=== PATIENT | female | born 1985 | race Caucasian/White ===

== ENCOUNTER 2016-06-07 06:56 | Emergency (ER) | payer OTHER ==
[~2016-06-07] VITALS: Ht 157.5 cm; Wt 88.1 kg
[~2016-06-07 06:56] MED LIST: KLN5 PO; LRS10 PO; NRN600 PO; OMEP40CA PO; PROM25TA9 PO; ZPAK
[2016-06-07 06:58] VITALS: TEMP 36.9; Ht 157.5 cm; Wt 88.1 kg
--- NOTE | 2016-06-07 07:33 | EMERGENCY ROOM VISIT NOTE ---
History First contact with patient: 07:06 Chief Complaint: VOMITING Stated Complaint: VOMITING Nursing Triage Summary: Flu like symptoms that started yesterday. Tired, vomiting, headache, abd cramps. 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 vomiting). No relief with peptobismol. No nausea preceding the vomiting. Didn't eat anything to avoid vomiting. Vomit x 13, large volume, clear, no blood Headache - sharp pain in temples, has photosensitivity. No aura, no rhinorrhea/ watery eyes. Has some nasal congestion Myalgia - all over Had some fevers and chills, temp unmeasured Urinary symptoms - none Diarrhea or constipation - none Has multiple sick contacts at work with similar symptoms Last menses started 12.18, no current vaginal bleeding, lots of thin white vaginal discharge - not burning or pruritic. No history of STDs. No recent change in sexual partners History of kidney stones, previous cholecystectomy and back surgery Review of Systems See HPI for pertinent positives and negatives. A total of ten systems were reviewed and were otherwise negative. Past Medical/Surgical History Medical Problems: (1) Anxiety (2) Bronchitis (3) DDD (degenerative disc disease) (4) Depression (5) Fibromyalgia (6) Gall bladder disease (7) Gestational diabetes (8) H/o C2 vertebral fracture (9) History of - miscarriage (10) Kidney stone (11) Migraine (12) PNA (pneumonia) (13) Polycystic ovaries (14) Post-operative infection (15) Seroma (16) Spinal headache (17) Vaginal delivery Surgical Problems: (1) H/O colonoscopy (2) H/O neck surgery (3) S/P cholecystectomy (4) S/p lumbar decompression/fusion (5) S/P tonsillectomy Family History Diabetes mellitus GRANDMOTHER FH: cancer MOTHER (lung, uterus) AUNT (stomach CA) FH: gallbladder disease FH: heart disease GRANDMOTHER FH: lung disease Hypertension GRANDFATHER GRANDMOTHER Kidney disease Kidney stones Seizures Stroke Thyroid disorder MOTHER Social History Smoking Status: Current Every Day Smoker Alcohol Use: none Drug Use: none Marital Status: in relationship Housing Status: lives with significant other Occupation Status: employed Current/Historical Medications Scheduled Clonazepam (Clonazepam), 0.5 MG PO BID Gabapentin (Gabapentin), 600 MG PO BID Gabapentin (Gabapentin), 800 MG PO DAILY Lubiprostone (Amitiza), 24 MCG PO BID Methylphenidate HCl (Methylphenidate HCl), 30 MG PO BID Omeprazole (Prilosec), 40 MG PO QAM Topiramate (Topamax), 200 MG PO BID Venlafaxine Hcl (Effexor Extended Rel), 150 MG PO QAM Scheduled PRN Acetaminophen (Acetaminophen), 1,000 MG PO Q6H PRN for Pain Caufnbdemt-Vbckucc-Cdumqiym W/ (Butalbital/Aspirn/Caffein), 1 CAP PO UD PRN for Headache Ibuprofen (Advil), 200-600 MG PO Q4H PRN for Pain Promethazine Hcl (Phenergan), 25 MG PO Q6H PRN for Nausea Sumatriptan Succinate (Imitrex), 100 MG PO UD PRN for Migraine Allergies Coded Allergies: Amoxicillin (Verified Allergy, Severe, HIVES AND SOB, 06/07/16) BEE STING (Verified Allergy, Severe, SWELLING, 06/07/16) Adhesives (Verified Allergy, Mild, contact dermatitis, 06/07/16) Propranolol (Verified Allergy, Mild, MOUTH SORE, RASH, 06/07/16) Morphine (Verified Adverse Reaction, Intermediate, pt reports moderate to severe stomach discomfort, 06/07/16) pt states she requires a "GI cocktail" to alleviate the stomach discomfort that occurs after receiving Morphine or dilaudid Physical Exam Vital Signs Date Time Temp Pulse Resp B/P Pulse Ox O2 Delivery O2 Flow Rate FiO2 06/07/16 10:03 74 18 114/68 99 06/07/16 09:00 90 16 124/78 98 Room Air 06/07/16 06:58 36.9 98 17 128/81 99 Room Air Physical Exam GENERAL: alert, well appearing, well nourished, sitting in bed, no acute distress, non-toxic HEAD: Normocephalic, atraumatic. No sinus tenderness. EYES: PERRL, EOMI, normal conjunctiva OROPHARYNX: no exudate, no erythema, lips, buccal mucosa, and tongue normal and mucous membranes are dry NECK: supple, no nuchal rigidity, no adenopathy, non-tender LUNGS: Clear to auscultation. Normal chest wall mechanics, good air entry. No crepitations, crackles, or wheezes HEART: no murmurs, S1 normal and S2 normal CHEST: No reproducible tenderness. ABDOMEN: abdomen soft, non-distended, normo-active bowel sounds, no masses, no rebound or guarding. Tender at epigastric and RLQ on palpation BACK: Back is symmetrical on inspection, no deformities, longstanding midline tenderness, CVA tenderness at right flank SKIN: Warm, pink, dry. No erythema, rashes, or bruising. EXTREMITIES: Grossly normal. No pitting edema. Calves non tender. NEURO: Alert, Ox3. No focal deficits. Normal sensorium, cranial nerves II-XII grossly intact, normal speech. PSYCH: Mood and affect appropriate. Medical Decision & Procedures Laboratory Results 06/07/16 07:15 Red Blood Count 4.90, Mean Corpuscular Volume 88.2, Mean Corpuscular Hemoglobin 31.0, Mean Corpuscular Hemoglobin Concent 35.2, Mean Platelet Volume 11.7, Neutrophils (%) (Auto) 69.0, Lymphocytes (%) (Auto) 22.2, Monocytes (%) (Auto) 5.8, Eosinophils (%) (Auto) 2.6, Basophils (%) (Auto) 0.2, Neutrophils # (Auto) 3.69, Lymphocytes # (Auto) 1.19, Monocytes # (Auto) 0.31, Eosinophils # (Auto) 0.14, Basophils # (Auto) 0.01 06/07/16 07:15 Test 06/07/16 07:15 White Blood Count 5.35 K/uL (4.8-10.8) Red Blood Count 4.90 M/uL (4.2-5.4) Hemoglobin 15.2 g/dL (12.0-16.0) Hematocrit 43.2 % (37-47) Mean Corpuscular Volume 88.2 fL (80-100) Mean Corpuscular Hemoglobin 31.0 pg (25-34) Mean Corpuscular Hemoglobin Concent 35.2 g/dl (32-36) Platelet Count 148 K/uL (130-400) Mean Platelet Volume 11.7 fL (7.4-10.4) Neutrophils (%) (Auto) 69.0 % Lymphocytes (%) (Auto) 22.2 % Monocytes (%) (Auto) 5.8 % Eosinophils (%) (Auto) 2.6 % Basophils (%) (Auto) 0.2 % Neutrophils # (Auto) 3.69 K/uL (1.4-6.5) Lymphocytes # (Auto) 1.19 K/uL (1.2-3.4) Monocytes # (Auto) 0.31 K/uL (0.11-0.59) Eosinophils # (Auto) 0.14 K/uL (0-0.5) Basophils # (Auto) 0.01 K/uL (0-0.2) RDW Standard Deviation 39.2 fL (36.4-46.3) RDW Coefficient of Variation 12.3 % (11.5-14.5) Immature Granulocyte % (Auto) 0.2 % Immature Granulocyte # (Auto) 0.01 K/uL (0.00-0.02) Urine Color DK YELLOW Urine Appearance TURBID (CLEAR) Urine pH 5.0 (4.5-7.5) Urine Specific [place] 1.038 (1.000-1.030) Urine Protein NEG (NEG) Urine Glucose (UA) NEG (NEG) Urine Ketones NEG (NEG) Urine Occult Blood 1+ (NEG) Urine Nitrite NEG (NEG) Urine Bilirubin NEG (NEG) Urine Urobilinogen NEG (NEG) Urine Leukocyte Esterase NEG (NEG) Urine WBC (Auto) /hpf (0-5) Urine RBC (Auto) /hpf (0-4) Urine Hyaline Casts (Auto) /lpf (0-5) Urine Epithelial Cells (Auto) /lpf (0-5) Urine Bacteria (Auto) (NEG) Urine RBC 0-4 /hpf (0-4) Urine WBC 1-5 /hpf (0-5) Urine Epithelial Cells >30 /lpf (0-5) Urine Amorphous Sediment PRESENT (NONE PRSENT) Urine Bacteria 1+ (NEG) Urine Pathogenic Casts /lpf (0) Urine Test NEG (NEG) Anion Gap 6.0 mmol/L (3-11) Est Creatinine Clear Calc Drug Dose 100.7 ml/min Estimated GFR () 107.3 Estimated GFR (Non- 92.6 BUN/Creatinine Ratio 19.2 (10-20) Calcium Level 8.6 mg/dl (8.5-10.1) Total Bilirubin 0.8 mg/dl (0.2-1) Direct Bilirubin 0.2 mg/dl (0-0.2) Aspartate Amino Transf (AST/SGOT) 10 U/L (15-37) Alanine Aminotransferase (ALT/SGPT) 24 U/L (12-78) Alkaline Phosphatase 62 U/L (45-117) Total Protein 7.9 gm/dl (6.4-8.2) Albumin 4.1 gm/dl (3.4-5.0) Lipase 143 U/L (73-393) Medications Administered Medications (Trade) Dose Ordered Sig/Saundra Route Start Time Stop Time Status Last Admin Dose Admin Ketorolac Tromethamine 30 mg 30 mg NOW STAT IV 06/07/16 07:35 06/07/16 07:41 DC 06/07/16 07:53 30 MG Sodium Chloride 1,000 ml @ 500 mls/hr Q2H IV 06/07/16 07:45 07/07/16 07:44 06/07/16 07:52 500 MLS/HR Promethazine HCl/ Sodium Chloride (Phenergan Inj/ Nss 50ml) 51 ml @ 204 mls/hr NOW STAT IV 06/07/16 07:58 06/07/16 08:28 DC 06/07/16 07:58 204 MLS/HR Medical Decision 30 year old female presents to ED with multiple episodes vomiting associated with abdominal pain Etiologies such as gastroenteritis, food borne illness, infections, obstruction , pancreatitis, appendicitis, diverticulitis, inflammatory bowel disease, GI bleed, biliary pathology, toxicologic as well as others were entertained. Patient was given 25 mg IV of phenergen and 30mg IV of Toradol for symptom relief. Additionally, 1L of IV normal saline was given to improve hydration status. Lab work was performed. CBC, BMP, LFT, and lipase were all within normal limits. Upon returning to room to update patient while awaiting urine results, saw patient was sleeping comfortably. Updated her guest visitor in the interim. Urine screen was negative for , and besides some hematuria, urinalysis showed contamination without evidence of urinary infection. Likely acute gastroenteritis. As such, patient advised for conservative management with Tylenol or Motrin for pain relief and increased oral intake to improve hydration status Patient discharged home well Impression Primary Impression: Gastroenteritis Additional Impression: Vomiting Departure Information Dispostion Home / Self-Care Condition GOOD Referrals Kieran Hemphill M.D. (PCP) Patient Instructions A Signature Page, My [facility] Work Instructions Return To Work: 2 days Lifting Limitations: none
[2016-06-07] MEDS ORDERED: PROMETHAZINE HCL INJ 25 MG/ML 1 ML VIAL IM STA (07:35)
[2016-06-07] MEDS ORDERED: KETOROLAC TROMETHAMINE 30 MG/ML VIAL IV STA (07:35)
[2016-06-07] MEDS: SODIUM CHLORIDE 0.9% 1000ML 1,000 ML IV SCH ×2 (07:52→09:45)
[2016-06-07 07:53] LABS: BASO % 0.2 %; BASO ABS # 0.01 K/uL (0-0.2); COMPLETE YES; EOS % 2.6 %; HEMATOCRIT 43.2 % (37-47); IG% 0.2 %; LYMPH % 22.2 %; LYMPH ABS # 1.19 K/uL (1.2-3.4); MEAN CELL VOLUME 88.2 fL (80-100); MEAN CORPUSCULAR HGB CONC 35.2 g/dl (32-36); MEAN PLATELET VOLUME 11.7 fL (7.4-10.4); MONO % 5.8 %; PLATELET COUNT 148 K/uL (130-400); WHITE BLOOD COUNT 5.35 K/uL (4.8-10.8)
[2016-06-07] MEDS ORDERED: PROMETHAZINE HCL INJ 25 MG in SODIUM CHLORIDE 0.9% 50ML 50 ML IV STA (07:58)
[2016-06-07 08:01] LABS: BUN/CREATININE RATIO 19.2 (10-20); CALCIUM 8.6 mg/dl (8.5-10.1); CREATININE 0.85 mg/dl (0.60-1.20); POTASSIUM 3.7 mmol/L (3.5-5.1)
[2016-06-07 08:53] LABS: MANUAL MICROSCOPIC REQUIRED? YES; REVIEW REQ? NO; URINE APPEARANCE TURBID (CLEAR); URINE BILIRUBIN NEG (NEG); URINE COLOR DK YELLOW; URINE NITRITE NEG (NEG); URINE SPECIFIC GRAVITY 1.038 (1.000-1.030); UROBILINOGEN NEG (NEG)
[2016-06-07 09:03] LABS: URINE AMORPHOUS SEDIMENT PRESENT (NONE PRSENT); URINE BACTERIA 1+ (NEG)
[2016-06-07 09:04] LABS: URINE RBC 0-4 /hpf (0-4)
--- NOTE | 2016-06-07 09:18 | EMERGENCY ROOM VISIT NOTE ---
History Report prepared by Vaughn: Siomara Hook Under the Supervision of: Dr. Carlos Alberto Hay D.O. First contact with patient: 07:06 Chief Complaint: VOMITING Stated Complaint: VOMITING Nursing Triage Summary: Flu like symptoms that started yesterday. Tired, vomiting, headache, abd cramps. History of Present Illness The patient is a 30 year old female who presents to the Emergency Room with complaints of persistent vomiting that started two days ago. She has experienced 13 episodes of vomiting. The patient is also experiencing a headache , fever, chills, and myalgias, but denies hematemesis, diarrhea, and urinary symptoms. Additionally, she is experiencing abdominal pain in her epigastric region and right lower quadrant. She describes the pain as cramping. The patient states that she is not currently menstruating but she is experiencing a white vaginal discharge. She denies any vaginal bleeding along with any chance of STDs. She denies any recent changes in partners. The patient states that the white vaginal discharge is normal whenever she is sick or has kidney stones. She states that she has some right flank pain but she has back issues that she needs to get surgery for. Source of History: patient Onset: two days ago Quality: other (vomiting) Timing: other (persistent) Associated Symptoms: + abdominal pain (epigastric, RLQ, described as cramping), + chills, + fevers, + headache, No diarrhea, No urinary symptoms Note: myalgias, no hematemesis Review of Systems See HPI for pertinent positives & negatives. A total of 10 systems reviewed and were otherwise negative. Past Medical & Surgical Medical Problems: (1) Anxiety (2) Bronchitis (3) DDD (degenerative disc disease) (4) Depression (5) Fibromyalgia (6) Gall bladder disease (7) Gestational diabetes (8) H/o C2 vertebral fracture (9) History of - miscarriage (10) Kidney stone (11) Migraine (12) PNA (pneumonia) (13) Polycystic ovaries (14) Post-operative infection (15) Seroma (16) Spinal headache (17) Vaginal delivery Surgical Problems: (1) H/O colonoscopy (2) H/O neck surgery (3) S/P cholecystectomy (4) S/p lumbar decompression/fusion (5) S/P tonsillectomy Family History Diabetes mellitus GRANDMOTHER FH: cancer MOTHER (lung, uterus) AUNT (stomach CA) FH: gallbladder disease FH: heart disease GRANDMOTHER FH: lung disease Hypertension GRANDFATHER GRANDMOTHER Kidney disease Kidney stones Seizures Stroke Thyroid disorder MOTHER Social History Smoking Status: Current Every Day Smoker Alcohol Use: none Drug Use: none Marital Status: in relationship Housing Status: lives with significant other Occupation Status: employed Current/Historical Medications Scheduled Clonazepam (Clonazepam), 0.5 MG PO BID Gabapentin (Gabapentin), 600 MG PO BID Gabapentin (Gabapentin), 800 MG PO DAILY Lubiprostone (Amitiza), 24 MCG PO BID Methylphenidate HCl (Methylphenidate HCl), 30 MG PO BID Omeprazole (Prilosec), 40 MG PO QAM Topiramate (Topamax), 200 MG PO BID Venlafaxine Hcl (Effexor Extended Rel), 150 MG PO QAM Scheduled PRN Acetaminophen (Acetaminophen), 1,000 MG PO Q6H PRN for Pain Ygyrwvhhlh-Gcaocyn-Ekinqxqm W/ (Butalbital/Aspirn/Caffein), 1 CAP PO UD PRN for Headache Ibuprofen (Advil), 200-600 MG PO Q4H PRN for Pain Promethazine Hcl (Phenergan), 25 MG PO Q6H PRN for Nausea Sumatriptan Succinate (Imitrex), 100 MG PO UD PRN for Migraine Allergies Coded Allergies: Amoxicillin (Verified Allergy, Severe, HIVES AND SOB, 06/07/16) BEE STING (Verified Allergy, Severe, SWELLING, 06/07/16) Adhesives (Verified Allergy, Mild, contact dermatitis, 06/07/16) Propranolol (Verified Allergy, Mild, MOUTH SORE, RASH, 06/07/16) Morphine (Verified Adverse Reaction, Intermediate, pt reports moderate to severe stomach discomfort, 06/07/16) pt states she requires a "GI cocktail" to alleviate the stomach discomfort that occurs after receiving Morphine or dilaudid Physical Exam Vital Signs Date Time Temp Pulse Resp B/P Pulse Ox O2 Delivery O2 Flow Rate FiO2 06/07/16 10:03 74 18 114/68 99 06/07/16 09:00 90 16 124/78 98 Room Air 06/07/16 06:58 36.9 98 17 128/81 99 Room Air Physical Exam CONSTITUTIONAL/VITAL SIGNS: Reviewed / noted above. GENERAL: Non-toxic 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 INTEGUMENTARY: Warm, dry, and [place]. HEAD: Normocephalic. EYES: without scleral icterus or trauma. ENT/OROPHARYNX: clear and moist. LYMPHADENOPATHY/NECK: Is supple without lymphadenopathy or meningismus. RESPIRATORY: Lungs clear and equal. CARDIOVASCULAR: Regular rate and rhythm. GI/ABDOMEN: Soft and mild diffuse tenderness. No organomegaly or pulsatile mass. No rebound or guarding. Normal bowel sounds. EXTREMITIES: Warm and well perfused. BACK: No CVA tenderness. NEUROLOGICAL: Intact without focal deficits. PSYCHIATRIC: normal affect. MUSCULOSKELETAL: Normally developed with good muscle tone. Medical Decision & Procedures Laboratory Results 06/07/16 07:15 Red Blood Count 4.90, Mean Corpuscular Volume 88.2, Mean Corpuscular Hemoglobin 31.0, Mean Corpuscular Hemoglobin Concent 35.2, Mean Platelet Volume 11.7, Neutrophils (%) (Auto) 69.0, Lymphocytes (%) (Auto) 22.2, Monocytes (%) (Auto) 5.8, Eosinophils (%) (Auto) 2.6, Basophils (%) (Auto) 0.2, Neutrophils # (Auto) 3.69, Lymphocytes # (Auto) 1.19, Monocytes # (Auto) 0.31, Eosinophils # (Auto) 0.14, Basophils # (Auto) 0.01 06/07/16 07:15 Test 06/07/16 07:15 White Blood Count 5.35 K/uL (4.8-10.8) Red Blood Count 4.90 M/uL (4.2-5.4) Hemoglobin 15.2 g/dL (12.0-16.0) Hematocrit 43.2 % (37-47) Mean Corpuscular Volume 88.2 fL (80-100) Mean Corpuscular Hemoglobin 31.0 pg (25-34) Mean Corpuscular Hemoglobin Concent 35.2 g/dl (32-36) Platelet Count 148 K/uL (130-400) Mean Platelet Volume 11.7 fL (7.4-10.4) Neutrophils (%) (Auto) 69.0 % Lymphocytes (%) (Auto) 22.2 % Monocytes (%) (Auto) 5.8 % Eosinophils (%) (Auto) 2.6 % Basophils (%) (Auto) 0.2 % Neutrophils # (Auto) 3.69 K/uL (1.4-6.5) Lymphocytes # (Auto) 1.19 K/uL (1.2-3.4) Monocytes # (Auto) 0.31 K/uL (0.11-0.59) Eosinophils # (Auto) 0.14 K/uL (0-0.5) Basophils # (Auto) 0.01 K/uL (0-0.2) RDW Standard Deviation 39.2 fL (36.4-46.3) RDW Coefficient of Variation 12.3 % (11.5-14.5) Immature Granulocyte % (Auto) 0.2 % Immature Granulocyte # (Auto) 0.01 K/uL (0.00-0.02) Urine Color DK YELLOW Urine Appearance TURBID (CLEAR) Urine pH 5.0 (4.5-7.5) Urine Specific [place] 1.038 (1.000-1.030) Urine Protein NEG (NEG) Urine Glucose (UA) NEG (NEG) Urine Ketones NEG (NEG) Urine Occult Blood 1+ (NEG) Urine Nitrite NEG (NEG) Urine Bilirubin NEG (NEG) Urine Urobilinogen NEG (NEG) Urine Leukocyte Esterase NEG (NEG) Urine WBC (Auto) /hpf (0-5) Urine RBC (Auto) /hpf (0-4) Urine Hyaline Casts (Auto) /lpf (0-5) Urine Epithelial Cells (Auto) /lpf (0-5) Urine Bacteria (Auto) (NEG) Urine RBC 0-4 /hpf (0-4) Urine WBC 1-5 /hpf (0-5) Urine Epithelial Cells >30 /lpf (0-5) Urine Amorphous Sediment PRESENT (NONE PRSENT) Urine Bacteria 1+ (NEG) Urine Pathogenic Casts /lpf (0) Urine Test NEG (NEG) Anion Gap 6.0 mmol/L (3-11) Est Creatinine Clear Calc Drug Dose 100.7 ml/min Estimated GFR () 107.3 Estimated GFR (Non- 92.6 BUN/Creatinine Ratio 19.2 (10-20) Calcium Level 8.6 mg/dl (8.5-10.1) Total Bilirubin 0.8 mg/dl (0.2-1) Direct Bilirubin 0.2 mg/dl (0-0.2) Aspartate Amino Transf (AST/SGOT) 10 U/L (15-37) Alanine Aminotransferase (ALT/SGPT) 24 U/L (12-78) Alkaline Phosphatase 62 U/L (45-117) Total Protein 7.9 gm/dl (6.4-8.2) Albumin 4.1 gm/dl (3.4-5.0) Lipase 143 U/L (73-393) Laboratory results as stated above per my review. Medications Administered Medications (Trade) Dose Ordered Sig/Saundra Route Start Time Stop Time Status Last Admin Dose Admin Ketorolac Tromethamine 30 mg 30 mg NOW STAT IV 06/07/16 07:35 06/07/16 07:41 DC 06/07/16 07:53 30 MG Sodium Chloride 1,000 ml @ 500 mls/hr Q2H IV 06/07/16 07:45 06/07/16 10:57 DC 06/07/16 09:45 500 MLS/HR Promethazine HCl/ Sodium Chloride (Phenergan Inj/ Nss 50ml) 51 ml @ 204 mls/hr NOW STAT IV 06/07/16 07:58 06/07/16 08:28 DC 06/07/16 07:58 204 MLS/HR ED Course 0715: The medical science liaison evaluated the patient at this time. We discussed her findings and potential treatment plans. 0735: Ordered Toradol 30 mg IV, Phenergan 25 mg IM 0745: Ordered Sodium Chloride 1000 ml @ 500 mls/hr IV 0758: Ordered Promethazine HCl 25 mg/Sodium Chloride 51 ml @ 204 mls/hr IV 0915: Previous medical records were reviewed. The patient was evaluated in room B2. A complete history and physical examination was performed. 0922: On reevaluation, the patient is doing well. I discussed the results and findings with the patient. She verbalized agreement of the treatment plan. She was discharged home. Medical Decision Differential includes gastroenteritis, food borne illness, infections, appendicitis, diverticulitis, inflammatory bowel disease, obstruction, GI bleed , biliary pathology. This is a 30-year-old female who presents to the ED with a chief complaint of nausea, vomiting and abdominal pain for the past couple of days. She also complains of myalgias as well as subjective fevers and chills and crampy abdominal pain. She states that she has vomited about 13 times. The patient on exam has mild tenderness diffusely in the abdomen. Her exam is otherwise unremarkable. Her vital signs are stable. She is afebrile. CBC is normal. Complete metabolic panel is normal. Lipase was negative. Urine did not show obvious infection. It was contaminated. She is not . The patient was treated as above with IV Toradol as well as IV nausea medication and fluids. She was felt stable for discharge. She was seen in conjunction with the resident. Impression Primary Impression: Vomiting Additional Impression: Abdominal cramps Scribe Attestation The scribe's documentation has been prepared under my direction and personally reviewed by me in its entirety. I confirm that the note above accurately reflects all work, treatment, procedures, and medical decision making performed by me. Departure Information Dispostion Home / Self-Care Referrals Kieran Hemphill M.D. (PCP) Forms HOME CARE DOCUMENTATION FORM, IMPORTANT VISIT INFORMATION Patient Instructions A Signature Page, My [facility]
[2016-06-07 10:03] VITALS: BP 114/68; PULSE 74; O2SAT 99
[2016-10-25] MEDS ORDERED: LINA1CAP PO (09:48)
[2016-10-25] MEDS ORDERED: EPP3/2 IM ×2 (09:48→22:05)
[2016-10-25] MEDS ORDERED: CYCL10TA6 PO (09:48)
[2016-10-25] MEDS ORDERED: TRMCR130WC TOP (09:48)
[2016-10-25] MEDS ORDERED: CETI10TA84 PO (09:48)
[2016-10-25] MEDS ORDERED: LACT10SO17 PO (09:48)
[2016-10-25] MEDS ORDERED: ONDA8TAB6 PO (09:48)
[2016-10-25] MEDS ORDERED: DIPH1TAB PO (09:48)
[2016-10-25] MEDS ORDERED: TRAM-10 PO (10:41)
[2016-10-25] MEDS ORDERED: VENL150C56 PO (14:06)
[2016-10-25] MEDS ORDERED: RTL20 PO (14:06)
[2016-10-25] MEDS ORDERED: ZNTT/150 PO (15:50)
[2016-10-25] MEDS ORDERED: PROM25TA9 PO (16:34)
[2016-10-25] MEDS ORDERED: CLON1TAB3 PO (16:34)
[2016-10-25] MEDS ORDERED: OMEP20CA9 PO (16:34)
== END 2016-06-07 10:15 | disposition home or self-care (01) ==
LOC: C.EDB 06:57
DX: R11.10 Vomiting, unspecified (principal); R10.9 Unspecified abdominal pain; F41.9 Anxiety disorder, unspecified; F32.9 Major depressive disorder, single episode, unspecified; Z87.442 Personal history of urinary calculi; Z87.01 Personal history of pneumonia (recurrent); Z90.49 Acquired absence of other specified parts of digestive tract; Z90.89 Acquired absence of other organs; Z98.890 Other specified postprocedural states; F17.200 Nicotine dependence, unspecified, uncomplicated; Z83.3 Family history of diabetes mellitus; Z80.1 Family history of malignant neoplasm of trachea, bronchus and lung; Z80.0 Family history of malignant neoplasm of digestive organs; Z82.49 Family history of ischemic heart disease and other diseases of the circulatory system; Z83.6 Family history of other diseases of the respiratory system; Z84.1 Family history of disorders of kidney and ureter; Z82.0 Family history of epilepsy and other diseases of the nervous system; Z82.3 Family history of stroke; Z88.1 Allergy status to other antibiotic agents; Z88.5 Allergy status to narcotic agent

== ENCOUNTER 2016-06-22 14:09 | Emergency (ER) | payer OTHER ==
[~2016-06-22] VITALS: Ht 157.5 cm; Wt 87.5 kg
[~2016-06-22 14:09] MED LIST changes: -LRS10 PO; -ZPAK
[2016-06-22 14:23] VITALS: TEMP 36.8; Ht 157.5 cm; Wt 87.5 kg
--- NOTE | 2016-06-22 15:18 | EMERGENCY ROOM VISIT NOTE ---
History First contact with patient: 15:12 Chief Complaint: OVERDOSE (ACCIDENTAL) Stated Complaint: OVERDOSE ACCIDENTAL Nursing Triage Summary: Pt states, "I had to switch shifts and had to open up at 0400 and I accidently took two doses of my Gabapentin 1600mg, Topmax 400mg, Neurotin 300mg, Ritalin 40mg. I took them an hour apart. My veins feel like they are on fire. My ears are ringing. I feel dizzy and lightheaded. My legs are really wobbly. I took the medicine at 2am and 4am." History of Present Illness The patient is a 30 year old female who presents to the Emergency Room via private vehicle with complaints of "overdose, accidental". The patient states that she works at [employer] and worked an overnight shift and when she came home she took 800 mg of gabapentin, 200 mg of Topamax, 150 mg of Effexor and 20 mg of Reglan. She then fell asleep and woke up for the next shift thinking that it was the next day and accidentally took her medication again. She is taking a total of 600 mg of gabapentin, 4 mg of Topamax, 300 mg of Effexor and 40 mg of Ritalin. She is here complaining of worsening symptoms. She states that she initially took the medication dose at 2 AM today and 4 AM. 45 minutes after this she began with stomach cramping, a pressure in her chest and blurred vision/spots within her vision. 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 She also feels lightheaded/"woozy and has associated nausea but no vomiting. Regarding the chest pain she feels like her something sitting on her chest and there is associated difficulty swallowing and talking. At home she tried lying down. The symptoms would subside however they did not therefore she called her primary care doctor who asked her to come in to be seen by the emergency department. She denies any history of seizures, bleeding disorders or clotting disorders. Review of Systems A complete 10-point Review of Systems was discussed with the patient, with pertinent positives and negatives listed in the History of Present Illness. All remaining Review of Systems questions can be considered negative unless otherwise specified. Past Medical/Surgical History Medical Problems: (1) Anxiety (2) Bronchitis (3) DDD (degenerative disc disease) (4) Depression (5) Fibromyalgia (6) Gall bladder disease (7) Gestational diabetes (8) H/o C2 vertebral fracture (9) History of - miscarriage (10) Kidney stone (11) Migraine (12) PNA (pneumonia) (13) Polycystic ovaries (14) Post-operative infection (15) Seroma (16) Spinal headache (17) Vaginal delivery Surgical Problems: (1) H/O colonoscopy (2) H/O neck surgery (3) S/P cholecystectomy (4) S/p lumbar decompression/fusion (5) S/P tonsillectomy Family History Diabetes mellitus GRANDMOTHER FH: cancer MOTHER (lung, uterus) AUNT (stomach CA) FH: gallbladder disease FH: heart disease GRANDMOTHER FH: lung disease Hypertension GRANDFATHER GRANDMOTHER Kidney disease Kidney stones Seizures Stroke Thyroid disorder MOTHER Social History Smoking Status: Current Every Day Smoker Alcohol Use: none Drug Use: none Marital Status: in relationship Housing Status: lives with significant other Occupation Status: employed Current/Historical Medications Scheduled Gabapentin (Gabapentin), 800 MG PO TID Lubiprostone (Amitiza), 24 MCG PO BID Methylphenidate HCl (Methylphenidate HCl), 20 MG PO BID Omeprazole (Prilosec), 20 MG PO DAILY Topiramate (Topamax), 200 MG PO BID Venlafaxine Hcl (Effexor Extended Rel), 150 MG PO QAM Scheduled PRN Acetaminophen (Acetaminophen), 1,000 MG PO Q6H PRN for Pain Psldtibsmf-Owpyaav-Pqotfmko W/ (Butalbital/Aspirn/Caffein), 1 CAP PO Q4H PRN for Headache Clonazepam (Klonopin), 0.5 MG PO BID PRN for Anxiety Ibuprofen (Advil), 200-600 MG PO Q4H PRN for Pain Promethazine Hcl (Phenergan), 25 MG PO Q6H PRN for Nausea Sumatriptan Succinate (Imitrex), 100 MG PO UD PRN for Migraine Allergies Coded Allergies: Amoxicillin (Verified Allergy, Severe, HIVES AND SOB, 06/07/16) BEE STING (Verified Allergy, Severe, SWELLING, 06/07/16) Adhesives (Verified Allergy, Mild, contact dermatitis, 06/07/16) Propranolol (Verified Allergy, Mild, MOUTH SORE, RASH, 06/07/16) Hydromorphone (Verified Allergy, Unknown, Abdominal Pain, 06/22/16) Morphine (Verified Adverse Reaction, Intermediate, pt reports moderate to severe stomach discomfort, 06/07/16) pt states she requires a "GI cocktail" to alleviate the stomach discomfort that occurs after receiving Morphine or dilaudid Physical Exam Vital Signs Date Time Temp Pulse Resp B/P Pulse Ox O2 Delivery O2 Flow Rate FiO2 06/22/16 20:39 78 20 104/63 98 06/22/16 20:09 67 06/22/16 19:15 70 18 101/66 99 Room Air 06/22/16 18:38 77 16 123/65 98 Room Air 06/22/16 16:15 74 16 123/77 96 Room Air 06/22/16 15:37 76 06/22/16 14:23 36.8 94 16 138/87 94 Room Air Physical Exam VITAL SIGNS - Vital signs and nursing notes were reviewed. Patient is afebrile , with a blood pressure 138/87, she is not tachycardic and is saturating well on room air 94%. GENERAL -30-year-old female appearing her stated age who is in no acute distress. Communicates well with provider and answers questions appropriately. SKIN - Without rashes. There are no abrasions or lacerations noted. HEAD - NC/AT. No evidence of trauma. EYES - PERRL with EOMI bilaterally. Patient does have horizontal nystagmus slightly with bilateral dilated pupils are reactive. Sclera anicteric. Palpebral conjunctiva pink and moist with no injection noted. EARS - No deformities of external structures noted on gross examination bilaterally. NOSE - Midline and without cyanosis. No epistaxis or purulent drainage noted. MOUTH/OROPHARYNX - Without perioral cyanosis. Buccal mucosa pink and moist and without leukoplakia. Tongue midline with equal elevation of palate bilaterally. No tonsillar hypertrophy, erythema, or exudates noted. Fair dentition noted. NECK - Neck with FROM. LUNGS - Chest wall symmetric without accessory muscle use, intercostals retractions, or central cyanosis. Normal vesicular breath sounds CTA B/L. No wheezes, rales, or rhonchi appreciated. CARDIAC - RRR with S1/S2. No murmur, rubs, or gallops appreciated. ABDOMEN - Abdominal contour without pulsations or visible masses. BS normoactive all four quadrants. No palpable masses, hepatosplenomegaly, or ascites noted. Minimal tenderness in right upper quadrant. EXTREMITIES - No clubbing or peripheral cyanosis. No pretibial edema present. + 5/5 strength noted in UE/LE bilaterally. NEUROLOGIC - Cranial nerves II through XII grossly intact. Sensory intact to light touch throughout. Slightly diminished sensation to light touch throughout the extremities intermittently. Patient does have supposedly chronic nerve damage. PSYCH - A&Ox3 and cooperates fully with examiner. There is slurred speech noted. Pt is very pleasant and interacts well with examiner. Medical Decision & Procedures ER Provider Diagnostic Interpretation: SINGLE VIEW CHEST CLINICAL HISTORY: Chest pressure. FINDINGS: An AP, portable, upright chest radiograph is compared to study dated 08/20/2015. The cardiomediastinal silhouette is unremarkable. The lungs and pleural spaces are clear. No pneumothorax is seen. The bony thorax is grossly intact. Cholecystectomy clips are identified in the right upper quadrant. IMPRESSION: No active disease in the chest. Electronically signed by: Moi George M.D. 06/22/2016 4:10 PM Dictated Date/Time: 06/22/2016 4:[address] CT DOSE: 679.75 mGycm HISTORY: Accidental overdose, neurologic symptoms TECHNIQUE: Multiaxial CT images of the head were performed without the use of intravenous contrast. Automated exposure control was utilized for this study. Comparison: Head CT 06/19/2015. Findings: The paranasal sinuses and mastoid air cells are clear. The calvarium and skull base are intact. The ventricles and sulci are within normal limits. There is no mass, hematoma, midline shift, or acute infarct. Stable screw through the odontoid. Impression: No acute intracranial abnormality. Electronically signed by: Phillip Padilla M.D. 06/22/2016 6:47 PM Dictated Date/Time: 06/22/2016 6:45 PM Laboratory Results 06/22/16 16:10 Red Blood Count 4.80, Mean Corpuscular Volume 87.3, Mean Corpuscular Hemoglobin 30.8, Mean Corpuscular Hemoglobin Concent 35.3, Mean Platelet Volume 10.8, Neutrophils (%) (Auto) 60.8, Lymphocytes (%) (Auto) 29.3, Monocytes (%) (Auto) 6.9, Eosinophils (%) (Auto) 2.4, Basophils (%) (Auto) 0.4, Neutrophils # (Auto) 3.37, Lymphocytes # (Auto) 1.62, Monocytes # (Auto) 0.38, Eosinophils # (Auto) 0.13, Basophils # (Auto) 0.02 06/22/16 16:10 Test 06/22/16 16:10 06/22/16 17:10 White Blood Count 5.53 K/uL (4.8-10.8) Red Blood Count 4.80 M/uL (4.2-5.4) Hemoglobin 14.8 g/dL (12.0-16.0) Hematocrit 41.9 % (37-47) Mean Corpuscular Volume 87.3 fL (80-100) Mean Corpuscular Hemoglobin 30.8 pg (25-34) Mean Corpuscular Hemoglobin Concent 35.3 g/dl (32-36) Platelet Count 188 K/uL (130-400) Mean Platelet Volume 10.8 fL (7.4-10.4) Neutrophils (%) (Auto) 60.8 % Lymphocytes (%) (Auto) 29.3 % Monocytes (%) (Auto) 6.9 % Eosinophils (%) (Auto) 2.4 % Basophils (%) (Auto) 0.4 % Neutrophils # (Auto) 3.37 K/uL (1.4-6.5) Lymphocytes # (Auto) 1.62 K/uL (1.2-3.4) Monocytes # (Auto) 0.38 K/uL (0.11-0.59) Eosinophils # (Auto) 0.13 K/uL (0-0.5) Basophils # (Auto) 0.02 K/uL (0-0.2) RDW Standard Deviation 39.4 fL (36.4-46.3) RDW Coefficient of Variation 12.2 % (11.5-14.5) Immature Granulocyte % (Auto) 0.2 % Immature Granulocyte # (Auto) 0.01 K/uL (0.00-0.02) Anion Gap 10.0 mmol/L (3-11) Est Creatinine Clear Calc Drug Dose 96.9 ml/min Estimated GFR () 102.9 Estimated GFR (Non- 88.8 BUN/Creatinine Ratio 13.1 (10-20) Calcium Level 9.1 mg/dl (8.5-10.1) Total Bilirubin 0.6 mg/dl (0.2-1) Aspartate Amino Transf (AST/SGOT) 79 U/L (15-37) Alanine Aminotransferase (ALT/SGPT) 94 U/L (12-78) Alkaline Phosphatase 76 U/L (45-117) Troponin I < 0.015 ng/ml (0-0.045) Total Protein 7.7 gm/dl (6.4-8.2) Albumin 4.0 gm/dl (3.4-5.0) Globulin 3.7 gm/dl (2.5-4.0) Albumin/Globulin Ratio 1.1 (0.9-2) Urine Color YELLOW Urine Appearance CLOUDY (CLEAR) Urine pH >= 9.0 (4.5-7.5) Urine Specific [place] 1.015 (1.000-1.030) Urine Protein NEG (NEG) Urine Glucose (UA) NEG (NEG) Urine Ketones NEG (NEG) Urine Occult Blood NEG (NEG) Urine Nitrite NEG (NEG) Urine Bilirubin NEG (NEG) Urine Urobilinogen NEG (NEG) Urine Leukocyte Esterase NEG (NEG) Urine WBC (Auto) 0 /hpf (0-5) Urine RBC (Auto) 0-4 /hpf (0-4) Urine Hyaline Casts (Auto) 1-5 /lpf (0-5) Urine Epithelial Cells (Auto) >30 /lpf (0-5) Urine Bacteria (Auto) NEG (NEG) Urine Test NEG (NEG) Urine Opiates Screen NEG (NEG) Urine Methadone, Qualitative NEG (NEG) Urine Barbiturates POS (NEG) Urine Phencyclidine (PCP) Level NEG (NEG) Ur Amphetamine/Methamphetamine NEG (NEG) MDMA (Ecstasy) Screen NEG (NEG) Urine Benzodiazepines Screen NEG (NEG) Urine Cocaine Metabolite NEG (NEG) Urine Marijuana (THC) NEG (NEG) Medications Administered Medications (Trade) Dose Ordered Sig/Saundra Route Start Time Stop Time Status Last Admin Dose Admin Sodium Chloride (Nss 500ml) 500 ml @ 500 mls/hr Q1H STAT IV 06/22/16 15:37 06/22/16 16:36 DC 06/22/16 15:37 500 MLS/HR Medical Decision Patient was seen and evaluated as above. After obtaining a thorough history and physical examination immediate consultation was obtained through the [facility] at 3:50 PM. They did not feel that the medication was a toxic amount but did recommend that we monitor the QTC secondary to the Effexor. They believe her symptoms are likely secondary to a combination of all these medications but because of the persistence and length of time since she ingested these with prolonged symptoms it was recommended a further workup be pursued as it may be something else. A stat EKG was obtained and revealed sinus rhythm rate of 65 bpm with a second-degree AV block Mobitz type I with T-wave inversion in the anterior leads. This was compared to EKG of 08/20/2015. I then elected to repeat an EKG roughly 3-1/2 hours after the patient's stay which revealed sinus rhythm without the second-degree AV block. The QTC on both EKGs were within normal limits. Patient was hydrated with 500 mL's of normal saline and the above workup was obtained. CBC reveals no leukocytosis or anemia. CMP reveals no slight abnormality or evidence of kidney failure. AST and ALTs were both elevated but were not nearly as elevated as they have been in the past. These were discussed with the patient. Urine reveals a high pH with epithelial cells otherwise negative. Urine is negative. Toxicology reveals positive for barbiturates of which she is prescribed. Otherwise negative. Patient was monitored for a long period of time and was reassessed multiple times. She did not appear to have any decline or incline in her condition throughout her stay through multiple reassessments. At one point a male woodworking shop laborer did accompany her and then shortly after she was reassessed and noted that she wanted to go home. She stated that she was fine and her symptoms were gone and she wanted to go home. She wanted her IV out. I asked her if I could've a more personal doctor and she agreed. I then spoke with Elena from mental health who came to evaluate the patient as I was concerned that although I believe this was an accidental overdose that these quick change of symptoms warrants this. This did not reveal any concern beyond what was already present. The patient stated a 7:15 that she would like to go home. I stated that this was okay however it was recommended that she actually stay in the hospital for continued observation and further evaluation and management. She stated that she was expecting abdominal pain that nobody can tell her what is going on and has had CT scans of the abdomen with contrast, colonoscopies as well as vaginal ultrasounds without answers. I explained her that I can certainly will release today but are not able to guarantee that we find the exact cause is this is chronic in nature. She does follow with a GI specialist. She asked that if I was going to admit her she at least lost about smoke a cigarette first. I explained her that this would not be appropriate. She then stated that she would like to go home at 8:31 PM. She was educated upon worrisome symptoms which to return, had questions answered prior to discharge and I then prepared her for discharge she was discharged. I do that this time that she is able to follow-up in the outpatient setting however she did make the ultimate decision to go home. In evaluation treatment this patient the following differential diagnoses were entertained: Accidental overdose, intentional overdose, suicidal ideations, homicidal ideations, among others. I was unable to appreciate any suicidal ideation to today's events. Impression Primary Impression: Accidental overdose Departure Information Dispostion Home / Self-Care Condition GOOD Referrals No Doctor, Assigned (PCP) Patient Instructions [facility] Additional Instructions You were seen in the emergency department for an accidental overdose of your medications. You liver function enzymes were elevated please have these repeated with her family doctor. Please have an EKG repeated with her family doctor. Please follow-up with your family doctor and GI specialist following today's visit as soon as possible by calling them tomorrow morning. Please return to the emergency department with any new/concerning symptoms.
[2016-06-22] MEDS ORDERED: SODIUM CHLORIDE 0.9% 500ML 500 ML IV STA (15:37)
--- NOTE | 2016-06-22 16:12 | DIAGNOSTIC IMAGING REPORT ---
SINGLE VIEW CHEST CLINICAL HISTORY: Chest pressure. FINDINGS: An AP, portable, upright chest radiograph is compared to study dated 08/20/2015. The cardiomediastinal silhouette is unremarkable. The lungs and pleural spaces are clear. No pneumothorax is seen. The bony thorax is grossly intact. Cholecystectomy clips are identified in the right upper quadrant. IMPRESSION: No active disease in the chest. Electronically signed by: Moi George M.D. 06/22/2016 4:10 PM Dictated Date/Time: 06/22/2016 4:09 PM
[2016-06-22 16:24] LABS: BASO % 0.4 %; BASO ABS # 0.02 K/uL (0-0.2); COMPLETE YES; EOS % 2.4 %; HEMATOCRIT 41.9 % (37-47); IG% 0.2 %; LYMPH % 29.3 %; LYMPH ABS # 1.62 K/uL (1.2-3.4); MEAN CELL VOLUME 87.3 fL (80-100); MEAN CORPUSCULAR HEMOGLOBIN 30.8 pg (25-34); MEAN CORPUSCULAR HGB CONC 35.3 g/dl (32-36); MEAN PLATELET VOLUME 10.8 fL (7.4-10.4); MONO % 6.9 %; NEUT % 60.8 %; PLATELET COUNT 188 K/uL (130-400); WHITE BLOOD COUNT 5.53 K/uL (4.8-10.8)
[2016-06-22 16:53] LABS: ALT/SGPT 94 U/L (12-78); BLOOD UREA NITROGEN 12 mg/dl (7-18); BUN/CREATININE RATIO 13.1 (10-20); CALCIUM 9.1 mg/dl (8.5-10.1); CARBON DIOXIDE 25 mmol/L (21-32); CHLORIDE 105 mmol/L (98-107); CREATININE 0.88 mg/dl (0.60-1.20); GLUCOSE 81 mg/dl (70-99); POTASSIUM 3.8 mmol/L (3.5-5.1); SODIUM 140 mmol/L (136-145)
[2016-06-22 16:57] LABS: ALB/GLOB RATIO 1.1 (0.9-2); ALKALINE PHOSPHATASE 76 U/L (45-117); AST/SGOT 79 U/L (15-37)
[2016-06-22 17:23] LABS: URINE APPEARANCE CLOUDY (CLEAR); URINE BILIRUBIN NEG (NEG); URINE COLOR YELLOW; URINE EPITHELIAL CELL AUTO >30 /lpf (0-5); URINE NITRITE NEG (NEG); URINE PH >= 9.0 (4.5-7.5); URINE SPECIFIC GRAVITY 1.015 (1.000-1.030); UROBILINOGEN NEG (NEG); ZZUR CULT IF INDIC CLEAN CATCH NO
[2016-06-22 17:42] LABS: MANUAL MICROSCOPIC REQUIRED? NO; REVIEW REQ? NO
--- NOTE | 2016-06-22 18:49 | DIAGNOSTIC IMAGING REPORT ---
HEAD CT NONCONTRAST CT DOSE: 679.75 mGycm HISTORY: Accidental overdose, neurologic symptoms TECHNIQUE: Multiaxial CT images of the head were performed without the use of intravenous contrast. Automated exposure control was utilized for this study. Comparison: Head CT 06/19/2015. Findings: The paranasal sinuses and mastoid air cells are clear. The calvarium and skull base are intact. The ventricles and sulci are within normal limits. There is no mass, hematoma, midline shift, or acute infarct. Stable screw through the odontoid. Impression: No acute intracranial abnormality. Electronically signed by: Phillip Padilla M.D. 06/22/2016 6:47 PM Dictated Date/Time: 06/22/2016 6:45 PM
[2016-06-22 19:41] LABS: BENZODIAZEPINE, URINE NEG (NEG); COCAINE,URINE NEG (NEG); PHENCYCLIDINE, URINE NEG (NEG)
[2016-06-22 20:39] VITALS: BP 104/63; PULSE 78; O2SAT 98
[2016-10-25] MEDS ORDERED: DIPH1TAB PO (09:48)
[2016-10-25] MEDS ORDERED: LACT10SO17 PO (09:48)
[2016-10-25] MEDS ORDERED: CETI10TA84 PO (09:48)
[2016-10-25] MEDS ORDERED: TRMCR130WC TOP (09:48)
[2016-10-25] MEDS ORDERED: ONDA8TAB6 PO (09:48)
[2016-10-25] MEDS ORDERED: EPP3/2 IM ×2 (09:48→22:05)
[2016-10-25] MEDS ORDERED: CYCL10TA6 PO (09:48)
[2016-10-25] MEDS ORDERED: LINA1CAP PO (09:48)
[2016-10-25] MEDS ORDERED: TRAM-10 PO (10:41)
[2016-10-25] MEDS ORDERED: RTL20 PO (14:06)
[2016-10-25] MEDS ORDERED: VENL150C56 PO (14:06)
[2016-10-25] MEDS ORDERED: ZNTT/150 PO (15:50)
[2016-10-25] MEDS ORDERED: CLON1TAB3 PO (16:34)
[2016-10-25] MEDS ORDERED: OMEP20CA9 PO (16:34)
[2016-10-25] MEDS ORDERED: PROM25TA9 PO (16:34)
== END 2016-06-22 20:39 | disposition home or self-care (01) ==
LOC: C.EDB 14:11 → C.EDC 20:39
DX: T43.8X1A Poisoning by other psychotropic drugs, accidental (unintentional), initial encounter (principal); T42.71XA Poisoning by unspecified antiepileptic and sedative-hypnotic drugs, accidental (unintentional), initial encounter; T43.211A Poisoning by selective serotonin and norepinephrine reuptake inhibitors, accidental (unintentional), initial encounter; T43.631A Poisoning by methylphenidate, accidental (unintentional), initial encounter; M79.7 Fibromyalgia; F32.9 Major depressive disorder, single episode, unspecified; F17.210 Nicotine dependence, cigarettes, uncomplicated; Z79.899 Other long term (current) drug therapy; Z80.1 Family history of malignant neoplasm of trachea, bronchus and lung; Z80.49 Family history of malignant neoplasm of other genital organs; Z80.0 Family history of malignant neoplasm of digestive organs; Z83.3 Family history of diabetes mellitus; Z83.79 Family history of other diseases of the digestive system; Z82.49 Family history of ischemic heart disease and other diseases of the circulatory system; Z83.6 Family history of other diseases of the respiratory system; Z84.1 Family history of disorders of kidney and ureter; Z82.0 Family history of epilepsy and other diseases of the nervous system; Z82.3 Family history of stroke; Z83.49 Family history of other endocrine, nutritional and metabolic diseases

== ENCOUNTER 2016-08-25 11:44 | Emergency (ER) | payer OTHER ==
[~2016-08-25] VITALS: Ht 157.5 cm; Wt 88.0 kg
[2016-08-25 11:49] VITALS: Ht 157.5 cm; Wt 88.0 kg
[2016-08-25 12:53] LABS: URINE APPEARANCE CLOUDY (CLEAR); URINE BILIRUBIN NEG (NEG); URINE COLOR YELLOW; URINE EPITHELIAL CELL AUTO >30 /lpf (0-5); URINE NITRITE NEG (NEG); URINE SPECIFIC GRAVITY 1.029 (1.000-1.030); UROBILINOGEN NEG (NEG); ZZUR CULT IF INDIC CLEAN CATCH YES
[2016-08-25] MEDS ORDERED: METR-163 PO (12:56)
[2016-08-25] MEDS ORDERED: DOXY100C PO (12:56)
--- NOTE | 2016-08-25 12:57 | EMERGENCY ROOM VISIT NOTE ---
History First contact with patient: 12:04 Chief Complaint: PELVIC PAIN Stated Complaint: STOMACH AND SIDE PAIN History of Present Illness The patient is a 31 year old female who presents to the Emergency Room with complaints of pelvic pain. The patient reports that she had her menstrual period approximately 2-3 weeks ago. She reports that when afterward, she noticed a foul odor from her vagina. She initially thought that she may have a yeast infection. She states that over the past week, she has developed pain in her lower abdomen and vagina. She has had a whitish vaginal discharge. She states that she does have some pain with urination but denies any difficulty urinating. The patient reports that she had her significant other look at her vagina and that he pulled out a piece of a tampon. She is unsure how long the tampon was in place, but believes it was a few weeks. The patient denies any fevers/chills, vomiting, or chance of . She is sexually active with her significant other. Review of Systems A complete 10-point Review of Systems was discussed with the patient, with pertinent positives and negatives listed in the History of Present Illness. All remaining Review of Systems questions can be considered negative unless otherwise specified. Past Medical/Surgical History Medical Problems: (1) Anxiety (2) Bronchitis (3) DDD (degenerative disc disease) (4) Depression (5) Fibromyalgia (6) Gall bladder disease (7) Gestational diabetes (8) H/o C2 vertebral fracture (9) History of - miscarriage (10) Kidney stone (11) Migraine (12) PNA (pneumonia) (13) Polycystic ovaries (14) Post-operative infection (15) Seroma (16) Spinal headache (17) Vaginal delivery Surgical Problems: (1) H/O colonoscopy (2) H/O neck surgery (3) S/P cholecystectomy (4) S/p lumbar decompression/fusion (5) S/P tonsillectomy Family History Diabetes mellitus GRANDMOTHER FH: cancer MOTHER (lung, uterus) AUNT (stomach CA) FH: gallbladder disease FH: heart disease GRANDMOTHER FH: lung disease Hypertension GRANDFATHER GRANDMOTHER Kidney disease Kidney stones Seizures Stroke Thyroid disorder MOTHER Social History Smoking Status: Current Every Day Smoker Alcohol Use: none Drug Use: none Marital Status: in relationship Housing Status: lives with significant other Occupation Status: employed Current/Historical Medications Scheduled Doxycycline Hyclate (Vibramycin), 100 MG PO BID Gabapentin (Gabapentin), 800 MG PO TID Lubiprostone (Amitiza), 24 MCG PO BID Methylphenidate HCl (Methylphenidate HCl), 20 MG PO BID Metronidazole (Flagyl), 500 MG PO BID Omeprazole (Prilosec), 20 MG PO DAILY Topiramate (Topamax), 200 MG PO BID Venlafaxine Hcl (Effexor Extended Rel), 150 MG PO QAM Scheduled PRN Acetaminophen (Acetaminophen), 1,000 MG PO Q6H PRN for Pain Yazikvuzwy-Ntkrinl-Qvklwbgh W/ (Butalbital/Aspirn/Caffein), 1 CAP PO Q4H PRN for Headache Clonazepam (Klonopin), 0.5 MG PO BID PRN for Anxiety Ibuprofen (Advil), 200-600 MG PO Q4H PRN for Pain Promethazine Hcl (Phenergan), 25 MG PO Q6H PRN for Nausea Sumatriptan Succinate (Imitrex), 100 MG PO UD PRN for Migraine Allergies Coded Allergies: Amoxicillin (Verified Allergy, Severe, HIVES AND SOB, 08/25/16) BEE STING (Verified Allergy, Severe, SWELLING, 08/25/16) Adhesives (Verified Allergy, Mild, contact dermatitis, 08/25/16) Propranolol (Verified Allergy, Mild, MOUTH SORE, RASH, 08/25/16) Hydromorphone (Verified Allergy, Unknown, Abdominal Pain, 08/25/16) Morphine (Verified Adverse Reaction, Intermediate, pt reports moderate to severe stomach discomfort, 08/25/16) pt states she requires a "GI cocktail" to alleviate the stomach discomfort that occurs after receiving Morphine or dilaudid Physical Exam Vital Signs Date Time Temp Pulse Resp B/P Pulse Ox O2 Delivery O2 Flow Rate FiO2 08/25/16 11:49 36.7 97 16 140/92 100 Room Air Physical Exam VITALS: Vitals are noted on the nurse's note and reviewed by myself. Vital signs stable. GENERAL: This is a 31-year-old female, in no acute distress, nondiaphoretic, well-developed well-nourished. HEART: Regular rate and rhythm without murmurs gallops or rubs. LUNGS: Clear to auscultation bilaterally without wheezes, rales or rhonchi. ABDOMEN: Positive bowel sounds x 4. Soft, mild tenderness over the suprapubic region. No guarding or rebound tenderness. PELVIC: Moderate amount of whitish green discharge within the vaginal vault. No evidence of cervicitis. No cervical motion tenderness. NEURO: Patient was alert and oriented to person place and time. Medical Decision & Procedures Laboratory Results Test 08/25/16 12:30 Urine Color YELLOW Urine Appearance CLOUDY (CLEAR) Urine pH 8.0 (4.5-7.5) Urine Specific [place] 1.029 (1.000-1.030) Urine Protein NEG (NEG) Urine Glucose (UA) NEG (NEG) Urine Ketones NEG (NEG) Urine Occult Blood NEG (NEG) Urine Nitrite NEG (NEG) Urine Bilirubin NEG (NEG) Urine Urobilinogen NEG (NEG) Urine Leukocyte Esterase TRACE (NEG) Urine Test NEG (NEG) Date/Time Source Procedure Growth Status 08/25/16 12:40 Vaginal Swab Trichomonas Preparation - Final Complete Medical Decision Differential diagnosis includes vaginal candidiasis, gonorrhea, chlamydia, bacterial vaginosis, urinary tract infection, Trichomonas, among others. The patient was evaluated as above. Urinalysis was obtained and was not suggestive of infection. Urine was negative. A pelvic exam was performed and no foreign objects were seen in the vagina. The patient does have a moderate amount of discharge and given her pain I do feel it is reasonable to treat her for early pelvic inflammatory disease pending the results of her pelvic cultures. She was not given Rocephin, as she reports an allergy to amoxicillin and a possible allergy to cephalosporins. She was instructed to follow-up with her established [facility] provider within 48 hours for further evaluation and return here sooner for any worsening symptoms. She was given prescriptions for doxycycline and Flagyl. She verbalized understanding of my assessment and treatment plan and was discharged home in good condition. Impression Primary Impression: Vaginal discharge Departure Information Dispostion Home / Self-Care Condition GOOD Prescriptions Metronidazole (Flagyl) 500 Mg Tab 500 MG PO BID for 14 Days, #28 TAB Prov: Shruthi Howe PA-C 08/25/16 Doxycycline Hyclate (VIBRAMYCIN) 100 Mg Cap 100 MG PO BID for 14 Days, #28 CAP Prov: Shruthi Howe PA-C 08/25/16 Referrals Kieran Hemphill M.D. (PCP) Patient Instructions My [facility] Additional Instructions You were prescribed doxycycline to be taken twice daily as prescribed. This is an antibiotic. All antibiotics have the potential to cause diarrhea. Stop this medication and contact a medical provider if you were to develop any significant adverse side effects including: wheezing, shortness of breath, passing out, vomiting, or a diffuse rash. Always take antibiotics as directed and COMPLETE the ENTIRE course regardless of the improvement of your symptoms. You were prescribed metronidazole to be taken as prescribed. This is an antibiotic. All antibiotics have the potential to cause diarrhea. Stop this medication and contact a medical provider if you were to develop any significant adverse side effects including: wheezing, shortness of breath, passing out, vomiting, or a diffuse rash. Always take antibiotics as directed and COMPLETE the ENTIRE course regardless of the improvement of your symptoms. Do not drink any alcohol while taking this medication. You should follow-up with her [facility] within 48 hours. Return to the emergency department with worsening pain, fevers, vomiting or any other new/concerning symptoms.
[2016-08-25 13:01] LABS: MANUAL MICROSCOPIC REQUIRED? NO; REVIEW REQ? YES
[2016-08-25 13:30] VITALS: BP 140/92; PULSE 97; TEMP 36.7; O2SAT 100
[2016-08-26] MEDS ORDERED: IBUP-1050 PO (16:50)
[2016-08-26] MEDS ORDERED: AMT24 PO (22:55)
[2016-08-26] MEDS ORDERED: IMT100 PO (22:55)
[2016-08-26] MEDS ORDERED: METH20TA66 PO (22:55)
[2016-08-26] MEDS ORDERED: EFFSR150 PO (22:55)
[2016-08-27 16:31] LABS: CHLAMYDIA TRACH RNA*** NOT DETECTED (NOT DETECTED); GC (NEIS GONORRHOEAE)RNA** NOT DETECTED (NOT DETECTED)
--- NOTE | 2016-08-28 11:09 | Pharmacy Progress Note ---
ED Pharmacist Culture FollowUp Date of Service: Aug 28, 2016. Patient's genital gram stain and culture results from 08/25/16 were forwarded to me for review. She was seen on 08/25/16, for pelvic pain, foul vaginal odor, c/o whitish discharge and dysuria. Provider's PE revealed mild suprapubic tenderness, whitish-green discharge in vaginal vault, no cervicitis or motion tenderness. Patient was ultimately dx with early PID and discharged with Rx's for Flagyl 500mg BID x 14 days + Doxycycline 100mg BID x 14 days. No Rocephin was given as patient reports a severe allergy to Amoxicillin (SOB/hives) and pt was to f/ u with OBGYN. Of note, no c. trichomatis, no n. gonorrhea and no trichomonas were detected on tests that were ordered. No clue cells noted on gram stain. Cx is growing gardnerella vaginalis (many) and rare Grp B strep. Both organisms could be colonizers and not pathogenic. However if patient has BV, she was prescribed Flagyl and this should be adequate coverage for this condition. She has a prior h/o Grp B Strep colonization per OBGYN records. No action required at this time.
[2016-10-25] MEDS ORDERED: CETI10TA84 PO (09:48)
[2016-10-25] MEDS ORDERED: EPP3/2 IM ×2 (09:48→22:05)
[2016-10-25] MEDS ORDERED: ONDA8TAB6 PO (09:48)
[2016-10-25] MEDS ORDERED: LINA1CAP PO (09:48)
[2016-10-25] MEDS ORDERED: TRMCR130WC TOP (09:48)
[2016-10-25] MEDS ORDERED: LACT10SO17 PO (09:48)
[2016-10-25] MEDS ORDERED: DIPH1TAB PO (09:48)
[2016-10-25] MEDS ORDERED: CYCL10TA6 PO (09:48)
[2016-10-25] MEDS ORDERED: TRAM-10 PO (10:41)
[2016-10-25] MEDS ORDERED: VENL150C56 PO (14:06)
[2016-10-25] MEDS ORDERED: RTL20 PO (14:06)
[2016-10-25] MEDS ORDERED: ZNTT/150 PO (15:50)
[2016-10-25] MEDS ORDERED: PROM25TA9 PO (16:34)
[2016-10-25] MEDS ORDERED: CLON1TAB3 PO (16:34)
[2016-10-25] MEDS ORDERED: OMEP20CA9 PO (16:34)
== END 2016-08-25 13:44 | disposition home or self-care (01) ==
LOC: C.EDB 11:45 → C.EDC 13:44
DX: N89.8 Other specified noninflammatory disorders of vagina (principal); E28.2 Polycystic ovarian syndrome; Z86.32 Personal history of gestational diabetes; Z87.59 Personal history of other complications of pregnancy, childbirth and the puerperium; Z87.442 Personal history of urinary calculi; Z87.01 Personal history of pneumonia (recurrent); Z98.890 Other specified postprocedural states; Z90.49 Acquired absence of other specified parts of digestive tract; Z98.1 Arthrodesis status; Z90.89 Acquired absence of other organs; Z80.1 Family history of malignant neoplasm of trachea, bronchus and lung; Z80.49 Family history of malignant neoplasm of other genital organs; Z80.0 Family history of malignant neoplasm of digestive organs; Z83.3 Family history of diabetes mellitus; Z82.49 Family history of ischemic heart disease and other diseases of the circulatory system; Z84.1 Family history of disorders of kidney and ureter; Z82.3 Family history of stroke; Z82.0 Family history of epilepsy and other diseases of the nervous system; F17.200 Nicotine dependence, unspecified, uncomplicated

== ENCOUNTER 2016-08-26 14:11 | Emergency (ER) | payer OTHER ==
[~2016-08-26] VITALS: Ht 157.5 cm; Wt 88.6 kg
[~2016-08-26 14:11] MED LIST changes: +DOXY100C PO; -KLN5 PO; +METR-163 PO; -NRN600 PO; -OMEP40CA PO; -PROM25TA9 PO
[2016-08-26 14:16] VITALS: BP 116/77; PULSE 86; TEMP 36.9; O2SAT 96; Ht 157.5 cm; Wt 88.6 kg
--- NOTE | 2016-08-26 15:40 | EMERGENCY ROOM VISIT NOTE ---
History Report prepared by Vaughn: Wolf Raymundo Under the Supervision of: Dr. Yobani Russo M.D. First contact with patient: 15:23 Chief Complaint: ABDOMINAL PAIN Stated Complaint: STOMACH PAIN, TROUBLE BREATHING Nursing Triage Summary: Pt states she was seen here yesterday. "Morphine gave her hives" "My stomach hurts really bad, my skin is on fire and I feel like I can't breath " Pt denies rash. Took Benadryl yesterday 1130 in late noon. Pt states yesterday a tampon broke off inside of her. History of Present Illness The patient is a 31 year old female who presents to the Emergency Room with complaints of worsening abdominal pain for the past couple of weeks. She currently rates her discomfort as a 9/10 in severity. The patient states that she had a piece of a tampon stuck in her vagina for the past three weeks, and she has been having abdominal pain and vaginal pain. The patient was on antibiotics, and she thought that she was having a yeast infection until yesterday when she found the piece and came into the ED. She states that she was given antibiotics including Flagyl. She states that since yesterday her abdominal pain is much worse, and her skin feels itchy and like it is on fire. The patient states that she has been having vaginal discharge and chills. She states that she has taken ibuprofen and tramadol, and they have not helped the pain very much. Source of History: patient Onset: a couple weeks ago Position: abdomen Symptom Intensity: 9/10 Timing: constant, worsening Associated Symptoms: + chills Note: Associated symptoms: Itchiness, skin feels like on fire, vaginal discharge Review of Systems All systems have been listed, reviewed, and are negative other than those previously mentioned. Please see Additional Medical History Sheet. Past Medical & Surgical Medical Problems: (1) Anxiety (2) Bronchitis (3) DDD (degenerative disc disease) (4) Depression (5) Fibromyalgia (6) Gall bladder disease (7) Gestational diabetes (8) H/o C2 vertebral fracture (9) History of - miscarriage (10) Kidney stone (11) Migraine (12) PNA (pneumonia) (13) Polycystic ovaries (14) Post-operative infection (15) Seroma (16) Spinal headache (17) Vaginal delivery Surgical Problems: (1) H/O colonoscopy (2) H/O neck surgery (3) S/P cholecystectomy (4) S/p lumbar decompression/fusion (5) S/P tonsillectomy Family History Diabetes mellitus GRANDMOTHER FH: cancer MOTHER (lung, uterus) AUNT (stomach CA) FH: gallbladder disease FH: heart disease GRANDMOTHER FH: lung disease Hypertension GRANDFATHER GRANDMOTHER Kidney disease Kidney stones Seizures Stroke Thyroid disorder MOTHER Social History Smoking Status: Current Every Day Smoker Alcohol Use: none Drug Use: none Marital Status: in relationship Housing Status: lives with significant other Occupation Status: employed Current/Historical Medications Scheduled Doxycycline Hyclate (Vibramycin), 100 MG PO BID Gabapentin (Gabapentin), 800 MG PO TID Lubiprostone (Amitiza), 24 MCG PO BID Methylphenidate HCl (Methylphenidate HCl), 20 MG PO BID Metronidazole (Flagyl), 500 MG PO BID Omeprazole (Prilosec), 20 MG PO DAILY Topiramate (Topamax), 200 MG PO BID Venlafaxine Hcl (Effexor Extended Rel), 150 MG PO QAM Scheduled PRN Acetaminophen (Acetaminophen), 1,000 MG PO Q6H PRN for Pain Bcleshhoab-Lfxzgjc-Jgwkweyr W/ (Butalbital/Aspirn/Caffein), 1 CAP PO Q4H PRN for Headache Clonazepam (Klonopin), 0.5 MG PO BID PRN for Anxiety Ibuprofen (Advil), 200-600 MG PO Q4H PRN for Pain Promethazine Hcl (Phenergan), 25 MG PO Q6H PRN for Nausea Sumatriptan Succinate (Imitrex), 100 MG PO UD PRN for Migraine Allergies Coded Allergies: Amoxicillin (Verified Allergy, Severe, HIVES AND SOB, 08/25/16) BEE STING (Verified Allergy, Severe, SWELLING, 08/25/16) Adhesives (Verified Allergy, Mild, contact dermatitis, 08/25/16) Propranolol (Verified Allergy, Mild, MOUTH SORE, RASH, 08/25/16) Hydromorphone (Verified Allergy, Unknown, Abdominal Pain, 08/25/16) Morphine (Verified Adverse Reaction, Intermediate, pt reports moderate to severe stomach discomfort, 08/25/16) pt states she requires a "GI cocktail" to alleviate the stomach discomfort that occurs after receiving Morphine or dilaudid Physical Exam Vital Signs Date Time Temp Pulse Resp B/P Pulse Ox O2 Delivery O2 Flow Rate FiO2 08/26/16 14:16 36.9 86 18 116/77 96 Room Air Physical Exam GENERAL: Patient is in mild distress. Patient awake, alert, oriented x 3. Patient follows commands. Patient does not appear toxic. Patient is adequately hydrated and well-nourished. SKIN: No erythema, pallor, cyanosis or rash HEENT: Normal head, pupils equal, reactive to light and accommodation. Ears normal. LUNGS: Clear to auscultation. No wheezes, no rales, no rhonchi. HEART: No murmurs. No gallops. No rubs ABDOMEN: Vague mid-epigastric tenderness. No masses, no rebound, no hepatomegaly or splenomegaly. EXTREMITIES: No signs of trauma or infection. No pedal or pretibial edema. No calf or thigh tenderness. NEUROLOGIC: Cranial nerves II-XII within normal limits. No gross motor sensory function deficits. Medical Decision & Procedures ED Course 1523: Past medical records reviewed. The patient was evaluated in room C9. A complete history and physical examination was performed. 1555: Upon reevaluation, the patient appeared to have improvement of her symptoms. I discussed today's findings with her. She verbalized agreement of the treatment plan. She was discharged home. Medical Decision Nurses notes reviewed. Medical history sheet reviewed. Differential diagnosis includes but is not limited to: sexually transmitted diseases including trichomonas, gonorrhea, syphilis, foreign body in vagina, bacterial vaginosis. The patient is complaining primarily of a reaction to her medications. The patient is having no difficulty breathing. She has no wheezes. She has no signs of anaphylaxis or even a rash. She is currently taking doxycycline and Flagyl. Most likely the Flagyl is causing her skin burning and abdominal distress. The patient had a full exam yesterday. I do not believe she needs another vaginal exam today. Patient will continue to take doxycycline but stop the Flagyl. Cultures are still pending. Impression Primary Impression: Medication reaction Scribe Attestation The scribe's documentation has been prepared under my direction and personally reviewed by me in its entirety. I confirm that the note above accurately reflects all work, treatment, procedures, and medical decision making performed by me. Departure Information Dispostion Home / Self-Care Referrals Kieran Hemphill M.D. (PCP) Forms Call Back Authorization, HOME CARE DOCUMENTATION FORM, IMPORTANT VISIT INFORMATION Patient Instructions My [facility] Additional Instructions Stop taking Flagyl/metronidazole. Continue taking doxycycline. Follow-up with your family physician.
[2016-08-26] MEDS ORDERED: IBUP-1050 PO (16:50)
[2016-08-26] MEDS ORDERED: AMT24 PO (22:55)
[2016-08-26] MEDS ORDERED: METH20TA66 PO (22:55)
[2016-08-26] MEDS ORDERED: EFFSR150 PO (22:55)
[2016-08-26] MEDS ORDERED: IMT100 PO (22:55)
[2016-10-25] MEDS ORDERED: EPP3/2 IM ×2 (09:48→22:05)
[2016-10-25] MEDS ORDERED: LINA1CAP PO (09:48)
[2016-10-25] MEDS ORDERED: CETI10TA84 PO (09:48)
[2016-10-25] MEDS ORDERED: ONDA8TAB6 PO (09:48)
[2016-10-25] MEDS ORDERED: TRMCR130WC TOP (09:48)
[2016-10-25] MEDS ORDERED: LACT10SO17 PO (09:48)
[2016-10-25] MEDS ORDERED: CYCL10TA6 PO (09:48)
[2016-10-25] MEDS ORDERED: DIPH1TAB PO (09:48)
[2016-10-25] MEDS ORDERED: TRAM-10 PO (10:41)
[2016-10-25] MEDS ORDERED: RTL20 PO (14:06)
[2016-10-25] MEDS ORDERED: VENL150C56 PO (14:06)
[2016-10-25] MEDS ORDERED: ZNTT/150 PO (15:50)
[2016-10-25] MEDS ORDERED: OMEP20CA9 PO (16:34)
[2016-10-25] MEDS ORDERED: CLON1TAB3 PO (16:34)
[2016-10-25] MEDS ORDERED: PROM25TA9 PO (16:34)
== END 2016-08-26 15:59 | disposition home or self-care (01) ==
LOC: C.EDB 14:13 → C.EDC 15:59
DX: R20.8 Other disturbances of skin sensation (principal); R10.9 Unspecified abdominal pain; T37.3X5A Adverse effect of other antiprotozoal drugs, initial encounter; E28.2 Polycystic ovarian syndrome; F41.9 Anxiety disorder, unspecified; F32.9 Major depressive disorder, single episode, unspecified; F17.200 Nicotine dependence, unspecified, uncomplicated; Z87.01 Personal history of pneumonia (recurrent); Z86.32 Personal history of gestational diabetes; Z87.59 Personal history of other complications of pregnancy, childbirth and the puerperium; Z83.3 Family history of diabetes mellitus; Z80.0 Family history of malignant neoplasm of digestive organs; Z80.1 Family history of malignant neoplasm of trachea, bronchus and lung; Z80.49 Family history of malignant neoplasm of other genital organs; Z82.49 Family history of ischemic heart disease and other diseases of the circulatory system; Z84.1 Family history of disorders of kidney and ureter; Z82.3 Family history of stroke; Z82.0 Family history of epilepsy and other diseases of the nervous system; Z79.899 Other long term (current) drug therapy

== ENCOUNTER 2016-09-22 09:36 | Emergency (ER) | payer OTHER ==
[~2016-09-22] VITALS: Ht 157.5 cm; Wt 88.3 kg
[~2016-09-22 09:36] MED LIST changes: +AMT24 PO; -DOXY100C PO; +EFFSR150 PO; +IBUP-1050 PO; +IMT100 PO; +METH20TA66 PO; -METR-163 PO
[2016-09-22 09:47] VITALS: Ht 157.5 cm; Wt 88.3 kg
[2016-09-22] MEDS ORDERED: FAMOTIDINE 20MG/102 ML D5W IV STA (10:04)
[2016-09-22] MEDS ORDERED: SODIUM CHLORIDE 0.9% 1000ML 1,000 ML IV ONE (10:04)
[2016-09-22] MEDS ORDERED: DiphenhydrAMINE HCL 50 MG/ML VIAL IV STA (10:04)
[2016-09-22] MEDS ORDERED: SODIUM CHLORIDE 0.9% 1000ML 1,000 ML IV STA (10:04)
[2016-09-22] MEDS ORDERED: METHYLPREDNISOLONE 125 MG VIAL IV STA (10:04)
--- NOTE | 2016-09-22 10:08 | EMERGENCY ROOM VISIT NOTE ---
History Report prepared by Matthieuibe: Eloisa Uriarte Under the Supervision of: Dr. Zeus Zhao M.D. First contact with patient: 09:55 Chief Complaint: RESPIRATORY PROBLEMS Stated Complaint: BREATHING DIFFICULTY, ITCHY SKIN, DIFF. W/VISION Nursing Triage Summary: Pt presents with c/o difficulty breathing and seeing, itchy skin to neck and legs. 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 Pt states she feels like there is something stuck in throat/chest. Nausea. Lightheaded. Pt states did not eat anything different. Pt states she was in bed when sx started. History of Present Illness The patient is a 31 year old female who presents to the Emergency Room with complaints of a possible allergic reaction that began about 30 minutes ago. 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 She also feels a burning sensation on her skin. She feels as if she cannot swallow. She did take a Benadryl, but developed sharp central chest pain, as if something was stuck. She has not had any relief from the Benadryl. She has had allergic reactions in the past from medications, but denies taking any new medications recently. She does report using a small amount of a new lotion recently. Denies fever or other complaints. She denies chance of . Source of History: patient Onset: this morning about 30 minutes ago Position: other (global) Quality: other (allergic reaction) Associated Symptoms: + SOB, + chest pain, No fevers Note: Other symptoms: itching/burning skin Review of Systems See HPI for pertinent positives & negatives. A total of 10 systems reviewed and were otherwise negative. Past Medical & Surgical Medical Problems: (1) Anxiety (2) Bronchitis (3) DDD (degenerative disc disease) (4) Depression (5) Fibromyalgia (6) Gall bladder disease (7) Gestational diabetes (8) H/o C2 vertebral fracture (9) History of - miscarriage (10) Kidney stone (11) Migraine (12) PNA (pneumonia) (13) Polycystic ovaries (14) Post-operative infection (15) Seroma (16) Spinal headache (17) Vaginal delivery Surgical Problems: (1) H/O colonoscopy (2) H/O neck surgery (3) S/P cholecystectomy (4) S/p lumbar decompression/fusion (5) S/P tonsillectomy Old medical records were reviewed. Nurse's notes were reviewed and I agree with. Family History Diabetes mellitus GRANDMOTHER FH: cancer MOTHER (lung, uterus) AUNT (stomach CA) FH: gallbladder disease FH: heart disease GRANDMOTHER FH: lung disease Hypertension GRANDFATHER GRANDMOTHER Kidney disease Kidney stones Seizures Stroke Thyroid disorder MOTHER Social History Smoking Status: Current Every Day Smoker Alcohol Use: none Drug Use: none Marital Status: in relationship Housing Status: lives with significant other Occupation Status: employed Current/Historical Medications Scheduled Gabapentin (Gabapentin), 800 MG PO TID Lubiprostone (Amitiza), 24 MCG PO BID Methylphenidate HCl (Methylphenidate HCl), 20 MG PO BID Omeprazole (Prilosec), 20 MG PO DAILY Prednisone (Prednisone), 50 MG PO DAILY Topiramate (Topamax), 200 MG PO BID Venlafaxine Hcl (Effexor Extended Rel), 150 MG PO QAM Scheduled PRN Acetaminophen (Acetaminophen), 1,000 MG PO Q6H PRN for Pain Wkfbrqghro-Myuoosv-Snkfrsuh W/ (Butalbital/Aspirn/Caffein), 1 CAP PO Q4H PRN for Headache Clonazepam (Klonopin), 0.5 MG PO BID PRN for Anxiety Ibuprofen (Advil), 200-600 MG PO Q4H PRN for Pain Promethazine Hcl (Phenergan), 25 MG PO Q6H PRN for Nausea Sumatriptan Succinate (Imitrex), 100 MG PO UD PRN for Migraine Tramadol (Ultram), 50 MG PO Q4H PRN for Pain Allergies Coded Allergies: Amoxicillin (Verified Allergy, Severe, HIVES AND SOB, 09/22/16) BEE STING (Verified Allergy, Severe, SWELLING, 09/22/16) Adhesives (Verified Allergy, Mild, contact dermatitis, 09/22/16) Propranolol (Verified Allergy, Mild, MOUTH SORE, RASH, 09/22/16) Hydromorphone (Verified Allergy, Unknown, Abdominal Pain, 09/22/16) Morphine (Verified Adverse Reaction, Intermediate, pt reports moderate to severe stomach discomfort, 09/22/16) pt states she requires a "GI cocktail" to alleviate the stomach discomfort that occurs after receiving Morphine or dilaudid Physical Exam Vital Signs Date Time Temp Pulse Resp B/P Pulse Ox O2 Delivery O2 Flow Rate FiO2 09/22/16 12:17 75 16 107/52 99 09/22/16 10:44 71 16 107/52 100 Room Air 09/22/16 09:47 81 18 72/51 97 Room Air 93/48 Physical Exam General: Uncomfortable appearing young female, speaking full sentences, she is itching, no difficulty speaking or swallowing. HEENT: Normal cephalic atraumatic. Pupils are equal round and reactive to light. Extraocular movements are intact. Oropharynx is pink with moist mucous membranes. No swelling of the mouth lips or tongue. Neck: Supple with a midline trachea. No meningeal signs or stiffness, no JVD or bruits. No Stridor. Chest: Clear to auscultation bilaterally. No wheezes or rhonchi. No increased work of breathing. Heart: regular rate and rhythm. Abdomen: Soft nontender, nondistended without rebound guarding or rigidity. Extremities: No cyanosis clubbing or edema. No calf tenderness or assymetry Spine/Back. Non tender to palpation. No CVA tenderness Skin: Good turgor without she does seem to have a diffuse redness on her body and does have some hives on her extremities.. Neurologic exam: Cranial nerves two through 12 are intact. Motor and sensation are intact and symmetrical throughout. Medical Decision & Procedures Laboratory Results Test 09/22/16 10:27 Human Chorionic Gonadotropin, Qual NEG (NEG) Laboratory studies as stated above per my review. Medications Administered Medications (Trade) Dose Ordered Sig/Saundra Route Start Time Stop Time Status Last Admin Dose Admin Sodium Chloride 1,000 ml @ 999 mls/hr Q1H1M STAT IV 09/22/16 10:04 09/22/16 11:04 DC 09/22/16 10:36 999 MLS/HR Sodium Chloride (Nss 1000ml) 1,000 ml @ 150 mls/hr Q6H40M ONCE IV 09/22/16 10:04 09/22/16 12:52 DC 09/22/16 11:01 150 MLS/HR Diphenhydramine HCl (Benadryl Inj) 25 mg NOW STAT IV 09/22/16 10:04 09/22/16 10:06 DC 09/22/16 10:35 25 MG Methylprednisolone Sodium Succinate (Solu-Medrol IV) 125 mg NOW STAT IV 09/22/16 10:04 09/22/16 10:06 DC 09/22/16 10:35 125 MG Famotidine (Pepcid 20mg/100 ml) 20 mg ONE STAT IV 09/22/16 10:04 09/22/16 10:06 DC 09/22/16 10:35 20 MG ECG Indication: SOB/dyspnea Rate (beats per minute): 69 Rhythm: normal sinus Findings: nonspecific-ST abn, PVC (occasional), prolonged QT (mild) Comparison ECG Date: 06/22/16 Change: T wave inversions anteriorly have resolved ED Course 1000: Past medical records reviewed. The patient was evaluated in room B4, and a complete history and physical examination were performed. 1004: Ordered Famotidine 20 mg IV, Solu-Medrol 125 mg IV, Benadryl Inj 25 mg IV , NSS 1000 ml @ 150 mls/hr IV, NSS 1000 ml @ 999 mls/hr IV. 1042: I reassessed the patient. She was resting comfortably and about to receive her medications. I checked the medications with the nurse. 1125: I reassessed the patient. She is doing better. Her skin redness has resolved. 1215: Upon reevaluation, the patient is feeling better. I discussed the results and treatment plan with the patient. She verbalized agreement of the treatment plan. The patient was discharged home. Medical Decision Differentials include allergic reaction, anaphylaxis, anxiety, infection, electrolyte or metabolic abnormality. This patient comes in as described above. She is complaining of feeling itching. On exam, her skin does look red and she may have some hives on her extremity. She has no evidence to suggest any airway compromise or anaphylaxis. She is speaking on the telephone without any difficulty she has no stridor. She is not drooling. She has no new medications. She used a new soap at home and thinks it could have been what caused this. There are no other new allergens identified easily. IV access was established. She was given Benadryl 25 mgs IV, Solu-Medrol 125 mg IV, Pepcid 20 mg IV. She is not driving. With these measures, she felt significantly better. Her skin was no longer pink. She had no hives. She had no airway compromise or any GI symptoms. She was observed for several hours in the ER and will remained stable. She is going to look around her house and try to identify any definite allergens. And avoid the new soap. She can use Benadryl 25-50 mg every 8 hours if needed. She was warned that this could make her drowsy and do not take before drinking, driving, working. She can continue to use steroids was given a prescription for prednisone 50 mg times a day for 3 more days. She is encouraged to return if: Worsening of symptoms, shortness of breath, any new problems or concerns. She was happy with the plan and was discharged home. She should follow-up with her doctor this week for recheck. Impression Primary Impression: Allergic reaction Scribe Attestation The scribe's documentation has been prepared under my direction and personally reviewed by me in its entirety. I confirm that the note above accurately reflects all work, treatment, procedures, and medical decision making performed by me. Departure Information Dispostion Home / Self-Care Prescriptions Prednisone (Prednisone) 50 Mg Tab 50 MG PO DAILY, #3 TAB Prov: Zeus Zhao M.D. 09/22/16 Referrals Kieran Hemphill M.D. (PCP) Patient Instructions My [facility] Additional Instructions Rest. Drink plenty of fluids. Use prednisone 50 mg a day for the next 3 dayssteroid For itchiness or rash, May also use Benadryl (diphenhydramine) 25-50 mg every 8 hours as needed Benadryl may make you drowsy and do not take before drinking, driving, working Return if: Worsening of symptoms, shortness of breath, fever or chills, any new problems or concerns Look around your house and try to determine if there are any new potential allergens such as new soaps or shampoos foods medicines etc. Follow-up with your doctor within next 1-2 days for recheck.
[2016-09-22 11:07] LABS: PREG INTERNAL NEGATIVE QC NEG CLEAR BACKGROUND; PREG INTERNAL POSITIVE QC POS CONTROL LINE
[2016-09-22] MEDS ORDERED: PRED50TA PO (12:05)
[2016-09-22 12:17] VITALS: BP 107/52; PULSE 75; O2SAT 99
[2016-10-25] MEDS ORDERED: LINA1CAP PO (09:48)
[2016-10-25] MEDS ORDERED: TRMCR130WC TOP (09:48)
[2016-10-25] MEDS ORDERED: EPP3/2 IM ×2 (09:48→22:05)
[2016-10-25] MEDS ORDERED: CYCL10TA6 PO (09:48)
[2016-10-25] MEDS ORDERED: LACT10SO17 PO (09:48)
[2016-10-25] MEDS ORDERED: ONDA8TAB6 PO (09:48)
[2016-10-25] MEDS ORDERED: CETI10TA84 PO (09:48)
[2016-10-25] MEDS ORDERED: DIPH1TAB87 PO (09:48)
[2016-10-25] MEDS ORDERED: TRAM-10 PO (10:41)
[2016-10-25] MEDS ORDERED: RTL20 PO (14:06)
[2016-10-25] MEDS ORDERED: VENL150C56 PO (14:06)
[2016-10-25] MEDS ORDERED: ZNTT/150 PO (15:50)
[2016-10-25] MEDS ORDERED: OMEP20CA9 PO (16:34)
[2016-10-25] MEDS ORDERED: PROM25TA9 PO (16:34)
[2016-10-25] MEDS ORDERED: CLON1TAB3 PO (16:34)
== END 2016-09-22 12:15 | disposition home or self-care (01) ==
LOC: C.EDB 09:38
DX: T78.40XA Allergy, unspecified, initial encounter (principal); X58.XXXA Exposure to other specified factors, initial encounter; F41.9 Anxiety disorder, unspecified; F32.9 Major depressive disorder, single episode, unspecified; M79.7 Fibromyalgia; E28.2 Polycystic ovarian syndrome; F17.200 Nicotine dependence, unspecified, uncomplicated; Z83.3 Family history of diabetes mellitus; Z80.0 Family history of malignant neoplasm of digestive organs; Z80.1 Family history of malignant neoplasm of trachea, bronchus and lung; Z80.49 Family history of malignant neoplasm of other genital organs; Z82.49 Family history of ischemic heart disease and other diseases of the circulatory system; Z84.1 Family history of disorders of kidney and ureter; Z82.0 Family history of epilepsy and other diseases of the nervous system; Z82.3 Family history of stroke

== ENCOUNTER 2016-09-29 22:08 | Inpatient (IN) | payer OTHER ==
[~2016-09-29] VITALS: Ht 157.5 cm; Wt 90.6 kg
[~2016-09-29 22:08] MED LIST changes: +PRED50TA PO
[2016-09-29] MEDS ORDERED: SODIUM CHLORIDE 0.9% 1000ML 1,000 ML IV STA (22:23)
[2016-09-29] MEDS ORDERED: ASPIRIN 324 MG CHEW ONE (22:26)
--- NOTE | 2016-09-29 22:26 | EMERGENCY ROOM VISIT NOTE ---
History Report prepared by Vaughn: Wesley Jerome Under the Supervision of: Dr. Kwadwo Bryant D.O. First contact with patient: 22:13 Chief Complaint: SYNCOPE Stated Complaint: SYNCOPE History of Present Illness The patient is a 31 year old female who presents to the Emergency Room with complaints of syncope that occurred earlier this evening. She believes to be having an allergic reaction to the two Tramadol pills she took earlier. More recently, the patient was in the ER waiting room when she began to experience chest pain and she collapsed. She then became unresponsive and was brought into the trauma room. She came back into consciousness and began to experience shortness of breath and chest pain once again. She states that she was falling earlier as well. Via the patient's boyfriend, she was at his place this evening when she had an episode of syncope in his driveway. The patient's boyfriend was at [facility], when he rushed home to bring her to the ER. He states that he does not have any alcohol or drugs at his house. Source of History: patient Onset: this evening Position: other (global) Symptom Intensity: moderate Quality: other (syncope) Timing: intermittent Associated Symptoms: + SOB, + chest pain Review of Systems See HPI for pertinent positives and negatives. A total of ten systems were reviewed and were otherwise negative. Past Medical & Surgical Medical Problems: (1) Anxiety (2) Bronchitis (3) DDD (degenerative disc disease) (4) Depression (5) Fibromyalgia (6) Gall bladder disease (7) Gestational diabetes (8) H/o C2 vertebral fracture (9) History of - miscarriage (10) Kidney stone (11) Migraine (12) PNA (pneumonia) (13) Polycystic ovaries (14) Post-operative infection (15) Seroma (16) Spinal headache (17) Vaginal delivery Surgical Problems: (1) H/O colonoscopy (2) H/O neck surgery (3) S/P cholecystectomy (4) S/p lumbar decompression/fusion (5) S/P tonsillectomy Family History Diabetes mellitus GRANDMOTHER FH: cancer MOTHER (lung, uterus) AUNT (stomach CA) FH: gallbladder disease FH: heart disease GRANDMOTHER FH: lung disease Hypertension GRANDFATHER GRANDMOTHER Kidney disease Kidney stones Seizures Stroke Thyroid disorder MOTHER Social History Smoking Status: Current Every Day Smoker Alcohol Use: none Drug Use: none Marital Status: in relationship Housing Status: lives with significant other Occupation Status: employed Current/Historical Medications Scheduled Gabapentin (Gabapentin), 800 MG PO TID Lubiprostone (Amitiza), 24 MCG PO BID Methylphenidate HCl (Methylphenidate HCl), 20 MG PO BID Omeprazole (Prilosec), 20 MG PO DAILY Prednisone (Prednisone), 50 MG PO DAILY Topiramate (Topamax), 200 MG PO BID Venlafaxine Hcl (Effexor Extended Rel), 150 MG PO QAM Scheduled PRN Acetaminophen (Acetaminophen), 1,000 MG PO Q6H PRN for Pain Vaqeqtcdup-Xgchsvg-Bicsjewl W/ (Butalbital/Aspirn/Caffein), 1 CAP PO Q4H PRN for Headache Clonazepam (Klonopin), 0.5 MG PO BID PRN for Anxiety Ibuprofen (Advil), 200-600 MG PO Q4H PRN for Pain Promethazine Hcl (Phenergan), 25 MG PO Q6H PRN for Nausea Sumatriptan Succinate (Imitrex), 100 MG PO UD PRN for Migraine Tramadol (Ultram), 50 MG PO Q4H PRN for Pain Allergies Coded Allergies: Amoxicillin (Verified Allergy, Severe, HIVES AND SOB, 09/29/16) BEE STING (Verified Allergy, Severe, SWELLING, 09/29/16) Adhesives (Verified Allergy, Mild, contact dermatitis, 09/29/16) Propranolol (Verified Allergy, Mild, MOUTH SORE, RASH, 09/29/16) Morphine (Verified Adverse Reaction, Intermediate, pt reports moderate to severe stomach discomfort, 09/29/16) pt states she requires a "GI cocktail" to alleviate the stomach discomfort that occurs after receiving Morphine or dilaudid Physical Exam Vital Signs Date Time Temp Pulse Resp B/P Pulse Ox O2 Delivery O2 Flow Rate FiO2 09/30/16 01:00 118/65 09/30/16 00:48 78 100 09/30/16 00:45 116/75 09/30/16 00:33 68 100 09/30/16 00:31 95/60 09/30/16 00:18 74 100 09/30/16 00:10 105/69 09/30/16 00:06 79 09/30/16 00:03 75 100 09/30/16 00:00 93/68 09/29/16 23:50 109/53 09/29/16 23:48 80 100 09/29/16 23:43 77 100 Nasal Cannula 4.0 09/29/16 23:40 95/58 09/29/16 23:39 94/54 09/29/16 23:13 93 94 09/29/16 23:10 116/61 09/29/16 23:08 93 95 09/29/16 23:05 116/73 09/29/16 23:03 88 95 09/29/16 23:00 124/73 09/29/16 22:58 92 90 09/29/16 22:53 91 99 09/29/16 22:51 123/73 09/29/16 22:48 93 100 09/29/16 22:46 123/67 09/29/16 22:43 94 83/41 98 09/29/16 22:42 /64 09/29/16 22:38 99 95 09/29/16 22:34 59/38 09/29/16 22:33 100 89 09/29/16 22:32 93 Non-Rebreather 15.0 09/29/16 22:32 /60 09/29/16 22:30 47/34 09/29/16 22:29 93 Non-Rebreather 15.0 09/29/16 22:28 112 94 09/29/16 22:27 93 Non-Rebreather 15.0 09/29/16 22:23 116 91 09/29/16 22:21 36.1 126 12 106/59 82 Room Air 09/29/16 22:19 108 09/29/16 22:18 103 09/29/16 22:16 115 09/29/16 22:16 112 09/29/16 22:14 106/34 Physical Exam GENERAL: Awake, 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 HENT: Normocephalic, atraumatic. Oropharynx unremarkable. EYES: Normal conjunctiva. Sclera non-icteric. NECK: Supple. No nuchal rigidity. FROM. No JVD. RESPIRATORY: Diminished bilaterally. CARDIAC: Tachycardic rate, normal rhythm. Extremities warm and well perfused. Pulses equal. ABDOMEN: Soft, non-distended. No tenderness to palpation. No rebound or guarding. No masses. RECTAL: Deferred. MUSCULOSKELETAL: Chest examination reveals no tenderness. The back is symmetrical on inspection without obvious abnormality. There is no CVA tenderness to palpation. No joint edema. LOWER EXTREMITIES: Calves are equal size bilaterally and non-tender. No edema. No discoloration. NEURO: Normal sensorium. No sensory or motor deficits noted. SKIN: Ashen and cyanotic. PSYCH: Agitated. Medical Decision & Procedures ER Provider Diagnostic Interpretation: X-ray: Per my interpretation, radiologist review. CHEST ONE VIEW PORTABLE CLINICAL HISTORY: Heart alert. COMPARISON STUDY: Chest radiograph June 22, 2016. FINDINGS: Lung volumes are normal. There is no pneumothorax or pleural effusion. Cardiac size is normal. Mediastinal contours are normal. There is no evidence of pulmonary edema. IMPRESSION: No acute cardiopulmonary findings. Electronically signed by: Edmar Landa M.D. 09/29/2016 10:40 PM Dictated Date/Time: 09/29/2016 10:38 PM CTA CHEST: No evidence of pulmonary embolism. Evaluation slightly limited by motion artifact. 5 mm nodule lying minor fissure, stable from prior CT from 03/03/14. CT ABDOMEN & PELVIS: Appendix is normal. Post cholecystectomy. No free air or free fluid. No evidence of bowel obstruction. Crml-ba-tnsustrb stool in rectum and transverse colon. Prominent hypodensity centrally within the uterus measuring 3.9 x 3.4 cm. Consider correlation with pelvic ultrasound, not necessarily emergent depending on patients symptoms. Solid organs otherwise unremarkable. Fusion of L5-S1. Radiology: Ye Rivera MD Laboratory Results 09/29/16 22:20 Red Blood Count 5.19, Mean Corpuscular Volume 89.6, Mean Corpuscular Hemoglobin 31.4, Mean Corpuscular Hemoglobin Concent 35.1, Mean Platelet Volume 11.3 09/29/16 22:20 Test 09/29/16 22:20 09/29/16 22:24 09/29/16 22:26 09/30/16 00:45 White Blood Count 10.39 K/uL (4.8-10.8) Red Blood Count 5.19 M/uL (4.2-5.4) Hemoglobin 16.3 g/dL (12.0-16.0) Hematocrit 46.5 % (37-47) Mean Corpuscular Volume 89.6 fL (80-100) Mean Corpuscular Hemoglobin 31.4 pg (25-34) Mean Corpuscular Hemoglobin Concent 35.1 g/dl (32-36) Platelet Count 262 K/uL (130-400) Mean Platelet Volume 11.3 fL (7.4-10.4) RDW Standard Deviation 40.9 fL (36.4-46.3) RDW Coefficient of Variation 12.6 % (11.5-14.5) Neutrophils % (Manual) 21.1 % Lymphocytes % (Manual) 44.6 % Monocytes % (Manual) 7.9 % Basophils % (Manual) 0.9 % Myelocytes % 0.9 % Neutrophils # (Manual) 2.19 K/uL (1.4-6.5) Total Absolute Neutrophils 2.19 K/uL (1.4-6.5) Lymphocytes # (Manual) 4.63 K/uL (1.2-3.4) Total Absolute Lymphocytes 7.19 K/uL (1.2-3.4) Monocytes # (Manual) 0.82 K/uL (0.11-0.59) Basophils # (Manual) 0.09 K/uL (0-0.2) Myelocytes # 0.09 K/uL (0-0) Percent Large Granular Lymphocytes 24.6 % Absolute Large Granular Lymphocytes 2.56 K/uL Red Blood Cell Morphology Unremarkable Prothrombin Time 10.7 SECONDS (9.0-12.0) Prothromb Time International Ratio 1.0 (0.9-1.1) Activated Partial Thromboplast Time 23.1 SECONDS (21.0-31.0) Partial Thromboplastin Ratio 0.9 D-Dimer 510 ug/L FEU (0-500) Est Creatinine Clear Calc Drug Dose 77.6 ml/min Estimated GFR () 78.0 Estimated GFR (Non- 67.3 BUN/Creatinine Ratio 17.5 (10-20) Calcium Level 9.1 mg/dl (8.5-10.1) Magnesium Level 2.3 mg/dl (1.8-2.4) Total Bilirubin 0.5 mg/dl (0.2-1) Direct Bilirubin 0.1 mg/dl (0-0.2) Aspartate Amino Transf (AST/SGOT) 10 U/L (15-37) Alanine Aminotransferase (ALT/SGPT) 21 U/L (12-78) Alkaline Phosphatase 55 U/L (45-117) Total Creatine Kinase 46 U/L (26-192) Creatine Kinase MB < 0.5 ng/ml (0.5-3.6) Creatine Kinase MB Ratio (0-3.0) Total Protein 7.2 gm/dl (6.4-8.2) Albumin 3.8 gm/dl (3.4-5.0) Lipase 215 U/L (73-393) Urine Color YELLOW Urine Appearance CLEAR (CLEAR) Urine pH 5.0 (4.5-7.5) Urine Specific [place] 1.030 (1.000-1.030) Urine Protein NEG (NEG) Urine Glucose (UA) NEG (NEG) Urine Ketones NEG (NEG) Urine Occult Blood 1+ (NEG) Urine Nitrite NEG (NEG) Urine Bilirubin NEG (NEG) Urine Urobilinogen NEG (NEG) Urine Leukocyte Esterase NEG (NEG) Urine WBC (Auto) 1-5 /hpf (0-5) Urine RBC (Auto) 0-4 /hpf (0-4) Urine Hyaline Casts (Auto) 0 /lpf (0-5) Urine Epithelial Cells (Auto) >30 /lpf (0-5) Urine Bacteria (Auto) 1+ (NEG) Urine Pathogenic Casts /lpf (0) Bedside Hemoglobin 16.3 g/dl (12.0-16.0) Bedside Hematocrit 48 % (37-47) Bedside Sodium 142 mEq/L (135-144) Bedside Potassium 3.1 mEq/L (3.3-5.0) Bedside Chloride 103 mEq/L (101-112) Bedside Total CO2 19 mEq/l (24-31) Anion Gap 23.0 mmol/L (16-25) Bedside Blood Urea Nitrogen 20 mg/dl (7-18) Bedside Creatinine 0.9 mg/dl (0.6-1.3) Bedside Glucose (other) 134 mg/dl (70-99) Bedside Ionized Calcium (Luda) 1.20 mmol/l (1.12-1.32) Bedside Troponin I 0.000 ng/ml (0-0.045) Laboratory results reviewed by me Medications Administered Medications (Trade) Dose Ordered Sig/Saundra Route Start Time Stop Time Status Last Admin Dose Admin Aspirin 324 mg 324 mg STK-MED ONCE .ROUTE 09/29/16 22:26 09/29/16 22:27 DC 09/29/16 22:26 324 MG Sodium Chloride (Nss 1000ml) 1,000 ml @ 999 mls/hr Q1H1M STAT IV 09/29/16 22:23 09/29/16 23:23 DC 09/29/16 22:31 999 MLS/HR Ondansetron HCl (Zofran Inj) 4 mg STK-MED ONCE .ROUTE 09/29/16 23:13 09/29/16 23:14 DC 09/29/16 23:13 4 MG Ondansetron HCl (Zofran Inj) 4 mg Q6H PRN IV 09/30/16 00:30 10/30/16 00:29 09/30/16 01:07 4 MG Hydromorphone HCl (Dilaudid Inj) 0.5 mg Q6H PRN IV 09/30/16 00:45 10/14/16 00:44 09/30/16 01:08 0.5 MG ECG Indication: chest pain Rate (beats per minute): 120 Rhythm: sinus tachycardia Findings: ST elevation (precordial leads), other (No reciprocal changes, normal axis, normal intervals) ED Course 2213: The patient was evaluated in room A1. A complete history and physical exam was performed. 2223: Ordered Sodium Chloride 1000 ml @ 999 mls/hr IV 2226: Ordered Aspirin 324 mg .ROUTE. I called Cardiology at this time to evaluate the patient. 2230: The electrical test technician, Dr. Mar, is now at bedside. 2302: He states that her second ECG is now normal. They do not need to catheterize her at this time. She should be further evaluated by a medical physician. 2335: I spoke with Dr. Chang of the [facility] ICU at this time. He does not think that the patient should go into the ICU. She will be evaluated by medicine. 2356: Upon reexamination, the patient was resting. I discussed the test results and treatment plan with her. [facility]. Medical Decision Differential diagnoses include but are not limited to; acute LA, cardiac dysrhythmia, acute pulmonary embolism, acute drug overdose, and acute acidosis. Patient had a cardiac alert, was seen by Dr. Mar in the emergency department from cardiology. Patient was hypoxic and had ischemic changes in the precordium. Patient's first troponin was 0. Patient was evaluated at bedside by Dr. Mar as well as at bedside ultrasound and echocardiogram. Dr. Mar states will not take the patient to [facility] at this time. He will follow. Case is also discussed with the [facility] hospitalist. And with the critical care physician as well 2329. Patient will also receive CAT scans to rule out pulmonary embolism as a cause of her syncopal episode Consults Time Called: 2225 Consulting Physician: Dr. Mar - Cardiology Returned Call: [phone] He will evaluate the patient. Please see ED Course for his evaluation. Additional Consults: Time Called: 2324 Consulted Physician[place]. [place] [facility] [place] Call: [phone] Additional Comments: I spoke with him about the patient. See ED Course for more information. Time Called: 2331 Consulted Physician: Dr. Mariscal - [facility] Returned Call: [phone] Additional Comments: He will be evaluating the patient for further management. Impression Primary Impression: Syncope Additional Impressions: Hypokalemia Ventricular tachycardia (paroxysmal) Critical Care Critical care time is 35 minutes I have personally spent greater than 35 minutes of critical care time in the direct management of this patient. This includes bedside care, interpretation of diagnostic studies, and testing, discussion with consultants, patient, and family members, and other required patient management activities. This 35 minutes is in excess of all separately billable procedures. Scribe Attestation The scribe's documentation has been prepared under my direction and personally reviewed by me in its entirety. I confirm that the note above accurately reflects all work, treatment, procedures, and medical decision making performed by me. Departure Information Dispostion Being Evaluated By Hospitalist Kieran De La Garza M.D. (PCP) Patient Instructions My [facility] Problem Qualifiers Primary Impression: Syncope Syncope type: unspecified Qualified Codes: R55 - Syncope and collapse
[2016-09-29] MEDS ORDERED: ONDANSETRON INJ 2 MG/ML 2 ML VIAL ONE ×2 (22:36→23:13)
[2016-09-29] MEDS ORDERED: MoRPHine SULFATE 4 MG/ML 1 ML CARP\\VIAL ONE (22:36)
[2016-09-29 22:38] LABS: HEMATOCRIT 46.5 % (37-47); MEAN CELL VOLUME 89.6 fL (80-100); MEAN CORPUSCULAR HEMOGLOBIN 31.4 pg (25-34); MEAN CORPUSCULAR HGB CONC 35.1 g/dl (32-36); MEAN PLATELET VOLUME 11.3 fL (7.4-10.4); PLATELET COUNT 262 K/uL (130-400); RED BLOOD COUNT 5.19 M/uL (4.2-5.4); WHITE BLOOD COUNT 10.39 K/uL (4.8-10.8)
[2016-09-29 22:40] LABS: ISTAT CREATININE 0.9 mg/dl (0.6-1.3); ISTAT HEMOGLOBIN 16.3 g/dl (12.0-16.0); ISTAT IONIZED CALCIUM 1.2 mmol/l (1.12-1.32)
--- NOTE | 2016-09-29 22:42 | DIAGNOSTIC IMAGING REPORT ---
CHEST ONE VIEW PORTABLE CLINICAL HISTORY: Heart alert. COMPARISON STUDY: Chest radiograph June 22, 2016. FINDINGS: Lung volumes are normal. There is no pneumothorax or pleural effusion. Cardiac size is normal. Mediastinal contours are normal. There is no evidence of pulmonary edema. IMPRESSION: No acute cardiopulmonary findings. Electronically signed by: Edmar Lanad M.D. 09/29/2016 10:40 PM Dictated Date/Time: 09/29/2016 10:38 PM
[2016-09-29] MEDS ORDERED: HEPARIN SOD (PORCINE) 1000 UNIT/ML 10 ML VIAL ONE (22:44)
[2016-09-29] MEDS ORDERED: NiCARDipine HCL INJ 2.5 MG/ML 10 ML AMP ONE (22:44)
[2016-09-29] MEDS ORDERED: FENTANYL CITRATE INJ 50 MCG/1 ML 2 ML VIAL ONE (22:45)
[2016-09-29] MEDS ORDERED: NITROGLYCERIN/D5W 100MCG/ML 20ML SYR ONE (22:45)
[2016-09-29] MEDS ORDERED: MIDAZOLAM HCL 1 MG/ML 2ML VIAL ONE (22:45)
[2016-09-29 22:48] LABS: URINE APPEARANCE CLEAR (CLEAR); URINE BILIRUBIN NEG (NEG); URINE COLOR YELLOW; URINE EPITHELIAL CELL AUTO >30 /lpf (0-5); URINE NITRITE NEG (NEG); UROBILINOGEN NEG (NEG)
[2016-09-29 22:52] LABS: PARTIAL THROMBOPLASTIN RATIO 0.9; PROTHROMBIN TIME (PATIENT) 10.7 SECONDS (9.0-12.0)
[2016-09-29 22:56] LABS: ALT/SGPT 21 U/L (12-78); BLOOD UREA NITROGEN 19 mg/dl (7-18); BUN/CREATININE RATIO 17.5 (10-20); CARBON DIOXIDE 23 mmol/L (21-32); CHLORIDE 107 mmol/L (98-107); GLUCOSE 134 mg/dl (70-99); MAGNESIUM 2.3 mg/dl (1.8-2.4); POTASSIUM 3.2 mmol/L (3.5-5.1); SODIUM 142 mmol/L (136-145)
[2016-09-29 22:57] LABS: MANUAL MICROSCOPIC REQUIRED? NO; REVIEW REQ? YES
[2016-09-29 23:00] LABS: ALKALINE PHOSPHATASE 55 U/L (45-117); AST/SGOT 10 U/L (15-37)
[2016-09-29 23:02] LABS: CALCIUM 9.1 mg/dl (8.5-10.1)
[2016-09-29] MEDS ORDERED: OPTIRAY 320 IV PRN (23:15)
[2016-09-29 23:36] LABS: BENZODIAZEPINE, URINE NEG (NEG); COCAINE,URINE NEG (NEG); PHENCYCLIDINE, URINE NEG (NEG)
[2016-09-29 23:57] LABS: BASO ABS # 0.09 K/uL (0-0.2); BASOPHIL % 0.9 %; COMPLETE YES; LARGE GRANULAR LYMPH ABSOLUTE 2.56 K/uL; LARGE GRANULAR LYMPHOCYTE % 24.6 %; LYMPH ABS # 4.63 K/uL (1.2-3.4); LYMPHOCYTE % 44.6 %; MYELOCYTE % 0.9 %; NEUTROPHILS % 21.1 %
[2016-09-30] VITALS (8 sets, daily range): BP systolic 96–131; BP diastolic 54–75; PULSE 72–83; TEMP 36.3–36.8; O2SAT 94–98; Ht 157.5 cm; Wt 90.6 kg
[2016-09-30] MEDS ORDERED: ACETAMINOPHEN 325 MG TAB PO PRN (00:30)
[2016-09-30] MEDS ORDERED: BUTALBITAL/ASA/CAFFEINE/COD 50/325/40/30 MG CAP PO PRN (00:45)
[2016-09-30] MEDS ORDERED: TRAMADOL HCL 50 MG TAB PO PRN (00:45)
[2016-09-30] MEDS ORDERED: CLONAZEPAM 0.5 MG TAB PO PRN (00:45)
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
[2016-09-30] MEDS: ONDANSETRON INJ 2 MG/ML 2 ML VIAL IV PRN (01:07)
[2016-09-30] MEDS: HYDROmorphone INJ 0.5 MG/0.5 ML SYR IV PRN ×4 (01:08→21:43)
[2016-09-30 01:42] LABS: BENZODIAZEPINE, URINE NEG (NEG); COCAINE,URINE NEG (NEG); PHENCYCLIDINE, URINE NEG (NEG)
[2016-09-30] MEDS ORDERED: POTASSIUM CHLORIDE 10 MEQ TABCR PO ONE (02:00)
[2016-09-30] MEDS: NSS + 20MEQ KCL 1000ML 1,000 ML IV SCH ×3 (02:04→21:41)
[2016-09-30] MEDS: HEPARIN SOD 5000 UNIT/0.5 ML CARP SQ SCH ×3 (06:23→21:45)
--- NOTE | 2016-09-30 06:50 | DIAGNOSTIC IMAGING REPORT ---
CT ANGIOGRAM OF THE CHEST CLINICAL HISTORY: Atypical chest pain COMPARISON STUDY: 03/03/2014 TECHNIQUE: Following the IV administration of 92 mL of Optiray-320, CT angiogram of the thorax was performed from the thoracic inlet to the lung bases utilizing the pulmonary embolus protocol. Images are reviewed in the axial, sagittal, and coronal planes. IV contrast was administered without complication. MIP imaging was performed. CT DOSE: 1028.62 mGy.cm FINDINGS: No pathologically enlarged axillary mediastinal or hilar lymph nodes were visualized. There was no evidence of thoracic aortic dilatation. There were no pulmonary artery filling defects to indicate acute pulmonary embolism. No pleural effusions are visualized. There was no evidence of focal pulmonary consolidation. There is a stable 5 mm right upper lobe perifissural nodule. IMPRESSION: 1. No CT evidence of acute pulmonary embolism 2. No evidence of focal pulmonary consolidation Electronically signed by: Ganesh Obando M.D. 09/30/2016 6:48 AM Dictated Date/Time: 09/30/2016 6:45 AM
--- NOTE | 2016-09-30 07:22 | DIAGNOSTIC IMAGING REPORT ---
CT SCAN OF THE ABDOMEN AND PELVIS WITH IV CONTRAST CLINICAL HISTORY: Generalized abdominal pain. COMPARISON STUDY: Abdominal CT dated 01/28/2016. TECHNIQUE: Following the IV administration of 92 cc of Optiray 320, CT scan of the abdomen and pelvis is performed from the lung bases to the proximal femora. Images are reviewed in the axial, sagittal, and coronal planes. IV contrast was administered without complication. Automated dose control exposure was utilized. FINDINGS: Lung bases: The heart is normal in size and without pericardial effusion. A punctate calcified granuloma is noted at the right lung base. The lung bases are otherwise clear noting dependent atelectasis. A small hiatal hernia is noted. Liver: The contrast-enhanced liver is normal in size, contour, and attenuation. There is minimal central intrahepatic biliary ductal dilatation, likely related to previous cholecystectomy. The hepatic veins and portal veins are patent. Gallbladder: Surgically absent noting clips in the gallbladder fossa. Spleen: Normal in size and attenuation. Pancreas: Unremarkable. Adrenal glands: Unremarkable. Kidneys: The contrast enhanced kidneys are normal in size and without hydronephrosis. The kidneys enhance symmetrically. Abdominal vasculature: The abdominal aorta is normal in course and caliber noting scattered foci of atherosclerotic calcification. Bowel: The small bowel and colon are normal in course and caliber. There is moderate colonic fecal retention. There is mild wall thickening and edema or less likely underdistention identified involving the distal descending and sigmoid colon. There is mild pericolonic infiltration, and the appearance suggests a mild nonspecific colitis. The appendix is well-visualized and normal. Peritoneum: There is no intraperitoneal free air or abdominal ascites. There is a fat-containing umbilical hernia. Lymphadenopathy: None. Pelvic viscera: The bladder is normal as visualized. The endometrium appears markedly thickened in the fundal region. The adnexa are normal as visualized noting bilateral ovarian follicles. . Skeletal structures: No lytic or blastic lesions are seen. There are postoperative changes from L5-S1 spinal fusion. Sclerotic changes are identified the pubic symphysis. IMPRESSION: 1. Findings suggest a mild nonspecific colitis of the distal descending and sigmoid colon. Clinical correlation will be required. 2. The endometrium appears markedly thickened in the fundal region. Follow-up with a nonemergent pelvic ultrasound is recommended for further assessment. Electronically signed by: Moi George M.D. 09/30/2016 7:20 AM Dictated Date/Time: 09/30/2016 7:14 AM
[2016-09-30 07:44] LABS: COMPLETE YES; EOS % 1.2 %; HEMATOCRIT 42.5 % (37-47); IG% 0.2 %; LYMPH ABS # 1.04 K/uL (1.2-3.4); MEAN CELL VOLUME 89.5 fL (80-100); MEAN CORPUSCULAR HEMOGLOBIN 29.7 pg (25-34); MEAN CORPUSCULAR HGB CONC 33.2 g/dl (32-36); MEAN PLATELET VOLUME 11.4 fL (7.4-10.4); MONO % 5.1 %; NEUT % 82.5 %; PLATELET COUNT 180 K/uL (130-400); RED BLOOD COUNT 4.75 M/uL (4.2-5.4); WHITE BLOOD COUNT 9.44 K/uL (4.8-10.8)
[2016-09-30] MEDS: VENLAFAXINE HCL XR 150 MG CAPXR PO SCH (07:52)
[2016-09-30] MEDS: PANTOprazole SOD 40 MG TAB PO SCH (07:52)
[2016-09-30] MEDS: TOPIRAMATE 100 MG TAB PO SCH ×2 (07:52→21:41)
[2016-09-30] MEDS: ASPIRIN 81 MG ECTAB PO SCH (07:52)
[2016-09-30] MEDS: ATORVASTATIN 20 MG TAB PO SCH (07:53)
[2016-09-30] MEDS: GABAPENTIN 800 MG TAB PO SCH ×3 (07:53→21:42)
[2016-09-30 08:28] LABS: ALB/GLOB RATIO 1.1 (0.9-2); ALKALINE PHOSPHATASE 42 U/L (45-117); ALT/SGPT 22 U/L (12-78); AST/SGOT 14 U/L (15-37); BLOOD UREA NITROGEN 18 mg/dl (7-18); BUN/CREATININE RATIO 26.1 (10-20); CARBON DIOXIDE 22 mmol/L (21-32); CHLORIDE 110 mmol/L (98-107); CHOLESTEROL 165 mg/dl (0-200); CHOLESTEROL/HDL RATIO 3.8; GLUCOSE 90 mg/dl (70-99); HDL CHOLESTEROL 43 mg/dl; LDL CHOLESTEROL CALCULATED 107 mg/dl; POTASSIUM 4.9 mmol/L (3.5-5.1); SODIUM 140 mmol/L (136-145); TRIGLYCERIDES 73 mg/dl (0-150); VERY LOW DENSITY LIPOPROT CALC 15 mg/dl
--- NOTE | 2016-09-30 08:34 | DIAGNOSTIC IMAGING REPORT ---
CT SCAN OF THE BRAIN WITHOUT IV CONTRAST CLINICAL HISTORY: Syncope. Headache. COMPARISON STUDY: CT of the brain dated 06/22/2016. TECHNIQUE: Unenhanced axial CT scan of the brain is performed from the vertex to the skull base. Automated dose control exposure was utilized. CT DOSE: 537.48 mGy.cm FINDINGS: Brain parenchyma: The brain parenchyma is normal 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 There is no hemorrhage, mass effect, or evidence of acute territorial ischemia by CT criteria. Domínguez-white matter is preserved. No extra-axial fluid collection is seen. Ventricles, sulci, cisterns: Normal in configuration. Intracranial vasculature: The visualized intracranial vasculature at the skull base is normal 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 Calvarium: Unremarkable. Sinuses and mastoids: The visualized paranasal sinuses are clear. The mastoid air cells are well pneumatized. Orbits: The bony orbits are grossly intact. IMPRESSION: No acute intracranial abnormality. Electronically signed by: Moi George M.D. 09/30/2016 8:32 AM Dictated Date/Time: 09/30/2016 8:30 AM
[2016-09-30 08:50] LABS: CALCIUM 8.7 mg/dl (8.5-10.1)
[2016-09-30] MEDS ORDERED: METHYLPHENIDATE HCL 10 MG TAB PO SCH (09:00)
--- NOTE | 2016-09-30 09:08 | DIAGNOSTIC IMAGING REPORT ---
ULTRASOUND BILATERAL LOWER EXTREMITY VENOUS CLINICAL HISTORY: Syncope. COMPARISON STUDY: No priors. TECHNIQUE: Real-time, grayscale, and color Doppler sonography of the deep veins of the right and left lower extremity was performed from the inguinal crease to the calf. Compression and augmentation were utilized. FINDINGS: There is no sonographic evidence of deep venous thrombosis identified in the right or left lower extremity. The common femoral, superficial femoral, and popliteal veins are patent and normally compressible bilaterally. The greater saphenous vein and the profunda femoris vein at the junction with the common femoral vein are clear in both legs. The visualized calf veins are patent bilaterally. IMPRESSION: There is no sonographic evidence of deep venous thrombosis identified in the right or left lower extremity. Electronically signed by: Moi George M.D. 09/30/2016 9:06 AM Dictated Date/Time: 09/30/2016 9:05 AM
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
--- NOTE | 2016-09-30 10:08 | ECHOCARDIOGRAM REPORT ---
*NOTICE TO RECEIVING CONSTITUTION PARTY AGENCY This information is strictly Confidential and protected under [place] law. [place] law prohibits you from making any further disclosure of this information unless further disclosure is expressly permitted by the written consent of the person to whom it pertains or is authorized by law. A general authorization for the release of medical or other information is not sufficient for this purpose. Hospital accepts no responsibility if the information is made available to any other person, INCLUDING THE PATIENT. Interpretation Summary * Name: DARIA ALVARADO Study Date: 09/30/2016 07:17 AM BP: 104/70 mmHg * Patient Location: C.2T\S\S233\S\1 HR: 73 * : 1985 (M/d/yyyy) Gender: Female Height: 62 in * Age: 31 yrs Ethnicity: [place] Weight: 196 lb * Ordering Physician: Arthur Mariscal * Referring Physician: Self, Referred * Performed By: Greer Rodriguez RCS * * Reason For Study: CHEST PAIN * BSA: 1.9 m2 * -- Conclusions -- * 1. Normal LV size. Mild concentric LVH. * 2. Normal LV systolic function. LVEF 60-65%. No regional wall motion abnormalities. * 3. Normal RV size and function. * 4. No significant valvular pathology. * 5. Normal estimated CVP. * 6. Compared with prior study on 01/02/2010: No significant changes. Procedure Details * A complete two-dimensional transthoracic echocardiogram was performed (2D, M-mode, Doppler and color flow Doppler). Left Ventricle * The left ventricle is grossly normal size. * There is mild concentric left ventricular hypertrophy. * Ejection Fraction = 60-65%. * No regional wall motion abnormalities noted. Right Ventricle * The right ventricle is grossly normal size. * The right ventricular systolic function is normal as assessed by tricuspid annular plane systolic excursion (TAPSE) (normal >1.5 cm). Atria * The left atrial size is normal. * Right atrial size is normal. * No ASD detected; PFO is not assessed. Mitral Valve * The mitral valve is grossly normal. * There is no mitral valve stenosis. Tricuspid Valve * The tricuspid valve is not well visualized, but is grossly normal. * Tricuspid stenosis is absent. * Significant tricuspid regurgitation is absent. Aortic Valve * The aortic valve opens well. * The aortic valve is trileaflet. * No hemodynamically significant valvular aortic stenosis. Pulmonic Valve * The pulmonic valve is not well seen, but is grossly normal. * There is no pulmonic valvular stenosis. * There is no pulmonic valvular regurgitation. Great Vessels * The aortic root and proximal ascending aorta are normal sized. Pericardium/Pleural * There is no pericardial effusion. Great Vessels * Normal inferior vena cava size and collapsability with sniff indicates a normal right atrial pressure of 3 mmHg MMode 2D Measurements and Calculations IVSd 1.3 cm IVSs 1.4 cm LVIDd 4.9 cm LVIDs 3.8 cm LVPWd 1.3 cm LVPWs 1.3 cm IVS/LVPW 0.97 FS 22.1 % EDV(Teich) 111.0 ml ESV(Teich) 61.7 ml EF(Teich) 44.5 % EDV(cubed) 115.2 ml ESV(cubed) 54.5 ml EF(cubed) 52.7 % % IVS thick 13.3 % % LVPW thick 2.0 % LV mass(C)d 244.4 grams LV mass(C)dI 129.0 grams/m\S\2 LV mass(C)s 187.6 grams LV mass(C)sI 99.0 grams/m\S\2 SV(Teich) 49.3 ml SI(Teich) 26.0 ml/m\S\2 SV(cubed) 60.7 ml SI(cubed) 32.0 ml/m\S\2 Ao root diam 3.4 cm Ao root area 9.1 cm\S\2 ACS 2.1 cm LA dimension 3.2 cm LA/Ao 0.95 LVOT diam 2.0 cm LVOT area 3.0 cm\S\2 Doppler Measurements and Calculations MV E max juan 99.8 cm/sec MV A max juan 72.8 cm/sec MV E/A 1.4 MV P1/2t max juan 113.9 cm/sec MV P1/2t 77.6 msec MVA(P1/2t) 2.8 cm\S\2 MV dec slope 429.5 cm/sec\S\2 MV dec time 0.22 sec Ao V2 max 145.3 cm/sec Ao max PG 8.4 mmHg Ao max PG (full) 5.6 mmHg BRYON(V,A) 1.8 cm\S\2 BRYON(V,D) 1.8 cm\S\2 LV V1 max PG 2.9 mmHg LV V1 max 84.4 cm/sec PA V2 max 96.5 cm/sec PA max PG 3.7 mmHg
[2016-09-30] MEDS: LUBIPROSTONE 8 MCG CAP PO SCH ×2 (10:56→21:42)
[2016-09-30] MEDS: HYDROCODONE/ACETAMOPHEN 5/325MG TAB PO PRN ×2 (12:04→18:42)
--- NOTE | 2016-09-30 14:49 | Progress Note ---
Medicine Progress Note Date & Time of Visit: Sep 30, 2016 at 14:23. Subjective Pt was seen and examined Sitting in bed with no distress Pt said that she still complaint of back pain denies any chest pain, palpitation, dizziness and SOB Objective Last 8 Hrs Date Time Temp Pulse Resp B/P Pulse Ox O2 Delivery O2 Flow Rate FiO2 09/30/16 12:40 83 115/75 94 Room Air 09/30/16 12:00 Room Air 09/30/16 11:43 36.6 83 18 109/71 96 09/30/16 08:00 Room Air 09/30/16 07:55 36.6 74 18 110/68 96 Physical Exam: General- No acute distress Head- atraumatic Eyes- PERRL, EOMI ENT- oropharynx clear Neck- supple, no JVD Lungs- clear to auscultation and percussion Heart- regular rhythm; no murmur Abdomen- normal bowel sounds, soft Extremities- no calf tenderness Neuro- alert, oriented x 3; PERRL, EOMI; no facial palsy; no dysarthria; motor 5 /5 bilaterally Skin- warm & dry Laboratory Results: Last 24 Hours Test 09/29/16 22:20 09/29/16 22:22 09/29/16 22:24 09/29/16 22:26 White Blood Count 10.39 K/uL Red Blood Count 5.19 M/uL Hemoglobin 16.3 g/dL Hematocrit 46.5 % Mean Corpuscular Volume 89.6 fL Mean Corpuscular Hemoglobin 31.4 pg Mean Corpuscular Hemoglobin Concent 35.1 g/dl Platelet Count 262 K/uL Mean Platelet Volume 11.3 fL RDW Standard Deviation 40.9 fL RDW Coefficient of Variation 12.6 % Neutrophils % (Manual) 21.1 % Lymphocytes % (Manual) 44.6 % Monocytes % (Manual) 7.9 % Basophils % (Manual) 0.9 % Myelocytes % 0.9 % Neutrophils # (Manual) 2.19 K/uL Total Absolute Neutrophils 2.19 K/uL Lymphocytes # (Manual) 4.63 K/uL Total Absolute Lymphocytes 7.19 K/uL Monocytes # (Manual) 0.82 K/uL Basophils # (Manual) 0.09 K/uL Myelocytes # 0.09 K/uL Percent Large Granular Lymphocytes 24.6 % Absolute Large Granular Lymphocytes 2.56 K/uL Red Blood Cell Morphology Unremarkable Prothrombin Time 10.7 SECONDS Prothromb Time International Ratio 1.0 Activated Partial Thromboplast Time 23.1 SECONDS Partial Thromboplastin Ratio 0.9 D-Dimer 510 ug/L FEU Sodium Level 142 mmol/L Potassium Level 3.2 mmol/L Chloride Level 107 mmol/L Carbon Dioxide Level 23 mmol/L Anion Gap 12.0 mmol/L 23.0 mmol/L Blood Urea Nitrogen 19 mg/dl Creatinine 1.10 mg/dl Est Creatinine Clear Calc Drug Dose 77.6 ml/min Estimated GFR () 78.0 Estimated GFR (Non- 67.3 BUN/Creatinine Ratio 17.5 Random Glucose 134 mg/dl Calcium Level 9.1 mg/dl Magnesium Level 2.3 mg/dl Total Bilirubin 0.5 mg/dl Direct Bilirubin 0.1 mg/dl Aspartate Amino Transf (AST/SGOT) 10 U/L Alanine Aminotransferase (ALT/SGPT) 21 U/L Alkaline Phosphatase 55 U/L Total Creatine Kinase 46 U/L Creatine Kinase MB < 0.5 ng/ml Creatine Kinase MB Ratio Total Protein 7.2 gm/dl Albumin 3.8 gm/dl Lipase 215 U/L Urine Opiates Screen POS Urine Methadone, Qualitative NEG Urine Barbiturates NEG Urine Phencyclidine (PCP) Level NEG Ur Amphetamine/Methamphetamine NEG MDMA (Ecstasy) Screen NEG Urine Benzodiazepines Screen NEG Urine Cocaine Metabolite NEG Urine Marijuana (THC) NEG Urine Color YELLOW Urine Appearance CLEAR Urine pH 5.0 Urine Specific [place] 1.030 Urine Protein NEG Urine Glucose (UA) NEG Urine Ketones NEG Urine Occult Blood 1+ Urine Nitrite NEG Urine Bilirubin NEG Urine Urobilinogen NEG Urine Leukocyte Esterase NEG Urine WBC (Auto) 1-5 /hpf Urine RBC (Auto) 0-4 /hpf Urine Hyaline Casts (Auto) 0 /lpf Urine Epithelial Cells (Auto) >30 /lpf Urine Bacteria (Auto) 1+ Urine Pathogenic Casts /lpf Bedside Hemoglobin 16.3 g/dl Bedside Hematocrit 48 % Bedside Sodium 142 mEq/L Bedside Potassium 3.1 mEq/L Bedside Chloride 103 mEq/L Bedside Total CO2 19 mEq/l Bedside Blood Urea Nitrogen 20 mg/dl Bedside Creatinine 0.9 mg/dl Bedside Glucose (other) 134 mg/dl Bedside Ionized Calcium (Luda) 1.20 mmol/l Bedside Troponin I 0.000 ng/ml Test 09/30/16 00:45 09/30/16 06:31 09/30/16 07:30 09/30/16 11:41 Urine Opiates Screen POS Urine Methadone, Qualitative NEG Urine Barbiturates NEG Urine Phencyclidine (PCP) Level NEG Ur Amphetamine/Methamphetamine NEG MDMA (Ecstasy) Screen NEG Urine Benzodiazepines Screen NEG Urine Cocaine Metabolite NEG Urine Marijuana (THC) NEG Creatine Kinase MB Ratio White Blood Count 9.44 K/uL Red Blood Count 4.75 M/uL Hemoglobin 14.1 g/dL Hematocrit 42.5 % Mean Corpuscular Volume 89.5 fL Mean Corpuscular Hemoglobin 29.7 pg Mean Corpuscular Hemoglobin Concent 33.2 g/dl Platelet Count 180 K/uL Mean Platelet Volume 11.4 fL Neutrophils (%) (Auto) 82.5 % Lymphocytes (%) (Auto) 11.0 % Monocytes (%) (Auto) 5.1 % Eosinophils (%) (Auto) 1.2 % Basophils (%) (Auto) 0.0 % Neutrophils # (Auto) 7.79 K/uL Lymphocytes # (Auto) 1.04 K/uL Monocytes # (Auto) 0.48 K/uL Eosinophils # (Auto) 0.11 K/uL Basophils # (Auto) 0.00 K/uL RDW Standard Deviation 41.5 fL RDW Coefficient of Variation 12.8 % Immature Granulocyte % (Auto) 0.2 % Immature Granulocyte # (Auto) 0.02 K/uL Sodium Level 140 mmol/L Potassium Level 4.9 mmol/L Chloride Level 110 mmol/L Carbon Dioxide Level 22 mmol/L Anion Gap 8.0 mmol/L Blood Urea Nitrogen 18 mg/dl Creatinine 0.70 mg/dl Est Creatinine Clear Calc Drug Dose 121.8 ml/min Estimated GFR () 134.8 Estimated GFR (Non- 116.3 BUN/Creatinine Ratio 26.1 Random Glucose 90 mg/dl Calcium Level 8.7 mg/dl Magnesium Level 2.0 mg/dl Total Bilirubin 0.7 mg/dl Aspartate Amino Transf (AST/SGOT) 14 U/L Alanine Aminotransferase (ALT/SGPT) 22 U/L Alkaline Phosphatase 42 U/L Creatine Kinase MB 2.5 ng/ml Troponin I 0.423 ng/ml Total Protein 6.5 gm/dl Albumin 3.4 gm/dl Globulin 3.1 gm/dl Albumin/Globulin Ratio 1.1 Triglycerides Level 73 mg/dl Cholesterol Level 165 mg/dl HDL Cholesterol 43 mg/dl LDL Cholesterol, Calculated 107 mg/dl VLDL Cholesterol, Calculated 15 mg/dl Cholesterol/HDL Ratio 3.8 Bedside Glucose 101 mg/dl Test 09/30/16 12:31 09/30/16 12:42 Creatine Kinase MB Ratio Creatine Kinase MB 2.3 ng/ml Troponin I 0.168 ng/ml Assessment & Plan Syncope Unclear etiology Possible related to vasovagal vs arrhythmia (Brief period of NSVT while in ED per ED physician) Drug screen positive for opiates: Was on Ultram at home Denies any illegal drug or substance used No arrhythmia on lapidarist Elevated troponin echo is normal CT head is negative Cardiology on board Elevated troponin Denies any chest pain Initial EKG showed unusual precordial ST elevations with peaked T-waves Repeat EKGs showed no ST elevation Continue follow troponin Continue monitor in tele cardiology on board Echo showed * 1. Normal LV size. Mild concentric LVH. * 2. Normal LV systolic function. LVEF 60-65%. No regional wall motion abnormalities. * 3. Normal RV size and function. * 4. No significant valvular pathology. * 5. Normal estimated CVP. * 6. Compared with prior study on 01/02/2010: No significant changes Hypokalemia: stable continue monitor electrolytes Acute hypoxic respiratory failure: CTA chest negative for PE resolved NSVT: Brief episode while in ED (as per ED physician) Currently in sinus, rate controlled Asymptomatic Stable Elevated D-dimer: Likely secondary to Tachycardia while in ED CTA Chest negative for PE Venous Doppler of LE negative for DVT DJD S/P lumbar spinal fusion: and Fibromyalgia: Pain control with Dilaudid and hydrocodone prn consider to get xray of the lumbar area if pain does not improve and pain management referral PT eval ADHD/ Anxiety disorder/ Migraine Stable continue home meds H/O Neurogenic Bladder: Does straight cath PRN at home Carranza for now DVT Px: Heparin SQ Code status: Full code Disposition: Monitor in Telemetry Consultants: cardiology Current Inpatient Medications: Current Inpatient Medications Medications (Trade) Dose Ordered Sig/Saundra Route Start Time Stop Time Status Last Admin Dose Admin Ioversol (Optiray 320) 100 ml UD PRN IV 09/29/16 23:15 10/03/16 23:14 Heparin Sodium (Porcine) 5000 unit 5,000 unit Q8H SQ 09/30/16 06:00 10/30/16 05:59 09/30/16 13:47 5,000 UNIT Potassium Chloride/Sodium Chloride (Nss + 20meq KCl 1000ml) 1,000 ml @ 100 mls/hr Q10H IV 09/30/16 02:00 10/30/16 01:59 09/30/16 12:04 100 MLS/HR Acetaminophen (Tylenol Tab) 650 mg Q4H PRN PO 09/30/16 00:30 10/30/16 00:29 09/30/16 05:03 650 MG Ondansetron HCl (Zofran Inj) 4 mg Q6H PRN IV 09/30/16 00:30 10/30/16 00:29 09/30/16 01:07 4 MG Aspirin (Ecotrin Tab) 81 mg QAM PO 09/30/16 09:00 10/30/16 08:59 09/30/16 07:52 81 MG Butalbital/ Aspirin/Caffeine/ Codeine (Fiorinal W/ Codeine Cap) 1 cap Q4H PRN PO 09/30/16 00:45 10/30/16 00:44 Clonazepam (Klonopin Tab) 0.5 mg BID PRN PO 09/30/16 00:45 10/30/16 00:44 Gabapentin (Neurontin Tab) 800 mg TID PO 09/30/16 09:00 10/30/16 08:59 09/30/16 13:46 800 MG Methylphenidate HCl (Ritalin Tab) 20 mg BID PO 09/30/16 09:00 10/14/16 08:59 09/30/16 08:08 20 MG Topiramate (Topamax Tab) 200 mg BID PO 09/30/16 09:00 10/30/16 08:59 09/30/16 07:52 200 MG Venlafaxine HCl (effeXOR EXTENDED REL CAP) 150 mg QAM PO 09/30/16 09:00 10/30/16 08:59 09/30/16 07:52 150 MG Lubiprostone (Amitiza) 24 mcg BID PO 09/30/16 09:00 10/30/16 08:59 09/30/16 10:56 24 MCG Pantoprazole Sodium (Protonix Tab) 40 mg DAILY PO 09/30/16 09:00 10/30/16 08:59 09/30/16 07:52 40 MG Atorvastatin Calcium (Lipitor Tab) 20 mg QAM PO 09/30/16 09:00 10/30/16 08:59 09/30/16 07:53 20 MG Diphenhydramine HCl (Benadryl Cap) 25 mg BID PRN PO 09/30/16 11:00 10/30/16 10:59 Acetaminophen/ Hydrocodone Bitart (Oscar 5/325 Tab) 1 tab Q4 PRN PO 09/30/16 10:30 10/14/16 10:29 09/30/16 12:04 1 TAB
--- NOTE | 2016-09-30 17:48 | DIAGNOSTIC IMAGING REPORT ---
LUMBAR SPINE 3 VIEWS HISTORY: Low back pain COMPARISON: Lumbar spine 12/29/2015. FINDINGS: There is no fracture. No subluxation. Posterior decompression fusion at L5-S1. The hardware appears intact. No fractures within the sacrum. Mild degenerative changes at the bilateral sacroiliac joints, unchanged. Cholecystectomy. Disc spaces are preserved. IMPRESSION: No fracture or subluxation within the lumbar spine. No change from the prior study. Electronically signed by: Phillip Padilla M.D. 09/30/2016 5:46 PM Dictated Date/Time: 09/30/2016 5:45 PM
[2016-10-01] MEDS: HYDROCODONE/ACETAMOPHEN 5/325MG TAB PO PRN ×4 (00:02→12:57)
[2016-10-01 04:15] VITALS: BP 102/64; PULSE 73; TEMP 37; O2SAT 93
[2016-10-01] MEDS: HEPARIN SOD 5000 UNIT/0.5 ML CARP SQ SCH ×3 (06:00→12:58)
[2016-10-01 06:56] LABS: MAGNESIUM 2.2 mg/dl (1.8-2.4); THYROID STIMULATING HORMONE 0.643 uIu/ml (0.300-4.500)
[2016-10-01] MEDS: NSS + 20MEQ KCL 1000ML 1,000 ML IV SCH (07:29)
[2016-10-01] MEDS: PANTOprazole SOD 40 MG TAB PO SCH (07:29)
[2016-10-01] MEDS: HYDROmorphone INJ 0.5 MG/0.5 ML SYR IV PRN ×2 (07:30→15:53)
[2016-10-01] MEDS: LUBIPROSTONE 8 MCG CAP PO SCH (07:30)
[2016-10-01] MEDS: GABAPENTIN 800 MG TAB PO SCH ×2 (07:30→12:57)
[2016-10-01] MEDS: ASPIRIN 81 MG ECTAB PO SCH (07:31)
[2016-10-01] MEDS: TOPIRAMATE 100 MG TAB PO SCH (07:31)
[2016-10-01] MEDS: VENLAFAXINE HCL XR 150 MG CAPXR PO SCH (07:31)
[2016-10-01] MEDS: ATORVASTATIN 20 MG TAB PO SCH (07:33)
[2016-10-01 07:46] VITALS: BP 102/67; PULSE 65; TEMP 36.9; O2SAT 97
--- NOTE | 2016-10-01 08:56 | Cardiology Follow-Up ---
Subjective Subjective Date of Service: Oct 01, 2016. Pt evaluation today including: conversation w/ patient, physical exam, chart review, lab review, review of studies, conversation w/ clinical application consultant, review of inpatient medication list Additional Details: No chest pain, shortness of breath overnight. No further syncopal/presyncopal symptoms. Primary concern back, right leg pain. Tele Reviewed -- no events. Problem List Medical Problems: (1) Abdominal cramps Status: Acute (2) Abdominal discomfort, epigastric Status: Acute (3) Abdominal discomfort, generalized Status: Acute (4) Abdominal pain Status: Acute (5) Accidental overdose Status: Acute (6) Acute left flank pain Status: Acute (7) Allergic reaction Status: Acute (8) Colitis, acute Status: Acute (9) Contusion of multiple sites Status: Acute (10) Encounter for wound re-check Status: Acute (11) Exacerbation of chronic back pain Status: Acute (12) Fall Status: Acute (13) Flank pain Status: Acute (14) Gastroenteritis Status: Acute (15) Hypokalemia Status: Acute (16) Intractable back pain Status: Acute (17) Low back pain with right-sided sciatica Status: Acute (18) Lower back pain Status: Acute (19) Lumbar radiculopathy Status: Acute (20) Lumbar radiculopathy Status: Acute (21) Medication reaction Status: Acute (22) Oral thrush Status: Acute (23) Postoperative back pain Status: Acute (24) Postoperative back pain Status: Acute (25) Postoperative pain Status: Acute (26) Right leg weakness Status: Acute (27) Right sided abdominal pain Status: Acute (28) Syncope Status: Acute (29) Urinary retention Status: Acute (30) Urinary retention Status: Acute (31) Urinary retention Status: Acute (32) UTI (urinary tract infection) Status: Acute (33) Vaginal discharge Status: Acute (34) Ventricular tachycardia (paroxysmal) Status: Acute (35) Vomiting Status: Acute (36) Vomiting Status: Acute Review of Systems Constitutional: No chills, No fever Eyes: No worsening of vision Respiratory: No cough, No sputum Cardiac: No chest pain, No edema Abdomen: No nausea, No pain Musculoskeletal: + joint pain Female : No dysuria Neurologic: + numbness/tingling, No memory loss Psychiatric: + anxiety Heme: No abnormal bleeding/bruising Endo: + fatigue Skin: No rash Objective Vital Signs Last Vital Signs Documentation Date Time Temp Pulse Resp B/P Pulse Ox O2 Delivery O2 Flow Rate FiO2 10/01/16 07:46 36.9 65 18 102/67 97 Room Air 09/29/16 23:43 4.0 Physical Exam: General Appearance: no apparent distress ENT: normal ENT inspection Neck: supple, thyroid normal Respiratory/Chest: lungs clear, normal breath sounds Cardiovascular: regular rate, rhythm, no edema, no murmur Abdomen: normal bowel sounds, non tender, soft Extremities: normal inspection, no pedal edema Neurologic/Psychiatric: no motor/sensory deficits, alert, normal mood/affect Skin: normal color, warm/dry, no rash Assessment and Plan 1. Syncope 2. Elevated troponin 3. NSVT 4. Prior spinal surgery/low back pain. Patient remains chest pain free, hemodynamically stable. No further arrhythmias noted. Troponin peaked at 0.4 Unclear etiology of patients initial presenting syncopal event -- telemetry reviewed from ED, brief episodes of NSVT. Also with abrupt drop in HR from sinus tachycardia to 70s potentially consistent with vagal episode Suspect troponin secondary to demand ischemia in setting of hypotension/hypoxia on presentation however, with transient ECG changes/ectopy feel that further risk stratification is warranted and would complete stress test prior to discharge. Patient states unable to walk due to back/leg pain and will plan for dobutamine stress later today. Assuming stress unremarkable would be OK for discharge from a cardiac standpoint. Medications: Current Inpatient Medications Medications (Trade) Dose Ordered Sig/Saundra Route Start Time Stop Time Status Last Admin Dose Admin Ioversol (Optiray 320) 100 ml UD PRN IV 09/29/16 23:15 10/03/16 23:14 Heparin Sodium (Porcine) 5000 unit 5,000 unit Q8H SQ 09/30/16 06:00 10/30/16 05:59 10/01/16 06:40 5,000 UNIT Potassium Chloride/Sodium Chloride (Nss + 20meq KCl 1000ml) 1,000 ml @ 100 mls/hr Q10H IV 09/30/16 02:00 10/30/16 01:59 10/01/16 07:29 100 MLS/HR Acetaminophen (Tylenol Tab) 650 mg Q4H PRN PO 09/30/16 00:30 10/30/16 00:29 09/30/16 05:03 650 MG Ondansetron HCl (Zofran Inj) 4 mg Q6H PRN IV 09/30/16 00:30 10/30/16 00:29 09/30/16 01:07 4 MG Aspirin (Ecotrin Tab) 81 mg QAM PO 09/30/16 09:00 10/30/16 08:59 10/01/16 07:31 81 MG Butalbital/ Aspirin/Caffeine/ Codeine (Fiorinal W/ Codeine Cap) 1 cap Q4H PRN PO 09/30/16 00:45 10/30/16 00:44 Clonazepam (Klonopin Tab) 0.5 mg BID PRN PO 09/30/16 00:45 10/30/16 00:44 Gabapentin (Neurontin Tab) 800 mg TID PO 09/30/16 09:00 10/30/16 08:59 10/01/16 07:30 800 MG Topiramate (Topamax Tab) 200 mg BID PO 09/30/16 09:00 10/30/16 08:59 10/01/16 07:31 200 MG Venlafaxine HCl (effeXOR EXTENDED REL CAP) 150 mg QAM PO 09/30/16 09:00 10/30/16 08:59 10/01/16 07:31 150 MG Lubiprostone (Amitiza) 24 mcg BID PO 09/30/16 09:00 10/30/16 08:59 10/01/16 07:30 24 MCG Pantoprazole Sodium (Protonix Tab) 40 mg DAILY PO 09/30/16 09:00 10/30/16 08:59 10/01/16 07:29 40 MG Atorvastatin Calcium (Lipitor Tab) 20 mg QAM PO 09/30/16 09:00 10/30/16 08:59 10/01/16 07:33 20 MG Diphenhydramine HCl (Benadryl Cap) 25 mg BID PRN PO 09/30/16 11:00 10/30/16 10:59 09/30/16 21:57 25 MG Acetaminophen/ Hydrocodone Bitart ([place] 5/325 Tab) 1 tab Q4 PRN PO 09/30/16 10:30 10/14/16 10:29 10/01/16 04:40 1 TAB Hydromorphone HCl (Dilaudid Inj) 0.5 mg Q8 PRN IV 09/30/16 14:30 10/14/16 14:29 10/01/16 07:30 0.5 MG Methylphenidate HCl (Ritalin Tab) 20 mg BID@0900,1200 PO 10/01/16 09:00 10/15/16 08:59 Ranitidine HCl (zANTac TAB) 150 mg QAM PO 10/01/16 09:00 10/31/16 08:59 10/01/16 07:31 150 MG Lab Results: Test 09/30/16 11:41 10/01/16 00:29 10/01/16 05:45 Bedside Glucose 101 mg/dl (70-90) Creatine Kinase MB 1.2 ng/ml (0.5-3.6) Creatine Kinase MB Ratio (0-3.0) Troponin I 0.063 ng/ml (0-0.045) Magnesium Level 2.2 mg/dl (1.8-2.4) Thyroid Stimulating Hormone (TSH) 0.643 uIu/ml (0.300-4.500) Free Thyroxine 1.19 ng/dl (0.80-1.60)
[2016-10-01] MEDS ORDERED: RANITIDINE HCL 150 MG TAB PO SCH (09:00)
[2016-10-01] MEDS: METHYLPHENIDATE HCL 10 MG TAB PO SCH ×2 (09:16→12:13)
[2016-10-01] MEDS ORDERED: DOBUTamine HCL 12.5 MG/ML 20 ML VIAL ONE (09:34)
[2016-10-01] MEDS ORDERED: METOPROLOL TARTRATE 1 MG/ML VIAL ONE (09:34)
[2016-10-01] MEDS ORDERED: ATROPINE SULFATE 0.1 MG/ML 5ML SYR ONE (09:34)
--- NOTE | 2016-10-01 11:17 | Progress Note ---
Medicine Progress Note Date & Time of Visit: Oct 01, 2016 at 11:03. Subjective Pt was seen and examined Sitting in bed with no distress Pt said that she continues to have back pain denies any chest pain, palpitation, dizziness and sob No syncopal episode since admitting Objective Last 8 Hrs Date Time Temp Pulse Resp B/P Pulse Ox O2 Delivery O2 Flow Rate FiO2 10/01/16 08:00 Room Air 10/01/16 07:46 36.9 65 18 102/67 97 Room Air 10/01/16 04:15 37.0 73 20 102/64 93 Room Air 10/01/16 04:00 Room Air Physical Exam: General- No acute distress Head- atraumatic Eyes- PERRL, EOMI ENT- oropharynx clear Neck- supple, no JVD Lungs- clear to auscultation and percussion Heart- regular rhythm; no murmur Abdomen- normal bowel sounds, soft Extremities- no calf tenderness Neuro- alert, oriented x 3; PERRL, EOMI; no facial palsy; no dysarthria; motor 5 /5 bilaterally Skin- warm & dry Laboratory Results: Last 24 Hours Test 09/30/16 11:41 09/30/16 12:31 09/30/16 12:42 09/30/16 18:31 Bedside Glucose 101 mg/dl Creatine Kinase MB Ratio Creatine Kinase MB 2.3 ng/ml Troponin I 0.168 ng/ml Test 09/30/16 18:41 10/01/16 00:29 10/01/16 05:45 Creatine Kinase MB 1.6 ng/ml 1.2 ng/ml Troponin I 0.091 ng/ml 0.063 ng/ml Creatine Kinase MB Ratio Magnesium Level 2.2 mg/dl Thyroid Stimulating Hormone (TSH) 0.643 uIu/ml Free Thyroxine 1.19 ng/dl Assessment & Plan Syncope Unclear etiology Possible related to vasovagal vs arrhythmia (Brief period of NSVT while in ED per ED physician) Drug screen positive for opiates: Was on Ultram at home Denies any illegal drug or substance used No arrhythmia on case monitor Elevated troponin echo is normal CT head is negative Cardiology on board No syncopal episodes since admitted Elevated troponin Possible related to demand ischemia due to hypoxia on presentation Denies any chest pain Initial EKG showed unusual precordial ST elevations with peaked T-waves Repeat EKGs showed no ST elevation Troponin trending down Continue monitor in tele cardiology on board, dobutamine stress test done today was negative 1. Negative dobutamine stress echo for ischemia at 85% MPHR. * 2. Negative dobutamine stress ECG for ischemia. No significant dobutamine induced arrhythmias. * 3. Normal resting LV size and function. Normal RV size and function. 2D Echo showed * 1. Normal LV size. Mild concentric LVH. * 2. Normal LV systolic function. LVEF 60-65%. No regional wall motion abnormalities. * 3. Normal RV size and function. * 4. No significant valvular pathology. * 5. Normal estimated CVP. * 6. Compared with prior study on 01/02/2010: No significant changes Hypokalemia: stable Resolved Acute hypoxic respiratory failure: CTA chest negative for PE resolved NSVT: Brief episode while in ED (as per ED physician) Currently in sinus, rate controlled No arrhythmia on Tele monitor Asymptomatic Stable Elevated D-dimer: Likely secondary to Tachycardia while in ED CTA Chest negative for PE Venous Doppler of LE negative for DVT DJD S/P lumbar spinal fusion: and Fibromyalgia: Pain control with Dilaudid and hydrocodone prn Lumbar xray showed no fracture or subluxation within the lumbar spine. No change from the prior study. Case discussed with ortho, recommended no urgent surgical intervention at this time. Needs outpatient follow up Pain management consulted and they do not feel comfortable to discharge pt on any opioid and and no outpatient follow needed with them ADHD/ Anxiety disorder/ Migraine Stable continue home meds H/O Neurogenic Bladder: Does straight cath PRN at home Carranza for now DVT Px: Heparin SQ Code status: Full code Disposition: Discharge home today PT/OT Consultants: cardiology Pain Management Ortho Current Inpatient Medications: Current Inpatient Medications Medications (Trade) Dose Ordered Sig/Saundra Route Start Time Stop Time Status Last Admin Dose Admin Ioversol (Optiray 320) 100 ml UD PRN IV 09/29/16 23:15 10/03/16 23:14 Heparin Sodium (Porcine) 5000 unit 5,000 unit Q8H SQ 09/30/16 06:00 10/30/16 05:59 10/01/16 06:40 5,000 UNIT Potassium Chloride/Sodium Chloride (Nss + 20meq KCl 1000ml) 1,000 ml @ 100 mls/hr Q10H IV 09/30/16 02:00 10/30/16 01:59 10/01/16 07:29 100 MLS/HR Acetaminophen (Tylenol Tab) 650 mg Q4H PRN PO 09/30/16 00:30 10/30/16 00:29 09/30/16 05:03 650 MG Ondansetron HCl (Zofran Inj) 4 mg Q6H PRN IV 09/30/16 00:30 10/30/16 00:29 09/30/16 01:07 4 MG Aspirin (Ecotrin Tab) 81 mg QAM PO 09/30/16 09:00 10/30/16 08:59 10/01/16 07:31 81 MG Butalbital/ Aspirin/Caffeine/ Codeine (Fiorinal W/ Codeine Cap) 1 cap Q4H PRN PO 09/30/16 00:45 10/30/16 00:44 Clonazepam (Klonopin Tab) 0.5 mg BID PRN PO 09/30/16 00:45 10/30/16 00:44 Gabapentin (Neurontin Tab) 800 mg TID PO 09/30/16 09:00 10/30/16 08:59 10/01/16 07:30 800 MG Topiramate (Topamax Tab) 200 mg BID PO 09/30/16 09:00 10/30/16 08:59 10/01/16 07:31 200 MG Venlafaxine HCl (effeXOR EXTENDED REL CAP) 150 mg QAM PO 09/30/16 09:00 10/30/16 08:59 10/01/16 07:31 150 MG Lubiprostone (Amitiza) 24 mcg BID PO 09/30/16 09:00 10/30/16 08:59 10/01/16 07:30 24 MCG Pantoprazole Sodium (Protonix Tab) 40 mg DAILY PO 09/30/16 09:00 10/30/16 08:59 10/01/16 07:29 40 MG Atorvastatin Calcium (Lipitor Tab) 20 mg QAM PO 09/30/16 09:00 10/30/16 08:59 10/01/16 07:33 20 MG Diphenhydramine HCl (Benadryl Cap) 25 mg BID PRN PO 09/30/16 11:00 10/30/16 10:59 09/30/16 21:57 25 MG Acetaminophen/ Hydrocodone Bitart (Medora 5/325 Tab) 1 tab Q4 PRN PO 09/30/16 10:30 10/14/16 10:29 10/01/16 09:23 1 TAB Hydromorphone HCl (Dilaudid Inj) 0.5 mg Q8 PRN IV 09/30/16 14:30 10/14/16 14:29 10/01/16 07:30 0.5 MG Methylphenidate HCl (Ritalin Tab) 20 mg BID@0900,1200 PO 10/01/16 09:00 10/15/16 08:59 10/01/16 09:16 20 MG Ranitidine HCl (zANTac TAB) 150 mg QAM PO 10/01/16 09:00 10/31/16 08:59 10/01/16 07:31 150 MG
[2016-10-01 11:24] VITALS: BP 109/72; PULSE 89; TEMP 36.5; O2SAT 98
--- NOTE | 2016-10-01 12:35 | DOBUTAMINE ECHO ---
*NOTICE TO RECEIVING CONSTITUTION PARTY AGENCY This information is strictly Confidential and protected under [place] law. [place] law prohibits you from making any further disclosure of this information unless further disclosure is expressly permitted by the written consent of the person to whom it pertains or is authorized by law. A general authorization for the release of medical or other information is not sufficient for this purpose. Hospital accepts no responsibility if the information is made available to any other person, INCLUDING THE PATIENT. Interpretation Summary * Name: DARIA ALVARADO Study Date: 10/01/2016 09:36 AM BP: 115/40 mmHg * Patient Location: C.2T\S\S233\S\1 HR: 83 * : 1985 (M/d/yyyy) Gender: Female Height: 62 in * Age: 31 yrs Ethnicity: [place] Weight: 199 lb * Ordering Physician: Zeke Mar * Referring Physician: Self, Referred * Performed By: Greer Rodriguez [facility] * * Reason For Study: SYNCOPE * BSA: 1.9 m2 * -- Conclusions -- * 1. Negative dobutamine stress echo for ischemia at 85% MPHR. * 2. Negative dobutamine stress ECG for ischemia. No significant dobutamine induced arrhythmias. * 3. Normal resting LV size and function. Normal RV size and function. For full details regarding resting function see echo report from 09/30/2016. Procedure Details * DOBUTAMINE ECHO, CPT#41006 Left Ventricular Findings with Stress * This was essentially a normal study. Left Ventricle * The left ventricle is grossly normal size. * There is mild concentric left ventricular hypertrophy. * Ejection Fraction = 60-65%. * Resting wall motion: Normal. Stress wall motion: Appropriate increase in Left ventricular systolic function and decrease in cavity size. No stress induced segmental wall motion abnormalities. Right Ventricle * The right ventricle is grossly normal size. * The right ventricular systolic function is qualitatively normal. Atria * The left atrial size is normal. * Right atrial size is normal. Mitral Valve * The mitral valve is grossly normal. Tricuspid Valve * The tricuspid valve is not well visualized, but is grossly normal. Aortic Valve * The aortic valve opens well. Pulmonic Valve * The pulmonic valve is not well visualized. Pericardium * There is no pericardial effusion. Stress Parameters * Normal baseline electrocardiogram. * Nonspecific T wave abnormality. Occasional PACs at rest. * Stress ECG: No ST changes. No arrhythmias. * Arrhythmia induced during stress: occasional PAC's. * Arrhythmia noted in recovery: occasional PAC's. * The stress portion of this study was personally supervised by the undersigned interpreting physician. * Rest heart rate was '83' BPM. * Rest blood pressure was '115/40' * Maximum heart rate achieved was 162 bpm. * Maximum heart rate was 85 % of maximum age-predicted heart rate. * Maximum blood pressure was '153/49' * Maximum Dobutamine infusion rate was '40' mcg/kg/min. * A total of 0 mg of intravenous Atropine was used to supplement Dobutamine for heart rate response. * Dobutamine infusion was terminated due to achieving target heart rate * A total of 0 mg of IV Metoprolol was administered to reverse Dobutamine-induced tachycardia. Left Ventricular Findings with Stress * The study was technically excellent with all images being of optimal quality.
[2016-10-01] MEDS: ONDANSETRON INJ 2 MG/ML 2 ML VIAL IV PRN (12:58)
--- NOTE | 2016-10-01 13:45 | ORTHOPEDIC CONSULTATION ---
DATE OF CONSULTATION: 10/01/2016 DATE OF CONSULTATION: 10/01/2016. HISTORY OF PRESENT ILLNESS: I attempted to see the patient this morning, but she is not available as she was in a stress test. I reviewed her records and understand she was admitted for workup of syncope related to SVT. She has a chronic history of low back pain, having had surgery greater than a year ago for an isthmic spondylolisthesis following which her radiculopathy improved but back pain failed to improve. She has had chronic unremitting low back pain despite unremarkable postoperative MRI. I reviewed her current x-rays and she appears to have stable radiographic findings including a solid fusion at L5-S1 and no significant adjacent level disease or instability. Please note that she had previously been dismissed from followup as she has repeatedly no showed for postoperative visits. However, I will be happy to evaluate her when she is available and I will attempt to see her tomorrow for ongoing suggestions regarding management of her chronic back pain. I thank you for the consultation. Will follow up when she is physically available for examination.
[2016-10-01 15:26] VITALS: BP 114/72; PULSE 79; TEMP 36.8; O2SAT 96
--- NOTE | 2016-10-01 16:08 | Discharge Instructions ---
Discharge Instructions Date of Service Oct 01, 2016. Admission Reason for Admission: Syncope Discharge Discharge Diagnosis / Problem: Syncope, Back pain, Neurogenic Bladder, Elevated troponin, Elevated D-Dimer Discharge Goals Goal(s): Decrease discomfort, Improve function, Improve disease control Activity Recommendations Activity Limitations: resume your previous activity (as tolerated) . Instructions / Follow-Up Instructions / Follow-Up Follow up appointment with your primary care provider Dr. Hemphill on October 06 @ 2: 55pm Please call to schedule follow appointment with your orthopedic Dr. Castro Follow appointment with tobacco roller physician Dr. Bond on October 08 @ 2:40 pm Continue Physical therapy (script given to patient for PT) Fall precaution Current Hospital Diet Patient's current hospital diet: AHA Diet (Heart Healthy) Discharge Diet Recommended Diet: Regular Diet Pending Studies Studies pending at discharge: no Laboratory Results Lipid Panel Test 09/30/16 07:30 Range/Units Triglycerides Level 73 0-150 mg/dl Cholesterol Level 165 0-200 mg/dl HDL Cholesterol 43 mg/dl Cholesterol/HDL Ratio 3.8 LDL Cholesterol, Calculated 107 mg/dl Medical Emergencies . Who to Call and When: Medical Emergencies: If at any time you feel your situation is an emergency, please call 911 immediately. . Non-Emergent Contact Non-Emergency issues call your: Primary Care Provider Call Non-Emergent contact if: your pain is not controlled, your pain is worsening, your pain is concerning you . . "Provider Documentation" section prepared by Yaquelin Cano. . VTE Core Measure Inpt VTE Proph given/why not?: Unfractionated heparin SQ [place] Drug Monitoring Program Search Results: patient reviewed within database
[2016-10-01 16:41] VITALS: BP 114/72; PULSE 79; TEMP 36.8; O2SAT 96
--- NOTE | 2016-10-02 07:09 | CONSULTATION REPORT ---
DATE OF CONSULTATION: 10/01/2016 INPATIENT CONSULTATION REPORT Plan of care discussed with Dr. Kumari. CHIEF COMPLAINT: Chronic low back pain status post L5-S1 posterior decompression and fusion performed in August 2015. HISTORY OF PRESENT ILLNESS: Ms. Ruiz is a 31-year-old white female who was admitted with syncopal episodes. The patient has a past medical history of lumbar spinal fusion at L5-S1 level performed by Dr. Castro in August 2015 secondary to spondylolisthesis at L5-S1 with instability and associated lumbar spinal canal stenosis with chronic complaints of axial low back pain and bilateral lower extremity pain. The patient at this time reports increased complaints of axial low back pain and bilateral lower extremity pain with paresthesias, predominantly right greater than left-sided. The patient also reports difficulties with urinary retention since the time of her surgical procedure. She recently underwent urologic evaluation, which has led to recommendations for straight cathing multiple times per day. The patient reportedly had an ALLERGIC REACTION TO TRAMADOL prior to admission and had an unwitnessed syncopal episode. The patient reports that she is utilizing tramadol 50 mg up to 6 times daily, prescribed by her primary care office. She denies any significant benefit from use of tramadol in the outpatient setting. She reports her predominant pain generator is axial lumbosacral spine without a true radicular component. She describes paresthesias in the right S1 distribution to the level of the foot with weaknesses. She reports rare occasional left lower extremity paresthesias without weakness. She reports a recent fall occurred during the syncopal episode, but denies footdrop or falling complaints. The patient denies use of illicit drugs or misuse of opiate therapy. PAST MEDICAL HISTORY: 1. Anxiety disorder. 2. Bronchitis. 3. Depressive disorder. 4. Fibromyalgia. 5. Gestational diabetes. 6. History of C2 vertebral fracture. 7. History of miscarriage. 8. Nephrolithiasis. 9. Migraine headache disorder. 10. Polycystic ovarian disease. 11. History of spinal headache. 12. Urinary retention, requiring self catheterization 4 times daily. PAST SURGICAL HISTORY: 1. Colonoscopy. 2. C2 vertebral fracture repair. 3. Cholecystectomy. 4. L5-S1 lumbar decompression and fusion in 2015. 5. Tonsillectomy. SOCIAL HISTORY: The patient is not , but currently lives with significant other. She is reportedly employed. She smokes 1 pack daily. She denies alcohol or illicit drug use. FAMILY HISTORY: 1. Diabetes mellitus. 2. Lung cancer. 3. Uterine cancer. 4. Stomach cancer. 5. Gallbladder disease. 6. Coronary artery disease. 7. Hypertension. 8. Chronic kidney disease. 9. Seizure disorder. 10. Thyroid disorder. 11. CVA. ALLERGIES: 1. AMOXICILLIN. 2. BEESTING. 3. ADHESIVES. 4. PROPRANOLOL. 5. MORPHINE. CURRENT MEDICATIONS: Reviewed in the EMR -- refer her current listing. REVIEW OF SYSTEMS: The patient denies complaints related to cardiac, pulmonary, GI, , endocrine, neurologic, hepatic, renal, ENT, dermatologic, or musculoskeletal other than described above in the HPI. PHYSICAL EXAMINATION: VITAL SIGNS: Temperature 36.9 degrees Celsius, pulse 65, respirations 18, BP 102/67, and pulse oximetry 97% on room air. GENERAL: Ms. Ruiz was evaluated in room #233, accompanied by a registered nurse. The patient was standing upon entering the room. She then crawled on to her bed on all fours, leaned across the bed and then transferred to the supine position without obvious discomfort or limitations. Speech and thought seemed appropriate. The patient is a poor historian. Cognition appeared to be intact. BACK AND SPINE: Slight loss of lumbar lordosis. She has a well-healed midline surgical incision over the mid and lower lumbar spine. She is generally tender over the midline as well as the lumbosacral region to direct palpation. There is no focal tenderness to the facet or SI joints bilaterally. She has minimal appreciable paravertebral spasm at the lumbosacral region. She is not tender in the quadratus lumborum or gluteal region to direct palpation with no appreciable spasm. Range of motion is without limitation with flexion, extension, lateral rotation and side bending. LOWER EXTREMITIES: Strength is rated at a 4/5 of the entire right lower extremity with questionable effort. Strength testing was 5/5 on the left without deficits. Sensation was diminished on the right at a predominant S1 distribution compared to left to sharp and dull testing. No evidence of ankle clonus. Straight leg raising slightly increased the axial low back pain bilaterally. NEUROLOGIC: Cranial nerves grossly intact. Ambulatory function was witnessed with the patient transferring from the toilet to her bed without difficulties. Babinski's downgoing bilaterally. IMAGING STUDIES: Lumbar spine x-ray dated 09/30/2016 revealed no fracture or subluxation within the lumbar spine. Posterior decompression and fusion at L5-S1. Hardware appears to be intact. Mild degenerative changes of the bilateral SI joints -- unchanged from prior. Disk spaces appear to be preserved. ASSESSMENT: 1. Chronic lumbago with a history of L5-S1 lumbar decompression and fusion in August 2015. 2. Urinary retention, requiring straight catheterization multiple times daily status post lumbar spine surgery. 3. Fibromyalgia. 4. History of syncopal episode -- unclear etiology. 5. Attention deficit hyperactivity disorder. 6. Anxiety disorder. 7. Neurogenic bladder, requiring straight catheterization. TREATMENT AND RECOMMENDATIONS: PDMP was reviewed. The patient reported prescription of tramadol 6 times daily as prescribed by her family care provider. Her most recent prescription for tramadol was filled on 08/26/2016 for 12 tablets only. She was prescribed 8 tablets of Vicoprofen 7.5/200 filled on 09/18/2016. There are inconsistencies in her reporting of her outpatient pain medications. The patient has 10 prescribers within the past 1 year. The patient appears to have minimal discomfort on examination today based on movement in her room. The patient's urine screening was pending at the time of dictation, but was positive for opiates. The patient has significant risk of opioid misuse/abuse moving forward due to her comorbid medical conditions. I find her to be a poor candidate for ongoing opiate therapy. She should remain involved with psychiatry in the outpatient setting, which appears to be through Dr. Mcghee at the [facility]. She is concomitantly using benzodiazepines as prescribed by Dr. Mcghee along with stimulants. At this time, I also not recommend interventional treatment due to her nonspecific axial low back pain complaints with normal imaging studies at this time. Would recommend diminish utilization of IV hydromorphone upon this admission and would not recommend discharge with opiate therapies. Thank you for allowing us to participate in the care of Ms. Ruiz. NUNO
[2016-10-02] MEDS ORDERED: METHYLPHENIDATE HCL 10 MG TAB PO SCH (09:00)
--- NOTE | 2016-10-03 18:02 | Discharge Summary ---
Discharge Summary Date of Service Oct 03, 2016. Discharge Summary Admission Date: Sep 30, 2016 at 00:31 Discharge Date: Oct 01, 2016 Discharge Disposition: Home Principal Diagnosis: Syncope Secondary Diagnoses/Problems: Back pain Neurogenic Bladder ENDOMETRIUM THICKENING Elevated troponin Elevated D-Dimer Acute hypoxic respiratory failure DJD S/P lumbar spinal fusion Fibromyalgia ADHD Anxiety disorder Migraine Procedures: Dobutamine Stress test negative. CT SCAN OF THE BRAIN WITHOUT IV CONTRAST CLINICAL HISTORY: Syncope. Headache. COMPARISON STUDY: CT of the brain dated 06/22/2016. TECHNIQUE: Unenhanced axial CT scan of the brain is performed from the vertex to the skull base. Automated dose control exposure was utilized. CT DOSE: 537.48 mGy.cm FINDINGS: Brain parenchyma: The brain parenchyma is normal 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 There is no hemorrhage, mass effect, or evidence of acute territorial ischemia by CT criteria. Domínguez-white matter is preserved. No extra-axial fluid collection is seen. Ventricles, sulci, cisterns: Normal in configuration. Intracranial vasculature: The visualized intracranial vasculature at the skull base is normal 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 Calvarium: Unremarkable. Sinuses and mastoids: The visualized paranasal sinuses are clear. The mastoid air cells are well pneumatized. Orbits: The bony orbits are grossly intact. IMPRESSION: No acute intracranial abnormality. Electronically signed by: Moi George M.D. 09/30/2016 8:32 AM Dictated Date/Time: 09/30/2016 8:30 AM LUMBAR SPINE 3 VIEWS HISTORY: Low back pain COMPARISON: Lumbar spine 12/29/2015. FINDINGS: There is no fracture. No subluxation. Posterior decompression fusion at L5-S1. The hardware appears intact. No fractures within the sacrum. Mild degenerative changes at the bilateral sacroiliac joints, unchanged. Cholecystectomy. Disc spaces are preserved. IMPRESSION: No fracture or subluxation within the lumbar spine. No change from the prior study. Electronically signed by: Phillip Padilla M.D. 09/30/2016 5:46 PM Dictated Date/Time: 09/30/2016 5:45 PM ULTRASOUND BILATERAL LOWER EXTREMITY VENOUS CLINICAL HISTORY: Syncope. COMPARISON STUDY: No priors. TECHNIQUE: Real-time, grayscale, and color Doppler sonography of the deep veins of the right and left lower extremity was performed from the inguinal crease to the calf. Compression and augmentation were utilized. FINDINGS: There is no sonographic evidence of deep venous thrombosis identified in the right or left lower extremity. The common femoral, superficial femoral, and popliteal veins are patent and normally compressible bilaterally. The greater saphenous vein and the profunda femoris vein at the junction with the common femoral vein are clear in both legs. The visualized calf veins are patent bilaterally. IMPRESSION: There is no sonographic evidence of deep venous thrombosis identified in the right or left lower extremity. Electronically signed by: Moi George M.D. 09/30/2016 9:[address] SCAN OF THE ABDOMEN AND PELVIS WITH IV CONTRAST CLINICAL HISTORY: Generalized abdominal pain. COMPARISON STUDY: Abdominal CT dated 01/28/2016. TECHNIQUE: Following the IV administration of 92 cc of Optiray 320, CT scan of the abdomen and pelvis is performed from the lung bases to the proximal femora. Images are reviewed in the axial, sagittal, and coronal planes. IV contrast was administered without complication. Automated dose control exposure was utilized. FINDINGS: Lung bases: The heart is normal in size and without pericardial effusion. A punctate calcified granuloma is noted at the right lung base. The lung bases are otherwise clear noting dependent atelectasis. A small hiatal hernia is noted. Liver: The contrast-enhanced liver is normal in size, contour, and attenuation. There is minimal central intrahepatic biliary ductal dilatation, likely related to previous cholecystectomy. The hepatic veins and portal veins are patent. Gallbladder: Surgically absent noting clips in the gallbladder fossa. Spleen: Normal in size and attenuation. Pancreas: Unremarkable. Adrenal glands: Unremarkable. Kidneys: The contrast enhanced kidneys are normal in size and without hydronephrosis. The kidneys enhance symmetrically. Abdominal vasculature: The abdominal aorta is normal in course and caliber noting scattered foci of atherosclerotic calcification. Bowel: The small bowel and colon are normal in course and caliber. There is moderate colonic fecal retention. There is mild wall thickening and edema or less likely underdistention identified involving the distal descending and sigmoid colon. There is mild pericolonic infiltration, and the appearance suggests a mild nonspecific colitis. The appendix is well-visualized and normal. Peritoneum: There is no intraperitoneal free air or abdominal ascites. There is a fat-containing umbilical hernia. Lymphadenopathy: None. Pelvic viscera: The bladder is normal as visualized. The endometrium appears markedly thickened in the fundal region. The adnexa are normal as visualized noting bilateral ovarian follicles. . Skeletal structures: No lytic or blastic lesions are seen. There are postoperative changes from L5-S1 spinal fusion. Sclerotic changes are identified the pubic symphysis. IMPRESSION: 1. Findings suggest a mild nonspecific colitis of the distal descending and sigmoid colon. Clinical correlation will be required. 2. The endometrium appears markedly thickened in the fundal region. Follow-up with a nonemergent pelvic ultrasound is recommended for further assessment. Electronically signed by: Moi George M.D. 09/30/2016 7:20 AM Dictated Date/Time: 09/30/2016 7:[address] ANGIOGRAM OF THE CHEST CLINICAL HISTORY: Atypical chest pain COMPARISON STUDY: 03/03/2014 TECHNIQUE: Following the IV administration of 92 mL of Optiray-320, CT angiogram of the thorax was performed from the thoracic inlet to the lung bases utilizing the pulmonary embolus protocol. Images are reviewed in the axial, sagittal, and coronal planes. IV contrast was administered without complication. MIP imaging was performed. CT DOSE: 1028.62 mGy.cm FINDINGS: No pathologically enlarged axillary mediastinal or hilar lymph nodes were visualized. There was no evidence of thoracic aortic dilatation. There were no pulmonary artery filling defects to indicate acute pulmonary embolism. No pleural effusions are visualized. There was no evidence of focal pulmonary consolidation. There is a stable 5 mm right upper lobe perifissural nodule. IMPRESSION: 1. No CT evidence of acute pulmonary embolism 2. No evidence of focal pulmonary consolidation Electronically signed by: Ganesh Obando M.D. 09/30/2016 6:48 AM Dictated Date/Time: 09/30/2016 6:45 AM 2D ECHO Interpretation Summary * Name: DARIA ALVARADO Study Date: 10/01/2016 09:36 AM BP: 115/40 mmHg * Patient Location: [facility]\\S\\[id number]\\S\\1 HR: 83 * : 1985 (M/d/yyyy) Gender: Female Height: 62 in * Age: 31 yrs Ethnicity: [place] Weight: 199 lb * Ordering Physician: Zeke Mar * Referring Physician: Self, Referred * Performed By: Greer Rodriguez RCS * * Reason For Study: SYNCOPE * BSA: 1.9 m2 * -- Conclusions -- * 1. Negative dobutamine stress echo for ischemia at 85% MPHR. * 2. Negative dobutamine stress ECG for ischemia. No significant dobutamine induced arrhythmias. * 3. Normal resting LV size and function. Normal RV size and function. For full details regarding resting function see echo report from 09/30/2016. Procedure Details * DOBUTAMINE ECHO, CPT#21780 Left Ventricular Findings with Stress * This was essentially a normal study. Left Ventricle * The left ventricle is grossly normal size. * There is mild concentric left ventricular hypertrophy. * Ejection Fraction = 60-65%. * Resting wall motion: Normal. Stress wall motion: Appropriate increase in Left ventricular systolic function and decrease in cavity size. No stress induced segmental wall motion abnormalities. Right Ventricle * The right ventricle is grossly normal size. * The right ventricular systolic function is qualitatively normal. Atria * The left atrial size is normal. * Right atrial size is normal. Mitral Valve * The mitral valve is grossly normal. Tricuspid Valve * The tricuspid valve is not well visualized, but is grossly normal. Aortic Valve * The aortic valve opens well. Pulmonic Valve * The pulmonic valve is not well visualized. Pericardium * There is no pericardial effusion. Stress Parameters * Normal baseline electrocardiogram. * Nonspecific T wave abnormality. Occasional PACs at rest. * Stress ECG: No ST changes. No arrhythmias. * Arrhythmia induced during stress: occasional PAC's. * Arrhythmia noted in recovery: occasional PAC's. * The stress portion of this study was personally supervised by the undersigned interpreting physician. * Rest heart rate was '83' BPM. * Rest blood pressure was '115/40' * Maximum heart rate achieved was 162 bpm. * Maximum heart rate was 85 % of maximum age-predicted heart rate. * Maximum blood pressure was '153/49' * Maximum Dobutamine infusion rate was '40' mcg/kg/min. * A total of 0 mg of intravenous Atropine was used to supplement Dobutamine for heart rate response. * Dobutamine infusion was terminated due to achieving target heart rate * A total of 0 mg of IV Metoprolol was administered to reverse Dobutamine- induced tachycardia. Left Ventricular Findings with Stress * The study was technically excellent with all images being of optimal quality. Consultations: cardiology Pain Management Ortho Medication Reconciliation Continued Medications: Acetaminophen (Acetaminophen) 500 Mg Tab 1000 MG PO Q6H PRN for Pain, TAB Txwsfewjmg-Mgobyxs-Uzimvmoz W/ (Butalbital/Aspirn/Caffein) 1 Cap Cap 1 CAP PO Q4H PRN for Headache Clonazepam (Klonopin) 1 Mg Tab 0.5 MG PO BID PRN for Anxiety, TAB Gabapentin (Gabapentin) 800 Mg Tab 800 MG PO TID Ibuprofen (Advil) 200 Mg Tab 200-600 MG PO Q4H PRN for Pain, TAB Lubiprostone (Amitiza) 24 Mcg Cap 24 MCG PO BID Methylphenidate HCl (Methylphenidate HCl) 20 Mg Tab 20 MG PO BID Omeprazole (Prilosec) 20 Mg Cap 20 MG PO DAILY, CAP Prednisone (Prednisone) 50 Mg Tab 50 MG PO DAILY, #3 TAB Promethazine Hcl (Phenergan) 25 Mg Tab 25 MG PO Q6H PRN for Nausea, TAB Ranitidine (Zantac) 150 Mg Tab 150 MG PO DAILY, TAB Sumatriptan Succinate (Imitrex) 100 Mg Tab 100 MG PO UD PRN for Migraine Topiramate (Topamax) 200 Mg Tab 200 MG PO BID Tramadol (Ultram) 50 Mg Tab 50 MG PO Q4H PRN for Pain, TAB FOR KIDNEY STONE Venlafaxine Hcl (Effexor Extended Rel) 150 Mg Capcr 150 MG PO QAM Admission Information HPI (per Admitting provider): Patient is a 31 yr old female with PMH of DJD S/P lumbar spinal fusion, Fibromyalgia, Tobacco use disorder, ADHD, Anxiety disorder, Migraine presents with syncopal episode today. Patient is a very poor historian and most of the history is obtained from ER staff and partly from family. She reported that she had an allergic reaction to Tramadol which she took prior to arrival to ED. She had an unwitnessed syncopal episode earlier today while she is visiting her boyfriend and was found on his driveway. While in ED, she had another episode of syncope and experienced chest pain and was unresponsive for about 30 seconds. According to ER physician patient had a brief episode of NSVT and was hypoxic which later converted to sinus rhythm. Patient was evaluated by cardiology while in ED who performed a bedside ECHO which did not show any wall motion abnormality as per ED physician. Patient on my exam in ED, currently is AAOx3, denies any history of chest pain, SOB, palpitations, dizziness, cough, fever, chills, vomiting, abd pain but reports nausea. She also states that she has been having allergic reactions due to unknown cause and is planning to get evaluated by an allergic specialist. Also she has chronic neurogenic bladder for which she has been doing straight cath since many months and today she was not able to straight cath per patient's mother. She was found to have elevated d-dimer. Denies any recent travel, OCP use, calf tenderness but admits to smoking tobacco. Currently vitals are stable and she is saturating 100% on nasal cannula. No other relevant history could be obtained , patient was restless secondary to back pain. Physical Exam (per Admitting): General Appearance: WD/WN, + mild distress Head: normocephalic, atraumatic Eyes: normal inspection, PERRL, EOMI ENT: normal ENT inspection, hearing grossly normal Neck: supple, trachea midline Respiratory/Chest: chest non-tender, lungs clear, normal breath sounds, no respiratory distress, no accessory muscle use Cardiovascular: regular rate, rhythm, no edema, no murmur Abdomen/GI: normal bowel sounds, non tender, soft Back: normal inspection Extremities/Musculoskelatal: normal inspection, no calf tenderness, no pedal edema Neurologic/Psych: no motor/sensory deficits, alert, oriented x 3, + pertinent finding (Agitated) Skin: normal color, warm/dry Hospital Course Syncope Unclear etiology Possible related to vasovagal vs arrhythmia (Brief period of NSVT while in ED per ED physician) Drug screen positive for opiates: Was on Ultram at home Denies any illegal drug or substance used No arrhythmia on patient monitor Elevated troponin echo is normal CT head is negative Cardiology on board No syncopal episodes since admitted Elevated troponin Possible related to demand ischemia due to hypoxia on presentation Denies any chest pain Initial EKG showed unusual precordial ST elevations with peaked T-waves Repeat EKGs showed no ST elevation Troponin trending down Continue monitor in tele Cardiology on board, dobutamine stress test done today was negative 1. Negative dobutamine stress echo for ischemia at 85% MPHR. * 2. Negative dobutamine stress ECG for ischemia. No significant dobutamine induced arrhythmias. * 3. Normal resting LV size and function. Normal RV size and function. 2D Echo showed * 1. Normal LV size. Mild concentric LVH. * 2. Normal LV systolic function. LVEF 60-65%. No regional wall motion abnormalities. * 3. Normal RV size and function. * 4. No significant valvular pathology. * 5. Normal estimated CVP. * 6. Compared with prior study on 01/02/2010: No significant changes Hypokalemia: stable Resolved ENDOMETRIUM THICKENING Need outpatient pelvis u/s follow up Acute hypoxic respiratory failure: CTA chest negative for PE resolved NSVT: Brief episode while in ED (as per ED physician) Currently in sinus, rate controlled No arrhythmia on Tele monitor Asymptomatic Stable Elevated D-dimer: Likely secondary to Tachycardia while in ED CTA Chest negative for PE Venous Doppler of LE negative for DVT DJD S/P lumbar spinal fusion: and Fibromyalgia: Pain control with Dilaudid and hydrocodone prn Lumbar xray showed no fracture or subluxation within the lumbar spine. No change from the prior study. Case discussed with ortho, recommended no urgent surgical intervention at this time. Needs outpatient follow up Pain management consulted and they do not feel comfortable to discharge pt on any opioid and and no outpatient follow needed with them ADHD/ Anxiety disorder/ Migraine Stable continue home meds H/O Neurogenic Bladder: Does straight cath PRN at home Carranza for now DVT Px: Heparin SQ Code status: Full code Disposition: Discharge home today PT/OT Total time spent on discharge = 35 minutes This includes examination of the patient, discharge planning, medication reconciliation, and communication with other providers. Discharge Instructions Discharge Instructions Date of Service Oct 01, 2016. Admission Reason for Admission: Syncope Discharge Discharge Diagnosis / Problem: Syncope, Back pain, Neurogenic Bladder, Elevated troponin, Elevated D-Dimer Discharge Goals Goal(s): Decrease discomfort, Improve function, Improve disease control Activity Recommendations Activity Limitations: resume your previous activity (as tolerated) . Instructions / Follow-Up Instructions / Follow-Up Follow up appointment with your primary care provider Dr. Hemphill on October 06 @ 2: 55pm Please call to schedule follow appointment with your orthopedic Dr. Castro Follow appointment with timber killer physician Dr. Bond on October 08 @ 2:40 pm Continue Physical therapy (script given to patient for PT) Fall precaution Current Hospital Diet Patient's current hospital diet: AHA Diet (Heart Healthy) Discharge Diet Recommended Diet: Regular Diet Pending Studies Studies pending at discharge: no Laboratory Results Lipid Panel Test 09/30/16 07:30 Range/Units Triglycerides Level 73 0-150 mg/dl Cholesterol Level 165 0-200 mg/dl HDL Cholesterol 43 mg/dl Cholesterol/HDL Ratio 3.8 LDL Cholesterol, Calculated 107 mg/dl Medical Emergencies . Who to Call and When: Medical Emergencies: If at any time you feel your situation is an emergency, please call 911 immediately. . Non-Emergent Contact Non-Emergency issues call your: Primary Care Provider Call Non-Emergent contact if: your pain is not controlled, your pain is worsening, your pain is concerning you . . "Provider Documentation" section prepared by Yaquelin Cano. . VTE Core Measure Inpt VTE Proph given/why not?: Unfractionated heparin SQ [place] Drug Monitoring Program Search Results: patient reviewed within database Additional Copies To Kieran Hemphill M.D.
[2016-10-13 09:36] LABS: COD UR NEGATIVE
[2016-10-13 09:37] LABS: HYDROCOD UR NEGATIVE
[2016-10-13 09:40] LABS: MORPHINE UR 111 NG/ML; NORHYDROCODONE CONF UR 59 NG/ML
[2016-10-13 09:41] LABS: HYDROMOR UR NEGATIVE
[2016-10-13 09:43] LABS: OXYMORPH UR NEGATIVE
[2016-10-25] MEDS ORDERED: LINA1CAP PO (09:48)
[2016-10-25] MEDS ORDERED: CYCL10TA6 PO (09:48)
[2016-10-25] MEDS ORDERED: CETI10TA84 PO (09:48)
[2016-10-25] MEDS ORDERED: ONDA8TAB6 PO (09:48)
[2016-10-25] MEDS ORDERED: EPP3/2 IM ×2 (09:48→22:05)
[2016-10-25] MEDS ORDERED: DIPH1TAB87 PO (09:48)
[2016-10-25] MEDS ORDERED: TRMCR130WC TOP (09:48)
[2016-10-25] MEDS ORDERED: LACT10SO17 PO (09:48)
[2016-10-25] MEDS ORDERED: TRAM-10 PO (10:41)
[2016-10-25] MEDS ORDERED: RTL20 PO (14:06)
[2016-10-25] MEDS ORDERED: VENL150C56 PO (14:06)
[2016-10-25] MEDS ORDERED: ZNTT/150 PO (15:50)
[2016-10-25] MEDS ORDERED: CLON1TAB3 PO (16:34)
[2016-10-25] MEDS ORDERED: PROM25TA9 PO (16:34)
[2016-10-25] MEDS ORDERED: OMEP20CA9 PO (16:34)
== END 2016-10-01 18:00 | disposition home or self-care (01) | DRG 312 ==
LOC: ENRESERVDT → ENRESERVTM → C.EDB 22:09 → C.2T 09-30 00:31
PROVIDERS: ADMIT Internal Medicine; ATTEND Internal Medicine
DX: R55 Syncope and collapse (principal); J96.01 Acute respiratory failure with hypoxia; I47.2 Ventricular tachycardia; I24.8 Other forms of acute ischemic heart disease; N31.9 Neuromuscular dysfunction of bladder, unspecified; E87.6 Hypokalemia; M19.90 Unspecified osteoarthritis, unspecified site; F90.9 Attention-deficit hyperactivity disorder, unspecified type; F41.9 Anxiety disorder, unspecified; G43.909 Migraine, unspecified, not intractable, without status migrainosus; M79.7 Fibromyalgia; F17.200 Nicotine dependence, unspecified, uncomplicated; Z80.1 Family history of malignant neoplasm of trachea, bronchus and lung; Z80.59 Family history of malignant neoplasm of other urinary tract organ; Z82.49 Family history of ischemic heart disease and other diseases of the circulatory system; Z82.3 Family history of stroke

== ENCOUNTER 2016-10-09 07:53 | Inpatient (IN) | payer OTHER ==
[~2016-10-09] VITALS: Ht 157.5 cm; Wt 89.7 kg
[2016-10-09] MEDS ORDERED: SODIUM CHLORIDE 0.9% 1000ML 1,000 ML IV STA (08:26)
--- NOTE | 2016-10-09 08:51 | DIAGNOSTIC IMAGING REPORT ---
CHEST ONE VIEW PORTABLE CLINICAL HISTORY: Chest pain. Allergic reaction. COMPARISON STUDY: Chest radiograph and chest CT September 29, 2016. FINDINGS: There is no pneumothorax or pleural effusion. There is no consolidation. Cardiac size is normal. Mediastinal contours are normal. There is no evidence of pulmonary edema. IMPRESSION: No acute cardiopulmonary findings. Electronically signed by: Edmar Landa M.D. 10/09/2016 8:50 AM Dictated Date/Time: 10/09/2016 8:50 AM
[2016-10-09 09:12] LABS: HEMATOCRIT 46.5 % (37-47); MEAN CELL VOLUME 91.9 fL (80-100); MEAN CORPUSCULAR HEMOGLOBIN 32.2 pg (25-34); MEAN CORPUSCULAR HGB CONC 35.1 g/dl (32-36); MEAN PLATELET VOLUME 11.4 fL (7.4-10.4); PLATELET COUNT 235 K/uL (130-400); RED BLOOD COUNT 5.06 M/uL (4.2-5.4); WHITE BLOOD COUNT 11.58 K/uL (4.8-10.8)
[2016-10-09 09:33] LABS: BUN/CREATININE RATIO 13.4 (10-20); CALCIUM 8.4 mg/dl (8.5-10.1)
[2016-10-09 09:36] LABS: PREG INTERNAL NEGATIVE QC NEG CLEAR BACKGROUND; PREG INTERNAL POSITIVE QC POS CONTROL LINE
[2016-10-09] MEDS ORDERED: PRED10TA PO (09:48)
[2016-10-09] MEDS ORDERED: EFF/375 PO (09:48)
[2016-10-09 09:53] LABS: URINE APPEARANCE CLOUDY (CLEAR); URINE BILIRUBIN NEG (NEG); URINE COLOR DK YELLOW; URINE EPITHELIAL CELL AUTO >30 /lpf (0-5); URINE NITRITE NEG (NEG); URINE SPECIFIC GRAVITY 1.017 (1.000-1.030); UROBILINOGEN NEG (NEG)
[2016-10-09 09:58] LABS: COMPLETE YES; EOS % 0.5 %; IG% 0.3 %; LYMPH % 20.8 %; LYMPH ABS # 2.41 K/uL (1.2-3.4); MONO % 3.3 %; NEUT % 75.1 %
[2016-10-09 10:05] LABS: MANUAL MICROSCOPIC REQUIRED? NO; REVIEW REQ? YES; SULFASALICYLIC ACID POS (NEG)
[2016-10-09 10:20] LABS: URINE MUCUS PRESENT (NONE PRSENT)
[2016-10-09 10:29] LABS: BENZODIAZEPINE, URINE NEG (NEG); COCAINE,URINE NEG (NEG); PHENCYCLIDINE, URINE NEG (NEG)
[2016-10-09] MEDS ORDERED: LEVAQUIN 750MG / 150ML D5W IV STA (10:50)
[2016-10-09] MEDS ORDERED: POTASSIUM CHLORIDE 10 MEQ / 100ML WTR IV STA (10:56)
[2016-10-09] MEDS ORDERED: OPTIRAY 320 IV PRN (11:00)
--- NOTE | 2016-10-09 12:22 | DIAGNOSTIC IMAGING REPORT ---
CT ANGIOGRAPHY OF THE CHEST, PULMONARY EMBOLUS PROTOCOL CLINICAL HISTORY: Hypoxia, syncope and hypotension. Allergic reaction. COMPARISON STUDY: Chest CT September 29, 2016. TECHNIQUE: Following IV administration of 113 mL of Optiray-320, helical axial images of the chest were obtained utilizing the pulmonary embolus protocol. Maximal intensity projections and sagittal and coronal reformats were viewed on an independent 3D workstation. IV contrast was administered without complication. CT DOSE: 355.13 mGy.cm FINDINGS: No pulmonary emboli are again identified. There is no evidence of thoracic aortic dissection. There is borderline cardiomegaly. No enlarged thoracic lymph nodes are present. Central airways are patent. Groundglass opacities favor atelectasis. There is no consolidation to suggest pneumonia. There is no pneumothorax or pleural effusion. Bony thorax is unremarkable. Gallbladder is surgically absent. IMPRESSION: 1. No probably emboli identified. 2. No acute intrathoracic findings. Electronically signed by: Edmar Landa M.D. 10/09/2016 12:21 PM Dictated Date/Time: 10/09/2016 12:14 PM
[2016-10-09] MEDS ORDERED: ONDANSETRON INJ 2 MG/ML 2 ML VIAL ONE (12:45)
[2016-10-09 13:38] VITALS: O2SAT 99; Ht 157.5 cm; Wt 89.7 kg
[2016-10-09] MEDS ORDERED: ACETAMINOPHEN 325 MG TAB PO PRN (13:45)
[2016-10-09] MEDS ORDERED: NITROGLYCERIN 0.4 MG SL PER TAB CHARGE SL PRN (13:45)
[2016-10-09] MEDS ORDERED: POTASSIUM CHLORIDE 10 MEQ TABCR PO ONE (13:45)
[2016-10-09] MEDS ORDERED: LACTULOSE SYRUP 10 GM/15 ML BTL 473 ML PO PRN (14:00)
[2016-10-09] MEDS ORDERED: PROMETHAZINE HCL 25 MG TAB PO PRN (14:00)
[2016-10-09] MEDS ORDERED: BUTALBITAL/ASA/CAFFEINE/COD 50/325/40/30 MG CAP PO PRN (14:00)
[2016-10-09] MEDS ORDERED: EPINEPHRINE ADULT AUTO-INJECT 0.3 MG SYR IM PRN (14:00)
[2016-10-09] MEDS: SODIUM CHLORIDE 0.9% 1000ML 1,000 ML IV SCH (15:03)
[2016-10-09 16:00] VITALS: BP 106/68; PULSE 79; TEMP 36.6; O2SAT 98
--- NOTE | 2016-10-09 18:51 | History and Physical ---
History & Physical Date & Time of Service: October 09, 2016 at 15:15 Chief Complaint: Syncope Primary Care Physician: Kieran Hemphill M.D. 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 Pt reports that she has been having episodes where she gets extremely hot and develops diffuse hives. She then feels her mouth start to burn and swell and she feels like she can't breath. She cannot breath to the point that she passes out. Pt was recently admitted to [facility] from 09/30/16-10/03/16 with syncope and elevated troponin. ACS was ruled out and an extensive workup was completed for syncope with no positive findings. Pt was seen by an supplier quality specialist yesterday who completed allergy skin testing. All results were negative per EPIC documentation. Pt was sent home with EpiPen to use as needed. This morning, patient had a similar episode of tremendous body heat leading to hives, chest tightness, inability to breath and syncope. Pts boyfriend administered her EpiPen and called 911. When EMS arrived , pt was hypoxic and hypotensive. Unfortunately boyfriend is no longer at bedside to provide details of the event and patient is unable to recall anything that happened after she passed out. Patient cannot identify any specific trigger stating these episodes "come out of the blue". She has a history of allergic reaction to bee stings however she has not been stung recently. Patient denies any illegal/recreational drug use. She has never had issues with passing out in the past. ROS is almost all positive. Pt mentions diffuse abdominal pain assoc with N/V that has since resolved as well as chronic constipation. Pt denies headache, chest pain, cough, blood in stool, LE edema or calf pain. In the ED, patient is hypoxic and hypotensive on arrival. She is afebrile with no leukocytosis. K+ 3.0. LFTs are mildly elevated. Trop is negative and EKG+ occ PACs. CTA negative for PE. Pt is stable and will be admitted for further evaluation and treatment. Past Medical/Surgical History Medical Problems: (1) Anxiety Status: Chronic (2) Bronchitis Status: Resolved (3) Depression Status: Chronic (4) Fibromyalgia Status: Chronic (5) Gall bladder disease Status: Resolved (6) Gestational diabetes Status: Chronic (7) H/o C2 vertebral fracture Status: Chronic (8) History of - miscarriage Status: Resolved (9) Kidney stone Status: Resolved (10) Migraine Status: Chronic (11) PNA (pneumonia) Status: Resolved (12) Polycystic ovaries Status: Chronic (13) Spinal headache Status: Resolved (14) Vaginal delivery Status: Resolved Surgical Problems: (1) H/O colonoscopy Permanent Comment: 06/18/2015 serrated polyps Status: Chronic (2) H/O neck surgery Status: Chronic (3) S/P cholecystectomy Status: Chronic (4) S/p lumbar decompression/fusion Status: Chronic (5) S/P tonsillectomy Status: Chronic Family History Diabetes mellitus GRANDMOTHER FH: cancer MOTHER (lung, uterus) AUNT (stomach CA) FH: gallbladder disease FH: heart disease GRANDMOTHER FH: lung disease Hypertension GRANDFATHER GRANDMOTHER Kidney disease Kidney stones Seizures Stroke Thyroid disorder MOTHER Social History Smoking Status: Current Every Day Smoker (5 cigarettes per day x 15 years) Alcohol Use: socially (1 drink per month) Drug Use: none Marital Status: in relationship Housing status: lives with family Occupational Status: employed ([employer]) Immunizations History of Influenza Vaccine: No History of Tetanus Vaccine?: unknown History of Pneumococcal: No History of Hepatitis B Vaccine: Yes Multi-Drug Resistant Organisms History of MDRO: No Allergies Coded Allergies: Amoxicillin (Verified Allergy, Severe, HIVES AND SOB, 10/09/16) BEE STING (Verified Allergy, Severe, SWELLING, 10/09/16) Adhesives (Verified Allergy, Mild, contact dermatitis, 10/09/16) Propranolol (Verified Allergy, Mild, MOUTH SORE, RASH, 10/09/16) Morphine (Verified Adverse Reaction, Intermediate, pt reports moderate to severe stomach discomfort, 10/09/16) pt states she requires a "GI cocktail" to alleviate the stomach discomfort that occurs after receiving Morphine or dilaudid Home Medications Scheduled Cetirizine (Zyrtec), 10 MG PO DAILY Clonazepam (Klonopin), 0.5 MG PO BID Cyclobenzaprine Hcl (Flexeril), 10 MG PO TID Diphenhydramine Hcl (Benadryl Allergy), 2 TAB PO UD Epinephrine (Epipen), 0.3 MG IM UD Gabapentin (Gabapentin), 800 MG PO TID Linaclotide (Linzess), 1 CAP PO DAILYBB Methylphenidate (Ritalin), 30 MG PO BID Omeprazole (Prilosec), 20 MG PO DAILY Prednisone (Prednisone), 0 PO UD Ranitidine (Zantac), 150 MG PO DAILY Topiramate (Topamax), 200 MG PO BID Triamcinolone Acet (Aristocort 0.1%), 1 APPLN EXT BID Venlafaxine Hcl (Effexor Extended Rel), 150 MG PO DAILY Scheduled PRN Acetaminophen (Acetaminophen), 1,000 MG PO Q6H PRN for Pain Fovcwybgfo-Dlpmrqh-Bbwspyiz W/ (Butalbital/Aspirn/Caffein), 1 CAP PO Q4H PRN for Headache Lactulose (Chronulac), 15 ML PO BID PRN for Constipation Ondansetron Hcl (Zofran), 8 MG PO Q8 PRN for Nausea Promethazine Hcl (Phenergan), 25 MG PO Q6H PRN for Nausea Tramadol (Ultram), 50 MG PO Q4H PRN for Pain Review of Systems Constitutional: + chills, + fatigue, + sweats, No fever, No weakness Eyes: No worsening of vision ENT: No hearing loss Respiratory: + shortness of breath, No cough Cardiovascular: No chest pain, No palpitations Abdomen: + constipation (chronic), + nausea, + pain, + vomiting (resolved), No GI bleeding, No diarrhea Musculoskeletal: No calf pain, No swelling Genitourinary - Female: + urinary retention (self cath), No dysuria Neurologic: No weakness Psychiatric: No depression symptoms Endocrine: + fatigue Hematologic / Lymphatic: No abnormal bleeding/bruising Integumentary: No new/changing skin lesions Physical Exam Vital Signs Date Time Temp Pulse Resp B/P Pulse Ox O2 Delivery O2 Flow Rate FiO2 10/09/16 14:40 87 16 98/63 91 Room Air 10/09/16 13:38 99 Nasal Cannula 2.0 10/09/16 12:50 83 108/61 99 Room Air 99 105/61 110 108/66 10/09/16 12:08 77 10/09/16 12:04 80 18 107/58 100 Nasal Cannula 2.0 10/09/16 11:10 101 17 91/66 98 Nasal Cannula 2.0 10/09/16 10:15 88 16 91/68 97 Nasal Cannula 2.0 10/09/16 09:52 88 16 99/59 97 Nasal Cannula 2.0 10/09/16 09:23 36.7 80 15 94/50 98 Nasal Cannula 2.0 10/09/16 09:01 76 17 116/61 98 Nasal Cannula 2.0 88 79/47 100 72/33 10/09/16 08:33 82 10/09/16 08:24 81 17 99/57 97 Nasal Cannula 2.0 10/09/16 08:20 96 Nasal Cannula 2.0 10/09/16 08:07 99 10/09/16 08:06 36.1 90 16 111/71 96 Nasal Cannula 2.0 10/09/16 08:06 87 Room Air General Appearance: WD/WN, no apparent distress, + pertinent finding (Pt is laying in bed with no family at bedside) Head: normocephalic, atraumatic Eyes: normal inspection, PERRL, EOMI ENT: hearing grossly normal, + pertinent finding (airway patent) Neck: supple Respiratory/Chest: chest non-tender, lungs clear, normal breath sounds, no respiratory distress Cardiovascular: regular rate, rhythm, no edema, no murmur Abdomen/GI: normal bowel sounds (present but diminished), soft, + tenderness ( mild RUQ) Back: normal inspection Extremities/Musculoskelatal: normal inspection, no calf tenderness, no pedal edema Neurologic/Psych: alert, oriented x 3, + pertinent finding (flat affect) Skin: normal color, warm/dry Diagnostics Laboratory Results Results Past 24 Hours Test 10/09/16 08:24 10/09/16 08:50 10/09/16 08:53 10/09/16 09:15 Range/Units Bedside Glucose 142 70-90 mg/dl White Blood Count 11.58 4.8-10.8 K/uL Red Blood Count 5.06 4.2-5.4 M/uL Hemoglobin 16.3 12.0-16.0 g/dL Hematocrit 46.5 37-47 % Mean Corpuscular Volume 91.9 80-100 fL Mean Corpuscular Hemoglobin 32.2 25-34 pg Mean Corpuscular Hemoglobin Concent 35.1 32-36 g/dl Platelet Count 235 130-400 K/uL Mean Platelet Volume 11.4 7.4-10.4 fL Neutrophils (%) (Auto) 75.1 % Lymphocytes (%) (Auto) 20.8 % Monocytes (%) (Auto) 3.3 % Eosinophils (%) (Auto) 0.5 % Basophils (%) (Auto) 0.0 % Neutrophils # (Auto) 8.70 1.4-6.5 K/uL Lymphocytes # (Auto) 2.41 1.2-3.4 K/uL Monocytes # (Auto) 0.38 0.11-0.59 K/uL Eosinophils # (Auto) 0.06 0-0.5 K/uL Basophils # (Auto) 0.00 0-0.2 K/uL RDW Standard Deviation 44.0 36.4-46.3 fL RDW Coefficient of Variation 13.1 11.5-14.5 % Immature Granulocyte % (Auto) 0.3 % Immature Granulocyte # (Auto) 0.03 0.00-0.02 K/uL Sodium Level 145 136-145 mmol/L Potassium Level 3.0 3.5-5.1 mmol/L Chloride Level 110 98-107 mmol/L Carbon Dioxide Level 25 21-32 mmol/L Anion Gap 10.0 3-11 mmol/L Blood Urea Nitrogen 13 7-18 mg/dl Creatinine 1.00 0.60-1.20 mg/dl Est Creatinine Clear Calc Drug Dose 84.8 ml/min Estimated GFR () 87.6 Estimated GFR (Non- 75.5 BUN/Creatinine Ratio 13.4 10-20 Random Glucose 128 70-99 mg/dl Calcium Level 8.4 8.5-10.1 mg/dl Total Bilirubin 0.9 0.2-1 mg/dl Direct Bilirubin 0.3 0-0.2 mg/dl Aspartate Amino Transf (AST/SGOT) 81 15-37 U/L Alanine Aminotransferase (ALT/SGPT) 90 12-78 U/L Alkaline Phosphatase 74 45-117 U/L Total Protein 6.8 6.4-8.2 gm/dl Albumin 3.5 3.4-5.0 gm/dl Lipase 333 73-393 U/L Human Chorionic Gonadotropin, Qual NEG NEG Ethyl Alcohol mg/dL < 3.0 0-3 mg/dl Bedside Troponin I 0.000 0-0.045 ng/ml Urine Color DK YELLOW Urine Appearance CLOUDY CLEAR Urine pH 8.0 4.5-7.5 Urine Specific Carmen 1.017 1.000-1.030 Urine Protein 2+ NEG Urine Glucose (UA) NEG NEG Urine Ketones NEG NEG Urine Occult Blood NEG NEG Urine Nitrite NEG NEG Urine Bilirubin NEG NEG Urine Urobilinogen NEG NEG Urine Leukocyte Esterase TRACE NEG Urine WBC (Auto) 1-5 0-5 /hpf Urine RBC (Auto) 0-4 0-4 /hpf Urine Hyaline Casts (Auto) 1-5 0-5 /lpf Urine Epithelial Cells (Auto) >30 0-5 /lpf Urine Bacteria (Auto) NEG NEG Urine Renal Epithelial Cells 0-5 /lpf Urine Crystals AMORPHOUS SEDIMENT NONE PRSENT Urine Pathogenic Casts 0 /lpf Urine Mucus PRESENT NONE PRSENT Urine Opiates Screen POS NEG Urine Methadone, Qualitative NEG NEG Urine Barbiturates NEG NEG Urine Phencyclidine (PCP) Level NEG NEG Ur Amphetamine/Methamphetamine NEG NEG MDMA (Ecstasy) Screen NEG NEG Urine Benzodiazepines Screen NEG NEG Urine Cocaine Metabolite NEG NEG Urine Marijuana (THC) NEG NEG Test 10/09/16 11:38 Range/Units Bedside Lactic Acid Venous 1.57 0.90-1.70 mmol/L Microbiology Results 10/09/16 Blood Culture, Received Pending 10/09/16 Blood Culture, Received Pending Diagnostic Radiology CHEST CTA IMPRESSION: 1. No probably emboli identified. 2. No acute intrathoracic findings. CXR IMPRESSION: No acute cardiopulmonary findings. EKG EKG: NSR at 92 bpm with occ PACs; no change when compared to EKG from 10/01/16 Impression Assessment and Plan RECURRENT SYNCOPAL EPISODE pt presented with syncopal episode this morning (see HPI); recent admission for syncope with thorough workup that was negative -admit to telemetry -question if secondary to orthostatic hypotension vs. acute allergic reaction -pt is tachy, hypoxic and hypotensive on arrival; + orthostatic BP in ED -stress echo and CT head completed during last admission were negative -HgB stable -Trop negative and EKG+ occ PACs -CTA negative for PE -Tox screen + opioids ( pt on Tramadol PRN at home) -start gentle IVF -monitor POSSIBLE ALLERGIC REACTION -pt describes recurrent episodes of flushing, hives and difficulty breathing; unknown trigger -outpatient allergy testing yesterday (10/08) was all negative -monitor ACUTE HYPOXIC RESPIRATORY FAILURE -O2 sat 87% on room air; currently saturating well on room air -afebrile no leukocytosis -CTA negative for PE. No consolidation -monitor HYPOKALEMIA -K+ 3.0; replete -monitor with prp daily DIARRHEA -floor nurse called about pt having diarrhea -check stool studies -cont gentle IVF MILDLY ELEVATED LFTs -AST 81; ALT 90 -monitor with daily labs CHRONIC BACK PAIN/FIBROMYALGIA -cont Tramadol PRN NEUROGENIC BLADDER -self caths PRN at home -torre while in hospital DVT PROPHYLAXIS -Low VTE risk -SCDs and ambulation DISPO Pt seen in collaboration with Dr. Ferguson. Please see his addendum for further details. Thanks! -Of note: patient will be followed by Dr. Cooley starting tomorrow AM. ADDENDUM: This is a very rude 31 year old female with a PMH of fibromyalgia, who has been in the hospital in the past for syncopal episodes after developing hives. She states she is here for the same thing this time. She refuses to answer any more questions and tells me she is annoyed at answering all these questions multiple times. I told her that this has to be done to get an accurate history and diagnosis, but she refuses. Does deny eating anything unusual or changing any medications. Has had an extensive w/up for allergies due to hives. She passed out today and her boyfriend injected her with an epi pen which was prescribed by her drawing press operator. Her drawing press operator did not find any allergies on initial skin testing. I agree with hydrating with IVFs for now; may need neurology consultation; U- tox pending. 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 Y/N: Yes Risk Level: Low
[2016-10-09 19:38] VITALS: BP 100/63; PULSE 75; TEMP 36.7; O2SAT 96
[2016-10-09] MEDS: GABAPENTIN 800 MG TAB PO SCH (19:41)
[2016-10-09] MEDS: TOPIRAMATE 100 MG TAB PO SCH (19:41)
[2016-10-09] MEDS: CYCLOBENZAPRINE HCL 10 MG TAB PO SCH (19:41)
[2016-10-09] MEDS: TRIAMCINOLONE ACET 0.1% CR 15 GM TUBE EXT SCH (19:42)
[2016-10-09] MEDS: ONDANSETRON INJ 2 MG/ML 2 ML VIAL IV PRN (19:44)
[2016-10-09] MEDS ORDERED: DIPHENHYDRAMINE 25 MG PO PRN (19:45)
[2016-10-09 20:00] VITALS: O2SAT 98
[2016-10-09] MEDS: CLONAZEPAM 0.5 MG TAB PO SCH (20:04)
[2016-10-09 23:52] VITALS: BP 107/63; PULSE 98; TEMP 37; O2SAT 94
[2016-10-10] VITALS (7 sets, daily range): BP systolic 95–110; BP diastolic 55–65; PULSE 65–93; TEMP 36.9–37; O2SAT 92–98
[2016-10-10] MEDS: SODIUM CHLORIDE 0.9% 1000ML 1,000 ML IV SCH ×2 (01:56→14:25)
[2016-10-10] MEDS: TRAMADOL HCL 50 MG TAB PO PRN ×2 (05:56→21:38)
[2016-10-10] MEDS: METHYLPHENIDATE HCL 10 MG TAB PO SCH ×2 (06:02→14:23)
[2016-10-10 07:46] LABS: HEMATOCRIT 36.4 % (37-47); MEAN CELL VOLUME 91.7 fL (80-100); MEAN CORPUSCULAR HEMOGLOBIN 30.7 pg (25-34); MEAN CORPUSCULAR HGB CONC 33.5 g/dl (32-36); MEAN PLATELET VOLUME 10.7 fL (7.4-10.4); PLATELET COUNT 199 K/uL (130-400); RED BLOOD COUNT 3.97 M/uL (4.2-5.4); WHITE BLOOD COUNT 15.07 K/uL (4.8-10.8)
[2016-10-10 09:04] LABS: ALB/GLOB RATIO 1.1 (0.9-2); BUN/CREATININE RATIO 22.2 (10-20); CALCIUM 8.8 mg/dl (8.5-10.1); CREATININE 0.68 mg/dl (0.60-1.20); POTASSIUM 3.7 mmol/L (3.5-5.1)
[2016-10-10] MEDS: GABAPENTIN 800 MG TAB PO SCH ×3 (09:24→21:38)
[2016-10-10] MEDS: VENLAFAXINE HCL XR 150 MG CAPXR PO SCH (09:24)
[2016-10-10] MEDS: CETIRIZINE HCL 10 MG TAB PO SCH (09:25)
[2016-10-10] MEDS: PANTOprazole SOD 40 MG TAB PO SCH (09:25)
[2016-10-10] MEDS: CYCLOBENZAPRINE HCL 10 MG TAB PO SCH ×3 (09:25→21:38)
[2016-10-10] MEDS: RANITIDINE HCL 150 MG TAB PO SCH (09:25)
[2016-10-10] MEDS: TOPIRAMATE 100 MG TAB PO SCH ×2 (09:26→21:37)
[2016-10-10] MEDS: TRIAMCINOLONE ACET 0.1% CR 15 GM TUBE EXT SCH ×2 (09:26→21:00)
[2016-10-10] MEDS: CLONAZEPAM 0.5 MG TAB PO SCH ×2 (09:28→21:38)
--- NOTE | 2016-10-10 10:36 | EMERGENCY ROOM VISIT NOTE ---
ED Visit Note First contact with patient: 08:01 Chief Complaint: Allergic reaction. History of Present Illness: Ms. Ruiz is a 32-year-old white female who is brought into the ED via ambulance complaining of a possible allergic reaction. Historically patient reports she has been struggling with reactions to medications including hives with a possible reaction to Flagyl. She is seen in the emergency department twice for her symptoms and has been put on prednisone and Benadryl with mild results of her symptoms. Then on September 30 she was admitted to the hospital after a syncopal episode with elevated troponin levels. She is evaluated by cardiology with multiple tests and no cause was identified. On discharge she had an appointment scheduled to see an senior clinical project manager which she did yesterday. In no significant findings were identified during that visit and laboratory testing and subsequent visit is pending. Patient reports last night she was feeling tired and cold so she went to bed. When she woke up this morning approximately 2 hours ago she reports her skin felt hot; "like my skin was on fire". She reports she stood up from bed and felt slightly lightheaded and then walked out of the bedroom and took 50 mg of Benadryl; she felt this was her "allergic reaction occurring again." She then reports that she was sitting onto the bed she had a syncopal episode. Her boyfriend then gave her an injection in the left thigh with her EpiPen. EMS was activated and was brought to the ED for further evaluation and care. EMS reports while transporting the patient had bilateral wheezing, a decreased oxygen saturation and she complained of being nauseated so she received an albuterol nebulizer breathing treatment, 125 mg of Solu-Medrol and 4 mg of Zofran IV for her nausea. He also reported they evaluated her blood sugar and it was 125. On arrival into the emergency department patient was noted to have a oxygen saturation of 87% and was placed on nasal cannula oxygen. On my initial evaluation patient was complaining of suprapubic abdominal discomfort. She was unable to describe her pain but rated her discomfort 9/10. The pain was nonradiating. She has not identified any aggravating or alleviating factors related to the pain. She reports this is been going on since her previous admission last month. She has not taken any medications for her discomfort prior to arrival at the hospital. She denies any associated symptoms including fevers, chills, sweats, skin eruptions, skin color changes, decreased appetite, upper respiratory tract symptoms, cough, wheezing, shortness of breath, urinary symptoms, back pain, vaginal bleeding, vaginal discharge, painful intercourse, postcoital bleeding. Review of Systems: As noted above in history of present illness. All body systems were reviewed and found to be negative as noted above. Past Medical History: (1) Anxiety (2) Bronchitis (3) DDD (degenerative disc disease) (4) Depression (5) Fibromyalgia (6) Gall bladder disease (7) Gestational diabetes (8) H/o C2 vertebral fracture (9) History of - miscarriage (10) Kidney stone (11) Migraine (12) PNA (pneumonia) (13) Polycystic ovaries (14) Post-operative infection (15) Seroma (16) Spinal headache (17) Syncope (18) Vaginal delivery Surgical Problems: (1) H/O colonoscopy (2) H/O neck surgery (3) S/P cholecystectomy (4) S/p lumbar decompression/fusion (5) S/P tonsillectomy Current Medications: Medications Dose Route/Sig Max Daily Dose Days Date Category Dose Instructions Effexor Extended Rel (Venlafaxine Hcl) 150 Mg Cap 150 Mg PO DAILY 10/09/16 Reported Ritalin (Methylphenidate HCl) 20 Mg Tab 30 Mg PO BID 10/09/16 Reported Chronulac (Lactulose) 10 Gm/15 Ml Syrp 15 Ml PO BID PRN 10/09/16 Reported Zofran (Ondansetron HCl) 8 Mg Tab 8 Mg PO Q8 PRN 10/09/16 Reported Flexeril (Cyclobenzaprine Hcl) 10 Mg Tab 10 Mg PO TID 10/09/16 Reported Prednisone 10 Mg Tab 0 PO UD 10/09/16 Reported STERAPRED 10MG 12 DAY Aristocort 0.1% (Triamcinolone Acet) 90 Appln/30 Gm Cr 1 Appln EXT BID 10/09/16 Reported Linzess (Linaclotide) 145 Mcg Cap 1 Cap PO DAILYBB 10/09/16 Reported Zyrtec (Cetirizine HCl) 10 Mg Tab 10 Mg PO DAILY 10/09/16 Reported Epipen (Epinephrine) 0.3 Mg/0.3 Ml Inj 0.3 Mg IM UD 10/09/16 Reported Benadryl Allergy (Diphenhydramine Hcl) 25 Mg Tab 2 Tab PO UD 10/09/16 Reported Zantac (Ranitidine HCl) 150 Mg Tab 150 Mg PO DAILY 10/01/16 Reported Ultram (Tramadol HCl) 50 Mg Tab 50 Mg PO Q4H PRN 09/22/16 Reported FOR KIDNEY STONE Phenergan (Promethazine HCl) 25 Mg Tab 25 Mg PO Q6H PRN 06/22/16 Reported Klonopin (Clonazepam) 1 Mg Tab 0.5 Mg PO BID 06/22/16 Reported Prilosec (Omeprazole) 20 Mg Cap 20 Mg PO DAILY 06/22/16 Reported Gabapentin 800 Mg Tab 800 Mg PO TID 05/05/16 Reported Topamax (Topiramate) 200 Mg Tab 200 Mg PO BID 01/08/16 Reported Acetaminophen 500 Mg Tab 1,000 Mg PO Q6H PRN 01/08/16 Reported Butalbital/Aspirn/Caffein (Vplkjtvdzd-Ruyewix-Yqzmimeu W/) 1 Cap Cap 1 Cap PO Q4H PRN 01/08/16 Reported Allergies to Medications: Amoxicillin, morphine, propranolol. Social History: Physical Examination: Vital Signs: Date Time Temp Pulse Resp B/P Pulse Ox O2 Delivery O2 Flow Rate FiO2 10/09/16 12:50 83 108/61 99 Room Air 99 105/61 110 108/66 10/09/16 12:08 77 10/09/16 12:04 80 18 107/58 100 Nasal Cannula 2.0 10/09/16 11:10 101 17 91/66 98 Nasal Cannula 2.0 10/09/16 10:15 88 16 91/68 97 Nasal Cannula 2.0 10/09/16 09:52 88 16 99/59 97 Nasal Cannula 2.0 10/09/16 09:23 36.7 80 15 94/50 98 Nasal Cannula 2.0 10/09/16 09:01 76 17 116/61 98 Nasal Cannula 2.0 88 79/47 100 72/33 10/09/16 08:33 82 10/09/16 08:24 81 17 99/57 97 Nasal Cannula 2.0 10/09/16 08:20 96 Nasal Cannula 2.0 10/09/16 08:07 99 10/09/16 08:06 36.1 90 16 111/71 96 Nasal Cannula 2.0 10/09/16 08:06 87 Room Air GENERAL: 31-year-old female in moderate distress due to symptoms, toxic- appearing, afebrile and hemodynamically unstable. NEUROLOGICAL: Opens eyes to verbal stimuli sometimes light stimuli. Oriented to person only. Answering questions appropriately and following commands. Extremity movements are slow and purposeful. Cranial nerves II through XII grossly intact. Poor short-term recall. Questionable long-term recall. SKIN: Warm, dry and pink. Ecchymosis is noted in the subcutaneous tissues of the lower abdomen from recent admission; Lovenox injections. No soft tissue eruptions or trauma noted. Positive dermatographia test with welt and flare. HEENT: Atraumatic and normocephalic. PERRLA. Pupils dilated to approximately 6 mm. EOMI without nystagmus. Sclera white and conjunctiva pink. No drainage from naris. Airway patent. Oral cavity moist and pink. Pharynx is nonerythematous or edematous. Speech slurred. No lymphadenopathy. Trachea midline. No jugular venous distention. BACK: No tenderness over the bony cervical, thoracic and lumbar spine. No tenderness or muscle spasm throughout the paraspinous muscles. Full range of motion of the cervical spine. No CVA tenderness. THORAX: Lungs sounds are decreased bilaterally in the bases with scattered rhonchi. After she coughed the rhonchi was cleared and did not return on subsequent evaluations but her lung bases still sound diminished. No wheezing or rales were noted. No increased respiratory effort or rate. No crepitus, tenderness, subcutaneous air or deformities noted. HEART: Regular rate and rhythm. No gallops, rubs or murmurs are appreciated. ABDOMEN: Flat and soft with mild tenderness in the epigastrium; no tenderness in the lower abdomen in the area of her complaints of pain. Decreased bowel sounds in all quadrants. No guarding, rigidity or organomegaly. EXTREMITIES: Moves all extremities well on command and with purpose. All distal neurovascular statuses are intact and equal bilaterally. No calf tenderness or cords. ED Course: Patient is assessed as noted above. Laboratory Testing: Test 10/09/16 08:24 10/09/16 08:50 10/09/16 08:53 10/09/16 09:15 Range/Units Bedside Glucose 142 70-90 mg/dl White Blood Count 11.58 4.8-10.8 K/uL Red Blood Count 5.06 4.2-5.4 M/uL Hemoglobin 16.3 12.0-16.0 g/dL Hematocrit 46.5 37-47 % Mean Corpuscular Volume 91.9 80-100 fL Mean Corpuscular Hemoglobin 32.2 25-34 pg Mean Corpuscular Hemoglobin Concent 35.1 32-36 g/dl Platelet Count 235 130-400 K/uL Mean Platelet Volume 11.4 7.4-10.4 fL Neutrophils (%) (Auto) 75.1 % Lymphocytes (%) (Auto) 20.8 % Monocytes (%) (Auto) 3.3 % Eosinophils (%) (Auto) 0.5 % Basophils (%) (Auto) 0.0 % Neutrophils # (Auto) 8.70 1.4-6.5 K/uL Lymphocytes # (Auto) 2.41 1.2-3.4 K/uL Monocytes # (Auto) 0.38 0.11-0.59 K/uL Eosinophils # (Auto) 0.06 0-0.5 K/uL Basophils # (Auto) 0.00 0-0.2 K/uL RDW Standard Deviation 44.0 36.4-46.3 fL RDW Coefficient of Variation 13.1 11.5-14.5 % Immature Granulocyte % (Auto) 0.3 % Immature Granulocyte # (Auto) 0.03 0.00-0.02 K/uL Sodium Level 145 136-145 mmol/L Potassium Level 3.0 3.5-5.1 mmol/L Chloride Level 110 98-107 mmol/L Carbon Dioxide Level 25 21-32 mmol/L Anion Gap 10.0 3-11 mmol/L Blood Urea Nitrogen 13 7-18 mg/dl Creatinine 1.00 0.60-1.20 mg/dl Est Creatinine Clear Calc Drug Dose 84.8 ml/min Estimated GFR () 87.6 Estimated GFR (Non- 75.5 BUN/Creatinine Ratio 13.4 10-20 Random Glucose 128 70-99 mg/dl Calcium Level 8.4 8.5-10.1 mg/dl Total Bilirubin 0.9 0.2-1 mg/dl Direct Bilirubin 0.3 0-0.2 mg/dl Aspartate Amino Transf (AST/SGOT) 81 15-37 U/L Alanine Aminotransferase (ALT/SGPT) 90 12-78 U/L Alkaline Phosphatase 74 45-117 U/L Total Protein 6.8 6.4-8.2 gm/dl Albumin 3.5 3.4-5.0 gm/dl Lipase 333 73-393 U/L Human Chorionic Gonadotropin, Qual NEG NEG Ethyl Alcohol mg/dL < 3.0 0-3 mg/dl Bedside Troponin I 0.000 0-0.045 ng/ml Urine Color DK YELLOW Urine Appearance CLOUDY CLEAR Urine pH 8.0 4.5-7.5 Urine Specific [place] 1.017 1.000-1.030 Urine Protein 2+ NEG Urine Glucose (UA) NEG NEG Urine Ketones NEG NEG Urine Occult Blood NEG NEG Urine Nitrite NEG NEG Urine Bilirubin NEG NEG Urine Urobilinogen NEG NEG Urine Leukocyte Esterase TRACE NEG Urine WBC (Auto) 1-5 0-5 /hpf Urine RBC (Auto) 0-4 0-4 /hpf Urine Hyaline Casts (Auto) 1-5 0-5 /lpf Urine Epithelial Cells (Auto) >30 0-5 /lpf Urine Bacteria (Auto) NEG NEG Urine Renal Epithelial Cells 0-5 /lpf Urine Crystals AMORPHOUS SEDIMENT NONE PRSENT Urine Pathogenic Casts 0 /lpf Urine Mucus PRESENT NONE PRSENT Urine Opiates Screen POS NEG Urine Methadone, Qualitative NEG NEG Urine Barbiturates NEG NEG Urine Phencyclidine (PCP) Level NEG NEG Ur Amphetamine/Methamphetamine NEG NEG MDMA (Ecstasy) Screen NEG NEG Urine Benzodiazepines Screen NEG NEG Urine Cocaine Metabolite NEG NEG Urine Marijuana (THC) NEG NEG Test 10/09/16 11:38 Range/Units Bedside Lactic Acid Venous 1.57 0.90-1.70 mmol/L Blood Culture: Pending Chest X-Rays: Were read by myself and the radiologist showing no acute infiltrates, effusions or pneumothorax. Normal heart silhouette and bony anatomy. Chest CTA: Was reviewed by myself and read by the radiologist showing no pulmonary emboli, no acute intrathoracic findings. EKG: Was read by myself and reviewed by Dr. Allen; shows normal sinus rhythm with PACs. Ventricular rate 92 bpm. Nonspecific T-wave abnormalities and prolongation of the QT segment. This was compared to a previous EKG from September 2016 in no acute changes were noted. Patient was placed on nasal cannula oxygen, she was hydrated with normal saline and during her course in the emergency department she was given 10 mEq of potassium IV, 750 mg of Levaquin IV and 4 mg of Zofran IV. Patient was reassessed multiple times during her stay in the emergency department. Patient's case was reviewed with Dr. Allen; he independently assessed the patient we agreed on diagnostic approach, treatment, disposition and plan. Patient's case was consulted with case management and Ms. Vangie Sosa PA-C hospitalist for medical observation/admission. Patient was educated about tonight's findings. Clinical Impression: Syncope. Hypotension. Hypoxemia. Hypokalemia. Elevated liver enzymes. Decision-Making: Initially my differential diagnosis I considered allergic reaction, vasovagal syncope, GI bleed, dehydration, pulmonary embolism, electrolyte abnormalities, drug/alcohol abuse, hepatitis and other causes. Disposition and Plan: Patient be brought in the hospital by ; please see her notes and orders for final disposition and plan.
--- NOTE | 2016-10-10 13:14 | Progress Note ---
Medicine Progress Note Date & Time of Visit: October 10, 2016 at 12:53. Subjective 31 yo F with anaphylaxis symptoms associated with recurrent syncope -no issues overnight -remains fatigued from event yesterday -tryptase level drawn per Allergy-pending -pt denies current symptoms -telemetry reviewed overnight and occ PACs only Objective Last 8 Hrs Date Time Temp Pulse Resp B/P Pulse Ox O2 Delivery O2 Flow Rate FiO2 10/10/16 12:00 98 Room Air 10/10/16 11:40 36.9 81 18 99/61 98 Room Air 10/10/16 08:01 36.9 93 18 110/64 92 Room Air Physical Exam: GEN: WNWD, in no acute distress, fatigued but appropriate HEENT: NC/AT, pupils are equal and round, normal sclerae CARDIO: reg rate, S1/2 heard without m/g/r LUNGS: CTA bilaterally, no crackles, rales or wheezes, good diaphragmatic excursion ABD: soft, non-tender, non-distended, no rebound or guarding EXTREMITY: no LE swelling or edema, extremities are warm and well-perfused NEURO: CN 2-12 grossly intact MUSC: 5/5 strength throughout, no focal deficits SKIN: warm and dry, no evidence of rash or hives at this time Laboratory Results: 10/10/16 06:54 10/10/16 06:54 Test 10/09/16 08:24 10/09/16 08:50 10/09/16 08:53 10/09/16 09:15 Bedside Glucose 142 mg/dl (70-90) Immature Granulocyte % (Auto) 0.3 % White Blood Count 11.58 K/uL (4.8-10.8) Red Blood Count 5.06 M/uL (4.2-5.4) Hemoglobin 16.3 g/dL (12.0-16.0) Hematocrit 46.5 % (37-47) Mean Corpuscular Volume 91.9 fL (80-100) Mean Corpuscular Hemoglobin 32.2 pg (25-34) Mean Corpuscular Hemoglobin Concent 35.1 g/dl (32-36) Platelet Count 235 K/uL (130-400) Mean Platelet Volume 11.4 fL (7.4-10.4) Neutrophils (%) (Auto) 75.1 % Lymphocytes (%) (Auto) 20.8 % Monocytes (%) (Auto) 3.3 % Eosinophils (%) (Auto) 0.5 % Basophils (%) (Auto) 0.0 % Neutrophils # (Auto) 8.70 K/uL (1.4-6.5) Lymphocytes # (Auto) 2.41 K/uL (1.2-3.4) Monocytes # (Auto) 0.38 K/uL (0.11-0.59) Eosinophils # (Auto) 0.06 K/uL (0-0.5) Basophils # (Auto) 0.00 K/uL (0-0.2) Immature Granulocyte # (Auto) 0.03 K/uL (0.00-0.02) Direct Bilirubin 0.3 mg/dl (0-0.2) Lipase 333 U/L (73-393) Human Chorionic Gonadotropin, Qual NEG (NEG) Ethyl Alcohol mg/dL < 3.0 mg/dl (0-3) Bedside Troponin I 0.000 ng/ml (0-0.045) Urine Color DK YELLOW Urine Appearance CLOUDY (CLEAR) Urine pH 8.0 (4.5-7.5) Urine Specific [place] 1.017 (1.000-1.030) Urine Protein 2+ (NEG) Urine Glucose (UA) NEG (NEG) Urine Ketones NEG (NEG) Urine Occult Blood NEG (NEG) Urine Nitrite NEG (NEG) Urine Bilirubin NEG (NEG) Urine Urobilinogen NEG (NEG) Urine Leukocyte Esterase TRACE (NEG) Urine WBC (Auto) 1-5 /hpf (0-5) Urine RBC (Auto) 0-4 /hpf (0-4) Urine Hyaline Casts (Auto) 1-5 /lpf (0-5) Urine Epithelial Cells (Auto) >30 /lpf (0-5) Urine Bacteria (Auto) NEG (NEG) Urine Renal Epithelial Cells /lpf (0-5) Urine Crystals AMORPHOUS SEDIMENT (NONE Urine Pathogenic Casts /lpf (0) Urine Mucus PRESENT (NONE PRSENT) Urine Opiates Screen POS (NEG) Urine Methadone, Qualitative NEG (NEG) Urine Barbiturates NEG (NEG) Urine Phencyclidine (PCP) Level NEG (NEG) Ur Amphetamine/Methamphetamine NEG (NEG) MDMA (Ecstasy) Screen NEG (NEG) Urine Benzodiazepines Screen NEG (NEG) Urine Cocaine Metabolite NEG (NEG) Urine Marijuana (THC) NEG (NEG) Test 10/09/16 11:38 10/10/16 06:54 Bedside Lactic Acid Venous 1.57 mmol/L (0.90-1.70) Red Blood Count 3.97 M/uL (4.2-5.4) Mean Corpuscular Volume 91.7 fL (80-100) Mean Corpuscular Hemoglobin 30.7 pg (25-34) Mean Corpuscular Hemoglobin Concent 33.5 g/dl (32-36) RDW Standard Deviation 44.2 fL (36.4-46.3) RDW Coefficient of Variation 13.1 % (11.5-14.5) Mean Platelet Volume 10.7 fL (7.4-10.4) Anion Gap 8.0 mmol/L (3-11) Est Creatinine Clear Calc Drug Dose 125.9 ml/min Estimated GFR () 136.0 Estimated GFR (Non- 117.4 BUN/Creatinine Ratio 22.2 (10-20) Calcium Level 8.8 mg/dl (8.5-10.1) Magnesium Level 2.0 mg/dl (1.8-2.4) Total Bilirubin 0.4 mg/dl (0.2-1) Aspartate Amino Transf (AST/SGOT) 52 U/L (15-37) Alanine Aminotransferase (ALT/SGPT) 141 U/L (12-78) Alkaline Phosphatase 65 U/L (45-117) Total Protein 6.0 gm/dl (6.4-8.2) Albumin 3.1 gm/dl (3.4-5.0) Globulin 2.9 gm/dl (2.5-4.0) Albumin/Globulin Ratio 1.1 (0.9-2) Date/Time Source Procedure Growth Status 10/09/16 12:15 Blood Blood Culture Pending Received 10/09/16 00:00 Stool C.difficile Toxin B Gene (PCR) - Final No C. difficile toxin B gene detected Complete Last 24 Hours Test 10/10/16 06:54 White Blood Count 15.07 K/uL Red Blood Count 3.97 M/uL Hemoglobin 12.2 g/dL Hematocrit 36.4 % Mean Corpuscular Volume 91.7 fL Mean Corpuscular Hemoglobin 30.7 pg Mean Corpuscular Hemoglobin Concent 33.5 g/dl RDW Standard Deviation 44.2 fL RDW Coefficient of Variation 13.1 % Platelet Count 199 K/uL Mean Platelet Volume 10.7 fL Sodium Level 143 mmol/L Potassium Level 3.7 mmol/L Chloride Level 114 mmol/L Carbon Dioxide Level 21 mmol/L Anion Gap 8.0 mmol/L Blood Urea Nitrogen 15 mg/dl Creatinine 0.68 mg/dl Est Creatinine Clear Calc Drug Dose 125.9 ml/min Estimated GFR () 136.0 Estimated GFR (Non- 117.4 BUN/Creatinine Ratio 22.2 Random Glucose 87 mg/dl Calcium Level 8.8 mg/dl Magnesium Level 2.0 mg/dl Total Bilirubin 0.4 mg/dl Aspartate Amino Transf (AST/SGOT) 52 U/L Alanine Aminotransferase (ALT/SGPT) 141 U/L Alkaline Phosphatase 65 U/L Total Protein 6.0 gm/dl Albumin 3.1 gm/dl Globulin 2.9 gm/dl Albumin/Globulin Ratio 1.1 Assessment & Plan 31 yo F with syncope associated with allergic reaction 1. Syncope-recurrent, she has allergic symptoms associated with every episode of syncope, which has been ongoing now for only one month. She states that stress is abundant in her life, however, denies any issues with extreme hot or cold weather, hot/cold showers, uses NSAIDs with no issues, no issues with wearing tight clothing, no diet variability but states that boyfriend is a celiac so she is also gluten free most of the time, denies issues with ETOH use , reports diffuse joint pain mostly in large joints. Stress echo, CT head on last admission were negative. CTA was negative for PE. Normal thyroid function checked last week. She states that mom has psoriasis and thyroid problems. She isn't aware of any other autoimmune disorders in her family. Her clinical syndrome is very consistent with anaphylaxis with presyncope malaise, then starts to feel hot followed by hives that +/- occur, followed by bronchospasm and tightness in her chest. She was found hypoxic and hypotensive after boyfriend reportedly gave epinephrine. She was orthostatic in ED. She was recently seen by Allergy and skin testing was negative with a pending tryptase level. Cardiac monitoring benign overnight except for occasional PACs , however, with h/o NSVT associated with EKG changes on last admission along with unknown cause of syncope, outpatient mobile cardiac telemetry may be an option for monitoring. Consulted Cards for thoughts on this. For now, she is fatigued and doesn't feel well. Will cont supportive care for one more day and likely dc in am. She will stay on telemetry overnight. 2. Acute hypoxic respiratory failure-resolved, breathing well on room air. 3. Leukocytosis-this associated with fatigue likely related to recent reaction , expect this to trend down. She has no infectious symptoms at this time. 4. Hypokalemia-resolved. 5. Diarrhea-stool studies pending, supportive care. Stop IVF at this time as she is tolerating PO. 6. Elevated transaminases-will trend and ensure going down. Workup as outpatient if needed after discharge. 7. Chronic pain/fibromyalgia-cont Tramadol PRN 8. Neurogenic bladder-cont Carranza in hospital and self cath at home. DVT PROPHYLAXIS -Low VTE risk -SCDs and ambulation DISPO: likely home in am. Radah Cooley DO [facility] Hospitalist. Consultants: Cardiology Current Inpatient Medications: Current Inpatient Medications Medications (Trade) Dose Ordered Sig/Saundra Route Start Time Stop Time Status Last Admin Dose Admin Ioversol (Optiray 320) 125 ml UD PRN IV 10/09/16 11:00 10/13/16 10:59 Ondansetron HCl (Zofran Inj) 4 mg Q6H PRN IV 10/09/16 13:45 11/08/16 13:44 10/09/16 19:44 4 MG Nitroglycerin 0.4 mg 0.4 mg UD PRN SL 10/09/16 13:45 11/08/16 13:44 Sodium Chloride (Nss 1000ml) 1,000 ml @ 80 mls/hr [id number] IV 10/09/16 13:45 11/08/16 13:44 10/10/16 01:56 80 MLS/HR Butalbital/ Aspirin/Caffeine/ Codeine (Fiorinal W/ Codeine Cap) 1 cap Q4H PRN PO 10/09/16 14:00 11/08/16 13:59 Cetirizine HCl (zyrTEC TAB) 10 mg DAILY PO 10/10/16 09:00 11/09/16 08:59 10/10/16 09:25 10 MG Clonazepam (Klonopin Tab) 0.5 mg BID PO 10/09/16 21:00 11/08/16 20:59 10/10/16 09:28 0.5 MG Cyclobenzaprine HCl (Flexeril Tab) 10 mg TID PO 10/09/16 21:00 11/08/16 20:59 10/10/16 09:25 10 MG Epinephrine (Epipen) 0.3 mg UD PRN IM 10/09/16 14:00 11/08/16 13:59 Gabapentin (Neurontin Tab) 800 mg TID PO 10/09/16 21:00 11/08/16 20:59 10/10/16 09:24 800 MG Lactulose (Chronulac Syrup) 10 gm BID PRN PO 10/09/16 14:00 11/08/16 13:59 Methylphenidate HCl (Ritalin Tab) 10 mg BID@0600,1400 PO 10/10/16 06:00 10/24/16 05:59 10/10/16 06:02 10 MG Promethazine HCl (Phenergan Tab) 25 mg Q6H PRN PO 10/09/16 14:00 11/08/16 13:59 Ranitidine HCl (zANTac TAB) 150 mg DAILY PO 10/10/16 09:00 11/09/16 08:59 10/10/16 09:25 150 MG Topiramate (Topamax Tab) 200 mg BID PO 10/09/16 21:00 11/08/16 20:59 10/10/16 09:26 200 MG Tramadol HCl (Ultram Tab) 50 mg Q4H PRN PO 10/09/16 14:00 11/08/16 13:59 10/10/16 05:56 50 MG Triamcinolone Acetonide (Kenalog 0.1% Cream) 1 appln BID EXT 10/09/16 21:00 11/08/16 20:59 10/10/16 09:26 1 APPLN Venlafaxine HCl (effeXOR EXTENDED REL CAP) 150 mg DAILY PO 10/10/16 09:00 11/09/16 08:59 10/10/16 09:24 150 MG Miscellaneous Information (Order Awaiting Action) 1 ea QS N/A 10/09/16 16:00 11/08/16 15:59 Pantoprazole Sodium (Protonix Tab) 40 mg QAM PO 10/10/16 09:00 11/09/16 08:59 10/10/16 09:25 40 MG Diphenhydramine HCl (Benadryl Cap) 25 mg DAILY PRN PO 10/09/16 19:45 11/08/16 19:44
--- NOTE | 2016-10-10 14:49 | CARDIOLOGY CONSULTATION ---
DATE OF CONSULTATION: 10/10/2016 DATE OF CONSULTATION: 10/10/2016. REQUESTING: Dr. Radha Cooley. DRYCLEANER: Manolo Grande D.O., [facility] for Dr. Zeke Mar [facility] who is her primary director hospice operations. HISTORY OF PRESENT ILLNESS: Olivia was admitted with a similar episode that brought her a week ago. She describes having had skin testing for allergies, all of which were negative. Approximately 12 hours later she had her typical symptoms where she starts feeling warm all over, her skin gets red and then starts to burn and she gets hives and with that she starts to get shortness of breath, lightheaded and dizzy. She does note that her heart rate increases as well. She describes the episodes as becoming more frequent and more severe. In the past they would respond to an EpiPen, this episode did not respond at all. She notes with last weeks episode she was so lightheaded and weak she felt like she was drunk. With this episode she actually describes as losing consciousness. She notes in discussion with the bender helper she had back surgery in August of 2015 with symptoms that started in September to November following that surgery and there is some concern that her hardware in her back may be contributing to her increased infections and allergic-like reaction. Outside of the episode she denies any chest pain or chest pressure. She notes with the episode in addition to the other symptom, she starts feeling like she gets short of breath, feels like there is pressure on her chest and if she lays down the pressure tends to get worse. With her last hospitalization, there was concern over ST elevation myocardial infarction. She underwent an echocardiogram which did not reveal any regional wall motion abnormalities. She had a small troponin elevation with a peak troponin is 0.423. She subsequently underwent dobutamine stress echocardiography which was completely normal without any associated arrhythmias. She underwent dobutamine stress echo with only rare PACs. There is a discussion on the monitor she did have some short runs and nonsustained VT. On the monitor here today she has only had rare PACs without any runs of ventricular ectopy. She notes since her back surgery, she does not feel well. She gets sick easily and she has his overall sense of feeling poorly. The rest of review of systems otherwise negative. PAST MEDICAL HISTORY: 1. Anxiety. 2. Bronchitis. 3. Depression. 4. Fibromyalgia. 5. History of C2 vertebral fracture. 6. Kidney stones. 7. Migraines. 8. Polycystic ovary disease. 9. Spinal headache. 10. Status post dobutamine stress echo which was negative for ischemia with only PACs. 11. Echocardiogram with normal biventricular size and function with no regional wall motion abnormalities. FAMILY HISTORY: Significant for diabetes, cancer, gallbladder disease, lung disease. SOCIAL HISTORY: She smokes everyday 5 cigarettes a day for 15 years. She socially drinks alcohol. She is in a relationship. She lives with her family. She works at [employer]. ALLERGIES: AMOXICILLIN, BEE STINGS, ADHESIVES, PROPRANOLOL, AND MORPHINE. PHYSICAL EXAMINATION: GENERAL: She is awake, alert, oriented x3. She notes that she does feel some mild nausea. VITAL SIGNS: Her heart rate 81, respirations 18, blood pressure 99/61, pulse ox is 98% on room air. HEAD, EYES, EARS, NOSE, AND THROAT: 2+ carotid upstrokes. No evidence of carotid bruits. Jugular venous pressure appeared normal. Sclerae is anicteric. Her hearing is normal. LUNGS: Clear to auscultation bilaterally. No rales, rhonchi or wheezing. HEART: Regular rate and rhythm. No appreciable murmurs, rubs or gallops. ABDOMEN: Soft, nontender, nondistended, positive bowel sounds. EXTREMITIES: No clubbing, cyanosis or edema. PSYCHIATRIC: Her affect appeared flat. CT of her chest negative. CAT scan no evidence of pulmonary emboli, aortic dissection or pneumonia. LABORATORY STUDIES: White count of 15.07. Her hemoglobin 12.2. Her platelet count 199. Her troponin is negative. BUN this morning 15, creatinine 0.68. EKG sinus rhythm, PACs, prolonged QTC at 484 milliseconds. No change from the prior. IMPRESSIONS: What sounds like an allergic reaction, rather classically it sounds like she has a skin reaction. Her chest discomfort is likely some degree alveolar leak with some fluid leaking into her lungs suggesting her chest pain may be related to mild heart failure that would also explain her mild hypoxemia that rapidly resolves. She also likely vasodilates both on the arterial side as well as the venous side which leads to her tachycardia and associated hypotension potentially leading to syncope. The primary service was concerned given her history of nonsustained VT that there was a possibility she was having ventricular arrhythmias as a cause and we can arrange for her to have an event recorder as an outpatient to rule that out. What is interesting sounds like even from her admission the last time that there is a significant catecholamine surge leading to chest discomfort likely explaining her EKG changes and the challenges treating that with beta blockers would likely only make her potentially more hypotensive. She notes that the allergic reaction episodes are getting more frequent, they are more severe and they are not responding to EpiPen. She describes having a discussion with the bender helper that her hardware from her back surgery may be the cause for her symptoms. Will have the [facility] cardiology practice arrange for an event recorder as an outpatient. At this point, I do not see any arrhythmias on the monitor. All this was discussed with the patient and the primary service. NUNO
[2016-10-10] MEDS: ONDANSETRON INJ 2 MG/ML 2 ML VIAL IV PRN (21:38)
[2016-10-11] MEDS: SODIUM CHLORIDE 0.9% 1000ML 1,000 ML IV SCH (03:03)
[2016-10-11 03:36] VITALS: BP 102/62; PULSE 97; TEMP 37; O2SAT 98
[2016-10-11] MEDS: ONDANSETRON INJ 2 MG/ML 2 ML VIAL IV PRN (03:38)
[2016-10-11] MEDS: METHYLPHENIDATE HCL 10 MG TAB PO SCH (06:13)
[2016-10-11 06:58] LABS: HEMATOCRIT 34.6 % (37-47); MEAN CELL VOLUME 93.8 fL (80-100); MEAN CORPUSCULAR HEMOGLOBIN 30.6 pg (25-34); MEAN CORPUSCULAR HGB CONC 32.7 g/dl (32-36); MEAN PLATELET VOLUME 11.1 fL (7.4-10.4); PLATELET COUNT 175 K/uL (130-400); RED BLOOD COUNT 3.69 M/uL (4.2-5.4); WHITE BLOOD COUNT 6.65 K/uL (4.8-10.8)
[2016-10-11 07:22] VITALS: BP 105/66; PULSE 79; TEMP 36.5; O2SAT 96
[2016-10-11 07:28] LABS: BUN/CREATININE RATIO 21.3 (10-20); CALCIUM 8.3 mg/dl (8.5-10.1); CREATININE 0.79 mg/dl (0.60-1.20)
[2016-10-11 07:30] LABS: ALB/GLOB RATIO 1.1 (0.9-2)
[2016-10-11] MEDS: TOPIRAMATE 100 MG TAB PO SCH (08:24)
[2016-10-11] MEDS: CETIRIZINE HCL 10 MG TAB PO SCH (08:25)
[2016-10-11] MEDS: VENLAFAXINE HCL XR 150 MG CAPXR PO SCH (08:25)
[2016-10-11] MEDS: GABAPENTIN 800 MG TAB PO SCH (08:25)
[2016-10-11] MEDS: RANITIDINE HCL 150 MG TAB PO SCH (08:25)
[2016-10-11] MEDS: CYCLOBENZAPRINE HCL 10 MG TAB PO SCH (08:25)
[2016-10-11] MEDS: PANTOprazole SOD 40 MG TAB PO SCH (08:25)
[2016-10-11] MEDS: TRIAMCINOLONE ACET 0.1% CR 15 GM TUBE EXT SCH (08:26)
[2016-10-11] MEDS: CLONAZEPAM 0.5 MG TAB PO SCH (08:29)
--- NOTE | 2016-10-11 10:22 | Discharge Instructions ---
Discharge Instructions Date of Service October 11, 2016. Admission Reason for Admission: Syncope Discharge Discharge Diagnosis / Problem: syncope Discharge Goals Goal(s): Diagnostic testing Activity Recommendations Activity Limitations: per Instructions/Follow-up section . Instructions / Follow-Up Instructions / Follow-Up Please continue all medications as instructed above. I would recommend that you do not drive at this time while there is no known trigger for your syncope. Work may also be something to consider restricting as discussed with physician. Please work with your primary care physician and Outboard Motor Inspector to identify any other necessary restrictions based on your current lifestyle. Your heart monitor remained normal throughout this hospitalization. It is worth a trial of a heart monitor while at home, however, to try and capture any abnormal heart rhythms that may be associated with your episodes. This will be set up for you through [facility]. Someone should be contactin you early this week to set this up. It is strongly recommended that you quit smoking as it is not only bad for your health and can cause many problems such as lung cancer, but may also worsen your current situation. You will be scheduled a follow-up appointment with your primary care physician ( PCP) as a follow-up for this appointment. Someone will contact you on Wednesday with this date/time. It is recommended that you follow-up with them within one week. Please ensure you get a pelvic ultrasound as an outpatient as previously recommended. This can be ordered through your PCP office. It was a pleasure taking care of you! Call if you have any questions or problems. You can reach a [facility] hospitalist on duty at [facility] 24 hours a day by calling [phone]. Take care of yourself. Radha Cooley, [facility] Hospitalist Current Hospital Diet Patient's current hospital diet: Regular Diet Discharge Diet Recommended Diet: Regular Diet Pending Studies Studies pending at discharge: yes List of pending studies: Final clood cultures-preliminary negative Laboratory Results Lipid Panel Test 09/30/16 07:30 Range/Units Triglycerides Level 73 0-150 mg/dl Cholesterol Level 165 0-200 mg/dl HDL Cholesterol 43 mg/dl Cholesterol/HDL Ratio 3.8 LDL Cholesterol, Calculated 107 mg/dl Medical Emergencies . Who to Call and When: Medical Emergencies: If at any time you feel your situation is an emergency, please call 911 immediately. . Non-Emergent Contact Non-Emergency issues call your: Primary Care Provider . . "Provider Documentation" section prepared by Radha Cooley. . VTE Core Measure Inpt VTE Proph given/why not?: SCD's
[2016-10-11 11:50] VITALS: BP 105/65; PULSE 106; TEMP 36.5; O2SAT 98
[2016-10-11 13:08] VITALS: BP 105/65; PULSE 106; TEMP 36.5; O2SAT 98
[2016-10-12 08:41] LABS: COD UR NEGATIVE NG/ML (CUTOFF=50); HYDROCOD UR NEGATIVE NG/ML (CUTOFF=50); HYDROMOR UR NEGATIVE NG/ML (CUTOFF=50); MORPHINE UR NEGATIVE NG/ML (CUTOFF=50); NORHYDROCODONE CONF UR NEGATIVE NG/ML (CUTOFF=50); OXYMORPH UR 346 NG/ML (CUTOFF=50)
--- NOTE | 2016-10-16 08:13 | Discharge Summary ---
Discharge Summary Date of Service October 16, 2016. Discharge Summary Admission Date: October 09, 2016 at 13:36 Discharge Date: October 11, 2016 Discharge Disposition: Home Principal Diagnosis: Syncope, recurrent Acute hypoxic respiratory failure-resolved Leukocytosis-resolved Hypokalemia-resolved. Mild transaminitis Chronic pain/fibromyalgia Neurogenic bladder, self-caths at home Procedures: None. Vaccinations: None. Consultations: Cardiology Pending Studies/Follow-Up: see instructions below Medication Reconciliation Continued Medications: Acetaminophen (Acetaminophen) 500 Mg Tab 1000 MG PO Q6H PRN for Pain, TAB Umiulxdxkl-Ryvesor-Rbpierwr W/ (Butalbital/Aspirn/Caffein) 1 Cap Cap 1 CAP PO Q4H PRN for Headache Cetirizine (Zyrtec) 10 Mg Tab 10 MG PO DAILY, TAB Clonazepam (Klonopin) 1 Mg Tab 0.5 MG PO BID, TAB Cyclobenzaprine Hcl (Flexeril) 10 Mg Tab 10 MG PO TID, #21 TAB Diphenhydramine Hcl (Benadryl Allergy) 25 Mg Tab 2 TAB PO UD Epinephrine (Epipen) 0.3 Mg/0.3 Ml Inj 0.3 MG IM UD, BOX Gabapentin (Gabapentin) 800 Mg Tab 800 MG PO TID Lactulose (Chronulac) 10 Gm/15 Ml Syrp 15 ML PO BID PRN for Constipation Linaclotide (Linzess) 145 Mcg Cap 1 CAP PO DAILYBB Methylphenidate (Ritalin) 20 Mg Tab 30 MG PO BID, TAB Omeprazole (Prilosec) 20 Mg Cap 20 MG PO DAILY, CAP Ondansetron Hcl (Zofran) 8 Mg Tab 8 MG PO Q8 PRN for Nausea, TAB Promethazine Hcl (Phenergan) 25 Mg Tab 25 MG PO Q6H PRN for Nausea, TAB Ranitidine (Zantac) 150 Mg Tab 150 MG PO DAILY, TAB Topiramate (Topamax) 200 Mg Tab 200 MG PO BID Tramadol (Ultram) 50 Mg Tab 50 MG PO Q4H PRN for Pain, TAB FOR KIDNEY STONE Triamcinolone Acet (Aristocort 0.1%) 90 Appln/30 Gm Cr 1 APPLN EXT BID Venlafaxine Hcl (Effexor Extended Rel) 150 Mg Cap 150 MG PO DAILY, CAP Discontinued Medications: Prednisone (Prednisone) 10 Mg Tab 0 PO UD, #1 PKT STERAPRED 10MG 12 DAY Admission Information HPI (per Admitting provider): This is a 31 y/o female with PMHx of ADHD, Depression/Anxiety, chronic back pain , fibromyalgia and other problems as outlined below who presents to the ED c/o syncopal episode that occurred KITCHEN HELPER. Pt reports that she has been having episodes where she gets extremely hot and develops diffuse hives. She then feels her mouth start to burn and swell and she feels like she can't breath. She cannot breath to the point that she passes out. Pt was recently admitted to [facility] from 09/30/16-10/03/16 with syncope and elevated troponin. ACS was ruled out and an extensive workup was completed for syncope with no positive findings. Pt was seen by an mobile paint specialist yesterday who completed allergy skin testing. All results were negative per [employer] documentation. Pt was sent home with EpiPen to use as needed. This morning, patient had a similar episode of tremendous body heat leading to hives, chest tightness, inability to breath and syncope. Pts boyfriend administered her EpiPen and called 911. When EMS arrived , pt was hypoxic and hypotensive. Unfortunately boyfriend is no longer at bedside to provide details of the event and patient is unable to recall anything that happened after she passed out. Patient cannot identify any specific trigger stating these episodes "come out of the blue". She has a history of allergic reaction to bee stings however she has not been stung recently. Patient denies any illegal/recreational drug use. She has never had issues with passing out in the past. ROS is almost all positive. Pt mentions diffuse abdominal pain assoc with N/V that has since resolved as well as chronic constipation. Pt denies headache, chest pain, cough, blood in stool, LE edema or calf pain. In the ED, patient is hypoxic and hypotensive on arrival. She is afebrile with no leukocytosis. K+ 3.0. LFTs are mildly elevated. Trop is negative and EKG+ occ PACs. CTA negative for PE. Pt is stable and will be admitted for further evaluation and treatment. Physical Exam (per Admitting): General Appearance: WD/WN, no apparent distress, + pertinent finding (Pt is laying in bed with no family at bedside) Head: normocephalic, atraumatic Eyes: normal inspection, PERRL, EOMI ENT: hearing grossly normal, + pertinent finding (airway patent) Neck: supple Respiratory/Chest: chest non-tender, lungs clear, normal breath sounds, no respiratory distress Cardiovascular: regular rate, rhythm, no edema, no murmur Abdomen/GI: normal bowel sounds (present but diminished), soft, + tenderness (mild RUQ) Back: normal inspection Extremities/Musculoskelatal: normal inspection, no calf tenderness, no pedal edema Neurologic/Psych: alert, oriented x 3, + pertinent finding (flat affect) Skin: normal color, warm/dry Hospital Course 31 yo F with syncope associated with allergic reaction 1. Syncope-recurrent, she has allergic symptoms associated with every episode of syncope, which has been ongoing now for only one month. She states that stress is abundant in her life, however, denies any issues with extreme hot or cold weather, hot/cold showers, uses NSAIDs with no issues, no issues with wearing tight clothing, no diet variability but states that boyfriend is a celiac so she is also gluten free most of the time, denies issues with ETOH use , reports diffuse joint pain mostly in large joints. Stress echo, CT head on last admission were negative. CTA was negative for PE. Normal thyroid function checked last week. She states that mom has psoriasis and thyroid problems. She isn't aware of any other autoimmune disorders in her family. Her clinical syndrome is very consistent with anaphylaxis with presyncope malaise, then starts to feel hot followed by hives that +/- occur, followed by bronchospasm and tightness in her chest. She was found hypoxic and hypotensive after boyfriend reportedly gave epinephrine. She was orthostatic in ED. She was recently seen by Allergy and skin testing was negative with a pending tryptase level. Cardiac monitoring benign overnight except for occasional PACs , however, with h/o NSVT associated with EKG changes on last admission along with unknown cause of syncope, outpatient mobile cardiac telemetry may be an option for monitoring. Consulted Cards for thoughts on this. For now, she is fatigued and doesn't feel well. Will cont supportive care for one more day and likely dc in am. She will stay on telemetry overnight. Appreciate Cards assistance with an event monitor as outpatient. 2. Acute hypoxic respiratory failure-resolved, breathing well on room air. Likely 2/2 venodilation in lungs during anaphylaxis episode. 3. Leukocytosis-this associated with fatigue likely related to recent reaction , expect this to trend down. Normal range at discharge. She has no infectious symptoms at this time. 4. Hypokalemia-resolved. 5. Diarrhea-stool studies pending, supportive care. Stop IVF at this time as she is tolerating PO. 6. Elevated transaminases-will trend and ensure going down. Workup as outpatient if needed after discharge. 7. Chronic pain/fibromyalgia-cont Tramadol PRN 8. Neurogenic bladder-cont Carranza in hospital and self cath at home. On day of discharge she was afebrile and hemodynamically stable. She was tolerating PO. There were no events on telemetry during this hospitalization. Cards recommended outpatient event monitor which they will set up. She mentioned some blood in the toilet when using the restroom, however, she was menstruating. Otherwise, physical exam was unremarkable and she was ambulatory. She was sent home in stable condition with close PCP and Allergy follow-up recommended. Total time spent on discharge = 60 minutes This includes examination of the patient, discharge planning, medication reconciliation, and communication with other providers. Discharge Instructions Discharge Instructions Date of Service October 11, 2016. Admission Reason for Admission: Syncope Discharge Discharge Diagnosis / Problem: syncope Discharge Goals Goal(s): Diagnostic testing Activity Recommendations Activity Limitations: per Instructions/Follow-up section . Instructions / Follow-Up Instructions / Follow-Up Please continue all medications as instructed above. I would recommend that you do not drive at this time while there is no known trigger for your syncope. Work may also be something to consider restricting as discussed with physician. Please work with your primary care physician and Automatic Embroidery Machine Tender to identify any other necessary restrictions based on your current lifestyle. Your heart monitor remained normal throughout this hospitalization. It is worth a trial of a heart monitor while at home, however, to try and capture any abnormal heart rhythms that may be associated with your episodes. This will be set up for you through [facility]. Someone should be contactin you early this week to set this up. It is strongly recommended that you quit smoking as it is not only bad for your health and can cause many problems such as lung cancer, but may also worsen your current situation. You will be scheduled a follow-up appointment with your primary care physician ( PCP) as a follow-up for this appointment. Someone will contact you on Wednesday with this date/time. It is recommended that you follow-up with them within one week. Please ensure you get a pelvic ultrasound as an outpatient as previously recommended. This can be ordered through your PCP office. It was a pleasure taking care of you! Call if you have any questions or problems. You can [facility] 24 hours a day by calling [phone]. Take care of yourself. Radha Cooley, DO [facility] Center[facility] Additional Copies To Kieran Hemphill M.D.
[2016-10-25] MEDS ORDERED: DIPH1TAB87 PO (09:48)
[2016-10-25] MEDS ORDERED: LACT10SO17 PO (09:48)
[2016-10-25] MEDS ORDERED: EPP3/2 IM ×2 (09:48→22:05)
[2016-10-25] MEDS ORDERED: TRMCR130WC TOP (09:48)
[2016-10-25] MEDS ORDERED: ONDA8TAB6 PO (09:48)
[2016-10-25] MEDS ORDERED: LINA1CAP PO (09:48)
[2016-10-25] MEDS ORDERED: CYCL10TA6 PO (09:48)
[2016-10-25] MEDS ORDERED: CETI10TA84 PO (09:48)
[2016-10-25] MEDS ORDERED: TRAM-10 PO (10:41)
[2016-10-25] MEDS ORDERED: RTL20 PO (14:06)
[2016-10-25] MEDS ORDERED: VENL150C56 PO (14:06)
[2016-10-25] MEDS ORDERED: ZNTT/150 PO (15:50)
[2016-10-25] MEDS ORDERED: PROM25TA9 PO (16:34)
[2016-10-25] MEDS ORDERED: OMEP20CA9 PO (16:34)
[2016-10-25] MEDS ORDERED: CLON1TAB3 PO (16:34)
== END 2016-10-11 13:32 | disposition home or self-care (01) | DRG 312 ==
LOC: ENRESERVDT → ENRESERVTM → EDBD 07:53 → C.EDA 07:54 → C.2T 13:36
PROVIDERS: ADMIT Family Medicine; ATTEND Hospitalist
DX: R55 Syncope and collapse (principal); J96.01 Acute respiratory failure with hypoxia; M79.7 Fibromyalgia; E87.6 Hypokalemia; N31.9 Neuromuscular dysfunction of bladder, unspecified; R19.7 Diarrhea, unspecified; Z79.899 Other long term (current) drug therapy

== ENCOUNTER 2016-10-17 17:14 | Emergency (ER) | payer OTHER ==
[2016-10-17 17:18] VITALS: TEMP 36.3
[2016-10-17 17:34] VITALS: O2SAT 94
[2016-10-17] MEDS ORDERED: RANITIDINE HCL 50 MG/100 ML D5W IV STA (17:34)
[2016-10-17] MEDS ORDERED: METHYLPREDNISOLONE 125 MG VIAL IV STA (17:34)
[2016-10-17] MEDS ORDERED: SODIUM CHLORIDE 0.9% 1000ML 1,000 ML IV STA (17:34)
[2016-10-17] MEDS ORDERED: DiphenhydrAMINE HCL 50 MG/ML VIAL IV STA (17:34)
[2016-10-17] MEDS ORDERED: ONDANSETRON INJ 2 MG/ML 2 ML VIAL IV STA (17:34)
--- NOTE | 2016-10-17 17:41 | EMERGENCY ROOM VISIT NOTE ---
History Report prepared by Vaughn: Jet Gomes Under the Supervision of: Dr. Carlos Alberto Long M.D. First contact with patient: 17:28 Chief Complaint: ALLERGIC REACTION Stated Complaint: ANAPHILACTIC SHOCK, THROAT SWELLS SHUT, FAINTING Nursing Triage Summary: pt reports having trouble breathing started 2-3 hours ago d/t allergic reaction to metal placed in her back had placed 1+ year ago History of Present Illness The patient is a 31 year old female who presents to the Emergency Room with complaints of persistent difficulty breathing that started about an hour ago. The patient has a history of going into anaphylactic shock potentially because of the metal that was placed in her back a year ago. The patient's boyfriend notes that the patient's symptoms have been getting worse in the past hour. She did not use her Epi-pen yet. Source of History: patient Onset: an hour ago Position: other (global) Timing: worsening, other (persistent) Review of Systems See HPI for pertinent positives & negatives. A total of 10 systems reviewed and were otherwise negative. Past Medical & Surgical Medical Problems: (1) Anxiety (2) Bronchitis (3) DDD (degenerative disc disease) (4) Depression (5) Fibromyalgia (6) Gall bladder disease (7) Gestational diabetes (8) H/o C2 vertebral fracture (9) History of - miscarriage (10) Kidney stone (11) Migraine (12) PNA (pneumonia) (13) Polycystic ovaries (14) Post-operative infection (15) Seroma (16) Spinal headache (17) Syncope (18) Vaginal delivery Surgical Problems: (1) H/O colonoscopy (2) H/O neck surgery (3) S/P cholecystectomy (4) S/p lumbar decompression/fusion (5) S/P tonsillectomy Family History Diabetes mellitus GRANDMOTHER FH: cancer MOTHER (lung, uterus) AUNT (stomach CA) FH: gallbladder disease FH: heart disease GRANDMOTHER FH: lung disease Hypertension GRANDFATHER GRANDMOTHER Kidney disease Kidney stones Seizures Stroke Thyroid disorder MOTHER Social History Smoking Status: Current Every Day Smoker Alcohol Use: none Drug Use: none Marital Status: in relationship Housing Status: lives with significant other Occupation Status: employed Current/Historical Medications Scheduled Cetirizine (Zyrtec), 10 MG PO DAILY Clonazepam (Klonopin), 0.5 MG PO BID Cyclobenzaprine Hcl (Flexeril), 10 MG PO TID Diphenhydramine Hcl (Benadryl Allergy), 2 TAB PO UD Epinephrine (Epipen), 0.3 MG IM UD Gabapentin (Gabapentin), 800 MG PO TID Linaclotide (Linzess), 1 CAP PO DAILYBB Methylphenidate (Ritalin), 30 MG PO BID Omeprazole (Prilosec), 20 MG PO DAILY Prednisone (Prednisone Tab), 0 PO DAILY Ranitidine (Zantac), 150 MG PO DAILY Ranitidine Hcl (Zantac), 1 TAB PO BID Topiramate (Topamax), 200 MG PO BID Triamcinolone Acet (Aristocort 0.1%), 1 APPLN EXT BID Venlafaxine Hcl (Effexor Extended Rel), 150 MG PO DAILY Scheduled PRN Acetaminophen (Acetaminophen), 1,000 MG PO Q6H PRN for Pain Etiqvtnrua-Yzfgbpv-Tmutjfkl W/ (Butalbital/Aspirn/Caffein), 1 CAP PO Q4H PRN for Headache Lactulose (Chronulac), 15 ML PO BID PRN for Constipation Ondansetron Hcl (Zofran), 8 MG PO Q8 PRN for Nausea Promethazine Hcl (Phenergan), 25 MG PO Q6H PRN for Nausea Tramadol (Ultram), 50 MG PO Q4H PRN for Pain Allergies Coded Allergies: Amoxicillin (Verified Allergy, Severe, HIVES AND SOB, 10/17/16) BEE STING (Verified Allergy, Severe, SWELLING, 10/17/16) Adhesives (Verified Allergy, Mild, contact dermatitis, 10/17/16) Propranolol (Verified Allergy, Mild, MOUTH SORE, RASH, 10/17/16) Morphine (Verified Adverse Reaction, Intermediate, pt reports moderate to severe stomach discomfort, 10/17/16) pt states she requires a "GI cocktail" to alleviate the stomach discomfort that occurs after receiving Morphine or dilaudid Physical Exam Vital Signs Date Time Temp Pulse Resp B/P Pulse Ox O2 Delivery O2 Flow Rate FiO2 10/17/16 18:56 85 18 105/62 98 Room Air 10/17/16 17:34 94 Nasal Cannula 3.0 10/17/16 17:34 94 Nasal Cannula 3.0 10/17/16 17:34 106 10/17/16 17:30 88 Room Air 10/17/16 17:18 36.3 110 20 94/60 88 Room Air Physical Exam GENERAL: Patient is a healthy-appearing well-nourished HEAD: Normocephalic atraumatic EYES: Ocular movements intact pupils equal and react to light OROPHARYNX mucous membranes are moist no exudates present no erythema or edema present NECK: Supple no nuchal rigidity CHEST: Good equal expansion LUNGS: Clear and equal to auscultation CARDIAC: Normal S1 and S2 ABDOMEN: Soft nontender no guarding BACK: No CVA tenderness EXTREMITIES: No pain upon palpation normal muscle strength in all groups no clubbing cyanosis or edema NEURO: Patient is following commands is answering questions appropriately. Alert and oriented x3 Cranial Nerves 2-12 grossly intact Medical Decision & Procedures Medications Administered Medications (Trade) Dose Ordered Sig/Saundra Route Start Time Stop Time Status Last Admin Dose Admin Sodium Chloride (Nss 1000ml) 1,000 ml @ 999 mls/hr Q1H1M STAT IV 10/17/16 17:34 10/17/16 18:34 DC 10/17/16 17:52 999 MLS/HR Methylprednisolone Sodium Succinate (Solu-Medrol IV) 125 mg NOW STAT IV 10/17/16 17:34 10/17/16 17:36 DC 10/17/16 17:52 125 MG Ranitidine HCl (zANTac IV) 50 mg NOW STAT IV 10/17/16 17:34 10/17/16 17:36 DC 10/17/16 18:10 50 MG Diphenhydramine HCl (Benadryl Inj) 50 mg NOW STAT IV 10/17/16 17:34 10/17/16 17:36 DC 10/17/16 17:52 50 MG Ondansetron HCl (Zofran Inj) 4 mg NOW STAT IV 10/17/16 17:34 10/17/16 17:36 DC 10/17/16 17:52 4 MG ED Course 1734: Past medical records reviewed. The patient was evaluated in room C3. A complete history and physical examination was performed. 1733: Ordered Zofran Inj 4 mg Iv, Benadryl Inj 50 mg IV, Ranitidine HCl 50 mg IV , Solu-Medrol IV 125 mg IV, NSS 1000 ml @ 999 mls/hr IV. 7: Upon reexamination the patient is resting comfortably. I discussed results and treatment plan with the patient. She verbalizes agreement and understanding. The patient is ready for discharge. Medical Decision Differential diagnosis: Etiologies such as allergic reaction, anaphylaxis, urticaria, Sanchez-Chito syndrome, toxic epidermal necrolysis, erythema multiforme, cellulitis, as well as others were entertained. This is a 31-year-old female who presents emergency department complaining of allergic reaction. The patient was given site Medrol Benadryl and Zantac in the emergency department. Repeat examination revealed improvement patient's symptoms. The patient has no evidence of wheezing or stridor on examination. I do believe she as well as to be discharged home for follow-up with her primary care physician. Patient and significant other were in agreement with treatment plan. Impression Primary Impression: Allergic reaction Scribe Attestation The scribe's documentation has been prepared under my direction and personally reviewed by me in its entirety. I confirm that the note above accurately reflects all work, treatment, procedures, and medical decision making performed by me. Departure Information Dispostion Home / Self-Care Prescriptions Ranitidine Hcl (ZANTAC) 150 Mg Tab 1 TAB PO BID for 10 Days, #20 TAB Prov: Carlos Alberto Long MD 10/17/16 Prednisone (Prednisone Tab) 20 Mg Tab 0 PO DAILY, #7 TAB 2 TABS DAILY FOR 2 DAYS, THEN 1 TAB DAILY FOR 2 DAYS, THEN 1/2 TAB DAILY FOR 2 DAYS. Prov: Carlos Alberto Long MD 10/17/16 Referrals Kieran Hemphill M.D. (PCP) Forms HOME CARE DOCUMENTATION FORM, IMPORTANT VISIT INFORMATION Patient Instructions ED Allergic Reaction General Other, My [facility] Additional Instructions Take 50 mg Benadryl every 6 hours You have been examined and treated today on an emergency basis only. This is not a substitute for, or an effort to provide, complete comprehensive medical care. It is impossible to recognize and treat all injuries or illnesses in a single emergency department visit. It is therefore important that you follow up closely with DR Hemphill. Call as soon as possible for an appointment. Thank you for your time and consideration. I look forward to speaking with you again soon. Please don't hesitate to call us if you have any questions. Problem Qualifiers Primary Impression: Allergic reaction Encounter type: initial encounter Qualified Codes: T78.40XA - Allergy, unspecified, initial encounter
[2016-10-17 18:56] VITALS: BP 105/62; PULSE 85; O2SAT 98
[2016-10-17] MEDS ORDERED: PRED20TA2 PO (19:12)
[2016-10-17] MEDS ORDERED: RANI150T3 PO (19:12)
[2016-10-25] MEDS ORDERED: EPP3/2 IM ×2 (09:48→22:05)
[2016-10-25] MEDS ORDERED: CETI10TA84 PO (09:48)
[2016-10-25] MEDS ORDERED: DIPH1TAB87 PO (09:48)
[2016-10-25] MEDS ORDERED: TRMCR130WC TOP (09:48)
[2016-10-25] MEDS ORDERED: LINA1CAP PO (09:48)
[2016-10-25] MEDS ORDERED: LACT10SO17 PO (09:48)
[2016-10-25] MEDS ORDERED: CYCL10TA6 PO (09:48)
[2016-10-25] MEDS ORDERED: ONDA8TAB6 PO (09:48)
[2016-10-25] MEDS ORDERED: TRAM-10 PO (10:41)
[2016-10-25] MEDS ORDERED: RTL20 PO (14:06)
[2016-10-25] MEDS ORDERED: VENL150C56 PO (14:06)
[2016-10-25] MEDS ORDERED: ZNTT/150 PO (15:50)
[2016-10-25] MEDS ORDERED: OMEP20CA9 PO (16:34)
[2016-10-25] MEDS ORDERED: PROM25TA9 PO (16:34)
[2016-10-25] MEDS ORDERED: CLON1TAB3 PO (16:34)
== END 2016-10-17 19:29 | disposition home or self-care (01) ==
LOC: C.EDB 17:16 → C.EDC 19:29
DX: T78.40XA Allergy, unspecified, initial encounter (principal); X58.XXXA Exposure to other specified factors, initial encounter; F41.9 Anxiety disorder, unspecified; F32.9 Major depressive disorder, single episode, unspecified; M79.7 Fibromyalgia; Z87.442 Personal history of urinary calculi; G43.909 Migraine, unspecified, not intractable, without status migrainosus; E28.2 Polycystic ovarian syndrome; Z83.3 Family history of diabetes mellitus; Z80.9 Family history of malignant neoplasm, unspecified; Z83.79 Family history of other diseases of the digestive system; Z82.49 Family history of ischemic heart disease and other diseases of the circulatory system; Z84.1 Family history of disorders of kidney and ureter; F17.210 Nicotine dependence, cigarettes, uncomplicated; Z79.899 Other long term (current) drug therapy

== ENCOUNTER 2016-10-25 20:11 | Emergency (ER) | payer OTHER ==
[~2016-10-25] VITALS: Ht 157.5 cm; Wt 76.0 kg
[~2016-10-25 20:11] MED LIST changes: -AMT24 PO; +CETI10TA84 PO; +CLON1TAB3 PO; +CYCL10TA6 PO; +DIPH1TAB87 PO; -EFFSR150 PO; +EPP3/2 IM; -IBUP-1050 PO; -IMT100 PO; +LACT10SO17 PO; +LINA1CAP PO; -METH20TA66 PO; +OMEP20CA9 PO; +ONDA8TAB6 PO; +PRED20TA2 PO; -PRED50TA PO; +PROM25TA9 PO; +RANI150T3 PO; +RTL20 PO; +TRAM-10 PO; +TRMCR130WC TOP; +VENL150C56 PO; +ZNTT/150 PO
[2016-10-25 20:13] VITALS: TEMP 36.3; Ht 157.5 cm; Wt 76.0 kg
[2016-10-25] MEDS ORDERED: LORAZEPAM 2 MG/ML 1 ML VIAL IV STA (20:33)
--- NOTE | 2016-10-25 20:39 | EMERGENCY ROOM VISIT NOTE ---
History Report prepared by Vaughn: Erin Sibley Under the Supervision of: Dr. Ye Ash M.D. First contact with patient: 20:27 Chief Complaint: ALLERGIC REACTION Stated Complaint: ANAPHYLAXIS History of Present Illness The patient is a 31 year old female who presents to the Emergency Room with complaints of an allergic reaction that started 2 hours prior to arrival. She reports she is allergic to something, but cannot figure out what. She complains of being unable to breathe and states her tongue feels like it is "swelling up" . The patient used her Epi Pen at home after the allergic reaction started and also took 4 Benadryl. She has a long history of allergies and anaphylaxis and reports she follows with an plastic bubble packer, who recently told her she produced an elevated Triptase. The patient is regularly on steroids for her allergies. 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 A total of 10 systems reviewed and were otherwise negative. Past Medical & Surgical Medical Problems: (1) Anxiety (2) Bronchitis (3) DDD (degenerative disc disease) (4) Depression (5) Fibromyalgia (6) Gall bladder disease (7) Gestational diabetes (8) H/o C2 vertebral fracture (9) History of - miscarriage (10) Kidney stone (11) Migraine (12) PNA (pneumonia) (13) Polycystic ovaries (14) Post-operative infection (15) Seroma (16) Spinal headache (17) Syncope (18) Vaginal delivery Surgical Problems: (1) H/O colonoscopy (2) H/O neck surgery (3) S/P cholecystectomy (4) S/p lumbar decompression/fusion (5) S/P tonsillectomy Family History Diabetes mellitus GRANDMOTHER FH: cancer MOTHER (lung, uterus) AUNT (stomach CA) FH: gallbladder disease FH: heart disease GRANDMOTHER FH: lung disease Hypertension GRANDFATHER GRANDMOTHER Kidney disease Kidney stones Seizures Stroke Thyroid disorder MOTHER Social History Smoking Status: Current Every Day Smoker Alcohol Use: none Drug Use: none Marital Status: in relationship Housing Status: lives with significant other Occupation Status: employed Current/Historical Medications Scheduled Cetirizine (Zyrtec), 10 MG PO DAILY Clonazepam (Klonopin), 0.5 MG PO BID Cyclobenzaprine Hcl (Flexeril), 10 MG PO TID Diphenhydramine Hcl (Benadryl Allergy), 50 MG PO UD Gabapentin (Gabapentin), 800 MG PO TID Linaclotide (Linzess), 145 MCG PO DAILY Methylphenidate (Ritalin), 30 MG PO BID Omeprazole (Prilosec), 20 MG PO DAILY Ranitidine (Zantac), 150 MG PO DAILY Topiramate (Topamax), 200 MG PO BID Triamcinolone Acet (Aristocort 0.1%), 1 APPLN TOP BID Venlafaxine Hcl (Effexor Extended Rel), 150 MG PO DAILY Scheduled PRN Acetaminophen (Acetaminophen), 1,000 MG PO Q6H PRN for Pain Ulchnjpsfz-Qjevldk-Jfzwdbou W/ (Butalbital/Aspirn/Caffein), 1 CAP PO Q4H PRN for Headache Epinephrine (Epipen), 0.3 MG IM UD PRN for ALLERGIC REACTION Epinephrine (Epipen 2-Pedro Luis), 1 PKT IM DIRECTED PRN for ALLERGIC REACTION Lactulose (Chronulac), 15 ML PO BID PRN for Constipation Ondansetron Hcl (Zofran), 8 MG PO Q8 PRN for Nausea Promethazine Hcl (Phenergan), 25 MG PO Q6H PRN for Nausea Tramadol (Ultram), 50 MG PO Q4H PRN for Pain Allergies Coded Allergies: Amoxicillin (Verified Allergy, Severe, HIVES AND SOB, 10/17/16) BEE STING (Verified Allergy, Severe, SWELLING, 10/17/16) Adhesives (Verified Allergy, Mild, contact dermatitis, 10/17/16) Propranolol (Verified Allergy, Mild, MOUTH SORE, RASH, 10/17/16) Morphine (Verified Adverse Reaction, Intermediate, pt reports moderate to severe stomach discomfort, 10/17/16) pt states she requires a "GI cocktail" to alleviate the stomach discomfort that occurs after receiving Morphine or dilaudid Physical Exam Vital Signs Date Time Temp Pulse Resp B/P Pulse Ox O2 Delivery O2 Flow Rate FiO2 10/25/16 22:10 85 18 117/54 100 Room Air 10/25/16 21:22 79 18 103/67 99 Room Air 10/25/16 20:43 94 10/25/16 20:13 36.3 101 20 102/36 99 Room Air Physical Exam GENERAL: Patient is mildly anxious appearing and in no acute distress. HEENT: No acute trauma, normocephalic atraumatic, mucous membranes moist, no nasal congestion, no scleral icterus. NECK: No stridor, no adenopathy, no meningismus, trachea is midline. LUNGS: No dyspnea. Clear to auscultation and equal bilaterally. No wheeze, no rhonchi. HEART: Regular rate and rhythm. No murmurs, rubs, gallops appreciated. ABDOMEN: Soft, nontender, bowel sounds positive, no masses appreciated, no peritonitis. BACK: No midline tenderness, no CVA tenderness EXTREMITIES: Normal motion all extremities, no cyanosis, no edema. NEUROLOGIC: Alert and oriented, no acute motor or sensory deficits, no focal weakness, cranial nerves grossly intact. SKIN: No rash, no jaundice, no diaphoresis. Medical Decision & Procedures Medications Administered Medications (Trade) Dose Ordered Sig/Saundra Route Start Time Stop Time Status Last Admin Dose Admin Lorazepam (Ativan Inj) 1 mg NOW STAT IV 10/25/16 20:33 10/25/16 20:35 DC 10/25/16 20:58 1 MG ED Course 2028: The patient was evaluated in room C2. A complete history and physical exam was performed. 2032: Lorazepam 1 mg IV. 2049: Nursing informed me the patient recalled she took a Tramadol today, and she has taken one Tramadol every day that she has had a recent allergic reaction. 2149: I reevaluated the patient. She is feeling better and requesting I write her a prescription for an Epi-Pen. I have agreed. I discussed her results and discharge instructions and she verbalized complete understanding and agreement. Medical Decision Differential: Allergic Reaction, Urticaria, Anaphylaxis, Sanchez-Chito Syndrome, Toxic Epidermal Necrolysis, Erythema Multiforme, Cellulitis, amongst other etiologies entertained. 31 yr old female with frequent visits to ED for variety of reasons today arrives for complaint of anaphylaxis. Symptoms being itching and shortness of breath. She has already used epi pen prior to arrival which she notes improved symptoms. Is anxious about this but otherwise no symptoms after calming down. She has had extensive testing for this and follows with plastic bubble packer. Recent Tryptase during event was elevated though has not reviewed this with plastic bubble packer. Is already on steroids, already took 100mg Benadryl and is in no anaphylaxis at this time. Vitals are good and she is stable. Monitored for 2 hours without further issue. She admits that each time she has had symptoms like this she had taken tramadol earlier in the day, though she is not sure if it is correlated. I have provided her with another epi pen rx. Stressed importance of contacting plastic bubble packer in am. Reviewed symptoms requiring RTED. Stable and breathing comfortably at time of discharge. Impression Primary Impression: Shortness of breath Scribe Attestation The scribe's documentation has been prepared under my direction and personally reviewed by me in its entirety. I confirm that the note above accurately reflects all work, treatment, procedures, and medical decision making performed by me. Departure Information Dispostion Home / Self-Care Prescriptions Epinephrine (EPIPEN 2-PEDRO LUIS) 0.3 Mg Inj 1 PKT IM DIRECTED Y for ALLERGIC REACTION, #1 PKT Prov: Ye Ash M.D. 10/25/16 Patient Instructions ED Allergic Reaction General Other, My [facility] Additional Instructions Follow up with your allergic tomorrow to discuss your symptoms as well as to review your Tryptase level.
[2016-10-25] MEDS ORDERED: NRN800 PO (21:45)
[2016-10-25] MEDS ORDERED: EPP3/2 IM (22:05)
[2016-10-25 22:10] VITALS: BP 117/54; PULSE 85; O2SAT 100
[2016-10-25] MEDS ORDERED: BUTA-240 PO (22:50)
[2016-10-25] MEDS ORDERED: TOPI200T20 PO (22:55)
[2016-10-25] MEDS ORDERED: ACET500T57 PO (22:55)
== END 2016-10-25 22:22 | disposition home or self-care (01) ==
LOC: C.EDB 20:12 → C.EDC 22:22
DX: R06.02 Shortness of breath (principal); F41.9 Anxiety disorder, unspecified; F32.9 Major depressive disorder, single episode, unspecified; M79.7 Fibromyalgia; K82.9 Disease of gallbladder, unspecified; Z87.442 Personal history of urinary calculi; G43.909 Migraine, unspecified, not intractable, without status migrainosus; Z83.3 Family history of diabetes mellitus; Z80.9 Family history of malignant neoplasm, unspecified; Z83.79 Family history of other diseases of the digestive system; Z82.49 Family history of ischemic heart disease and other diseases of the circulatory system; Z84.1 Family history of disorders of kidney and ureter; Z83.6 Family history of other diseases of the respiratory system; F17.210 Nicotine dependence, cigarettes, uncomplicated; Z79.899 Other long term (current) drug therapy

== ENCOUNTER 2016-11-26 02:59 | Emergency (ER) | payer OTHER ==
[~2016-11-26] VITALS: Ht 157.5 cm; Wt 78.0 kg
[~2016-11-26 02:59] MED LIST changes: +ACET500T57 PO; +BUTA-240 PO; +NRN800 PO; -PRED20TA2 PO; -RANI150T3 PO; +TOPI200T20 PO
[2016-11-26 03:05] VITALS: TEMP 36.4; Ht 157.5 cm; Wt 78.0 kg
--- NOTE | 2016-11-26 03:58 | EMERGENCY ROOM VISIT NOTE ---
History Report prepared by Vaughn: Rizwana Maya Under the Supervision of: Dr. Padma Andrade D.O. First contact with patient: 03:11 Chief Complaint: SYNCOPE Stated Complaint: ANAPHYLACTIC SHOCK--EPI PEN USED History of Present Illness The patient is a 31 year old female who presents to the Emergency Room with complaints of a syncopal episode occurring about 15 minutes ago. She states that she went into anaphylactic shock and is unsure about the cause. She started having a pain in her neck which moved to her chest. She describes the chest pain as tightness with some sharpness. She also reports some trouble breathing and tongue swelling. The patient started having some shakiness and she lost consciousness. The episode was witnessed by her boyfriend. Her boyfriend administered EpiPen. The episode lasted for a few seconds. She has a history of similar episodes occurring after she takes Tramadol. The patient has been prescribed Tramadol for back pain. The patient states that she does not take it on a regular basis. She took Tramadol today around 2:30 am. She currently complains of numbness and tingling on face, shakiness, dizziness, and abdominal pain. She denies rash, or any other complaints. She has a family history of seizures. She has a history of irregular rhythm. She denies any history of wearing an event monitor. Her next cardiology appointment is on December 17. Source of History: patient Onset: about 15 minutes ago Position: other (global) Quality: other (syncopal episode) Associated Symptoms: + LOC, + neck pain, + chest pain, + abdominal pain, + numbness Review of Systems See HPI for pertinent positives & negatives. A total of 10 systems reviewed and were otherwise negative. Past Medical & Surgical Medical Problems: (1) Anxiety (2) Bronchitis (3) DDD (degenerative disc disease) (4) Depression (5) Fibromyalgia (6) Gall bladder disease (7) Gestational diabetes (8) H/o C2 vertebral fracture (9) History of - miscarriage (10) Kidney stone (11) Migraine (12) PNA (pneumonia) (13) Polycystic ovaries (14) Post-operative infection (15) Seroma (16) Spinal headache (17) Syncope (18) Vaginal delivery Surgical Problems: (1) H/O colonoscopy (2) H/O neck surgery (3) S/P cholecystectomy (4) S/p lumbar decompression/fusion (5) S/P tonsillectomy Family History Diabetes mellitus GRANDMOTHER FH: cancer MOTHER (lung, uterus) AUNT (stomach CA) FH: gallbladder disease FH: heart disease GRANDMOTHER FH: lung disease Hypertension GRANDFATHER GRANDMOTHER Kidney disease Kidney stones Seizures Stroke Thyroid disorder MOTHER Social History Smoking Status: Current Every Day Smoker Alcohol Use: none Drug Use: none Marital Status: in relationship Housing Status: lives with significant other Occupation Status: employed Current/Historical Medications Scheduled Cetirizine (Zyrtec), 10 MG PO DAILY Clonazepam (Klonopin), 0.5 MG PO BID Cyclobenzaprine Hcl (Flexeril), 10 MG PO TID Diphenhydramine Hcl (Benadryl Allergy), 50 MG PO UD Gabapentin (Gabapentin), 800 MG PO TID Linaclotide (Linzess), 145 MCG PO DAILY Methylphenidate (Ritalin), 30 MG PO BID Omeprazole (Prilosec), 20 MG PO DAILY Ranitidine (Zantac), 150 MG PO DAILY Topiramate (Topamax), 200 MG PO BID Triamcinolone Acet (Aristocort 0.1%), 1 APPLN TOP BID Venlafaxine Hcl (Effexor Extended Rel), 150 MG PO DAILY Scheduled PRN Acetaminophen (Acetaminophen), 1,000 MG PO Q6H PRN for Pain Bwxtypgyfu-Phshzvc-Qipjxpny W/ (Butalbital/Aspirn/Caffein), 1 CAP PO Q4H PRN for Headache Epinephrine (Epipen), 0.3 MG IM UD PRN for ALLERGIC REACTION Lactulose (Chronulac), 15 ML PO BID PRN for Constipation Ondansetron Hcl (Zofran), 8 MG PO Q8 PRN for Nausea Promethazine Hcl (Phenergan), 25 MG PO Q6H PRN for Nausea Tramadol (Ultram), 50 MG PO Q4H PRN for Pain Allergies Coded Allergies: Amoxicillin (Verified Allergy, Severe, HIVES AND SOB, 11/26/16) BEE STING (Verified Allergy, Severe, SWELLING, 11/26/16) Adhesives (Verified Allergy, Mild, contact dermatitis, 11/26/16) Propranolol (Verified Allergy, Mild, MOUTH SORE, RASH, 11/26/16) Morphine (Verified Adverse Reaction, Intermediate, pt reports moderate to severe stomach discomfort, 11/26/16) pt states she requires a "GI cocktail" to alleviate the stomach discomfort that occurs after receiving Morphine or dilaudid Physical Exam Vital Signs Date Time Temp Pulse Resp B/P (MAP) Pulse Ox O2 Delivery O2 Flow Rate FiO2 11/26/16 04:40 105 16 125/79 99 11/26/16 03:36 89 11/26/16 03:05 36.4 101 16 119/77 100 Room Air Physical Exam General: Obese female. No acute distress. HEENT: Head - normocephalic and atraumatic Pupils are equal, round, and reactive to light. Extraocular eye muscles are intact, and sclera are anicteric. Nose - moist nasal mucosa without discharge. Mouth - moist buccal mucosa. Oropharynx is nonerythematous and there is no tonsillar exudate or edema noted. Neck: Supple; no JVD, nuchal rigidity, cervical lymphadenopathy, or auscultated bruits. Heart: Regular rate and rhythm. There is a normal S1 and S2 with no murmurs, clicks, or gallops appreciated. Lungs: Clear to auscultation bilaterally with no wheezes, rales, or rhonchi. Abdomen: Soft, completely nontender, nondistended, with good bowel sounds. There are no palpable pulsatile masses or hepatosplenomegaly. There is no guarding, rigidity, or rebound noted. Extremities: No evidence of cyanosis, clubbing, or edema. There are easily palpable peripheral pulses. Skin: warm and dry with good turgor and no rashes. Medical Decision & Procedures ED Course 0311: Past medical records reviewed. The patient was evaluated in room B09. A complete history and physical exam was performed. 0351: I had a long conversation with the patient and her boyfriend. They wanted to leave and drive to [place] to see her neurologist right now. I suggested that they wait till morning and contact the neurology clinic for an appointment. The patient will be discharged. Medical Decision The patient presents to the Emergency Room with complaints of a syncopal episode. Differential diagnosis includes but is not limited to anaphylactic shock, allergic reaction, seizure, vasovagal syncope. I attest that I have personally reviewed the patient's current medication list. Patient was found to have normal blood pressure on screening and does not require follow-up. After reviewing multiple previous medical records from here and having a lengthy discussion with the patient and her boyfriend, it seems that these episodes which were initially thought to be an anaphylactic reaction may be occurring after she takes tramadol. With the history of the episode and the seizure threshold lowering capacity of tramadol, it seems that these episodes could be seizures. I requested that the patient not drive. She explains that she currently has a suspended license. We talked about the patient's previous admissions to the hospital. She has never worn an event monitor or a Holter monitor from cardiology. She does have a follow-up appointment on December 17. I recommended that she talk to Dr. Mar prior to that with regards to wearing an event monitor. As for the possible teary of seizures , I've asked the patient not to drive a vehicle until the workup is complete. She was told to stop using tramadol completely to see if the episodes subsided. In reviewing her medical records, it seems that during one of the previous episodes, she had an episode of ventricular tachycardia. I recommended that the patient not use her EpiPen for anything other than a bee sting. Impression Primary Impression: Syncope Scribe Attestation The scribe's documentation has been prepared under my direction and personally reviewed by me in its entirety. I confirm that the note above accurately reflects all work, treatment, procedures, and medical decision making performed by me. Departure Information Dispostion Home / Self-Care Referrals Kieran Hemphill M.D. (PCP) Forms HOME CARE DOCUMENTATION FORM, IMPORTANT VISIT INFORMATION Patient Instructions My [facility], Syncope, Syncope Causes Additional Instructions Rest. Do not take any more tramadol Do not drive until work up is complete Follow up with Cardiology for event monitor placement Follow up with Neurology for EEG Problem Qualifiers Primary Impression: Syncope Encounter type: initial encounter
[2016-11-26 04:40] VITALS: BP 125/79; PULSE 105; O2SAT 99
== END 2016-11-26 04:37 | disposition home or self-care (01) ==
LOC: C.EDB 03:00
DX: R55 Syncope and collapse (principal); Z82.0 Family history of epilepsy and other diseases of the nervous system; F41.9 Anxiety disorder, unspecified; F32.9 Major depressive disorder, single episode, unspecified; M79.7 Fibromyalgia; Z87.442 Personal history of urinary calculi; Z87.01 Personal history of pneumonia (recurrent); Z90.49 Acquired absence of other specified parts of digestive tract; Z83.3 Family history of diabetes mellitus; Z80.1 Family history of malignant neoplasm of trachea, bronchus and lung; Z80.49 Family history of malignant neoplasm of other genital organs; Z80.0 Family history of malignant neoplasm of digestive organs; Z82.49 Family history of ischemic heart disease and other diseases of the circulatory system; Z84.1 Family history of disorders of kidney and ureter; Z82.3 Family history of stroke; F17.210 Nicotine dependence, cigarettes, uncomplicated; Z79.899 Other long term (current) drug therapy; E66.9 Obesity, unspecified

== ENCOUNTER 2016-12-25 10:42 | Emergency (ER) | payer OTHER ==
[~2016-12-25] VITALS: Ht 157.5 cm; Wt 93.8 kg
[~2016-12-25 10:42] MED LIST changes: +DIPH1TAB PO; -DIPH1TAB87 PO
[2016-12-25 10:49] VITALS: TEMP 36.6; Ht 157.5 cm; Wt 93.8 kg
[2016-12-25] MEDS ORDERED: SODIUM CHLORIDE 0.9% 1000ML 1,000 ML IV STA (11:15)
[2016-12-25] MEDS ORDERED: LORAZEPAM 2 MG/ML 1 ML VIAL IV STA (11:15)
[2016-12-25 11:39] LABS: URINE APPEARANCE CLEAR (CLEAR); URINE BILIRUBIN NEG (NEG); URINE COLOR YELLOW; URINE EPITHELIAL CELL AUTO 20-30 /lpf (0-5); URINE NITRITE NEG (NEG); URINE PH 5.5 (4.5-7.5); URINE SPECIFIC GRAVITY 1.016 (1.000-1.030); UROBILINOGEN NEG (NEG); ZZURINE CULT IF INDIC CATH NO
[2016-12-25 11:42] LABS: BASO % 0.4 %; BASO ABS # 0.02 K/uL (0-0.2); COMPLETE YES; EOS % 1.8 %; HEMATOCRIT 42.6 % (37-47); IG% 0.2 %; LYMPH % 24.8 %; LYMPH ABS # 1.39 K/uL (1.2-3.4); MEAN CELL VOLUME 90.6 fL (80-100); MEAN CORPUSCULAR HEMOGLOBIN 29.8 pg (25-34); MEAN CORPUSCULAR HGB CONC 32.9 g/dl (32-36); MEAN PLATELET VOLUME 11.6 fL (7.4-10.4); MONO % 9.6 %; NEUT % 63.2 %; PLATELET COUNT 168 K/uL (130-400)
[2016-12-25 11:43] LABS: MANUAL MICROSCOPIC REQUIRED? NO; REVIEW REQ? NO
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
[2016-12-25 11:56] VITALS: O2SAT 97
--- NOTE | 2016-12-25 11:59 | DIAGNOSTIC IMAGING REPORT ---
HEAD WITHOUT CONTRAST (CT) CLINICAL HISTORY: 31 years-old Female with acute seizure TECHNIQUE: Multiple axial CT images of the head were obtained without contrast. A dose lowering technique was utilized adhering to the principles of ALARA. CT DOSE: 1131.66 COMPARISON: CT head 09/30/2016 FINDINGS: No acute intracranial hemorrhage, midline shift, mass, large territorial ischemia or abnormal extra-axial collection. The calvarium is intact. The paranasal sinuses, mastoid air cells, and middle ear cavities are clear. IMPRESSION: No acute intracranial abnormality. The above report was generated using voice recognition software. It may contain grammatical, syntax or spelling errors. Electronically signed by: Alvarado Anthony M.D. 12/25/2016 11:58 AM Dictated Date/Time: 12/25/2016 11:56 AM
[2016-12-25 12:00] LABS: PROTHROMBIN TIME (PATIENT) 10.5 SECONDS (9.0-12.0)
[2016-12-25 12:04] LABS: BUN/CREATININE RATIO 15.2 (10-20); CALCIUM 8.7 mg/dl (8.5-10.1); CREATININE 0.67 mg/dl (0.60-1.20); MAGNESIUM 2.2 mg/dl (1.8-2.4); POTASSIUM 3.9 mmol/L (3.5-5.1)
--- NOTE | 2016-12-25 12:06 | DIAGNOSTIC IMAGING REPORT ---
FACIAL BONES-MXILLOFAC WITHOUT CLINICAL HISTORY: 31 years-old Female presenting with Pt c/o face pain. TECHNIQUE: Multidetector CT of the face was performed without the use of intravenous contrast. IV contrast: None. A dose lowering technique was used consistent with the principles of ALARA (as low as reasonably achievable). COMPARISON: Cervical spine from 2009. CT DOSE (mGy.cm): The estimated cumulative dose is 1131.66 inclusive of the head CT. 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 Minimal mucosal thickening in the left maxillary sinus and frontal sinuses. Paranasal sinuses and mastoid air cells otherwise clear. No acute fracture. Orbits normal. Visualized soft tissues of the face normal. No lymphadenopathy. Limited intracranial evaluation within normal limits. IMPRESSION: No acute injury of the face. Electronically signed by: Abraham Green M.D. 12/25/2016 12:05 PM Dictated Date/Time: 12/25/2016 11:59 AM
[2016-12-25 12:15] LABS: PHOSPHORUS 2.3 mg/dl (2.5-4.9); THYROID STIMULATING HORMONE 0.445 uIu/ml (0.300-4.500)
--- NOTE | 2016-12-25 12:53 | DIAGNOSTIC IMAGING REPORT ---
ABDOMEN 2VIEW W/PA CHEST RTN HISTORY: 31 years-old Female acute diffuse abd pain COMPARISON: Chest radiograph 10/09/2016 TECHNIQUE: Frontal view of the chest with erect and supine views of the abdomen FINDINGS: Cardiac silhouette is upper limits of normal, likely accentuated by technique. The lungs are mildly hypoinflated. No pneumothorax, pleural effusion, focal airspace consolidation or overt pulmonary edema. Bones of the chest are grossly intact. No pneumoperitoneum on the upright projection. Cholecystectomy clips are seen. Prior discectomy with interbody rods and screw fixation at L5-S1. No fracture is seen. Bowel gas pattern is nonobstructive. No urolith seen. IMPRESSION: 1. No acute cardiopulmonary process. 2. Nonobstructive bowel gas pattern. 3. No urolithiasis identified. The above report was generated using voice recognition software. It may contain grammatical, syntax or spelling errors. Electronically signed by: Alvarado Anthony M.D. 12/25/2016 12:51 PM Dictated Date/Time: 12/25/2016 12:49 PM
[2016-12-25 13:28] VITALS: BP 120/71; PULSE 66; O2SAT 95
== END 2016-12-25 13:30 | disposition home or self-care (01) ==
LOC: C.EDB 10:43 → C.EDC 13:30
DX: R55 Syncope and collapse (principal); R56.9 Unspecified convulsions; R68.84 Jaw pain; R10.9 Unspecified abdominal pain; F41.9 Anxiety disorder, unspecified; F32.9 Major depressive disorder, single episode, unspecified; M79.7 Fibromyalgia; E28.2 Polycystic ovarian syndrome; F17.200 Nicotine dependence, unspecified, uncomplicated; Z87.442 Personal history of urinary calculi; Z83.3 Family history of diabetes mellitus; Z80.1 Family history of malignant neoplasm of trachea, bronchus and lung; Z80.49 Family history of malignant neoplasm of other genital organs; Z80.0 Family history of malignant neoplasm of digestive organs; Z82.49 Family history of ischemic heart disease and other diseases of the circulatory system; Z84.1 Family history of disorders of kidney and ureter; Z83.49 Family history of other endocrine, nutritional and metabolic diseases; Z82.0 Family history of epilepsy and other diseases of the nervous system; Z82.3 Family history of stroke

== ENCOUNTER → 2017-01-15 | Outpatient (CLI) | payer OTHER ==
[~2017-01-15] MED LIST changes: +CLON0.5T3 PO; +LRS10 PO; +NRN300 PO; +NRN600 PO; +PRED50TA PO; +RANI150T2 PO; +VLT50 PO
--- NOTE | 2017-01-15 11:12 | DIAGNOSTIC IMAGING REPORT ---
BRAIN WITHOUT CONTRAST HISTORY: Headaches G43.709 Chronic [id number] TECHNIQUE: Multiplanar multisequence MRI of the brain was performed without the use of contrast. COMPARISON STUDY: None. FINDINGS: Several small foci of increased signal in the periventricular and deep white matter regions. These do not appear consistent with impingement a demyelinating disorder. They're most consistent with a history of chronic headache. Ventricular system is midline. There is no evidence hydrocephalus. Sella and parasellar regions are unremarkable. Diffusion-weighted images are negative for an acute ischemic event. IMPRESSION: No acute intracranial abnormality. The above report was generated using voice recognition software. It may contain grammatical, syntax or spelling errors. Electronically signed by: Kieran Price M.D. 01/15/2017 11:10 AM Dictated Date/Time: 01/15/2017 11:07 AM
== END | disposition home or self-care (01) ==
LOC: C.MRI 09:52
PROVIDERS: ATTEND Psychiatry & Neurology Neurology
DX: G43.709 Chronic migraine without aura, not intractable, without status migrainosus (principal)

== ENCOUNTER 2017-01-16 13:45 | Emergency (ER) | payer OTHER ==
[~2017-01-16] VITALS: Ht 157.5 cm; Wt 94.0 kg
[~2017-01-16 13:45] MED LIST changes: -CLON0.5T3 PO; -LRS10 PO; -NRN300 PO; -NRN600 PO; -PRED50TA PO; -RANI150T2 PO; -VLT50 PO
[2017-01-16 14:01] VITALS: TEMP 36.6; Ht 157.5 cm; Wt 94.0 kg
[2017-01-16] MEDS ORDERED: SODIUM CHLORIDE 0.9% 1000ML 1,000 ML IV STA ×2 (14:19→14:21)
[2017-01-16] MEDS ORDERED: DiphenhydrAMINE HCL 50 MG/ML VIAL IV STA (14:21)
[2017-01-16] MEDS ORDERED: KETOROLAC TROMETHAMINE 30 MG/ML VIAL IV STA (14:21)
[2017-01-16 14:43] LABS: HEMATOCRIT 49.1 % (37-47); MEAN CELL VOLUME 88.9 fL (80-100); MEAN CORPUSCULAR HEMOGLOBIN 30.3 pg (25-34); MEAN PLATELET VOLUME 11.4 fL (7.4-10.4); PLATELET COUNT 220 K/uL (130-400); RED BLOOD COUNT 5.52 M/uL (4.2-5.4); WHITE BLOOD COUNT 13.96 K/uL (4.8-10.8)
--- NOTE | 2017-01-16 14:55 | DIAGNOSTIC IMAGING REPORT ---
CHEST ONE VIEW PORTABLE HISTORY: EVALUATE ALTERED MENTAL STATUS/WEAKNESS COMPARISON: Chest 12/25/2016. FINDINGS: The lungs are clear. Cardiac silhouette is normal in size. No pleural effusions. No pneumothorax. IMPRESSION: No acute process. Electronically signed by: Phillip Padilla M.D. 01/16/2017 2:54 PM Dictated Date/Time: 01/16/2017 2:53 PM
[2017-01-16 15:00] LABS: ALT/SGPT 48 U/L (12-78); AST/SGOT 23 U/L (15-37); BLOOD UREA NITROGEN 19 mg/dl (7-18); CARBON DIOXIDE 27 mmol/L (21-32); CHLORIDE 103 mmol/L (98-107); GLUCOSE 125 mg/dl (70-99); POTASSIUM 3.4 mmol/L (3.5-5.1); SODIUM 138 mmol/L (136-145)
[2017-01-16 15:04] VITALS: O2SAT 96
[2017-01-16] MEDS ORDERED: NRN300 PO (15:07)
[2017-01-16] MEDS ORDERED: VLT50 PO (15:07)
[2017-01-16] MEDS ORDERED: LRS10 PO (15:07)
[2017-01-16 15:10] LABS: ALKALINE PHOSPHATASE 62 U/L (45-117)
[2017-01-16] MEDS ORDERED: ACETAMINOPHEN 500 MG TAB PO STA (15:32)
[2017-01-16 15:38] LABS: BASO % 0.1 %; BASO ABS # 0.01 K/uL (0-0.2); COMPLETE YES; EOS % 0.6 %; IG% 0.1 %; LYMPH % 13.6 %; NEUT % 80.6 %
[2017-01-16] MEDS ORDERED: OPTIRAY 320 IV PRN (16:00)
--- NOTE | 2017-01-16 16:00 | DIAGNOSTIC IMAGING REPORT ---
CT OF THE HEAD WITHOUT CONTRAST CLINICAL HISTORY: Seizure. Altered mental status. Weakness. COMPARISON STUDY: Head CT December 25, 2016 and MRI of the brain January 15, 2017. CT DOSE: 537.48 mGy.cm TECHNIQUE: Helical axial images of the head were obtained without IV contrast. Automated exposure control was utilized for the study. A dose lowering technique was utilized adhering to the principles of ALARA. FINDINGS: No acute intracranial hemorrhage, midline shift or mass effect is present. Brain volume is normal. Ventricular system is normal. Basilar cisterns are patent. There are no extra-axial collections. Domínguez-white differentiation is maintained. There are no findings to suggest acute dural sinus thrombosis or acute territorial infarct. There are no calvarial fractures. Visualized portions of the sinuses and the mastoid air cells are clear. IMPRESSION: No acute intracranial findings. Electronically signed by: Edmar Landa M.D. 01/16/2017 3:58 PM Dictated Date/Time: 01/16/2017 3:56 PM
--- NOTE | 2017-01-16 16:08 | DIAGNOSTIC IMAGING REPORT ---
CT ANGIOGRAPHY OF THE CHEST, PULMONARY EMBOLUS PROTOCOL CLINICAL HISTORY: Shortness of breath. Seizure. Positive d-dimer. COMPARISON STUDY: Chest CT October 09, 2016 and chest radiograph performed earlier today. TECHNIQUE: Following IV administration of 116 mL of Optiray-320, helical axial images of the chest were obtained utilizing the pulmonary embolus protocol. Maximal intensity projections and sagittal and coronal reformats were viewed on an independent 3D workstation. IV contrast was administered without complication. A dose lowering technique was utilized adhering to the principles of ALARA. CT DOSE: 1290.28 mGy.cm FINDINGS: No pulmonary emboli are identified. There is no evidence of thoracic aortic dissection. Borderline cardiomegaly is noted. There are no enlarged thoracic lymph nodes. Central airways are patent. No pneumothorax or pleural effusion. Left lower lobe subpleural opacity suggests atelectasis. There is no consolidation to suggest pneumonia. Bony thorax and upper abdomen are unremarkable. Gallbladder surgically absent. No acute rib or thoracic spine fracture is identified. IMPRESSION: 1. No pulmonary emboli identified. 2. No acute intrathoracic findings. Electronically signed by: Edmar Landa M.D. 01/16/2017 4:06 PM Dictated Date/Time: 01/16/2017 3:58 PM
--- NOTE | 2017-01-16 16:13 | DIAGNOSTIC IMAGING REPORT ---
LUMBAR SPINE WITHOUT CLINICAL HISTORY: Fall. Lower back pain. COMPARISON STUDY: Lumbar spine CT June 19, 2015, lumbar spine radiograph September 30, 2016 and MRI of the lumbar spine November 17, 2015. TECHNIQUE: Axial images of the lumbar spine were obtained without IV contrast. Sagittal and coronal reconstructions were viewed. FINDINGS: There are stable postoperative findings consistent with an L5-S1 discectomy and bilateral pedicle screw fusion. The hardware is intact. Irregularity of the inferior endplate of L5 and superior endplate of S1 is unchanged. Slight anterolisthesis of L5 on S1 is unchanged. No acute lumbar spine fracture or subluxation is present. Central canal and neural foramen are suboptimally assessed by CT technique. Paravertebral soft tissues are unremarkable. IMPRESSION: 1. No acute lumbar spine fracture or subluxation. 2. Stable postoperative findings consistent with an L5-S1 discectomy and bilateral pedicle screw fusion. Electronically signed by: Edmar Landa M.D. 01/16/2017 4:12 PM Dictated Date/Time: 01/16/2017 4:07 PM
[2017-01-16 17:14] VITALS: BP 99/57; PULSE 86; O2SAT 100
--- NOTE | 2017-01-16 20:09 | EMERGENCY ROOM VISIT NOTE ---
History Report prepared by Vaughn: Suyapa Uribe Under the Supervision of: Dr. Eliseo Conley D.O. First contact with patient: 14:04 Chief Complaint: SEIZURE Stated Complaint: SEZIURE History of Present Illness The patient is a 31 year old female who presents to the Emergency Room with complaints of a sudden syncopal episode that occurred just prior to arrival. She currently rates her discomfort as a 9/10 in severity. Per the patient's significant other, the patient has a history of previous syncopal episodes and has been worked up by cardiology in the past. He states that the patient wore a halter monitor and everything came back normal. The patient's significant other states that the patient was then referred to neurology and has been following up with them. The patient states that Neurology feels that the patient is in so much chronic pain that her body shuts down and she then loses consciousness. She states that today she had a feeling that her skin was on fire and itchy and states that she does not remember anything after that. The patient's significant other states that this has happened approximately fifteen prior episodes and this one seems the same as the others. He states that the episode lasted approximately 45 seconds and he states that the patient typically wakes up confused about where she is out. The patient states that she hit her head and back, noting a headache, neck pain, and lower back pain. She denies any chance of , stating that her last menstrual cycle was several months ago. The patient denies any drug or alcohol use. She denies any tongue bite, or loss of control of her bowel or bladder. Pt denies change in vision, fevers, chest pain, shortness of breath, nausea, vomiting, diarrhea, pain with urination, and melena. Source of History: patient, spouse/significant other Onset: prior to arrival Position: other (global) Symptom Intensity: 9/10 Quality: other (syncopal episode) Timing: other (sudden) Associated Symptoms: + LOC, + headache, + neck pain, + back pain Note: Associated Symptoms: skin feels on fire and itchy Review of Systems See HPI for pertinent positives & negatives. A total of 10 systems reviewed and were otherwise negative. Past Medical & Surgical Medical Problems: (1) Anxiety (2) Bronchitis (3) DDD (degenerative disc disease) (4) Depression (5) Fibromyalgia (6) Gall bladder disease (7) Gestational diabetes (8) H/o C2 vertebral fracture (9) History of - miscarriage (10) Kidney stone (11) Migraine (12) PNA (pneumonia) (13) Polycystic ovaries (14) Post-operative infection (15) Seroma (16) Spinal headache (17) Syncope (18) Vaginal delivery Surgical Problems: (1) H/O colonoscopy (2) H/O neck surgery (3) S/P cholecystectomy (4) S/p lumbar decompression/fusion (5) S/P tonsillectomy Family History Diabetes mellitus GRANDMOTHER FH: cancer MOTHER (lung, uterus) AUNT (stomach CA) FH: gallbladder disease FH: heart disease GRANDMOTHER FH: lung disease Hypertension GRANDFATHER GRANDMOTHER Kidney disease Kidney stones Seizures Stroke Thyroid disorder MOTHER Social History Smoking Status: Unknown if Ever Smoked Alcohol Use: none Drug Use: none Marital Status: in relationship Housing Status: lives with significant other Occupation Status: employed Current/Historical Medications Scheduled Baclofen (Baclofen), 10 MG PO Q8 Cetirizine (Zyrtec), 10 MG PO DAILY Clonazepam (Klonopin), 0.5 MG PO BID Cyclobenzaprine Hcl (Flexeril), 10 MG PO TID Diphenhydramine Hcl (Benadryl Allergy), 50 MG PO UD Gabapentin (Gabapentin), 900 MG PO TID Methylphenidate (Ritalin), 30 MG PO UD Omeprazole (Prilosec), 20 MG PO DAILY Ranitidine (Zantac), 150 MG PO BID Topiramate (Topamax), 200 MG PO BID Triamcinolone Acet (Aristocort 0.1%), 1 APPLN TOP BID Venlafaxine Hcl (Effexor Extended Rel), 150 MG PO DAILY Scheduled PRN Acetaminophen (Acetaminophen), 1,000 MG PO Q6H PRN for Pain Qctrsakyyr-Xxxarap-Mmscqbex W/ (Butalbital/Aspirn/Caffein), 1 CAP PO Q4H PRN for Headache Diclofenac Sod (Diclofenac Sodium Dr), 50 MG PO Q8 PRN for Headache or Pain Epinephrine (Epipen), 0.3 MG IM UD PRN for ALLERGIC REACTION Lactulose (Chronulac), 15 ML PO BID PRN for Constipation Ondansetron Hcl (Zofran), 8 MG PO Q8 PRN for Nausea Promethazine Hcl (Phenergan), 25 MG PO Q6H PRN for Nausea Tramadol (Ultram), 50 MG PO Q4H PRN for Pain Allergies Coded Allergies: Amoxicillin (Verified Allergy, Severe, HIVES AND SOB, 01/16/17) BEE STING (Verified Allergy, Severe, SWELLING, 01/16/17) Adhesives (Verified Allergy, Mild, contact dermatitis, 01/16/17) Propranolol (Verified Allergy, Mild, MOUTH SORE, RASH, 01/16/17) Morphine (Verified Adverse Reaction, Intermediate, pt reports moderate to severe stomach discomfort, 01/16/17) pt states she requires a "GI cocktail" to alleviate the stomach discomfort that occurs after receiving Morphine or dilaudid Physical Exam Vital Signs Date Time Temp Pulse Resp B/P (MAP) Pulse Ox O2 Delivery O2 Flow Rate FiO2 01/16/17 17:14 86 16 99/57 100 01/16/17 16:01 90 16 99/57 100 Room Air 01/16/17 15:04 96 Room Air 01/16/17 15:04 89 16 129/96 99 Room Air 01/16/17 14:59 93 16 89/63 107 117/84 120 129/96 01/16/17 14:09 95 01/16/17 14:01 36.6 103 16 89/65 96 Room Air Physical Exam GENERAL: alert, sitting up in bed, agitated, following commands, nontoxic. HEAD: Normocephalic and atraumatic. EYE EXAM: normal conjunctiva, PERRL and EOM's grossly intact OROPHARYNX: no exudate, no erythema, lips, buccal mucosa, and tongue normal and mucous membranes are moist NECK: supple, no nuchal rigidity, no adenopathy, non-tender CHEST: Stable to compression anteriorly and posteriorly. LUNGS: Clear to auscultation. Normal chest wall mechanics HEART: no murmurs, S1 normal and S2 normal ABDOMEN: abdomen soft, non-tender, normo-active bowel sounds, no masses, no rebound or guarding. BACK: Back is symmetrical on inspection and there is no deformity, minimal midline lower lumbar tenderness, minimal cervical tenderness, no CVA tenderness. PELVIS: Stable to compression anteriorly and posteriorly. SKIN: no rashes and no bruising UPPER EXTREMITIES: upper extremities are grossly normal. LOWER EXTREMITIES: No pitting edema. NEURO EXAM: Awake, alert, oriented to person, place and time, cranial nerves II- XII intact, normal speech, no weakness of arms, no weakness of legs. No drift. Finger to nose intact. Gross sensation intact. Medical Decision & Procedures ER Provider Diagnostic Interpretation: Radiology results as stated below per my review and the radiologist's interpretation: CT OF THE HEAD WITHOUT CONTRAST CLINICAL HISTORY: Seizure. Altered mental status. Weakness. COMPARISON STUDY: Head CT December 25, 2016 and MRI of the brain January 15, 2017. CT DOSE: 537.48 mGy.cm TECHNIQUE: Helical axial images of the head were obtained without IV contrast. Automated exposure control was utilized for the study. A dose lowering technique was utilized adhering to the principles of ALARA. FINDINGS: No acute intracranial hemorrhage, midline shift or mass effect is present. Brain volume is normal. Ventricular system is normal. Basilar cisterns are patent. There are no extra-axial collections. Domínguez-white differentiation is maintained. There are no findings to suggest acute dural sinus thrombosis or acute territorial infarct. There are no calvarial fractures. Visualized portions of the sinuses and the mastoid air cells are clear. IMPRESSION: No acute intracranial findings. Electronically signed by: Edmar Landa M.D. 01/16/2017 3:58 PM Dictated Date/Time: 01/16/2017 3:56 PM CHEST ONE VIEW PORTABLE HISTORY: EVALUATE ALTERED MENTAL STATUS/WEAKNESS COMPARISON: Chest 12/25/2016. FINDINGS: The lungs are clear. Cardiac silhouette is normal in size. No pleural effusions. No pneumothorax. IMPRESSION: No acute process. Electronically signed by: Phillip Padilla M.D. 01/16/2017 2:54 PM Dictated Date/Time: 01/16/2017 2:53 PM LUMBAR SPINE WITHOUT CLINICAL HISTORY: Fall. Lower back pain. COMPARISON STUDY: Lumbar spine CT June 19, 2015, lumbar spine radiograph September 30, 2016 and MRI of the lumbar spine November 17, 2015. TECHNIQUE: Axial images of the lumbar spine were obtained without IV contrast. Sagittal and coronal reconstructions were viewed. FINDINGS: There are stable postoperative findings consistent with an L5-S1 discectomy and bilateral pedicle screw fusion. The hardware is intact. Irregularity of the inferior endplate of L5 and superior endplate of S1 is unchanged. Slight anterolisthesis of L5 on S1 is unchanged. No acute lumbar spine fracture or subluxation is present. Central canal and neural foramen are suboptimally assessed by CT technique. Paravertebral soft tissues are unremarkable. IMPRESSION: 1. No acute lumbar spine fracture or subluxation. 2. Stable postoperative findings consistent with an L5-S1 discectomy and bilateral pedicle screw fusion. Electronically signed by: Edmar Landa M.D. 01/16/2017 4:12 PM Dictated Date/Time: 01/16/2017 4:[address] ANGIOGRAPHY OF THE CHEST, PULMONARY EMBOLUS PROTOCOL CLINICAL HISTORY: Shortness of breath. Seizure. Positive d-dimer. COMPARISON STUDY: Chest CT October 09, 2016 and chest radiograph performed earlier today. TECHNIQUE: Following IV administration of 116 mL of Optiray-320, helical axial images of the chest were obtained utilizing the pulmonary embolus protocol. Maximal intensity projections and sagittal and coronal reformats were viewed on an independent 3D workstation. IV contrast was administered without complication. A dose lowering technique was utilized adhering to the principles of ALARA. CT DOSE: 1290.28 mGy.cm FINDINGS: No pulmonary emboli are identified. There is no evidence of thoracic aortic dissection. Borderline cardiomegaly is noted. There are no enlarged thoracic lymph nodes. Central airways are patent. No pneumothorax or pleural effusion. Left lower lobe subpleural opacity suggests atelectasis. There is no consolidation to suggest pneumonia. Bony thorax and upper abdomen are unremarkable. Gallbladder surgically absent. No acute rib or thoracic spine fracture is identified. IMPRESSION: 1. No pulmonary emboli identified. 2. No acute intrathoracic findings. Electronically signed by: Edmar Landa M.D. 01/16/2017 4:06 PM Dictated Date/Time: 01/16/2017 3:58 PM Laboratory Results 01/16/17 14:25 Red Blood Count 5.52, Mean Corpuscular Volume 88.9, Mean Corpuscular Hemoglobin 30.3, Mean Corpuscular Hemoglobin Concent 34.0, Mean Platelet Volume 11.4, Neutrophils (%) (Auto) 80.6, Lymphocytes (%) (Auto) 13.6, Monocytes (%) (Auto) 5.0, Eosinophils (%) (Auto) 0.6, Basophils (%) (Auto) 0.1, Neutrophils # (Auto) 11.24, Lymphocytes # (Auto) 1.90, Monocytes # (Auto) 0.70, Eosinophils # (Auto) 0.09, Basophils # (Auto) 0.01 01/16/17 14:25 Test 01/16/17 14:25 01/16/17 14:29 White Blood Count 13.96 K/uL (4.8-10.8) Red Blood Count 5.52 M/uL (4.2-5.4) Hemoglobin 16.7 g/dL (12.0-16.0) Hematocrit 49.1 % (37-47) Mean Corpuscular Volume 88.9 fL (80-100) Mean Corpuscular Hemoglobin 30.3 pg (25-34) Mean Corpuscular Hemoglobin Concent 34.0 g/dl (32-36) Platelet Count 220 K/uL (130-400) Mean Platelet Volume 11.4 fL (7.4-10.4) Neutrophils (%) (Auto) 80.6 % Lymphocytes (%) (Auto) 13.6 % Monocytes (%) (Auto) 5.0 % Eosinophils (%) (Auto) 0.6 % Basophils (%) (Auto) 0.1 % Neutrophils # (Auto) 11.24 K/uL (1.4-6.5) Lymphocytes # (Auto) 1.90 K/uL (1.2-3.4) Monocytes # (Auto) 0.70 K/uL (0.11-0.59) Eosinophils # (Auto) 0.09 K/uL (0-0.5) Basophils # (Auto) 0.01 K/uL (0-0.2) RDW Standard Deviation 39.7 fL (36.4-46.3) RDW Coefficient of Variation 12.3 % (11.5-14.5) Immature Granulocyte % (Auto) 0.1 % Immature Granulocyte # (Auto) 0.02 K/uL (0.00-0.02) Red Blood Cell Morphology Unremarkable D-Dimer 1220 ug/L FEU (0-500) Anion Gap 8.0 mmol/L (3-11) Est Creatinine Clear Calc Drug Dose 79.9 ml/min Estimated GFR () 78.0 Estimated GFR (Non- 67.3 BUN/Creatinine Ratio 17.0 (10-20) Calcium Level 9.0 mg/dl (8.5-10.1) Total Bilirubin 0.7 mg/dl (0.2-1) Direct Bilirubin 0.1 mg/dl (0-0.2) Aspartate Amino Transf (AST/SGOT) 23 U/L (15-37) Alanine Aminotransferase (ALT/SGPT) 48 U/L (12-78) Alkaline Phosphatase 62 U/L (45-117) Troponin I < 0.015 ng/ml (0-0.045) Total Protein 7.7 gm/dl (6.4-8.2) Albumin 4.0 gm/dl (3.4-5.0) Thyroid Stimulating Hormone (TSH) 2.290 uIu/ml (0.300-4.500) Bedside Glucose 130 mg/dl (70-90) Laboratory results per my review. Medications Administered Medications (Trade) Dose Ordered Sig/Saundra Route Start Time Stop Time Status Last Admin Dose Admin Sodium Chloride 1,000 ml @ 999 mls/hr Q1H1M STAT IV 01/16/17 14:19 01/16/17 15:19 DC 01/16/17 15:00 999 MLS/HR Sodium Chloride 1,000 ml @ 999 mls/hr Q1H1M STAT IV 01/16/17 14:21 01/16/17 15:21 DC 01/16/17 15:01 999 MLS/HR Ketorolac Tromethamine (Toradol Inj) 30 mg NOW STAT IV 01/16/17 14:21 01/16/17 14:22 DC 01/16/17 15:01 30 MG Diphenhydramine HCl (Benadryl Inj) 25 mg NOW STAT IV 01/16/17 14:21 01/16/17 14:22 DC 01/16/17 15:02 25 MG Acetaminophen (Tylenol Tab) 1,000 mg NOW STAT PO 01/16/17 15:32 01/16/17 15:33 DC 01/16/17 15:58 1,000 MG ECG Indication: syncope Rate (beats per minute): 96 Findings: other (normal axis, T wave flattening laterally) Comparison ECG Date: 10/09/16 Change: no significant change ED Course ED COURSE: Vital signs were reviewed and showed hypotensive The patients medical record was reviewed The above diagnostic studies were performed and reviewed. ED treatments and interventions as stated above. 1408: The patient was evaluated in room B7. A complete history and physical examination was performed. 1419: Ordered Sodium Chloride 1000 ml @ 999 mls/hr IV. 1421: Ordered Benadryl Inj 25 mg IV, Toradol Inj 30 mg IV, Sodium Chloride 1000 ml @ 999 mls/hr IV. 1530: I reevaluated the patient and she is feeling better. Her itchiness has subsided, but she has a headache and is requesting Tylenol. 1532: Ordered Tylenol Tab 1000 mg PO. 1658: Upon reevaluation, the patient is resting.I discussed my findings with the patient and she understands and agrees with the treatment plan. Based on the patients age, coexisting illnesses, exam and lab findings the decision to treat as an outpatient was made. The patient remained stable while under my care. The patient appeared well at the time of discharge. Medical Decision Differential diagnosis includes etiologies such as vasovagal event, infection, hypoglycemia, electrolyte abnormalities, cardiac sources, intracerebral event, toxicologic, neurologic, as well as others were entertained. Patient is a 31-year-old female who presents to the ER with an episode of syncope. notes that she passed out and there is no tonic-clonic activity. She has had this about 15 times before in the past. This is consistent with her previous episodes. No signs of any seizure activity. She' s been worked up by cardiology per report with Holter monitor which was negative. No history of diabetes, hypertension, hyperlipidemia, CAD or sudden in the family at a young age. CBC shows a leukocytosis of 13.9 thousand. BMP along with LFTs, bilirubin and troponin were negative. D-dimer was elevated inconstantly CT PE was performed which was negative. CT head and lumbar spine were negative. X-ray of the chest was negative. Patient is completely neurologically intact. Ambulates without difficulty. With her recent negative cardiac workup and since she is currently following with neurology favor that this will build best worked up as an outpatient. She currently does not have a license. She's not driving. Patient was discharged to follow-up with PCP and neurology. Discussed with Pt concerning signs and symptoms to watch out for. Pt was instructed to follow up with their PCP and discussed with the patient their option to return to the ED at anytime for persistent or worsening symptoms. The appropriate anticipatory guidance and out- patient management, including indications for return to the emergency department , were explained at length to the patient and understood. Medication Reconcilliation Current Medication List: was personally reviewed by me Blood Pressure Screening Patient's blood pressure: Low blood pressure Blood pressure disposition: Did not require urgent referral Impression Primary Impression: Syncope Scribe Attestation The scribe's documentation has been prepared under my direction and personally reviewed by me in its entirety. I confirm that the note above accurately reflects all work, treatment, procedures, and medical decision making performed by me. Departure Information Dispostion Home / Self-Care Referrals Kieran Hemphill M.D. (PCP) Forms HOME CARE DOCUMENTATION FORM, IMPORTANT VISIT INFORMATION Patient Instructions My [facility], Syncope Causes, Syncope Dx Additional Instructions Please follow up with your primary care doctor or if you are a student, [facility] with in the next 24 hours. Any worsening of your symptoms, please return to the ED immediately. This includes any fevers greater than 100.4, worsening pain, chest pain, shortness breath, persistent nausea, vomiting, unable to eat or drink, or any other concerning signs or symptoms from your standpoint. You were given medications during this visit that will inhibit your ability to drive, operate machinery and work. Please do NOT drive, operate machinery, drink alcohol or work for the next 12hrs. Please refrain from driving. Problem Qualifiers Primary Impression: Syncope Syncope type: unspecified Qualified Codes: R55 - Syncope and collapse
== END 2017-01-16 17:15 | disposition home or self-care (01) ==
LOC: C.EDB 13:46
DX: R55 Syncope and collapse (principal); F41.9 Anxiety disorder, unspecified; F32.9 Major depressive disorder, single episode, unspecified; M79.7 Fibromyalgia; E28.2 Polycystic ovarian syndrome; Z83.3 Family history of diabetes mellitus; Z82.49 Family history of ischemic heart disease and other diseases of the circulatory system; Z82.0 Family history of epilepsy and other diseases of the nervous system; Z82.3 Family history of stroke

== ENCOUNTER 2017-01-19 01:23 | Emergency (ER) | payer OTHER ==
[~2017-01-19] VITALS: Ht 158.8 cm; Wt 94.2 kg
[~2017-01-19 01:23] MED LIST changes: -LINA1CAP PO; +LRS10 PO; +NRN300 PO; -NRN800 PO; +VLT50 PO
[2017-01-19 01:26] VITALS: TEMP 36.6; Ht 158.8 cm; Wt 94.2 kg
[2017-01-19] MEDS ORDERED: KETOROLAC TROMETHAMINE 30 MG/ML VIAL IV STA (01:39)
[2017-01-19] MEDS ORDERED: SODIUM CHLORIDE 0.9% 1000ML 1,000 ML IV STA (01:39)
[2017-01-19] MEDS ORDERED: PROMETHAZINE HCL INJ 25 MG in SODIUM CHLORIDE 0.9% 50ML 50 ML IV STA (01:39)
[2017-01-19] MEDS ORDERED: DiphenhydrAMINE HCL 50 MG/ML VIAL IV STA (01:39)
--- NOTE | 2017-01-19 01:43 | EMERGENCY ROOM VISIT NOTE ---
History Report prepared by Vaughn: Darlene Malone Under the Supervision of: Dr. Ye Ash M.D. First contact with patient: 01:29 Chief Complaint: ABDOMINAL PAIN Stated Complaint: STOMACH AND BACK PAIN History of Present Illness The patient is a 31 year old female who presents to the Emergency Room with complaints of an episode of abdominal pain starting 8 hours ago. The patient states that she self-catheterizes and that she currently is just leaking urine. She states that she notices that it whitaker and that the pain is also in her back. The patient currently rates her pain as an 8/10 in severity. She reports it feel similar to a kidney infection. She reports that she has taken Tylenol and Motrin with no relief. She complains of nausea and a rash. She denies vomiting. She notes her last urine infection was a month ago. Source of History: patient Onset: 8 hours ago Position: abdomen Symptom Intensity: 8/10 Quality: other (like a kidney infection) Timing: other (episode) Associated Symptoms: + nausea, + rash, No vomiting Review of Systems See HPI for pertinent positives & negatives. A total of 10 systems reviewed and were otherwise negative. Past Medical & Surgical Medical Problems: (1) Anxiety (2) Bronchitis (3) DDD (degenerative disc disease) (4) Depression (5) Fibromyalgia (6) Gall bladder disease (7) Gestational diabetes (8) H/o C2 vertebral fracture (9) History of - miscarriage (10) Kidney stone (11) Migraine (12) PNA (pneumonia) (13) Polycystic ovaries (14) Post-operative infection (15) Seroma (16) Spinal headache (17) Syncope (18) Vaginal delivery Surgical Problems: (1) H/O colonoscopy (2) H/O neck surgery (3) S/P cholecystectomy (4) S/p lumbar decompression/fusion (5) S/P tonsillectomy Family History Diabetes mellitus GRANDMOTHER FH: cancer MOTHER (lung, uterus) AUNT (stomach CA) FH: gallbladder disease FH: heart disease GRANDMOTHER FH: lung disease Hypertension GRANDFATHER GRANDMOTHER Kidney disease Kidney stones Seizures Stroke Thyroid disorder MOTHER Social History Smoking Status: Current Every Day Smoker Alcohol Use: none Drug Use: none Marital Status: in relationship Housing Status: lives with significant other Occupation Status: employed Current/Historical Medications Scheduled Baclofen (Baclofen), 10 MG PO Q8 Cetirizine (Zyrtec), 10 MG PO DAILY Clonazepam (Klonopin), 0.5 MG PO BID Cyclobenzaprine Hcl (Flexeril), 10 MG PO TID Diphenhydramine Hcl (Benadryl Allergy), 50 MG PO UD Gabapentin (Gabapentin), 900 MG PO TID Methylphenidate (Ritalin), 30 MG PO UD Omeprazole (Prilosec), 20 MG PO DAILY Ranitidine (Zantac), 150 MG PO BID Topiramate (Topamax), 200 MG PO BID Triamcinolone Acet (Aristocort 0.1%), 1 APPLN TOP BID Venlafaxine Hcl (Effexor Extended Rel), 150 MG PO DAILY Scheduled PRN Acetaminophen (Acetaminophen), 1,000 MG PO Q6H PRN for Pain Mbhrernxew-Ypvmayc-Ulwozgfl W/ (Butalbital/Aspirn/Caffein), 1 CAP PO Q4H PRN for Headache Diclofenac Sod (Diclofenac Sodium Dr), 50 MG PO Q8 PRN for Headache or Pain Epinephrine (Epipen), 0.3 MG IM UD PRN for ALLERGIC REACTION Lactulose (Chronulac), 15 ML PO BID PRN for Constipation Ondansetron Hcl (Zofran), 8 MG PO Q8 PRN for Nausea Promethazine Hcl (Phenergan), 25 MG PO Q6H PRN for Nausea Tramadol (Ultram), 50 MG PO Q4H PRN for Pain Allergies Coded Allergies: Amoxicillin (Verified Allergy, Severe, HIVES AND SOB, 01/19/17) BEE STING (Verified Allergy, Severe, SWELLING, 01/19/17) Adhesives (Verified Allergy, Mild, contact dermatitis, 01/19/17) Propranolol (Verified Allergy, Mild, MOUTH SORE, RASH, 01/19/17) Morphine (Verified Adverse Reaction, Intermediate, pt reports moderate to severe stomach discomfort, 01/19/17) pt states she requires a "GI cocktail" to alleviate the stomach discomfort that occurs after receiving Morphine or dilaudid Physical Exam Vital Signs Date Time Temp Pulse Resp B/P (MAP) Pulse Ox O2 Delivery O2 Flow Rate FiO2 01/19/17 02:59 74 18 116/49 99 01/19/17 01:26 36.6 86 18 131/85 99 Room Air Physical Exam GENERAL: Patient is anxious appearing and in mild distress. HEENT: No acute trauma, normocephalic atraumatic, mucous membranes moist, no nasal congestion, no scleral icterus. NECK: No stridor, no adenopathy, no meningismus, trachea is midline. LUNGS: No dyspnea. Clear to auscultation and equal bilaterally. No wheeze, no rhonchi. HEART: Regular rate and rhythm. No murmurs, rubs, gallops appreciated. ABDOMEN: Soft, bowel sounds positive, no masses appreciated, no peritonitis, vague suprapubic tenderness to palpation. BACK: No midline tenderness, no CVA tenderness EXTREMITIES: Normal motion all extremities, no cyanosis, no edema. NEUROLOGIC: Alert and oriented, no acute motor or sensory deficits, no focal weakness, cranial nerves grossly intact. SKIN: No jaundice, no diaphoresis, bilateral flank excoriations. Medical Decision & Procedures Laboratory Results 01/19/17 01:51 Red Blood Count 4.40, Mean Corpuscular Volume 89.1, Mean Corpuscular Hemoglobin 30.2, Mean Corpuscular Hemoglobin Concent 33.9, Mean Platelet Volume 11.3, Neutrophils (%) (Auto) 57.0, Lymphocytes (%) (Auto) 34.2, Monocytes (%) (Auto) 6.1, Eosinophils (%) (Auto) 2.3, Basophils (%) (Auto) 0.2, Neutrophils # (Auto) 3.75, Lymphocytes # (Auto) 2.25, Monocytes # (Auto) 0.40, Eosinophils # (Auto) 0.15, Basophils # (Auto) 0.01 01/19/17 01:51 Test 01/19/17 01:51 01/19/17 02:15 White Blood Count 6.57 K/uL (4.8-10.8) Red Blood Count 4.40 M/uL (4.2-5.4) Hemoglobin 13.3 g/dL (12.0-16.0) Hematocrit 39.2 % (37-47) Mean Corpuscular Volume 89.1 fL (80-100) Mean Corpuscular Hemoglobin 30.2 pg (25-34) Mean Corpuscular Hemoglobin Concent 33.9 g/dl (32-36) Platelet Count 183 K/uL (130-400) Mean Platelet Volume 11.3 fL (7.4-10.4) Neutrophils (%) (Auto) 57.0 % Lymphocytes (%) (Auto) 34.2 % Monocytes (%) (Auto) 6.1 % Eosinophils (%) (Auto) 2.3 % Basophils (%) (Auto) 0.2 % Neutrophils # (Auto) 3.75 K/uL (1.4-6.5) Lymphocytes # (Auto) 2.25 K/uL (1.2-3.4) Monocytes # (Auto) 0.40 K/uL (0.11-0.59) Eosinophils # (Auto) 0.15 K/uL (0-0.5) Basophils # (Auto) 0.01 K/uL (0-0.2) RDW Standard Deviation 39.3 fL (36.4-46.3) RDW Coefficient of Variation 12.2 % (11.5-14.5) Immature Granulocyte % (Auto) 0.2 % Immature Granulocyte # (Auto) 0.01 K/uL (0.00-0.02) Anion Gap 7.0 mmol/L (3-11) Est Creatinine Clear Calc Drug Dose 112.5 ml/min Estimated GFR () 116.4 Estimated GFR (Non- 100.5 BUN/Creatinine Ratio 17.1 (10-20) Calcium Level 8.7 mg/dl (8.5-10.1) Total Bilirubin 0.3 mg/dl (0.2-1) Direct Bilirubin < 0.1 mg/dl (0-0.2) Aspartate Amino Transf (AST/SGOT) 12 U/L (15-37) Alanine Aminotransferase (ALT/SGPT) 33 U/L (12-78) Alkaline Phosphatase 57 U/L (45-117) Total Protein 7.4 gm/dl (6.4-8.2) Albumin 3.9 gm/dl (3.4-5.0) Lipase 274 U/L (73-393) Urine Color YELLOW Urine Appearance CLEAR (CLEAR) Urine pH 5.0 (4.5-7.5) Urine Specific [place] 1.024 (1.000-1.030) Urine Protein NEG (NEG) Urine Glucose (UA) NEG (NEG) Urine Ketones NEG (NEG) Urine Occult Blood 2+ (NEG) Urine Nitrite NEG (NEG) Urine Bilirubin NEG (NEG) Urine Urobilinogen NEG (NEG) Urine Leukocyte Esterase TRACE (NEG) Urine WBC (Auto) 1-5 /hpf (0-5) Urine RBC (Auto) 0-4 /hpf (0-4) Urine Hyaline Casts (Auto) 1-5 /lpf (0-5) Urine Epithelial Cells (Auto) >30 /lpf (0-5) Urine Bacteria (Auto) NEG (NEG) Urine Test NEG (NEG) Laboratory results as reviewed by me. Medications Administered Medications (Trade) Dose Ordered Sig/Saundra Route Start Time Stop Time Status Last Admin Dose Admin Diphenhydramine HCl (Benadryl Inj) 50 mg NOW STAT IV 01/19/17 01:39 01/19/17 01:42 DC 01/19/17 01:58 50 MG Promethazine HCl 25 mg/Sodium Chloride 51 ml @ 204 mls/hr NOW STAT IV 01/19/17 01:39 01/19/17 01:53 DC 01/19/17 01:57 204 MLS/HR Ketorolac Tromethamine (Toradol Inj) 30 mg NOW STAT IV 01/19/17 01:39 01/19/17 01:42 DC 01/19/17 01:57 30 MG Sodium Chloride 1,000 ml @ 999 mls/hr Q1H1M STAT IV 01/19/17 01:39 01/19/17 02:39 DC 01/19/17 01:58 999 MLS/HR ED Course 0132: The patient was evaluated in room A4B. A complete history and physical exam was performed. 0139: Ordered NSS 1000 ml @ 999 mls/hr IV, Toradol Inj 30 mg IV, Promethazine HCl 25 mg/Sodium Chloride 51 ml @ 204 mls/hr IV, Benadryl Inj 50 mg IV. 0251: Reevaluated the patient. We discussed the results and the option of an ultra sound. The patient states that she wants to go home and see how she does for the next 12-24 hours. We discussed the finding of urine in he blood and the need to follow up with her PCP. Discussed discharge instructions: She verbalized understanding and agreement. The patient is ready for discharge. Medical Decision Differential: Appendicitis, Ovarian Torsion, PID, Tubo-ovarian Abscess, Intrauterine , Ectopic , Endometriosis, amongst other pathologies entertained. 31 yr old female well known to facility arrives for evaluation of urinary incontinence, lower abdominal pain radiating to back. Exam without peritonitis and her exam is not consistent with torsion. Given above and sleeping, though easily awoken. Labs unremarkable. Straight cath with 2+blood but has had blood in past and she notes that her PCP has told her about this. There is no bacteria nor is UA consistent with infection. No fevers nor wbc elevation. She does not have localized flank pain thus I feel that with bilateral lower back pain this is not consistent with stone, however I suggested US evaluation of kidneys to try and avoid CT. She is feeling better and would prefer to see how she is feeling at home over the next 12-24 hours. We reviewed symptoms/ findings requiring immediate RTED. I stressed PCP follow up for further evaluation. Medication Reconcilliation Current Medication List: was personally reviewed by me Blood Pressure Screening Patient's blood pressure: Normal blood pressure Impression Primary Impression: Lower abdominal pain Additional Impression: Urinary incontinence Scribe Attestation The scribe's documentation has been prepared under my direction and personally reviewed by me in its entirety. I confirm that the note above accurately reflects all work, treatment, procedures, and medical decision making performed by me. Departure Information Dispostion Home / Self-Care Forms HOME CARE DOCUMENTATION FORM, IMPORTANT VISIT INFORMATION Patient Instructions [facility] Additional Instructions Monitor your symptoms. If worsening, fevers, vomiting, no improvement or other concerns return for further evaluation. Discuss your lab results with your primary provider, in particular the blood in your urine that is frequently seen. You have been examined and treated today on an emergency basis only. This is not a substitute for, or an effort to provide, complete comprehensive medical care. It is impossible to recognize and treat all injuries or illnesses in a single emergency department visit. It is therefore important that you follow up closely with your Primary Physician. Call as soon as possible for an appointment so you can review all labs, imaging and other testing that you had. Return to Emergency Department, call 911 or seek immediate medical attention if you feel your symptoms are worsening. Problem Qualifiers
[2017-01-19 02:01] LABS: BASO % 0.2 %; BASO ABS # 0.01 K/uL (0-0.2); COMPLETE YES; EOS % 2.3 %; HEMATOCRIT 39.2 % (37-47); IG% 0.2 %; LYMPH % 34.2 %; LYMPH ABS # 2.25 K/uL (1.2-3.4); MEAN CELL VOLUME 89.1 fL (80-100); MEAN CORPUSCULAR HEMOGLOBIN 30.2 pg (25-34); MEAN CORPUSCULAR HGB CONC 33.9 g/dl (32-36); MEAN PLATELET VOLUME 11.3 fL (7.4-10.4); MONO % 6.1 %; PLATELET COUNT 183 K/uL (130-400); WHITE BLOOD COUNT 6.57 K/uL (4.8-10.8)
[2017-01-19 02:24] LABS: ALT/SGPT 33 U/L (12-78); AST/SGOT 12 U/L (15-37); BLOOD UREA NITROGEN 14 mg/dl (7-18); BUN/CREATININE RATIO 17.1 (10-20); CALCIUM 8.7 mg/dl (8.5-10.1); CARBON DIOXIDE 27 mmol/L (21-32); CHLORIDE 106 mmol/L (98-107); CREATININE 0.79 mg/dl (0.60-1.20); GLUCOSE 99 mg/dl (70-99); POTASSIUM 3.6 mmol/L (3.5-5.1); SODIUM 140 mmol/L (136-145)
[2017-01-19 02:27] LABS: ALKALINE PHOSPHATASE 57 U/L (45-117)
[2017-01-19 02:33] LABS: URINE APPEARANCE CLEAR (CLEAR); URINE BILIRUBIN NEG (NEG); URINE COLOR YELLOW; URINE EPITHELIAL CELL AUTO >30 /lpf (0-5); URINE NITRITE NEG (NEG); URINE SPECIFIC GRAVITY 1.024 (1.000-1.030); UROBILINOGEN NEG (NEG); ZZURINE CULT IF INDIC CATH NO
[2017-01-19 02:39] LABS: MANUAL MICROSCOPIC REQUIRED? NO; REVIEW REQ? NO
[2017-01-19 02:59] VITALS: BP 116/49; PULSE 74; O2SAT 99
== END 2017-01-19 03:00 | disposition home or self-care (01) ==
LOC: C.EDB 01:24 → C.EDA 03:00
DX: R10.30 Lower abdominal pain, unspecified (principal); R32 Unspecified urinary incontinence; F41.9 Anxiety disorder, unspecified; F32.9 Major depressive disorder, single episode, unspecified; M79.7 Fibromyalgia; K82.9 Disease of gallbladder, unspecified; Z87.442 Personal history of urinary calculi; G43.909 Migraine, unspecified, not intractable, without status migrainosus; Z87.01 Personal history of pneumonia (recurrent); Z83.3 Family history of diabetes mellitus; Z80.9 Family history of malignant neoplasm, unspecified; Z83.79 Family history of other diseases of the digestive system; Z82.49 Family history of ischemic heart disease and other diseases of the circulatory system; Z83.6 Family history of other diseases of the respiratory system; Z84.1 Family history of disorders of kidney and ureter; F17.210 Nicotine dependence, cigarettes, uncomplicated; Z79.899 Other long term (current) drug therapy

== ENCOUNTER 2017-01-25 02:59 | Emergency (ER) | payer OTHER ==
[~2017-01-25] VITALS: Ht 157.5 cm; Wt 94.3 kg
[2017-01-25 03:04] VITALS: TEMP 36.5; Ht 157.5 cm; Wt 94.3 kg
[2017-01-25] MEDS ORDERED: METHYLPREDNISOLONE 125 MG VIAL IV STA (03:18)
[2017-01-25] MEDS ORDERED: DiphenhydrAMINE HCL 50 MG/ML VIAL IV STA (03:18)
[2017-01-25] MEDS ORDERED: SODIUM CHLORIDE 0.9% 1000ML 1,000 ML IV ONE (03:30)
[2017-01-25] MEDS ORDERED: PRED50TA PO (04:41)
[2017-01-25 04:44] VITALS: PULSE 80; O2SAT 97
[2017-01-25 04:45] VITALS: BP 120/68
--- NOTE | 2017-01-26 03:07 | EMERGENCY ROOM VISIT NOTE ---
History First contact with patient: 03:08 Chief Complaint: RASH Stated Complaint: HIVES/REACTION History of Present Illness The patient is a 31 year old female who presents to the Emergency Room with complaints of possible allergic reaction. The patient states that she was doing well throughout the day, and took evening gabapentin. The patient states this was a different colored pill from her normal gabapentin, as she got this refill performed at a new pharmacy. She states that about an hour later she began having itchiness which worsened into redness and hives. She did take Benadryl prior to arrival, however this did not significantly improve her symptoms. The patient is not having swelling of her mouth or throat. No significant abdominal or chest pain. She rates her discomfort a 10/10. Review of Systems More than 10 systems were reviewed and otherwise negative with the exception of history of present illness. Past Medical/Surgical History Medical Problems: (1) Anxiety (2) Bronchitis (3) DDD (degenerative disc disease) (4) Depression (5) Fibromyalgia (6) Gall bladder disease (7) Gestational diabetes (8) H/o C2 vertebral fracture (9) History of - miscarriage (10) Kidney stone (11) Migraine (12) PNA (pneumonia) (13) Polycystic ovaries (14) Post-operative infection (15) Seroma (16) Spinal headache (17) Syncope (18) Vaginal delivery Surgical Problems: (1) H/O colonoscopy (2) H/O neck surgery (3) S/P cholecystectomy (4) S/p lumbar decompression/fusion (5) S/P tonsillectomy Family History Diabetes mellitus GRANDMOTHER FH: cancer MOTHER (lung, uterus) AUNT (stomach CA) FH: gallbladder disease FH: heart disease GRANDMOTHER FH: lung disease Hypertension GRANDFATHER GRANDMOTHER Kidney disease Kidney stones Seizures Stroke Thyroid disorder MOTHER Social History Smoking Status: Current Every Day Smoker Alcohol Use: none Drug Use: none Marital Status: in relationship Housing Status: lives with significant other Occupation Status: employed Current/Historical Medications Scheduled Baclofen (Baclofen), 10 MG PO Q8 Cetirizine (Zyrtec), 10 MG PO DAILY Clonazepam (Klonopin), 0.5 MG PO BID Cyclobenzaprine Hcl (Flexeril), 10 MG PO TID Diphenhydramine Hcl (Benadryl Allergy), 50 MG PO UD Gabapentin (Gabapentin), 900 MG PO TID Methylphenidate (Ritalin), 30 MG PO UD Omeprazole (Prilosec), 20 MG PO DAILY Prednisone (Prednisone), 50 MG PO DAILY Ranitidine (Zantac), 150 MG PO BID Topiramate (Topamax), 200 MG PO BID Triamcinolone Acet (Aristocort 0.1%), 1 APPLN TOP BID Venlafaxine Hcl (Effexor Extended Rel), 150 MG PO DAILY Scheduled PRN Acetaminophen (Acetaminophen), 1,000 MG PO Q6H PRN for Pain Wngucndeak-Ewpbdzw-Tukkiird W/ (Butalbital/Aspirn/Caffein), 1 CAP PO Q4H PRN for Headache Diclofenac Sod (Diclofenac Sodium Dr), 50 MG PO Q8 PRN for Headache or Pain Epinephrine (Epipen), 0.3 MG IM UD PRN for ALLERGIC REACTION Lactulose (Chronulac), 15 ML PO BID PRN for Constipation Ondansetron Hcl (Zofran), 8 MG PO Q8 PRN for Nausea Promethazine Hcl (Phenergan), 25 MG PO Q6H PRN for Nausea Tramadol (Ultram), 50 MG PO Q4H PRN for Pain Physical Exam Vital Signs Date Time Temp Pulse Resp B/P (MAP) Pulse Ox O2 Delivery O2 Flow Rate FiO2 01/25/17 04:45 18 120/68 01/25/17 04:44 80 97 01/25/17 04:30 108/69 01/25/17 04:29 83 97 01/25/17 04:14 87 95 01/25/17 04:09 85 18 96 01/25/17 04:00 110/60 01/25/17 03:59 87 97 01/25/17 03:49 87 98 01/25/17 03:39 86 100 01/25/17 03:30 107/86 01/25/17 03:29 91 99 01/25/17 03:19 107 20 99 01/25/17 03:17 131/91 01/25/17 03:04 36.5 108 20 113/75 99 Room Air Pain Rating (0-10): 10.0 Physical Exam VITALS: Vitals are noted on the nurse's note and reviewed by myself. Vital signs stable. GENERAL: Well-developed, well-nourished, white female who appears to be having an allergic reaction. She is scratching at her legs and arms MOUTH: Mucous membranes moist. Tonsils are not enlarged. Pharynx without erythema, blood, or exudate. Uvula midline. Airway patent. NECK: Supple without nuchal rigidity. No lymphadenopathy. No thyromegaly. Cervical spine is nontender. HEART: Regular rate and rhythm without murmurs gallops or rubs. LUNGS: Clear to auscultation bilaterally without wheezes, rales or rhonchi. No retractions or accessory muscle use. ABDOMEN: Positive normal bowel sounds x 4. Soft, nontender, without masses or organomegaly. No guarding or rebound tenderness. MUSCULOSKELETAL: No muscle atrophy, erythema, or edema noted. Full range of motion without joint tenderness in all extremities. NEURO: Patient was alert and oriented to person place and time. CN II through XII grossly intact. SKIN: The skin was with diffuse urticarial rash best appreciated on the extremities. Medical Decision & Procedures Medications Administered Medications (Trade) Dose Ordered Sig/Saundra Route Start Time Stop Time Status Last Admin Dose Admin Diphenhydramine HCl (Benadryl Inj) 25 mg NOW STAT IV 01/25/17 03:18 01/25/17 03:19 DC 01/25/17 03:31 25 MG Sodium Chloride 1,000 ml @ 999 mls/hr Q1H1M ONCE IV 01/25/17 03:30 01/25/17 04:30 DC 01/25/17 03:27 999 MLS/HR Methylprednisolone Sodium Succinate (Solu-Medrol IV) 125 mg NOW STAT IV 01/25/17 03:18 01/25/17 03:19 DC 01/25/17 03:32 125 MG ED Course Physical exam and history were performed. Nursing notes, EMR, and Medication List were personally reviewed. Patient appears to have an allergic reaction to unknown antigen. Presumably this could be from a new formulation of her gabapentin, however it seems that she has taken this in the past without much difficulty. Regardless she does appear uncomfortable and with urticaria. She does not appear to require epinephrine. IV access was established and labs were obtained. She was given IV Benadryl, IV Solu-Medrol and normal saline. The patient was monitored in the ER for greater than 2 hours. She essentially had complete resolution of her symptoms after the above interventions. She was found to be sleeping very comfortably in her emergency department bed and was felt stable for discharge home. She will be given instructions to follow-up with her PCP. I will give her a short course of prednisone. She was otherwise invited back to the ER with any new, worsening, or concerning symptoms. The chart was completed utilizing [employer] Speech Voice Recognition Software. Grammatical errors, random word insertions, pronoun errors, and incomplete sentences are an occasional consequence of this system due to software limitations, ambient noise, and hardware issues. Any formal questions or concerns about the content, text, or information contained within the body of this dictation should be directly addressed to the provider for clarification. . Medical Decision Differential diagnosis: Etiologies such as allergic reaction, anaphylaxis, urticaria, Sanchez-Chito syndrome, toxic epidermal necrolysis, erythema multiforme, cellulitis, as well as others were entertained. Impression Primary Impression: Allergic reaction Departure Information Dispostion Home / Self-Care Condition GOOD Prescriptions Prednisone (Prednisone) 50 Mg Tab 50 MG PO DAILY for 4 Days, #4 TAB Prov: Rajat Jeffers PA-C 01/25/17 Forms HOME CARE DOCUMENTATION FORM, IMPORTANT VISIT INFORMATION Patient Instructions My [facility] Additional Instructions You were seen and evaluated today on an emergency basis only. This is not a substitute for, or an effort to provide, complete comprehensive medical care. It is not possible to recognize and treat all injuries or illnesses in a single emergency department visit. For this reason it is recommended that you followup with your primary care physician this week for ongoing care and evaluation. Take prednisone as prescribed You are welcome to return to the emergency department anytime with new, worsening, or concerning symptoms.
== END 2017-01-25 04:51 | disposition home or self-care (01) ==
LOC: C.EDB 03:00
DX: T78.40XA Allergy, unspecified, initial encounter (principal); X58.XXXA Exposure to other specified factors, initial encounter; F41.9 Anxiety disorder, unspecified; F32.9 Major depressive disorder, single episode, unspecified; M79.7 Fibromyalgia; Z87.442 Personal history of urinary calculi; G43.909 Migraine, unspecified, not intractable, without status migrainosus; Z87.01 Personal history of pneumonia (recurrent); E28.2 Polycystic ovarian syndrome; Z83.3 Family history of diabetes mellitus; Z80.9 Family history of malignant neoplasm, unspecified; Z83.79 Family history of other diseases of the digestive system; Z83.6 Family history of other diseases of the respiratory system; Z84.1 Family history of disorders of kidney and ureter; Z82.49 Family history of ischemic heart disease and other diseases of the circulatory system; F17.210 Nicotine dependence, cigarettes, uncomplicated; Z79.899 Other long term (current) drug therapy

== ENCOUNTER 2017-01-26 09:16 | Emergency (ER) | payer OTHER ==
[~2017-01-26] VITALS: Ht 158.8 cm; Wt 95.5 kg
[~2017-01-26 09:16] MED LIST changes: +PRED50TA PO
[2017-01-26 09:26] VITALS: TEMP 36.5; Ht 158.8 cm; Wt 95.5 kg
[2017-01-26] MEDS ORDERED: SODIUM CHLORIDE 0.9% 1000ML 2,000 ML IV STA (10:11)
[2017-01-26] MEDS ORDERED: METHYLPREDNISOLONE 125 MG VIAL IV STA (10:11)
[2017-01-26] MEDS ORDERED: DiphenhydrAMINE HCL 50 MG/ML VIAL IV STA (10:11)
[2017-01-26] MEDS ORDERED: FAMOTIDINE IV INJ 40 MG in DEXTROSE 5% 100ML 100 ML IV SCH (10:15)
--- NOTE | 2017-01-26 10:52 | DIAGNOSTIC IMAGING REPORT ---
CHEST ONE VIEW PORTABLE CLINICAL HISTORY: 31 years-old Female presenting with sob . TECHNIQUE: Portable upright AP view of the chest was obtained. COMPARISON: 01/16/2017. FINDINGS: Cardiomediastinal silhouette normal. Lungs and pleural spaces clear. Osseous structures normal. Upper abdomen normal. IMPRESSION: 1. No acute cardiopulmonary disease. Electronically signed by: Abraham Green M.D. 01/26/2017 10:50 AM Dictated Date/Time: 01/26/2017 10:50 AM
[2017-01-26 10:54] LABS: BASO % 0.1 %; BASO ABS # 0.01 K/uL (0-0.2); COMPLETE YES; EOS % 1.5 %; IG% 0.3 %; LYMPH % 31.4 %; LYMPH ABS # 2.35 K/uL (1.2-3.4); MEAN CORPUSCULAR HEMOGLOBIN 30.9 pg (25-34); MEAN CORPUSCULAR HGB CONC 35.1 g/dl (32-36); MEAN PLATELET VOLUME 11.4 fL (7.4-10.4); MONO % 5.9 %; NEUT % 60.8 %; PLATELET COUNT 170 K/uL (130-400); RED BLOOD COUNT 4.66 M/uL (4.2-5.4); WHITE BLOOD COUNT 7.49 K/uL (4.8-10.8)
[2017-01-26 11:20] LABS: POTASSIUM 3.8 mmol/L (3.5-5.1); SODIUM 142 mmol/L (136-145)
[2017-01-26 11:24] LABS: ALKALINE PHOSPHATASE 55 U/L (45-117); ALT/SGPT 27 U/L (12-78); BLOOD UREA NITROGEN 15 mg/dl (7-18); BUN/CREATININE RATIO 16.6 (10-20); CALCIUM 8.4 mg/dl (8.5-10.1); CARBON DIOXIDE 25 mmol/L (21-32); CHLORIDE 109 mmol/L (98-107); GLUCOSE 87 mg/dl (70-99)
[2017-01-26 11:25] LABS: AST/SGOT 15 U/L (15-37)
[2017-01-26 12:32] LABS: PREG INTERNAL NEGATIVE QC NEG CLEAR BACKGROUND; PREG INTERNAL POSITIVE QC POS CONTROL LINE
[2017-01-26 12:38] LABS: URINE APPEARANCE CLOUDY (CLEAR); URINE BILIRUBIN NEG (NEG); URINE COLOR YELLOW; URINE EPITHELIAL CELL AUTO >30 /lpf (0-5); URINE NITRITE NEG (NEG); URINE PH 5.5 (4.5-7.5); URINE SPECIFIC GRAVITY 1.025 (1.000-1.030); UROBILINOGEN NEG (NEG); ZZUR CULT IF INDIC CLEAN CATCH NO
[2017-01-26 12:45] LABS: MANUAL MICROSCOPIC REQUIRED? NO; REVIEW REQ? YES
[2017-01-26 13:00] LABS: URINE MUCUS PRESENT (NONE PRSENT)
[2017-01-26 13:22] VITALS: BP 136/87; PULSE 87; O2SAT 100
--- NOTE | 2017-01-26 16:37 | EMERGENCY ROOM VISIT NOTE ---
History Report prepared by Matthieuibdesire: Terry Tomlinson Under the Supervision of: Dr. Eliseo Conley D.O. First contact with patient: 09:57 Chief Complaint: RASH Stated Complaint: HIVES History of Present Illness The patient is a 31 year old female who presents to the Emergency Room with complaints of a persistent allergic reaction beginning two days ago. She was seen in the ED recently and had her dose of Gabapentin increased. She states that she was given tablets rather than capsules as well. The patient states that she developed hives, difficulty swallowing, abdominal pain, and hand swelling 20 minutes after taking the tablets of Gabapentin. She states that her hives feel very itchy. She denies eating any new foods, drinking any new drinks , or using new hygienic products. No new animals. The patient has not taken the new tablets of Gabapentin since her symptoms began. She has been taking Benadryl for her symptoms. She has a history of abdominal pain, but states that her current abdominal pain feels different from her usual abdominal pain. The patient denies any chest pain but does admit to mild shortness breath which has been present since his symptoms began. Source of History: patient Onset: Two days ago Quality: other (allergic reaction) Timing: other (persistent) Associated Symptoms: No chest pain, No SOB Note: Additional symptoms: hives, difficulty swallowing. Review of Systems See HPI for pertinent positives & negatives. A total of 10 systems reviewed and were otherwise negative. Past Medical & Surgical Medical Problems: (1) Anxiety (2) Bronchitis (3) DDD (degenerative disc disease) (4) Depression (5) Fibromyalgia (6) Gall bladder disease (7) Gestational diabetes (8) H/o C2 vertebral fracture (9) History of - miscarriage (10) Kidney stone (11) Migraine (12) PNA (pneumonia) (13) Polycystic ovaries (14) Post-operative infection (15) Seroma (16) Spinal headache (17) Syncope (18) Vaginal delivery Surgical Problems: (1) H/O colonoscopy (2) H/O neck surgery (3) S/P cholecystectomy (4) S/p lumbar decompression/fusion (5) S/P tonsillectomy Family History Diabetes mellitus GRANDMOTHER FH: cancer MOTHER (lung, uterus) AUNT (stomach CA) FH: gallbladder disease FH: heart disease GRANDMOTHER FH: lung disease Hypertension GRANDFATHER GRANDMOTHER Kidney disease Kidney stones Seizures Stroke Thyroid disorder MOTHER Social History Smoking Status: Current Every Day Smoker Alcohol Use: none Drug Use: none Marital Status: in relationship Housing Status: lives with significant other Occupation Status: employed Current/Historical Medications Scheduled Baclofen (Baclofen), 10 MG PO Q8 Cetirizine (Zyrtec), 10 MG PO DAILY Clonazepam (Klonopin), 0.5 MG PO BID Diphenhydramine Hcl (Benadryl Allergy), 50 MG PO UD Gabapentin (Gabapentin), 900 MG PO TID Methylphenidate (Ritalin), 30 MG PO UD Omeprazole (Prilosec), 20 MG PO DAILY Prednisone (Prednisone), 50 MG PO DAILY Topiramate (Topamax), 200 MG PO BID Triamcinolone Acet (Aristocort 0.1%), 1 APPLN TOP BID Venlafaxine Hcl (Effexor Extended Rel), 150 MG PO DAILY Scheduled PRN Acetaminophen (Acetaminophen), 1,000 MG PO Q6H PRN for Pain Nxuwjjfvmd-Sqyhsjb-Clautcpn W/ (Butalbital/Aspirn/Caffein), 1 CAP PO Q4H PRN for Headache Diclofenac Sod (Diclofenac Sodium Dr), 50 MG PO Q8 PRN for Headache or Pain Epinephrine (Epipen), 0.3 MG IM UD PRN for ALLERGIC REACTION Lactulose (Chronulac), 15 ML PO BID PRN for Constipation Ondansetron Hcl (Zofran), 8 MG PO Q8 PRN for Nausea Promethazine Hcl (Phenergan), 25 MG PO Q6H PRN for Nausea Allergies Coded Allergies: Amoxicillin (Verified Allergy, Severe, HIVES AND SOB, 01/26/17) BEE STING (Verified Allergy, Severe, SWELLING, 01/26/17) Adhesives (Verified Allergy, Mild, contact dermatitis, 01/26/17) Propranolol (Verified Allergy, Mild, MOUTH SORE, RASH, 01/26/17) Morphine (Verified Adverse Reaction, Intermediate, pt reports moderate to severe stomach discomfort, 01/26/17) pt states she requires a "GI cocktail" to alleviate the stomach discomfort that occurs after receiving Morphine or dilaudid Physical Exam Vital Signs Date Time Temp Pulse Resp B/P (MAP) Pulse Ox O2 Delivery O2 Flow Rate FiO2 01/26/17 13:22 87 20 136/87 100 01/26/17 11:25 80 103/54 98 Room Air 01/26/17 09:26 36.5 124 20 134/84 97 Room Air Physical Exam GENERAL: Disheveled, sitting up in bed, anxious appearing. Talking with a raspy voice. EYE EXAM: normal conjunctiva OROPHARYNX: no exudate, no erythema, lips, buccal mucosa, and tongue normal and mucous membranes are moist. Tolerating secretions. NECK: supple, no nuchal rigidity, no adenopathy, non-tender, no stridor. LUNGS: Clear to auscultation. Normal chest wall mechanics HEART: no murmurs, S1 normal and S2 normal ABDOMEN: abdomen soft, non-tender, normo-active bowel sounds, no masses, no rebound or guarding. BACK: Back is symmetrical on inspection and there is no deformity, no midline tenderness, no CVA tenderness. SKIN: Red, erythematous lesions on the chest, flanks and abdomen. Blanching without petechiae. Scratch gonzales noted. UPPER EXTREMITIES: upper extremities are grossly normal. LOWER EXTREMITIES: No pitting edema. NEURO EXAM: Normal sensorium, cranial nerves II-XII grossly intact, normal speech, no gross weakness of arms, no gross weakness of legs. Medical Decision & Procedures ER Provider Diagnostic Interpretation: Radiology results as stated below per my review and the radiologist's interpretation: CHEST ONE VIEW PORTABLE FINDINGS: Cardiomediastinal silhouette normal. Lungs and pleural spaces clear. Osseous structures normal. Upper abdomen normal. IMPRESSION: 1. No acute cardiopulmonary disease. Electronically signed by: Abraham Green M.D. Laboratory Results 01/26/17 10:30 Red Blood Count 4.66, Mean Corpuscular Volume 88.0, Mean Corpuscular Hemoglobin 30.9, Mean Corpuscular Hemoglobin Concent 35.1, Mean Platelet Volume 11.4, Neutrophils (%) (Auto) 60.8, Lymphocytes (%) (Auto) 31.4, Monocytes (%) (Auto) 5.9, Eosinophils (%) (Auto) 1.5, Basophils (%) (Auto) 0.1, Neutrophils # (Auto) 4.56, Lymphocytes # (Auto) 2.35, Monocytes # (Auto) 0.44, Eosinophils # (Auto) 0.11, Basophils # (Auto) 0.01 8/22/17 10:30 Test 01/26/17 10:30 01/26/17 12:00 White Blood Count 7.49 K/uL (4.8-10.8) Red Blood Count 4.66 M/uL (4.2-5.4) Hemoglobin 14.4 g/dL (12.0-16.0) Hematocrit 41.0 % (37-47) Mean Corpuscular Volume 88.0 fL (80-100) Mean Corpuscular Hemoglobin 30.9 pg (25-34) Mean Corpuscular Hemoglobin Concent 35.1 g/dl (32-36) Platelet Count 170 K/uL (130-400) Mean Platelet Volume 11.4 fL (7.4-10.4) Neutrophils (%) (Auto) 60.8 % Lymphocytes (%) (Auto) 31.4 % Monocytes (%) (Auto) 5.9 % Eosinophils (%) (Auto) 1.5 % Basophils (%) (Auto) 0.1 % Neutrophils # (Auto) 4.56 K/uL (1.4-6.5) Lymphocytes # (Auto) 2.35 K/uL (1.2-3.4) Monocytes # (Auto) 0.44 K/uL (0.11-0.59) Eosinophils # (Auto) 0.11 K/uL (0-0.5) Basophils # (Auto) 0.01 K/uL (0-0.2) RDW Standard Deviation 40.2 fL (36.4-46.3) RDW Coefficient of Variation 12.6 % (11.5-14.5) Immature Granulocyte % (Auto) 0.3 % Immature Granulocyte # (Auto) 0.02 K/uL (0.00-0.02) Anion Gap 8.0 mmol/L (3-11) Est Creatinine Clear Calc Drug Dose 99.5 ml/min Estimated GFR () 99.4 Estimated GFR (Non- 85.8 BUN/Creatinine Ratio 16.6 (10-20) Calcium Level 8.4 mg/dl (8.5-10.1) Total Bilirubin 0.5 mg/dl (0.2-1) Direct Bilirubin < 0.1 mg/dl (0-0.2) Aspartate Amino Transf (AST/SGOT) 15 U/L (15-37) Alanine Aminotransferase (ALT/SGPT) 27 U/L (12-78) Alkaline Phosphatase 55 U/L (45-117) Total Protein 6.9 gm/dl (6.4-8.2) Albumin 3.5 gm/dl (3.4-5.0) Lipase 194 U/L (73-393) Urine Color YELLOW Urine Appearance CLOUDY (CLEAR) Urine pH 5.5 (4.5-7.5) Urine Specific [place] 1.025 (1.000-1.030) Urine Protein NEG (NEG) Urine Glucose (UA) NEG (NEG) Urine Ketones TRACE (NEG) Urine Occult Blood NEG (NEG) Urine Nitrite NEG (NEG) Urine Bilirubin NEG (NEG) Urine Urobilinogen NEG (NEG) Urine Leukocyte Esterase NEG (NEG) Urine WBC (Auto) 5-10 /hpf (0-5) Urine RBC (Auto) 10-30 /hpf (0-4) Urine Hyaline Casts (Auto) 1-5 /lpf (0-5) Urine Epithelial Cells (Auto) >30 /lpf (0-5) Urine Bacteria (Auto) NEG (NEG) Urine Pathogenic Casts /lpf (0) Urine Mucus PRESENT (NONE PRSENT) Urine Test NEG (NEG) Laboratory results per my review. Medications Administered Medications (Trade) Dose Ordered Sig/Saundra Route Start Time Stop Time Status Last Admin Dose Admin Sodium Chloride 2,000 ml @ 999 mls/hr Q2H1M STAT IV 01/26/17 10:11 01/26/17 12:11 DC 01/26/17 10:30 999 MLS/HR Famotidine 40 mg/ Dextrose 104 ml @ 200 mls/hr NOW IV 01/26/17 10:15 01/26/17 13:42 DC 01/26/17 10:42 200 MLS/HR Diphenhydramine HCl (Benadryl Inj) 25 mg NOW STAT IV 01/26/17 10:11 01/26/17 10:13 DC 01/26/17 10:38 25 MG Methylprednisolone Sodium Succinate (Solu-Medrol IV) 125 mg NOW STAT IV 01/26/17 10:11 01/26/17 10:13 DC 01/26/17 10:38 125 MG ECG Indication: other (allergic reaction) Rate (beats per minute): 91 Rhythm: sinus rhythm Findings: no ectopy, other (Normal axis) ED Course ED COURSE: Vital signs were reviewed and showed tachycardia and hypertension. The patients medical record was reviewed The above diagnostic studies were performed and reviewed. ED treatments and interventions as stated above. 1004: The patient was evaluated in room C6. A complete history and physical examination was performed. 1011: Ordered Solu-Medrol 125 mg IV, Benadryl Inj 25 mg IV, Sodium Chloride 2000 ml @ 999 mls/hr IV. 1015: Ordered Famotidine 40 mg/Dextrose 104 mL @ 200 mL/hr IV. 1226: I reassessed the patient. Her breathing and itching has returned to baseline. She has no trouble talking or swallowing. 1250: Upon reevaluation, the patient is resting comfortably. I discussed my findings with the patient and she understands and agrees with the treatment plan. Based on the patients age, coexisting illnesses, exam and lab findings the decision to treat as an outpatient was made. The patient remained stable while under my care. The patient appeared well at the time of discharge. Medical Decision Differential diagnosis: Etiologies such as allergic reaction, anaphylaxis, urticaria, Sanchez-Chito syndrome, toxic epidermal necrolysis, erythema multiforme, cellulitis, as well as others were entertained. Patient is a 31-year-old female who presents the ER for diffuse allergic reaction. She has hemorrhoids on her flanks abdomen and chest. She does have diffuse scratch gonzales present as well. CBC along with BMP, LFTs, bilirubin and lipase is unremarkable. EKG was unremarkable. UA was contaminated with multiple epithelial cells. She had no urinary symptoms. Urine was negative. She is given IV fluids, famotidine, steroids and a small dose of Benadryl with complete resolution of her itching, rash, shortness of breath and tightness in throat. She did note minimal abdominal pain which has been present for the past 2 days. She has no gallbladder. Chest x-ray was unremarkable. Patient was updated regards to findings. She was discharged follow-up with her primary care doctor and instructed not to take that gabapentin anymore. Medication Reconcilliation Current Medication List: was personally reviewed by me Blood Pressure Screening Patient's blood pressure: Elevated blood pressure Blood pressure disposition: Elevated BP felt to be situational Impression Primary Impression: Allergic reaction Additional Impressions: Hives Abdominal pain Scribe Attestation The scribe's documentation has been prepared under my direction and personally reviewed by me in its entirety. I confirm that the note above accurately reflects all work, treatment, procedures, and medical decision making performed by me. Departure Information Dispostion Home / Self-Care Referrals Kieran Hemphill M.D. (PCP) Forms HOME CARE DOCUMENTATION FORM, IMPORTANT VISIT INFORMATION, WORK / SCHOOL INSTRUCTIONS Patient Instructions ED Allergic Reaction Drug Ch, [facility] Additional Instructions Please follow up with your primary care doctor or if you are a student, [facility] with in the next 24 hours. Any worsening of your symptoms, please return to the ED immediately. This includes any fevers greater than 100.4, worsening pain, chest pain, shortness breath, trouble swallowing, trouble breathing, persistent nausea, vomiting, unable to eat or drink, or any other concerning signs or symptoms from your standpoint. You were given medications during this visit that will inhibit your ability to drive, operate machinery and work. Please do NOT drive, operate machinery, drink alcohol or work for the next 12hrs. You were found to have a blood pressure greater than 120 systolic over 90 diastolic. Due to the new Medicare guidelines, we are now recommending that you follow up with your primary care doctor in regards to this elevated blood pressure. Problem Qualifiers Primary Impression: Allergic reaction Encounter type: initial encounter Qualified Codes: T78.40XA - Allergy, unspecified, initial encounter Additional Impressions: Abdominal pain Abdominal location: unspecified location Qualified Codes: R10.9 - Unspecified abdominal pain
== END 2017-01-26 13:26 | disposition home or self-care (01) ==
LOC: C.EDB 09:17 → C.EDC 13:26
DX: T78.40XA Allergy, unspecified, initial encounter (principal); X58.XXXA Exposure to other specified factors, initial encounter; R10.9 Unspecified abdominal pain; F41.9 Anxiety disorder, unspecified; F32.9 Major depressive disorder, single episode, unspecified; M79.7 Fibromyalgia; E28.2 Polycystic ovarian syndrome; F17.200 Nicotine dependence, unspecified, uncomplicated; Z83.3 Family history of diabetes mellitus; Z82.49 Family history of ischemic heart disease and other diseases of the circulatory system; Z82.3 Family history of stroke; Z82.0 Family history of epilepsy and other diseases of the nervous system; Z83.49 Family history of other endocrine, nutritional and metabolic diseases; Z84.1 Family history of disorders of kidney and ureter

== ENCOUNTER → 2017-01-27 | Outpatient (CLI) | payer OTHER ==
[~2017-01-27] MED LIST changes: +CLON0.5T3 PO; -CYCL10TA6 PO; +NRN600 PO; +RANI150T2 PO; -TRAM-10 PO; -ZNTT/150 PO
--- NOTE | 2017-01-30 11:45 | EEG Procedure Note ---
EEG Procedure Note Date of Service Jan 27, 2017. Start / End Times Start Time: 10:43am End Time: 11:04am Referring Physician Velma Sanders History 31 year old female with syncope and seizure like activity. EEG for further evaluation of possible seizure etiology. Home Medication List Scheduled Baclofen (Baclofen), 10 MG PO Q8 Cetirizine (Zyrtec), 10 MG PO DAILY Clonazepam (Klonopin), 0.5 MG PO BID Diphenhydramine Hcl (Benadryl Allergy), 50 MG PO UD Gabapentin (Gabapentin), 900 MG PO TID Methylphenidate (Ritalin), 30 MG PO UD Omeprazole (Prilosec), 20 MG PO DAILY Topiramate (Topamax), 200 MG PO BID Triamcinolone Acet (Aristocort 0.1%), 1 APPLN TOP BID Venlafaxine Hcl (Effexor Extended Rel), 150 MG PO DAILY Scheduled PRN Acetaminophen (Acetaminophen), 1,000 MG PO Q6H PRN for Pain Mgvubpgpnz-Isarlel-Tchtcvsp W/ (Butalbital/Aspirn/Caffein), 1 CAP PO Q4H PRN for Headache Diclofenac Sod (Diclofenac Sodium Dr), 50 MG PO Q8 PRN for Headache or Pain Epinephrine (Epipen), 0.3 MG IM UD PRN for ALLERGIC REACTION Lactulose (Chronulac), 15 ML PO BID PRN for Constipation Ondansetron Hcl (Zofran), 8 MG PO Q8 PRN for Nausea Promethazine Hcl (Phenergan), 25 MG PO Q6H PRN for Nausea Description This is a 21 electrode EEG with a single channel dedicated to limited EKG. The electrodes were placed in accordance with the International 10-20 system. At the start of the recording the patient was in an awake state. The background was well organized and composed of symmetric mixed alpha and beta frequencies. There was a well formed symmetric moderate amplitude posterior dominant rhythm of 11-12Hz that was reactive to eye opening and closure. Hyperventilation was not done. Photic stimulation at various frequencies produced no abnormalities. Sleep was indicated by vertex waves and symmetric sleep spindles. Interpretation This is a normal awake and asleep EEG There was no electrographic seizures or epileptiform discharges. Clinical Correlation A normal EEG does not rule out epilepsy if there is a strong clinical suspicion.
== END | disposition home or self-care (01) ==
LOC: C.NEUR 10:30
PROVIDERS: ATTEND Psychiatry & Neurology Neurology
DX: R56.9 Unspecified convulsions (principal)

== ENCOUNTER 2017-02-02 21:32 | Emergency (ER) | payer OTHER ==
[~2017-02-02] VITALS: Ht 177.8 cm; Wt 94.6 kg
[~2017-02-02 21:32] MED LIST changes: -CLON0.5T3 PO; -NRN600 PO; -PRED50TA PO; -RANI150T2 PO
[2017-02-02 21:35] VITALS: TEMP 36.7; Ht 177.8 cm; Wt 94.6 kg
[2017-02-02] MEDS ORDERED: PROCHLORPERAZINE 5 MG/ML 2 ML VIAL IV STA (22:03)
[2017-02-02] MEDS ORDERED: DEXAMETHASONE SOD INJ 4 MG/ML VIAL IV STA (22:03)
[2017-02-02] MEDS ORDERED: SODIUM CHLORIDE 0.9% 1000ML 1,000 ML IV STA (22:03)
--- NOTE | 2017-02-02 23:07 | EMERGENCY ROOM VISIT NOTE ---
History First contact with patient: 21:50 Chief Complaint: HEADACHE Stated Complaint: MIGRAINE BACK PAIN History of Present Illness The patient is a 31 year old female who presents to the Emergency Room with complaints of a headache and low back pain. The patient states that she has had a migraine headache which began last night and has been gradually worsening. She's been taking ibuprofen and Tylenol without relief. She reports this is similar to previous migraines and is not the worst headache of her life. She also used Imitrex without relief. The patient states she also has pain in the right lower back which is chronic in nature. The patient has a history of seizures. She reports that she has had a "weird taste in her mouth" all day, which is sometimes an aura her seizures. She has not had a seizure today. She does report she has had increased breakthrough seizures recently. She has been following up with her neurologist regarding this. She also states she has been having allergic reactions recently, but she is not sure why. She denies any chest pain, shortness of breath, abdominal pain, nausea or vomiting. She denies any fevers/chills. She reports numbness in her lower extremities which is chronic for her, but denies any new numbness or weakness. Review of Systems A complete 10 point review of systems was reviewed with the patient with pertinent positives and negatives as per history of present illness. All else were negative. Past Medical/Surgical History Medical Problems: (1) Anxiety (2) Bronchitis (3) DDD (degenerative disc disease) (4) Depression (5) Fibromyalgia (6) Gall bladder disease (7) Gestational diabetes (8) H/o C2 vertebral fracture (9) History of - miscarriage (10) Kidney stone (11) Migraine (12) PNA (pneumonia) (13) Polycystic ovaries (14) Post-operative infection (15) Seroma (16) Spinal headache (17) Syncope (18) Vaginal delivery Surgical Problems: (1) H/O colonoscopy (2) H/O neck surgery (3) S/P cholecystectomy (4) S/p lumbar decompression/fusion (5) S/P tonsillectomy Family History Diabetes mellitus GRANDMOTHER FH: cancer MOTHER (lung, uterus) AUNT (stomach CA) FH: gallbladder disease FH: heart disease GRANDMOTHER FH: lung disease Hypertension GRANDFATHER GRANDMOTHER Kidney disease Kidney stones Seizures Stroke Thyroid disorder MOTHER Social History Smoking Status: Current Every Day Smoker Alcohol Use: none Drug Use: none Marital Status: in relationship Housing Status: lives with significant other Occupation Status: employed Current/Historical Medications Scheduled Cetirizine (Zyrtec), 10 MG PO DAILY Clonazepam (Klonopin), 0.5 MG PO BID Diphenhydramine Hcl (Benadryl Allergy), 50 MG PO UD Gabapentin (Gabapentin), 900 MG PO TID Methylphenidate (Ritalin), 30 MG PO UD Omeprazole (Prilosec), 20 MG PO DAILY Topiramate (Topamax), 200 MG PO BID Triamcinolone Acet (Aristocort 0.1%), 1 APPLN TOP BID Venlafaxine Hcl (Effexor Extended Rel), 150 MG PO DAILY Scheduled PRN Acetaminophen (Acetaminophen), 1,000 MG PO Q6H PRN for Pain Baclofen (Baclofen), 10 MG PO Q8 PRN for NECK PAIN Diclofenac Sod (Diclofenac Sodium Dr), 50 MG PO Q8 PRN for Headache or Pain Epinephrine (Epipen), 0.3 MG IM UD PRN for ALLERGIC REACTION Lactulose (Chronulac), 15 ML PO BID PRN for Constipation Ondansetron Hcl (Zofran), 8 MG PO Q8 PRN for Nausea Promethazine Hcl (Phenergan), 25 MG PO Q6H PRN for Nausea Physical Exam Vital Signs Date Time Temp Pulse Resp B/P (MAP) Pulse Ox O2 Delivery O2 Flow Rate FiO2 02/02/17 23:38 77 17 131/93 96 02/02/17 22:57 77 18 122/79 97 Room Air 02/02/17 21:35 36.7 85 16 126/83 100 Room Air Physical Exam VITALS: Vitals are noted on the nurse's note and reviewed by myself. Vital signs stable. GENERAL: This is a 31-year-old female, in no acute distress, nondiaphoretic, well-developed well-nourished. SKIN: The skin was without rashes. HEAD: Normocephalic atraumatic. EARS: External auditory canals clear, tympanic membranes pearly joiner without erythema or effusion bilaterally. EYES: Pupils equal round and reactive to light and accommodation. Conjunctivae without injection, sclerae without icterus. Extraocular movements intact. MOUTH: Mucous membranes moist. Tonsils are not enlarged. Pharynx without erythema or exudate. NECK: Supple without nuchal rigidity. No lymphadenopathy. No meningismus. HEART: Regular rate and rhythm without murmurs gallops or rubs. LUNGS: Clear to auscultation bilaterally without wheezes, rales or rhonchi. MUSCULOSKELETAL: Full range of motion in all extremities. Strength 5/5 throughout. NEURO: Patient was alert and oriented to person place and time. Normal sensation to light and sharp touch. Medical Decision & Procedures Medications Administered Medications (Trade) Dose Ordered Sig/Saundra Route Start Time Stop Time Status Last Admin Dose Admin Sodium Chloride 1,000 ml @ 999 mls/hr Q1H1M STAT IV 02/02/17 22:03 02/02/17 23:03 DC 02/02/17 22:15 999 MLS/HR Prochlorperazine Edisylate (Compazine Inj) 10 mg NOW STAT IV 02/02/17 22:03 02/02/17 22:05 DC 02/02/17 22:15 10 MG Dexamethasone Sodium Phosphate (Decadron Inj) 10 mg NOW STAT IV 02/02/17 22:03 02/02/17 22:05 DC 02/02/17 22:15 10 MG ED Course The patient was evaluated as above. Labs were drawn and IV access was obtained. Patient was medicated with 1 L normal saline solution, 10 mg Decadron and 10 mg Compazine. Patient was reevaluated and was feeling much better. She is ready for discharge. Discharge instructions were reviewed with the patient. The patient verbalized understanding of my assessment and treatment plan and was discharged home in good condition. Medical Decision The differential diagnosis includes acute intracranial bleed, meningitis, encephalitis, mass or mass effect, sinusitis, infection, tumor, headache, temporal arteritis and carbon monoxide exposure, and migraine. The patient is a 31-year-old female who presents today complaining of headache and chronic low back pain. The patient reports her headache is consistent with her typical migraines. Her neuro exam is unremarkable. She was medicated with Compazine, Decadron and fluids with relief. The patient is being followed closely by her neurologist and PCP. She was instructed to follow-up with them. Based on the patient's presentation and work up, I feel the patient is stable for outpatient treatment. The patient was educated to return to the emergency department for any worsening of their current condition or new/concerning symptoms. She will follow up with her PCP. Medication Reconcilliation Current Medication List: was personally reviewed by me Blood Pressure Screening Patient's blood pressure: Normal blood pressure Impression Primary Impression: Headache Departure Information Dispostion Home / Self-Care Condition GOOD Referrals Kieran Hemphill M.D. (PCP) Patient Instructions [facility] Additional Instructions You have been treated in the Emergency Department for a Headache. You have received pain medicine in the emergency department which impairs your ability to operate a vehicle. You should not drive after receiving these medicines. For pain control, you can use the following ryxp-dnb-utdzntu medicines (if >12 yo): - Regular strength (325mg/tab) Tylenol (acetaminophen) 2 tabs every 4-6 hours as needed. Do not exceed 12 tablets in a 24 hour period. Avoid taking more than 4 grams (4000 mg) of Tylenol per day. This includes any other sources of acetaminophen you may take on a regular basis. - Regular strength (200 mg/tab) Advil (ibuprofen) 1-2 tabs every 4-6 hours as needed. Do not exceed a dose of 3200 mg per day. You should relax in a quiet, dark place for the rest of the day. Avoid any possible triggers including: cigarette smoke, caffeine, nicotine, chocolate, wine, beer, loud noises or music, or bright lights. You should schedule a follow-up appointment in 2-3 days with your Primary Care Provider or established Neurologist for further evaluation and treatment of your Headache. Return to the Emergency Department if your current symptoms worsen despite treatment course outlined above, or if you develop any of the following symptoms : intractable pain despite aforementioned treatment course, visual disturbances , loss of vision, unilateral weakness or facial drooping, slurring of speech, loss of coordination, or loss of consciousness. Problem Qualifiers Primary Impression: Headache Headache type: unspecified Headache chronicity pattern: acute headache Intractability: not intractable Qualified Codes: R51 - Headache
[2017-02-02 23:38] VITALS: BP 131/93; PULSE 77; O2SAT 96
== END 2017-02-02 23:38 | disposition home or self-care (01) ==
LOC: C.EDB 21:33
DX: R51 Headache (principal); F41.9 Anxiety disorder, unspecified; F32.9 Major depressive disorder, single episode, unspecified; M79.7 Fibromyalgia; Z83.3 Family history of diabetes mellitus; Z82.49 Family history of ischemic heart disease and other diseases of the circulatory system; Z82.0 Family history of epilepsy and other diseases of the nervous system; Z82.3 Family history of stroke; F17.200 Nicotine dependence, unspecified, uncomplicated

== ENCOUNTER 2017-03-01 20:16 | Emergency (ER) | payer OTHER ==
[~2017-03-01] VITALS: Ht 157.5 cm; Wt 92.6 kg
[~2017-03-01 20:16] MED LIST changes: -BUTA-240 PO
[2017-03-01 20:24] VITALS: TEMP 36.4; Ht 157.5 cm; Wt 92.6 kg
[2017-03-01 20:30] VITALS: O2SAT 100
[2017-03-01] MEDS ORDERED: FAMOTIDINE IV INJ 20 MG in DEXTROSE 5% 100ML 100 ML IV STA (20:49)
[2017-03-01] MEDS ORDERED: SODIUM CHLORIDE 0.9% 1000ML 1,000 ML IV STA (20:49)
[2017-03-01] MEDS ORDERED: METHYLPREDNISOLONE 125 MG VIAL IV STA (20:49)
[2017-03-01] MEDS ORDERED: DiphenhydrAMINE HCL 50 MG/ML VIAL IV STA (20:49)
[2017-03-01] MEDS ORDERED: FAMOTIDINE 20MG/102 ML D5W ONE (20:54)
[2017-03-01] MEDS ORDERED: EPINEPHRINE ADULT AUTO-INJECT 0.3 MG SYR IM STA (21:07)
[2017-03-01] MEDS ORDERED: PRED50TA PO (22:20)
[2017-03-01] MEDS ORDERED: EPP3/2 IM (22:20)
--- NOTE | 2017-03-01 22:20 | EMERGENCY ROOM VISIT NOTE ---
History Report prepared by Matthieuibdesire: Terry Tomlinson Under the Supervision of: Dr. Bennett Yeager M.D. First contact with patient: 20:46 Chief Complaint: ALLERGIC REACTION Stated Complaint: TROUBLE BREATHING,ALLERGIC REACTION,HIVES History of Present Illness The patient is a 31 year old white female with a past medical history of chronic back pain who presents to the ED with a cc of an improving generalized allergic reaction beginning shortly prior to arrival. Was given Diclofenac while at work for her back pain today. Symptoms include SOB, hives and itchiness. Took Benadryl and used an EpiPen which have improved her symptoms. Patient has a history of anaphylactic reactions in the past. Notes that she recently had walking pneumonia and bilateral ear infections. History of self catheterization. Source of History: patient Onset: shortly prior to arrival Position: other (generalized) Quality: other (allergic reaction) Timing: other (improving) Modifying Factors (Relieving): other (Benadryl and EpiPen) Associated Symptoms: + SOB Note: Symptoms include: itchiness and hives. Review of Systems See HPI for pertinent positives and negatives. A total of ten systems were reviewed and were otherwise negative. Past Medical & Surgical Medical Problems: (1) Anxiety (2) Bronchitis (3) DDD (degenerative disc disease) (4) Depression (5) Fibromyalgia (6) Gall bladder disease (7) Gestational diabetes (8) H/o C2 vertebral fracture (9) History of - miscarriage (10) Kidney stone (11) Migraine (12) PNA (pneumonia) (13) Polycystic ovaries (14) Post-operative infection (15) Seroma (16) Spinal headache (17) Syncope (18) Vaginal delivery Surgical Problems: (1) H/O colonoscopy (2) H/O neck surgery (3) S/P cholecystectomy (4) S/p lumbar decompression/fusion (5) S/P tonsillectomy Family History Diabetes mellitus GRANDMOTHER FH: cancer MOTHER (lung, uterus) AUNT (stomach CA) FH: gallbladder disease FH: heart disease GRANDMOTHER FH: lung disease Hypertension GRANDFATHER GRANDMOTHER Kidney disease Kidney stones Seizures Stroke Thyroid disorder MOTHER Social History Smoking Status: Current Every Day Smoker Alcohol Use: none Drug Use: none Marital Status: in relationship Housing Status: lives with significant other Occupation Status: employed Current/Historical Medications Scheduled Cetirizine (Zyrtec), 10 MG PO DAILY Clonazepam (Klonopin), 0.5 MG PO BID Diphenhydramine Hcl (Benadryl Allergy), 50 MG PO UD Epinephrine (Epipen), 0.3 MG IM UD Gabapentin (Gabapentin), 900 MG PO TID Methylphenidate (Ritalin), 30 MG PO UD Omeprazole (Prilosec), 20 MG PO DAILY Prednisone (Prednisone), 50 MG PO DAILY Topiramate (Topamax), 200 MG PO BID Triamcinolone Acet (Aristocort 0.1%), 1 APPLN TOP BID Venlafaxine Hcl (Effexor Extended Rel), 150 MG PO DAILY Scheduled PRN Acetaminophen (Acetaminophen), 1,000 MG PO Q6H PRN for Pain Baclofen (Baclofen), 10 MG PO Q8 PRN for NECK PAIN Diclofenac Sod (Diclofenac Sodium Dr), 50 MG PO Q8 PRN for Headache or Pain Epinephrine (Epipen), 0.3 MG IM UD PRN for ALLERGIC REACTION Lactulose (Chronulac), 15 ML PO BID PRN for Constipation Ondansetron Hcl (Zofran), 8 MG PO Q8 PRN for Nausea Promethazine Hcl (Phenergan), 25 MG PO Q6H PRN for Nausea Allergies Coded Allergies: Amoxicillin (Verified Allergy, Severe, HIVES AND SOB, 03/01/17) BEE STING (Verified Allergy, Severe, SWELLING, 03/01/17) Adhesives (Verified Allergy, Mild, contact dermatitis, 03/01/17) Propranolol (Verified Allergy, Mild, MOUTH SORE, RASH, 03/01/17) Diclofenac (Unverified Allergy, Unknown, HIVES/SOB, 03/01/17) Morphine (Verified Adverse Reaction, Intermediate, pt reports moderate to severe stomach discomfort, 03/01/17) pt states she requires a "GI cocktail" to alleviate the stomach discomfort that occurs after receiving Morphine or dilaudid Physical Exam Vital Signs Date Time Temp Pulse Resp B/P (MAP) Pulse Ox O2 Delivery O2 Flow Rate FiO2 03/01/17 22:31 88 16 124/76 98 03/01/17 22:06 97 16 121/66 98 Room Air 03/01/17 20:48 102 03/01/17 20:30 100 Room Air 03/01/17 20:24 Room Air 98 03/01/17 20:24 36.4 148 24 131/85 100 Room Air Physical Exam GENERAL: Awake, alert, well-appearing, NAD HENT: Normocephalic, atraumatic. EYES: Normal conjunctiva. Sclera non-icteric. NECK: Supple. No nuchal rigidity. FROM. RESPIRATORY: CTAB, no rhonchi, wheezing, crackles CARDIAC: Tachycardic rate, regular rhythm, no MRG ABDOMEN: Soft, NTND, BS+ MSK: No chest wall TTP, no LE edema NEURO: GCS 15, CN 2-12 intact, moves all 4s on command SKIN: No rash or jaundice noted. Medical Decision & Procedures Medications Administered Medications (Trade) Dose Ordered Sig/Saundra Route Start Time Stop Time Status Last Admin Dose Admin Methylprednisolone Sodium Succinate (Solu-Medrol IV) 125 mg NOW STAT IV 03/01/17 20:49 03/01/17 20:51 DC 03/01/17 20:59 125 MG Diphenhydramine HCl (Benadryl Inj) 50 mg NOW STAT IV 03/01/17 20:49 03/01/17 20:51 DC 03/01/17 20:59 50 MG Sodium Chloride 1,000 ml @ 999 mls/hr Q1H1M STAT IV 03/01/17 20:49 03/01/17 21:49 DC 03/01/17 20:59 999 MLS/HR Famotidine (Pepcid 20mg/100 ml) 20 mg STK-MED ONCE .ROUTE 03/01/17 20:54 03/01/17 20:55 DC 03/01/17 20:58 20 MG Epinephrine (Epipen) 0.3 mg NOW STAT IM 03/01/17 21:07 03/01/17 21:09 DC 03/01/17 21:07 0.3 MG ED Course 2102: The patient was evaluated in room C2B. A complete history and physical exam was performed. 5: I reevaluated the patient. Discussed results and discharge instructions: she verbalized understanding and agreement. The patient is ready for discharge. Medical Decision The patient is a 31 year old white female with a past medical history of chronic back pain who presents to the ED with a cc of an improving generalized allergic reaction beginning shortly prior to arrival. Differential diagnosis: Etiologies such as allergic reaction, anaphylaxis, urticaria, Sanchez-Chito syndrome, toxic epidermal necrolysis, erythema multiforme, cellulitis, as well as others were entertained.current condition. Patient was seen and evaluated at the bedside. Patient does have a known history of prior medication reactions. Patient was given some diclofenac for her chronic low back pain and patient noted that she had severe itchiness and urticaria. Patient did self administer an EpiPen and did take some Benadryl prior to arrival. Upon reassessment patient had clear oropharynx, no stridor, clear to auscultation bilaterally in the lung leiva. Patient's urticaria had much improved and her itchiness had resolved. Patient was given steroids additional Benadryl and an H2 donavon. Patient was reassessed approximately one to 2 hours later patient was still feeling well. Patient was able tolerate by mouth. Patient does not complain of any shortness of breath, chest pain, throat swelling, nausea, vomiting, or diarrhea. Patient also felt as though her patient has had resolved resolved. Upon reassessment patient did not have any oropharyngeal swelling, stridor, or wheezing. Patient was given strict follow-up, discharge, and return precautions. Patient was also given an EpiPen here as well as an EpiPen for home. Patient discharged home. Impression Primary Impression: Allergic reaction Scribe Attestation The scribe's documentation has been prepared under my direction and personally reviewed by me in its entirety. I confirm that the note above accurately reflects all work, treatment, procedures, and medical decision making performed by me. Departure Information Dispostion Home / Self-Care Prescriptions Epinephrine (EPIPEN) 0.3 Mg/0.3 Ml Inj 0.3 MG IM UD, #2 UNIT Prov: Bennett Yeager M.D. 03/01/17 Prednisone (PREDNISONE) 50 Mg Tab 50 MG PO DAILY for 4 Days, TAB Prov: Bennett Yeager M.D. 03/01/17 Referrals Kieran Hemphill M.D. (PCP) Patient Instructions ED Allergic Reaction Local Other, My [facility] Additional Instructions Please return to the emergency department if you have worsening or recurrent symptoms not amenable to at-home treatment. Please call for a follow-up appointment with her primary care physician. Please take your medications as prescribed. If you have other concerns and/or complaints please feel free to also call your primary care physician's office or return the ED for further evaluation, management, and treatment. You have been examined and treated today on an emergency basis only. This is not a substitute for, or an effort to provide, complete comprehensive medical care. It is impossible to recognize and treat all injuries or illnesses in a single emergency department visit. It is therefore important that you follow up closely with [facility]. Call as soon as possible for an appointment. Thank you for your time and consideration. I look forward to speaking with you again soon. Please don't hesitate to call us if you have any questions. Work Instructions Return To Work: 1 day Problem Qualifiers Primary Impression: Allergic reaction Encounter type: initial encounter Qualified Codes: T78.40XA - Allergy, unspecified, initial encounter
[2017-03-01 22:31] VITALS: BP 124/76; PULSE 88; O2SAT 98
== END 2017-03-01 22:31 | disposition home or self-care (01) ==
LOC: C.EDB 20:17 → C.EDC 22:31
DX: T78.40XA Allergy, unspecified, initial encounter (principal); X58.XXXA Exposure to other specified factors, initial encounter; M54.9 Dorsalgia, unspecified; G89.29 Other chronic pain; Z87.01 Personal history of pneumonia (recurrent); F41.9 Anxiety disorder, unspecified; F32.9 Major depressive disorder, single episode, unspecified; M79.7 Fibromyalgia; Z87.442 Personal history of urinary calculi; G43.909 Migraine, unspecified, not intractable, without status migrainosus; Z83.3 Family history of diabetes mellitus; Z80.9 Family history of malignant neoplasm, unspecified; Z82.49 Family history of ischemic heart disease and other diseases of the circulatory system; Z83.6 Family history of other diseases of the respiratory system; Z84.1 Family history of disorders of kidney and ureter; F17.210 Nicotine dependence, cigarettes, uncomplicated; Z79.899 Other long term (current) drug therapy

== ENCOUNTER 2017-03-08 01:42 | Emergency (ER) | payer OTHER ==
[~2017-03-08] VITALS: Ht 157.5 cm; Wt 92.1 kg
[2017-03-08 01:51] VITALS: TEMP 36.6; Ht 157.5 cm; Wt 92.1 kg
[2017-03-08] MEDS ORDERED: CLON0.5T3 PO (02:00)
[2017-03-08] MEDS ORDERED: NRN600 PO (02:03)
[2017-03-08] MEDS ORDERED: RANI150T2 PO (02:04)
[2017-03-08] MEDS ORDERED: PROCHLORPERAZINE 5 MG/ML 2 ML VIAL IV STA (02:09)
[2017-03-08] MEDS ORDERED: SODIUM CHLORIDE 0.9% 500ML 500 ML IV STA (02:10)
[2017-03-08] MEDS ORDERED: DEXAMETHASONE SOD INJ 10 MG/ML VIAL IV ONE (02:15)
--- NOTE | 2017-03-08 02:19 | EMERGENCY ROOM VISIT NOTE ---
History Report prepared by Vaughn: Eric Cowan Under the Supervision of: Dr. Padma Andrade D.O. First contact with patient: 01:59 Chief Complaint: BACK PAIN Stated Complaint: BACK PAIN History of Present Illness The patient is a 31 year old female who presents to the Emergency Room with complaints of worsening and severe pain in her lower back and legs. The pain began to worsen three days ago. The patient has a significant history of back issues including multiple bulging disks and pinched nerves in her cervical and lumbar spine, as well as a history of spinal surgeries. Her back surgery was secondary to a spinal fractures. She states that she can usually relieve her pain with her Muscle relaxers or Ibuprofen. These medications have not improved her condition tonight. She is also experiencing "burning" radiating down her legs into her feet with the right being worse than left. The pain in her feet is worsened with standing or applying weight. The patient has had EMG in the past to evaluate her lower extremities. She describes it as being abnormal. She is also complaining of some nausea at this time. She was taking tramadol for her pain, but this was discontinued due to some recent seizure episodes. Source of History: patient Position: back Symptom Intensity: severe Timing: worsening Associated Symptoms: + nausea Note: Leg "burning." Review of Systems See HPI for pertinent positives & negatives. A total of 10 systems reviewed and were otherwise negative. Past Medical & Surgical Medical Problems: (1) Anxiety (2) Bronchitis (3) DDD (degenerative disc disease) (4) Depression (5) Fibromyalgia (6) Gall bladder disease (7) Gestational diabetes (8) H/o C2 vertebral fracture (9) History of - miscarriage (10) Kidney stone (11) Migraine (12) PNA (pneumonia) (13) Polycystic ovaries (14) Post-operative infection (15) Seroma (16) Spinal headache (17) Syncope (18) Vaginal delivery Surgical Problems: (1) H/O colonoscopy (2) H/O neck surgery (3) S/P cholecystectomy (4) S/p lumbar decompression/fusion (5) S/P tonsillectomy Family History Diabetes mellitus GRANDMOTHER FH: cancer MOTHER (lung, uterus) AUNT (stomach CA) FH: gallbladder disease FH: heart disease GRANDMOTHER FH: lung disease Hypertension GRANDFATHER GRANDMOTHER Kidney disease Kidney stones Seizures Stroke Thyroid disorder MOTHER Social History Smoking Status: Current Every Day Smoker Alcohol Use: none Drug Use: none Marital Status: in relationship Housing Status: lives with significant other Occupation Status: employed Current/Historical Medications Scheduled Cetirizine (Zyrtec), 10 MG PO DAILY Clonazepam (Klonopin), 0.5 MG PO BID Diphenhydramine Hcl (Benadryl Allergy), 50 MG PO UD Gabapentin (Gabapentin), 900 MG PO TID Methylphenidate (Ritalin), 30 MG PO UD Omeprazole (Prilosec), 20 MG PO DAILY Ranitidine HCl (Ranitidine HCl), 150 MG PO BID Topiramate (Topamax), 200 MG PO BID Venlafaxine Hcl (Effexor Extended Rel), 150 MG PO DAILY Scheduled PRN Acetaminophen (Acetaminophen), 1,000 MG PO Q6H PRN for Pain Baclofen (Baclofen), 10 MG PO Q8 PRN for NECK PAIN Diclofenac Sod (Diclofenac Sodium Dr), 50 MG PO Q8 PRN for Headache or Pain Epinephrine (Epipen), 0.3 MG IM UD PRN for ALLERGIC REACTION Lactulose (Chronulac), 15 ML PO BID PRN for Constipation Ondansetron Hcl (Zofran), 8 MG PO Q8 PRN for Nausea Promethazine Hcl (Phenergan), 25 MG PO Q6H PRN for Nausea Allergies Coded Allergies: Amoxicillin (Verified Allergy, Severe, HIVES AND SOB, 03/08/17) BEE STING (Verified Allergy, Severe, SWELLING, 03/08/17) Adhesives (Verified Allergy, Mild, contact dermatitis, 03/08/17) Propranolol (Verified Allergy, Mild, MOUTH SORE, RASH, 03/08/17) Diclofenac (Unverified Allergy, Unknown, HIVES/SOB, 03/08/17) Morphine (Verified Adverse Reaction, Intermediate, pt reports moderate to severe stomach discomfort, 03/08/17) pt states she requires a "GI cocktail" to alleviate the stomach discomfort that occurs after receiving Morphine or dilaudid Physical Exam Vital Signs Date Time Temp Pulse Resp B/P (MAP) Pulse Ox O2 Delivery O2 Flow Rate FiO2 03/08/17 03:24 122/69 03/08/17 03:20 76 94 03/08/17 03:05 77 96 03/08/17 03:00 108/67 03/08/17 02:57 82 97 03/08/17 02:42 88 20 98 Room Air 03/08/17 02:40 115/61 03/08/17 01:51 36.6 84 18 133/83 99 Room Air Physical Exam HEENT: Head - normocephalic and atraumatic Pupils are equal, round, and reactive to light. Extraocular eye muscles are intact, and sclera are anicteric. Nose - moist nasal mucosa without discharge. Mouth - moist buccal mucosa. Oropharynx is nonerythematous and there is no tonsillar exudate or edema noted. Neck: Supple; no JVD, nuchal rigidity, cervical lymphadenopathy. Heart: Regular rate and rhythm. There is a normal S1 and S2 with no murmurs, clicks, or gallops appreciated. Lungs: Clear to auscultation bilaterally with no wheezes, rales, or rhonchi. Abdomen: Soft, completely nontender, nondistended, with good bowel sounds. There are no palpable pulsatile masses or hepatosplenomegaly. There is no guarding, rigidity, or rebound noted. Extremities: No evidence of cyanosis, clubbing, or edema. There are easily palpable peripheral pulses. Skin: warm and dry with good turgor and no rashes. Neuro: The patient has normal pedal push and pull, normal sensation in the feet. Her lower extremity muscle strength is 4/5 bilaterally. Medical Decision & Procedures Medications Administered Medications (Trade) Dose Ordered Sig/Saundra Route Start Time Stop Time Status Last Admin Dose Admin Dexamethasone Sodium Phosphate (Decadron Inj) 10 mg NOW ONCE IV 03/08/17 02:15 03/08/17 02:16 DC 03/08/17 02:32 10 MG Prochlorperazine Edisylate (Compazine Inj) 10 mg NOW STAT IV 03/08/17 02:09 03/08/17 02:11 DC 03/08/17 02:33 10 MG Sodium Chloride 500 ml @ 999 mls/hr Q31M STAT IV 03/08/17 02:10 03/08/17 02:40 DC 03/08/17 02:31 999 MLS/HR Procedure Medications Ordered: Compazine, Sodium Chloride, Decadron ED Course 0201: Past medical records reviewed. The patient was evaluated in room B9. A complete history and physical exam was performed. 0209: Ordered Compazine INJ 10 mg IV, Sodium Chloride 500 mL @ 999 mL/hr IV. 0215: Ordered Decadron 10 mg IV. 0322:: Upon reevaluation, the patient is asleep in bed. Her boyfriend states that she was feeling much improved. I reminded the boyfriend that the patient will need to have close follow-up with her spinal surgeon as well as her neurologist. Because she had an allergic reaction to the recently prescribed diclofenac, she will need to follow-up with her PCP about pain management. Medical Decision The patient is a 31 year old female who presents to the Emergency Department for back pain. Differential Diagnosis includes; Lumbar radiculopathy, lumbar disc herniation, acute exacerbation of chronic lower back pain. The patient has a chronic history of low back pain with previous spinal surgeries. She is currently followed by Dr. Franco from urology who recently performed EMGs. I have encouraged close follow-up with her. They should let her know that the discomfort in her lower extremities has worsened over the past 3 days. They were told to return to the emergency department if the pain became unbearable or she developed lower extremity weakness. Medication Reconcilliation Current Medication List: was personally reviewed by me Blood Pressure Screening Patient's blood pressure: Normal blood pressure Impression Primary Impression: Lower extremity pain, bilateral Additional Impression: Low back pain Scribe Attestation The scribe's documentation has been prepared under my direction and personally reviewed by me in its entirety. I confirm that the note above accurately reflects all work, treatment, procedures, and medical decision making performed by me. Departure Information Dispostion Home / Self-Care Referrals Kieran Hemphill M.D. (PCP) Forms HOME CARE DOCUMENTATION FORM, IMPORTANT VISIT INFORMATION Patient Instructions [facility] Additional Instructions Rest. continue home meds as directed. Contact Dr. Garrett this week about increassed pain in your legs. Follow up with Dr. Franco about increased burning in your legs and feet. Problem Qualifiers Additional Impression: Low back pain Chronicity: chronic Back pain laterality: bilateral Sciatica presence: with sciatica Sciatica laterality: bilateral sciatica Qualified Codes: M54.42 - Lumbago with sciatica, left side; M54.41 - Lumbago with sciatica, right side; G89.29 - Other chronic pain
[2017-03-08 03:20] VITALS: PULSE 76; O2SAT 94
[2017-03-08 03:24] VITALS: BP 122/69
== END 2017-03-08 03:27 | disposition home or self-care (01) ==
LOC: C.EDB 01:43
DX: M54.42 Lumbago with sciatica, left side (principal); M54.41 Lumbago with sciatica, right side; G89.29 Other chronic pain; F41.9 Anxiety disorder, unspecified; F32.9 Major depressive disorder, single episode, unspecified; M79.7 Fibromyalgia; Z87.442 Personal history of urinary calculi; Z87.01 Personal history of pneumonia (recurrent); Z90.49 Acquired absence of other specified parts of digestive tract; Z98.1 Arthrodesis status; Z83.3 Family history of diabetes mellitus; Z80.1 Family history of malignant neoplasm of trachea, bronchus and lung; Z80.49 Family history of malignant neoplasm of other genital organs; Z80.0 Family history of malignant neoplasm of digestive organs; Z83.49 Family history of other endocrine, nutritional and metabolic diseases; Z84.1 Family history of disorders of kidney and ureter; Z82.49 Family history of ischemic heart disease and other diseases of the circulatory system; Z82.3 Family history of stroke; F17.210 Nicotine dependence, cigarettes, uncomplicated; Z79.899 Other long term (current) drug therapy

== ENCOUNTER 2017-05-21 18:41 | Emergency (ER) | payer OTHER ==
[~2017-05-21] VITALS: Ht 177.8 cm; Wt 90.0 kg
[~2017-05-21 18:41] MED LIST changes: -ACET500T57 PO; +ACET500T58 PO; +CLON0.5T3 PO; -CLON1TAB3 PO; -DIPH1TAB PO; +DIPH1TAB87 PO; -NRN300 PO; +NRN600 PO; +RANI150T2 PO; -TRMCR130WC TOP
[2017-05-21 18:45] VITALS: TEMP 36.5; O2SAT 96
[2017-05-21] MEDS ORDERED: ONDANSETRON INJ 2 MG/ML 2 ML VIAL IV STA ×2 (18:59→20:39)
[2017-05-21] MEDS ORDERED: SODIUM CHLORIDE 0.9% 1000ML 1,000 ML IV STA (18:59)
[2017-05-21] MEDS ORDERED: ACETAMINOPHEN 500 MG TAB PO STA (18:59)
[2017-05-21] MEDS ORDERED: ESCI1TAB10 PO (19:03)
[2017-05-21] MEDS ORDERED: VENL75TA4 PO (19:03)
[2017-05-21 19:14] VITALS: Ht 177.8 cm; Wt 90.0 kg
[2017-05-21 19:27] LABS: BASO % 0.4 %; BASO ABS # 0.02 K/uL (0-0.2); COMPLETE YES; EOS % 2.5 %; HEMATOCRIT 39.2 % (37-47); IG% 0.2 %; LYMPH % 36.9 %; LYMPH ABS # 2.05 K/uL (1.2-3.4); MEAN CELL VOLUME 88.7 fL (80-100); MEAN CORPUSCULAR HEMOGLOBIN 31.2 pg (25-34); MEAN CORPUSCULAR HGB CONC 35.2 g/dl (32-36); MEAN PLATELET VOLUME 10.9 fL (7.4-10.4); MONO % 9.7 %; NEUT % 50.3 %; PLATELET COUNT 183 K/uL (130-400); RED BLOOD COUNT 4.42 M/uL (4.2-5.4); WHITE BLOOD COUNT 5.56 K/uL (4.8-10.8)
[2017-05-21 19:40] LABS: PROTHROMBIN TIME (PATIENT) 10.3 SECONDS (9.0-12.0)
[2017-05-21 19:46] LABS: CALCIUM 8.8 mg/dl (8.5-10.1); CREATININE 0.96 mg/dl (0.60-1.20); POTASSIUM 3.5 mmol/L (3.5-5.1)
[2017-05-21 19:48] LABS: ALB/GLOB RATIO 1.2 (0.9-2); PREG INTERNAL NEGATIVE QC NEG CLEAR BACKGROUND; PREG INTERNAL POSITIVE QC POS CONTROL LINE
--- NOTE | 2017-05-21 20:24 | DIAGNOSTIC IMAGING REPORT ---
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 TECHNIQUE: Real-time grayscale and color and spectral Doppler ultrasound imaging of the pelvis was performed first using a transabdominal probe and subsequently transvaginal for better characterization. COMPARISON: 03/09/[address] from 09/29/2016. FINDINGS: Uterus: Normal. Anteverted. The uterus measures 8.8 x 4.7 x 5.8 cm. Endometrial stripe measures 8 mm in thickness. Endometrium normal-appearing. Cervix normal. Right adnexa: Right ovary contains a 2.8 cm well-defined hypoechoic lesion with lacelike internal echoes most consistent with a hemorrhagic cyst. Right ovary measures 4.7 x 3.0 x 4.3 cm. Normal color Doppler flow and arterial and venous waveforms within the ovarian parenchyma. Left adnexa: Left ovary normal. Left ovary measures 3.8 x 2.3 x 2.5 cm. Normal color Doppler flow and arterial and venous waveforms within the ovarian parenchyma. Other: No free fluid. IMPRESSION: Right ovarian hemorrhagic cyst. Otherwise normal pelvic ultrasound. No ovarian torsion. No endometrial abnormality. Electronically signed by: Abraham Green M.D. 05/21/2017 8:22 PM Dictated Date/Time: 05/21/2017 8:19 PM
--- NOTE | 2017-05-21 20:24 | DIAGNOSTIC IMAGING REPORT ---
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 TECHNIQUE: Real-time grayscale and color and spectral Doppler ultrasound imaging of the pelvis was performed first using a transabdominal probe and subsequently transvaginal for better characterization. COMPARISON: 03/09/[address] from 09/29/2016. FINDINGS: Uterus: Normal. Anteverted. The uterus measures 8.8 x 4.7 x 5.8 cm. Endometrial stripe measures 8 mm in thickness. Endometrium normal-appearing. Cervix normal. Right adnexa: Right ovary contains a 2.8 cm well-defined hypoechoic lesion with lacelike internal echoes most consistent with a hemorrhagic cyst. Right ovary measures 4.7 x 3.0 x 4.3 cm. Normal color Doppler flow and arterial and venous waveforms within the ovarian parenchyma. Left adnexa: Left ovary normal. Left ovary measures 3.8 x 2.3 x 2.5 cm. Normal color Doppler flow and arterial and venous waveforms within the ovarian parenchyma. Other: No free fluid. IMPRESSION: Right ovarian hemorrhagic cyst. Otherwise normal pelvic ultrasound. No ovarian torsion. No endometrial abnormality. Electronically signed by: Abraham Green M.D. 05/21/2017 8:22 PM Dictated Date/Time: 05/21/2017 8:19 PM
[2017-05-21] MEDS ORDERED: HYDROmorphone INJ 0.5 MG/0.5 ML SYR IV STA (20:39)
[2017-05-21 20:52] VITALS: BP 119/65; PULSE 74
--- NOTE | 2017-05-21 22:51 | EMERGENCY ROOM VISIT NOTE ---
History Report prepared by Matthieuibdesire: David Armando Under the Supervision of: Dr. Eliseo Conley D.O. First contact with patient: 18:50 Chief Complaint: ABDOMINAL PAIN Stated Complaint: ABD PAIN-BLOOD CLOTS History of Present Illness The patient is a 31 year old female who presents to the Emergency Room with complaints of intermittent vaginal bleeding that began this morning. She rates her pain as a 10/10 in severity. The patient states that her period was 12 days late, which caused her to take a test 4 days ago. She states that her test was positive. The patient reports that she took a test this morning, which was negative. She states that she noticed she started to experience abdominal cramping that is similar to her normal menstruation cramping. The patient states that she noticed light pink blood an hour later coming from her vaginal area. She states that she went to work today and noticed that her cramping worsened. The patient states that at that point her pain felt as if she was going into labor. She states that she went to the bathroom and noticed clots "the size of my hand" from her vaginal area. The patient states that she also vomited 4 times today. She reports that she has not had a bowel movement since two weeks, which is baseline. The patient states that she has a catheter due to a back surgery a while ago. She reports that her last catheter use was 45 minutes ago. The patient also states that she feels as if she needs to urinate frequently. The patient admits that she has been 4 times and had a miscarriage once. She denies fevers, chest pain, shortness of breath, and diarrhea. Source of History: patient Onset: this morning Position: other (vaginal) Symptom Intensity: 10/10 Quality: other (bleeding) Timing: intermittent Associated Symptoms: + nausea, + vomiting, + abdominal pain, No fevers, No chest pain, No SOB, No diarrhea Review of Systems See HPI for pertinent positives & negatives. A total of 10 systems reviewed and were otherwise negative. Past Medical & Surgical Medical Problems: (1) Anxiety (2) Bronchitis (3) DDD (degenerative disc disease) (4) Depression (5) Fibromyalgia (6) Gall bladder disease (7) Gestational diabetes (8) H/o C2 vertebral fracture (9) History of - miscarriage (10) Kidney stone (11) Migraine (12) PNA (pneumonia) (13) Polycystic ovaries (14) Post-operative infection (15) Seroma (16) Spinal headache (17) Syncope (18) Vaginal delivery Surgical Problems: (1) H/O colonoscopy (2) H/O neck surgery (3) S/P cholecystectomy (4) S/p lumbar decompression/fusion (5) S/P tonsillectomy Family History Diabetes mellitus GRANDMOTHER FH: cancer MOTHER (lung, uterus) AUNT (stomach CA) FH: gallbladder disease FH: heart disease GRANDMOTHER FH: lung disease Hypertension GRANDFATHER GRANDMOTHER Kidney disease Kidney stones Seizures Stroke Thyroid disorder MOTHER Social History Smoking Status: Current Every Day Smoker Alcohol Use: none Drug Use: none Marital Status: in relationship Housing Status: lives with significant other Occupation Status: employed Current/Historical Medications Scheduled Cetirizine (Zyrtec), 10 MG PO DAILY Clonazepam (Klonopin), 0.5 MG PO BID Diphenhydramine Hcl (Benadryl Allergy), 50 MG PO UD Escitalopram Oxalate (Lexapro), 20 MG PO DAILY Gabapentin (Gabapentin), 900 MG PO TID Methylphenidate (Ritalin), 30 MG PO UD Omeprazole (Prilosec), 20 MG PO DAILY Ranitidine HCl (Ranitidine HCl), 150 MG PO BID Topiramate (Topamax), 200 MG PO BID Venlafaxine Hcl (Effexor), 75 MG PO DAILY Scheduled PRN Acetaminophen (Acetaminophen), 1,000 MG PO Q6H PRN for Pain Baclofen (Baclofen), 10 MG PO Q8 PRN for NECK PAIN Epinephrine (Epipen), 0.3 MG IM UD PRN for ALLERGIC REACTION Lactulose (Chronulac), 15 ML PO BID PRN for Constipation Ondansetron Hcl (Zofran), 8 MG PO Q8 PRN for Nausea Promethazine Hcl (Phenergan), 25 MG PO Q6H PRN for Nausea Allergies Coded Allergies: Amoxicillin (Verified Allergy, Severe, HIVES AND SOB, 05/21/17) BEE STING (Verified Allergy, Severe, SWELLING, 05/21/17) Tramadol (Verified Allergy, Intermediate, seizures, 05/21/17) Adhesives (Verified Allergy, Mild, contact dermatitis, 05/21/17) Propranolol (Verified Allergy, Mild, MOUTH SORE, RASH, 05/21/17) Diclofenac (Unverified Allergy, Unknown, HIVES/SOB, 05/21/17) Morphine (Verified Adverse Reaction, Intermediate, pt reports moderate to severe stomach discomfort, 05/21/17) pt states she requires a "GI cocktail" to alleviate the stomach discomfort that occurs after receiving Morphine or dilaudid Physical Exam Vital Signs Date Time Temp Pulse Resp B/P (MAP) Pulse Ox O2 Delivery O2 Flow Rate FiO2 05/21/17 20:52 74 16 119/65 05/21/17 18:45 36.5 98 18 141/80 96 Physical Exam GENERAL: Sitting up in bed, minimal distress, non-toxic. EYE EXAM: normal conjunctiva. OROPHARYNX: no exudate, no erythema, lips, buccal mucosa, and tongue normal and mucous membranes are moist NECK: supple, no nuchal rigidity, no adenopathy, non-tender LUNGS: Clear to auscultation. Normal chest wall mechanics HEART: no murmurs, S1 normal and S2 normal ABDOMEN: abdomen soft, minimal tenderness in suprapubic region, normo-active bowel sounds, no masses, no rebound or guarding. BACK: Back is symmetrical on inspection and there is no deformity, no midline tenderness, no CVA tenderness. SKIN: no rashes and no bruising UPPER EXTREMITIES: upper extremities are grossly normal. LOWER EXTREMITIES: No pitting edema. NEURO EXAM: Normal sensorium, cranial nerves II-XII intact, normal speech, no weakness of arms, no weakness of legs. Gross sensation intact. : Normal external genitalia. Normal vaginal mucous with small amount of dark blood in vault. Cervix is closed. Medical Decision & Procedures ER Provider Diagnostic Interpretation: Radiology results as stated below per my review and the radiologist's interpretation: PELVIC COMPLETE NON OB, TRANSVAG-FEMALE PELVIS CLINICAL HISTORY: 31 years-old Female presenting with EVALUATE OB-HOME THEATER EXPERIENCE EXPERT/VAGINAL BLEEDING. TECHNIQUE: Real-time grayscale and color and spectral Doppler ultrasound imaging of the pelvis was performed first using a transabdominal probe and subsequently transvaginal for better characterization. COMPARISON: 03/09/[address] from 09/29/2016. FINDINGS: Uterus: Normal. Anteverted. The uterus measures 8.8 x 4.7 x 5.8 cm. Endometrial stripe measures 8 mm in thickness. Endometrium normal-appearing. Cervix normal. Right adnexa: Right ovary contains a 2.8 cm well-defined hypoechoic lesion with lacelike internal echoes most consistent with a hemorrhagic cyst. Right ovary measures 4.7 x 3.0 x 4.3 cm. Normal color Doppler flow and arterial and venous waveforms within the ovarian parenchyma. Left adnexa: Left ovary normal. Left ovary measures 3.8 x 2.3 x 2.5 cm. Normal color Doppler flow and arterial and venous waveforms within the ovarian parenchyma. Other: No free fluid. IMPRESSION: Right ovarian hemorrhagic cyst. Otherwise normal pelvic ultrasound. No ovarian torsion. No endometrial abnormality. Electronically signed by: Abraham Green M.D. 05/21/2017 8:22 PM Dictated Date/Time: 05/21/2017 8:19 PM PELVIC COMPLETE NON OB, TRANSVAG-FEMALE PELVIS CLINICAL HISTORY: 31 years-old Female presenting with EVALUATE OB-HOME THEATER EXPERIENCE EXPERT/VAGINAL BLEEDING. TECHNIQUE: Real-time grayscale and color and spectral Doppler ultrasound imaging of the pelvis was performed first using a transabdominal probe and subsequently transvaginal for better characterization. COMPARISON: 03/09/[address] from 09/29/2016. FINDINGS: Uterus: Normal. Anteverted. The uterus measures 8.8 x 4.7 x 5.8 cm. Endometrial stripe measures 8 mm in thickness. Endometrium normal-appearing. Cervix normal. Right adnexa: Right ovary contains a 2.8 cm well-defined hypoechoic lesion with lacelike internal echoes most consistent with a hemorrhagic cyst. Right ovary measures 4.7 x 3.0 x 4.3 cm. Normal color Doppler flow and arterial and venous waveforms within the ovarian parenchyma. Left adnexa: Left ovary normal. Left ovary measures 3.8 x 2.3 x 2.5 cm. Normal color Doppler flow and arterial and venous waveforms within the ovarian parenchyma. Other: No free fluid. IMPRESSION: Right ovarian hemorrhagic cyst. Otherwise normal pelvic ultrasound. No ovarian torsion. No endometrial abnormality. Electronically signed by: Abraham Green M.D. 05/21/2017 8:22 PM Dictated Date/Time: 05/21/2017 8:19 PM Laboratory Results 05/21/17 19:15 Red Blood Count 4.42, Mean Corpuscular Volume 88.7, Mean Corpuscular Hemoglobin 31.2, Mean Corpuscular Hemoglobin Concent 35.2, Mean Platelet Volume 10.9, Neutrophils (%) (Auto) 50.3, Lymphocytes (%) (Auto) 36.9, Monocytes (%) (Auto) 9.7, Eosinophils (%) (Auto) 2.5, Basophils (%) (Auto) 0.4, Neutrophils # (Auto) 2.80, Lymphocytes # (Auto) 2.05, Monocytes # (Auto) 0.54, Eosinophils # (Auto) 0.14, Basophils # (Auto) 0.02 05/21/17 19:15 Test 05/21/17 19:15 White Blood Count 5.56 K/uL (4.8-10.8) Red Blood Count 4.42 M/uL (4.2-5.4) Hemoglobin 13.8 g/dL (12.0-16.0) Hematocrit 39.2 % (37-47) Mean Corpuscular Volume 88.7 fL (80-100) Mean Corpuscular Hemoglobin 31.2 pg (25-34) Mean Corpuscular Hemoglobin Concent 35.2 g/dl (32-36) Platelet Count 183 K/uL (130-400) Mean Platelet Volume 10.9 fL (7.4-10.4) Neutrophils (%) (Auto) 50.3 % Lymphocytes (%) (Auto) 36.9 % Monocytes (%) (Auto) 9.7 % Eosinophils (%) (Auto) 2.5 % Basophils (%) (Auto) 0.4 % Neutrophils # (Auto) 2.80 K/uL (1.4-6.5) Lymphocytes # (Auto) 2.05 K/uL (1.2-3.4) Monocytes # (Auto) 0.54 K/uL (0.11-0.59) Eosinophils # (Auto) 0.14 K/uL (0-0.5) Basophils # (Auto) 0.02 K/uL (0-0.2) RDW Standard Deviation 40.2 fL (36.4-46.3) RDW Coefficient of Variation 12.5 % (11.5-14.5) Immature Granulocyte % (Auto) 0.2 % Immature Granulocyte # (Auto) 0.01 K/uL (0.00-0.02) Prothrombin Time 10.3 SECONDS (9.0-12.0) Prothromb Time International Ratio 1.0 (0.9-1.1) Activated Partial Thromboplast Time 25.6 SECONDS (21.0-31.0) Partial Thromboplastin Ratio 1.0 Anion Gap 5.0 mmol/L (3-11) Est Creatinine Clear Calc Drug Dose 104.3 ml/min Estimated GFR () 92.0 Estimated GFR (Non- 79.4 BUN/Creatinine Ratio 17.0 (10-20) Calcium Level 8.8 mg/dl (8.5-10.1) Total Bilirubin 0.6 mg/dl (0.2-1) Aspartate Amino Transf (AST/SGOT) 16 U/L (15-37) Alanine Aminotransferase (ALT/SGPT) 21 U/L (12-78) Alkaline Phosphatase 61 U/L (45-117) Total Protein 7.8 gm/dl (6.4-8.2) Albumin 4.2 gm/dl (3.4-5.0) Globulin 3.6 gm/dl (2.5-4.0) Albumin/Globulin Ratio 1.2 (0.9-2) Human Chorionic Gonadotropin, Qual NEG (NEG) Laboratory results per my review. Medications Administered Medications (Trade) Dose Ordered Sig/Saundra Route Start Time Stop Time Status Last Admin Dose Admin Ondansetron HCl (Zofran Inj) 4 mg NOW STAT IV 05/21/17 18:59 05/21/17 19:02 DC 05/21/17 19:26 4 MG Sodium Chloride 1,000 ml @ 999 mls/hr Q1H1M STAT IV 05/21/17 18:59 05/21/17 19:59 DC 05/21/17 18:59 999 MLS/HR Acetaminophen (Tylenol Tab) 1,000 mg NOW STAT PO 05/21/17 18:59 05/21/17 19:02 DC 05/21/17 19:26 1,000 MG Hydromorphone HCl (Dilaudid Inj) 0.5 mg NOW STAT IV 05/21/17 20:39 05/21/17 20:40 DC 05/21/17 20:52 0.5 MG Ondansetron HCl (Zofran Inj) 4 mg NOW STAT IV 05/21/17 20:39 05/21/17 20:40 DC 05/21/17 20:51 4 MG ED Course ED COURSE: Vital signs were reviewed and showed hypertensive. The patients medical record was reviewed The above diagnostic studies were performed and reviewed. ED treatments and interventions as stated above. 1850: The patient was evaluated in room C09. A complete history and physical examination was performed. 1858: Ordered Tylenol Tab 1000 mg PO, Sodium Chloride 1000 ml @ 999 mls/hr IV, Zofran Injection 4 mg IV. 2038: Ordered Zofran Injection 4 mg IV, Dilaudid Injection 0.5 mg IV. 2040: Upon reevaluation, the patient is feeling better. I discussed the findings and the treatment plan with the patient. She verbalizes agreement and understanding. The patient was discharged home. Medical Decision Differential diagnoses includes but is not limited to appendicitis, diverticulitis, small bowel obstruction, malignancy, hernia, urinary tract infection, torsion, and ectopic (if female), perforation, trauma, infectious. Patient is a 31-year-old female who presents to ER for vaginal bleeding associated with cramping. She was 12 days late on her rectal cycle. She took initial test and notes that the line was faint and she questioned if it was positive. She took an additional test which was negative. Today her abdominal exam is benign. CBC all BMP, LFTs, bilirubin was unremarkable. HCG was negative. Coags were negative. Pelvic was unremarkable. Ultrasound shows hemorrhagic cyst. I do favor cause of her symptoms are multifactorial and likely combination of dysfunctional uterine bleeding and ovarian cyst. Patient was updated bedside. She is given IV Dilaudid. She is discharged follow-up as an outpatient. Discussed with Pt concerning signs and symptoms to watch out for. Pt was instructed to follow up with their PCP and discussed with the patient their option to return to the ED at anytime for persistent or worsening symptoms. The appropriate anticipatory guidance and out-patient management, including indications for return to the emergency department, were explained at length to the patient and understood. Medication Reconcilliation Current Medication List: was personally reviewed by me Blood Pressure Screening Patient's blood pressure: Elevated blood pressure Blood pressure disposition: Elevated BP felt to be situational Impression Primary Impression: Dysfunctional uterine bleeding Additional Impression: Hemorrhagic ovarian cyst Scribe Attestation The scribe's documentation has been prepared under my direction and personally reviewed by me in its entirety. I confirm that the note above accurately reflects all work, treatment, procedures, and medical decision making performed by me. Departure Information Dispostion Home / Self-Care Referrals Kieran Hemphill M.D. (PCP) Patient Instructions Cyst Ruptured Ovarian Tx, ED Bleed Irregular Vaginal, My [facility] Additional Instructions Please follow up with your primary care doctor with in the next 24 hours. Any worsening of your symptoms, please return to the ED immediately. This includes any fevers greater than 100.4, continuing pain, increased vaginal bleeding, dizziness, worsening pain, chest pain, shortness breath, persistent nausea, vomiting, unable to eat or drink, or any other concerning signs or symptoms from your standpoint. You were given medications during this visit that will inhibit your ability to drive, operate machinery and work. Please do NOT drive, operate machinery, drink alcohol or work for the next 12hrs. Please take Motrin or Tylenol as needed for pain. Problem Qualifiers
== END 2017-05-21 21:15 | disposition home or self-care (01) ==
LOC: C.EDB 18:43 → C.EDC 21:15
DX: N93.8 Other specified abnormal uterine and vaginal bleeding (principal); N83.209 Unspecified ovarian cyst, unspecified side; F41.9 Anxiety disorder, unspecified; F32.9 Major depressive disorder, single episode, unspecified; M79.7 Fibromyalgia; Z83.3 Family history of diabetes mellitus; Z82.49 Family history of ischemic heart disease and other diseases of the circulatory system; Z82.3 Family history of stroke; Z82.0 Family history of epilepsy and other diseases of the nervous system; F17.200 Nicotine dependence, unspecified, uncomplicated

== ENCOUNTER 2017-06-15 02:55 | Inpatient (IN) | payer OTHER ==
[~2017-06-15] VITALS: Ht 157.5 cm; Wt 85.0 kg
[2017-06-15] VITALS (24 sets, daily range): BP systolic 98–132; BP diastolic 55–77; PULSE 103–131; TEMP 36.5–36.9; O2SAT 97–100; Ht 157.5 cm; Wt 85.0 kg
[~2017-06-15 02:55] MED LIST changes: +ESCI1TAB10 PO; -VENL150C56 PO; +VENL75TA4 PO; -VLT50 PO
[2017-06-15] MEDS ORDERED: NALOXONE HCL INJ 1 MG/ML 2ML SYR ONE (03:02)
[2017-06-15] MEDS ORDERED: SODIUM CHLORIDE 0.9% 1000ML 1,000 ML IV STA ×2 (03:18)
[2017-06-15 03:35] LABS: INR 0.9 (0.9-1.1)
[2017-06-15 03:39] LABS: PTT PATIENT 19.7 SECONDS (21.0-31.0)
[2017-06-15 03:59] LABS: BASO % 0.2 %; BASO ABS # 0.01 K/uL (0-0.2); EOS % 2.1 %; EOS ABS # 0.13 K/uL (0-0.5); HEMATOCRIT 40.9 % (37-47); HEMOGLOBIN 14.1 g/dL (12.0-16.0); IG# 0.01 K/uL (0.00-0.02); LYMPH % 31.3 %; LYMPH ABS # 1.96 K/uL (1.2-3.4); MEAN CELL VOLUME 89.9 fL (80-100); MEAN CORPUSCULAR HGB CONC 34.5 g/dl (32-36); MEAN PLATELET VOLUME 11.7 fL (7.4-10.4); MONO % 7.8 %; MONO ABS # 0.49 K/uL (0.11-0.59); NEUT % 58.4 %; NEUT ABS # 3.66 K/uL (1.4-6.5); PLATELET COUNT 146 K/uL (130-400); RED CELL DISTRIBUTION WIDTH CV 13.1 % (11.5-14.5); RED CELL DISTRIBUTION WIDTH SD 42.8 fL (36.4-46.3); WHITE BLOOD COUNT 6.26 K/uL (4.8-10.8)
[2017-06-15] MEDS ORDERED: METH10TA4 PO (04:07)
[2017-06-15] MEDS ORDERED: AMIT50TA3 PO (04:07)
[2017-06-15] MEDS ORDERED: ESCI5TAB PO (04:07)
[2017-06-15] MEDS ORDERED: PANT40TA PO (04:07)
[2017-06-15] MEDS ORDERED: METH-645 PO (04:07)
[2017-06-15 04:13] LABS: ALBUMIN 3.8 gm/dl (3.4-5.0); ALKALINE PHOSPHATASE 136 U/L (45-117); ALT/SGPT 327 U/L (12-78); AST/SGOT 52 U/L (15-37); BLOOD UREA NITROGEN 11 mg/dl (7-18); CALCIUM 8.8 mg/dl (8.5-10.1); CARBON DIOXIDE 26 mmol/L (21-32); CREATININE 0.79 mg/dl (0.60-1.20); GLUCOSE 124 mg/dl (70-99); POTASSIUM 3.2 mmol/L (3.5-5.1); SODIUM 138 mmol/L (136-145); TOTAL PROTEIN 7.5 gm/dl (6.4-8.2)
[2017-06-15] MEDS ORDERED: RTL20 PO (04:19)
[2017-06-15] MEDS ORDERED: NALOXONE HCL 0.4 MG/1 ML VIAL/CARP ONE (04:19)
[2017-06-15] MEDS ORDERED: NSS + 20MEQ KCL 1000ML 1,000 ML IV STA (04:51)
[2017-06-15] MEDS ORDERED: ACETAMINOPHEN 325 MG TAB PO PRN (05:30)
[2017-06-15] MEDS ORDERED: PROCHLORPERAZINE INJ 5 MG in SYRINGE 4 ML IV PRN (05:30)
--- NOTE | 2017-06-15 06:34 | DIAGNOSTIC IMAGING REPORT ---
CHEST ONE VIEW PORTABLE CLINICAL HISTORY: Overdose. COMPARISON STUDY: Chest radiograph April 12, 2017. FINDINGS: Lung volumes are diminished. This suggests a hypoventilatory study. No pneumothorax or pleural effusion is identified. There is no lobar consolidation. Interstitial prominence is noted as well as prominence of the cardiac silhouette. This is likely due to a hypoventilatory study. Cholecystectomy clips are present. IMPRESSION: Prominence of the cardiac silhouette and interstitial markings which is likely due to a hypoventilatory study. No pneumothorax. Electronically signed by: Edmar Landa M.D. 06/15/2017 6:32 AM Dictated Date/Time: 06/15/2017 6:30 AM
[2017-06-15] MEDS: POTASSIUM CHLR 10 MEQ / WTR 10 MEQ in PREMIXED WATER 100 ML IV SCH ×3 (06:56→09:40)
[2017-06-15] MEDS ORDERED: NSS + 20MEQ KCL 1000ML 1,000 ML IV ONE (07:00)
--- NOTE | 2017-06-15 07:00 | EMERGENCY ROOM VISIT NOTE ---
History Report prepared by Vaughn: Darlene Malone Under the Supervision of: Dr. Padma Andrade D.O. First contact with patient: 02:59 Chief Complaint: OVERDOSE (ACCIDENTAL) Stated Complaint: OD History of Present Illness The patient is a 31 year old female who presents to the Emergency Room with complaints of an episode of an overdose occurring prior to arrival. The patient' s purse was found to have 3 empty bottles of 89 tabs Methylphenidate 20 mg that were filled on the 06/11/2017. Per the father of her baby, he received a phone call from her tonight saying that she was going to kill herself if he didn 't come over and talk to her. He states that she has been going down a dark path , but he is not sure why. He reports that they have been fighting the last few months, but he decided to go see her tonight. He states that she said she was sorry, has made mistakes, and needs help. He states that she told him she wanted to go to rehab. He denies knowing what she takes, but states that he has heard she does cocaine, meth, and ecstasy. He reports that he called [facility] who said to call back at 8 AM because they have no beds currently. The father of the patient's baby then stated that they went out to meet a friend. He states that when they got there she got out of the car and started stumbling around. He states that she told him that she didn't feel well. He reports that that was the last thing he could understand her saying. He reports that occurring 20 minutes ago. He states that he doesn't know why since everything was going well tonight. He reports that he is scared that she is trying to get him in trouble since she can be very manipulative. He states that he is afraid this will get blamed on him. HPI and ROS are limited secondary to altered mental status, drug intoxication, and unresponsiveness. Source of History: spouse/significant other History Limited By: AMS, intoxication (drug), other (unresponsiveness) Onset: prior to arrival Position: other (global) Quality: other (global) Timing: other (episode) Review of Systems See HPI for pertinent positives & negatives. A total of 10 systems reviewed and were otherwise negative. Past Medical & Surgical Medical Problems: (1) Anxiety (2) Bronchitis (3) DDD (degenerative disc disease) (4) Depression (5) Drug overdose, intentional (6) Fibromyalgia (7) Gall bladder disease (8) Gestational diabetes (9) H/o C2 vertebral fracture (10) History of - miscarriage (11) Kidney stone (12) Migraine (13) PNA (pneumonia) (14) Polycystic ovaries (15) Post-operative infection (16) Seroma (17) Spinal headache (18) Syncope (19) Vaginal delivery Surgical Problems: (1) H/O colonoscopy (2) H/O neck surgery (3) S/P cholecystectomy (4) S/p lumbar decompression/fusion (5) S/P tonsillectomy Family History Diabetes mellitus GRANDMOTHER FH: cancer MOTHER (lung, uterus) AUNT (stomach CA) FH: gallbladder disease FH: heart disease GRANDMOTHER FH: lung disease Hypertension GRANDFATHER GRANDMOTHER Kidney disease Kidney stones Seizures Stroke Thyroid disorder MOTHER Social History Smoking Status: Current Every Day Smoker Alcohol Use: none Marital Status: in relationship Housing Status: lives alone Occupation Status: employed Current/Historical Medications Scheduled Amitriptyline Hcl (Amitriptyline Hcl), 75-100 MG PO HS Escitalopram Oxalate (Lexapro), 5 MG PO QAM Gabapentin (Gabapentin), 900 MG PO TID Methylphenidate (Ritalin), 20 MG PO DAILY AT NOON Methylphenidate (Ritalin), 10 MG PO DAILY AT NOON Methylphenidate (Ritalin), 30 MG PO DAILY AT QAM & NOON Methylphenidate HCl (Methylphenidate HCl ER), 36 MG PO QAM Pantoprazole Sodium (Protonix), 40 MG PO DAILY Ranitidine HCl (Ranitidine HCl), 150 MG PO BID Venlafaxine Hcl (Effexor), 75 MG PO QAM Scheduled PRN Epinephrine (Epipen), 0.3 MG IM UD PRN for ALLERGIC REACTION Allergies Coded Allergies: Amoxicillin (Verified Allergy, Severe, HIVES AND SOB, 06/15/17) BEE STING (Verified Allergy, Severe, SWELLING, 06/15/17) Hydromorphone (Verified Allergy, Intermediate, ABD PAIN, 06/15/17) Tramadol (Verified Allergy, Intermediate, seizures, 06/15/17) Adhesives (Verified Allergy, Mild, contact dermatitis, 06/15/17) Propranolol (Verified Allergy, Mild, MOUTH SORE, RASH, 06/15/17) Diclofenac (Verified Allergy, Unknown, HIVES/SOB, 06/15/17) Morphine (Verified Adverse Reaction, Intermediate, pt reports moderate to severe stomach discomfort, 06/15/17) pt states she requires a "GI cocktail" to alleviate the stomach discomfort that occurs after receiving Morphine or dilaudid Physical Exam Vital Signs Date Time Temp Pulse Resp B/P (MAP) Pulse Ox O2 Delivery O2 Flow Rate FiO2 06/15/17 05:20 127 16 120/66 98 Room Air 06/15/17 05:05 132 15 132/78 99 Room Air 06/15/17 04:50 129 16 132/69 100 Room Air 06/15/17 04:35 132 15 127/78 100 Room Air 06/15/17 04:16 139 16 131/78 100 Room Air 06/15/17 03:50 149 24 138/87 100 Nasal Cannula 3.0 06/15/17 03:37 132 20 111/85 100 Nasal Cannula 3.0 06/15/17 03:28 137 18 112/86 100 06/15/17 03:03 36.5 146 16 138/89 99 Room Air 3.0 06/15/17 03:02 152 Physical Exam General: Unresponsive to verbal and painful stimuli. GCS 7. HEENT: Head - normocephalic and atraumatic Pupils are equal, 2mm round, and reactive to light. Extraocular eye muscles are intact, and sclera are anicteric. Nose - moist nasal mucosa without discharge. Mouth - moist buccal mucosa. Oropharynx is nonerythematous and there is no tonsillar exudate or edema noted. Neck: Supple; no JVD, nuchal rigidity, cervical lymphadenopathy, or auscultated bruits. Heart: Tachycardic rate and regular rhythm. There is a normal S1 and S2 with no murmurs, clicks, or gallops appreciated. Lungs: Clear to auscultation bilaterally with no wheezes, rales, or rhonchi. Abdomen: Soft, completely nontender, nondistended, with good bowel sounds. There are no palpable pulsatile masses or hepatosplenomegaly. There is no guarding, rigidity, or rebound noted. Extremities: No evidence of cyanosis, clubbing, or edema. There are easily palpable peripheral pulses. No obvious track gonzales Skin: warm and dry with good turgor and no rashes. Medical Decision & Procedures ER Provider Diagnostic Interpretation: Radiology results as stated below per my review and the radiologist's interpretation: CHEST X-RAY: The results were interpreted by me. Cardiomegaly. No pulmonary infiltrates or pleural effusions. CT HEAD: Comparison 01/16/17. There is some artifact on this exam. No acute intracranial findings. There is a partially visualized metallic density seen on the lowest most image anterior to the upper cervical cord. Likely iatrogenic. Incompletely characterized. There is a screw seen in the region of the cervical spine on the emt basic film though suspect this is separate from the screw. Could be vascular stent or possibly embolization coil. Correlate clinically. Radiologist: Zeke Arenas MD Study ready at 04:18 and initial results transmitted at 04:40. Laboratory Results 06/15/17 03:04 Red Blood Count 4.55, Mean Corpuscular Volume 89.9, Mean Corpuscular Hemoglobin 31.0, Mean Corpuscular Hemoglobin Concent 34.5, Mean Platelet Volume 11.7, Neutrophils (%) (Auto) 58.4, Lymphocytes (%) (Auto) 31.3, Monocytes (%) (Auto) 7.8, Eosinophils (%) (Auto) 2.1, Basophils (%) (Auto) 0.2, Neutrophils # (Auto) 3.66, Lymphocytes # (Auto) 1.96, Monocytes # (Auto) 0.49, Eosinophils # (Auto) 0.13, Basophils # (Auto) 0.01 06/15/17 03:04 Test 06/15/17 03:03 06/15/17 03:04 06/15/17 03:20 Bedside Glucose 124 mg/dl (70-90) White Blood Count 6.26 K/uL (4.8-10.8) Red Blood Count 4.55 M/uL (4.2-5.4) Hemoglobin 14.1 g/dL (12.0-16.0) Hematocrit 40.9 % (37-47) Mean Corpuscular Volume 89.9 fL (80-100) Mean Corpuscular Hemoglobin 31.0 pg (25-34) Mean Corpuscular Hemoglobin Concent 34.5 g/dl (32-36) Platelet Count 146 K/uL (130-400) Mean Platelet Volume 11.7 fL (7.4-10.4) Neutrophils (%) (Auto) 58.4 % Lymphocytes (%) (Auto) 31.3 % Monocytes (%) (Auto) 7.8 % Eosinophils (%) (Auto) 2.1 % Basophils (%) (Auto) 0.2 % Neutrophils # (Auto) 3.66 K/uL (1.4-6.5) Lymphocytes # (Auto) 1.96 K/uL (1.2-3.4) Monocytes # (Auto) 0.49 K/uL (0.11-0.59) Eosinophils # (Auto) 0.13 K/uL (0-0.5) Basophils # (Auto) 0.01 K/uL (0-0.2) RDW Standard Deviation 42.8 fL (36.4-46.3) RDW Coefficient of Variation 13.1 % (11.5-14.5) Immature Granulocyte % (Auto) 0.2 % Immature Granulocyte # (Auto) 0.01 K/uL (0.00-0.02) Prothrombin Time 9.9 SECONDS (9.0-12.0) Prothromb Time International Ratio 0.9 (0.9-1.1) Activated Partial Thromboplast Time 19.7 SECONDS (21.0-31.0) Partial Thromboplastin Ratio 0.8 Anion Gap 7.0 mmol/L (3-11) Est Creatinine Clear Calc Drug Dose 109.1 ml/min Estimated GFR () 116.4 Estimated GFR (Non- 100.5 BUN/Creatinine Ratio 13.8 (10-20) Calcium Level 8.8 mg/dl (8.5-10.1) Magnesium Level 2.1 mg/dl (1.8-2.4) Total Bilirubin 0.3 mg/dl (0.2-1) Direct Bilirubin 0.1 mg/dl (0-0.2) Aspartate Amino Transf (AST/SGOT) 52 U/L (15-37) Alanine Aminotransferase (ALT/SGPT) 327 U/L (12-78) Alkaline Phosphatase 136 U/L (45-117) Total Creatine Kinase 59 U/L (26-192) Troponin I < 0.015 ng/ml (0-0.045) Total Protein 7.5 gm/dl (6.4-8.2) Albumin 3.8 gm/dl (3.4-5.0) Thyroid Stimulating Hormone (TSH) 0.883 uIu/ml (0.300-4.500) Salicylates Level 4.1 mg/dl (2.8-20) Acetaminophen Level < 2 ug/ml (10-30) Ethyl Alcohol mg/dL < 3.0 mg/dl (0-3) Urine Color DK YELLOW Urine Appearance CLEAR (CLEAR) Urine pH 5.0 (4.5-7.5) Urine Specific [place] 1.027 (1.000-1.030) Urine Protein TRACE (NEG) Urine Glucose (UA) NEG (NEG) Urine Ketones TRACE (NEG) Urine Occult Blood 1+ (NEG) Urine Nitrite NEG (NEG) Urine Bilirubin NEG (NEG) Urine Urobilinogen NEG (NEG) Urine Leukocyte Esterase TRACE (NEG) Urine WBC (Auto) 1-5 /hpf (0-5) Urine RBC (Auto) 0-4 /hpf (0-4) Urine Hyaline Casts (Auto) /lpf (0-5) Urine Epithelial Cells (Auto) >30 /lpf (0-5) Urine Bacteria (Auto) NEG (NEG) Urine Renal Epithelial Cells /lpf (0-5) Urine Crystals CALCIUM OXALATE (NONE Urine Pathogenic Casts /lpf (0) Urine Mucus PRESENT (NONE PRSENT) Urine Test NEG (NEG) Urine Opiates Screen POS (NEG) Urine Methadone, Qualitative NEG (NEG) Urine Barbiturates NEG (NEG) Urine Phencyclidine (PCP) Level NEG (NEG) Ur Amphetamine/Methamphetamine NEG (NEG) MDMA (Ecstasy) Screen NEG (NEG) Urine Benzodiazepines Screen NEG (NEG) Urine Cocaine Metabolite POS (NEG) Urine Marijuana (THC) NEG (NEG) Laboratory results per my review. Medications Administered Medications (Trade) Dose Ordered Sig/Saundra Route Start Time Stop Time Status Last Admin Dose Admin Naloxone HCl (Narcan IV) 4 mg STK-MED ONCE .ROUTE 06/15/17 03:02 06/15/17 03:03 DC 06/15/17 02:59 2 MG Sodium Chloride 1,000 ml @ 250 mls/hr Q4H STAT IV 06/15/17 03:18 06/15/17 04:54 DC 06/15/17 03:18 250 MLS/HR Sodium Chloride 1,000 ml @ 999 mls/hr Q1H1M STAT IV 06/15/17 03:18 06/15/17 04:18 DC 06/15/17 03:18 999 MLS/HR Potassium Chloride/Sodium Chloride 1,000 ml @ 500 mls/hr Q2H STAT IV 06/15/17 04:51 06/15/17 06:50 06/15/17 05:25 500 MLS/HR Procedure 0302: Ordered Narcan IV 2 mg 0318: Ordered NSS 1000 ml @ 999 mls/hr IV, NSS 1000 ml @ 250 mls/hr IV. 0419: Ordered Narcan Inj 4mg IV ECG Indication: toxicologic Rate (beats per minute): 146 Rhythm: sinus tachycardia Findings: no acute ischemic change, no ectopy ED Course 0255: Past medical records reviewed. The patient was evaluated in room B1. A complete history and physical exam was performed. 2 large bore IV locks were initiated. A twelve-lead EKG was obtained as described above. The patient was observing the classroom monitor and pulse oximeter. Poison control center was contacted. A BSG was obtained. 0302: Ordered Narcan IV 2 mg. the patient did not become more responsive with this but her pupils seemed to enlarge. 0318: Ordered NSS 1000 ml @ 999 mls/hr IV, NSS 1000 ml @ 250 mls/hr IV. She went for CT of the brain which was unremarkable. She is easily able to protect her own airway. 0358: I reevaluated the patient. She remains unresponsive with a GCS of 8. She is hemodynamically stable. 0419: Urine tox screen came back positive for opiates and cocaine. I Ordered Narcan Inj 4mg IV. This offered no improvement for the patient's responsiveness. 0428: I reevaluated the patient and the Narcan did nothing. Her pupils are the same size. She is responsive to only painful stimuli. 0441: Discussed the patient's case with ALVAREZ Regan - ICU. The patient will be evaluated for further management. 0447: Discussed the patient's case with Dr. Meza - Hospitalist. The patient will be evaluated for further management. Medical Decision The patient is a 31 year old female who presents to the Emergency Room with complaints of an episode of an overdose occurring prior to arrival. Differential diagnoses include hypoglycemia, opioid overdose, suicide attempt, polysubstance abuse. LABS: Normal white count Stable H&H Total CK 59 Negative Troponin ALT 327 AST 52 Alkphos 136 Potassium slightly low at 3.2 Normal renal function Glucose 124 Normal coags Urine negative Urinalysis: Trace proteins, trace ketones, 1+ blood, trace leukocyte esterase, calcium oxalate crystals. Tox screen positive for opiates and cocaine Alcohol is negative Tylenol is negative Salicylate 4.1 This is a 31-year-old female patient who presents to the emergency department unresponsive state. The patient has a history of drug abuse according to her significant other. She was planning to go to drug rehabilitation tomorrow morning. She made a suicidal threat stating that if her significant other did not come talk to her that she would kill herself. He did go to her home to be with her and things seemed to be okay but then she began to stumble round and became unresponsive. In reviewing the patient's pill bottles, it seems that she received a prescription on June 11 for 90 methylphenidate and only one remained in the bottle. The patient did have significant tachycardia and involuntary muscle movements as a result of this. However, the patient's mental status was not consistent with this type of overdose. I felt this was now a polysubstance overdose. The patient's tox screen was positive for opiates and cocaine. The patient remained hemodynamically stable while here in the emergency department and was able to protect her own airway. She had no significant response to Narcan. Head Trauma GCS Score: 7 Medication Reconcilliation Current Medication List: was personally reviewed by me Blood Pressure Screening Patient's blood pressure: Normal blood pressure Blood pressure disposition: Did not require urgent referral Consults Time Called: [phone] Consulting Physician: ALVAREZ Regan - ICU Returned Call: [phone] Discussed the patient's case with ALVAREZ Regan - ICU. The patient will be evaluated for further management. Additional Consults: Time Called: [phone] Consulted Physician: Dr. Derrick Mark. Returned Call: [phone] Additional Comments: Discussed the patient's case with Dr. Derrick Mark. The patient will be evaluated for further management. Impression Primary Impression: Polysubstance overdose Additional Impression: Unresponsiveness Critical Care I have personally spent greater than 90 minutes of critical care time in the direct management of this patient. This includes bedside care, interpretation of diagnostic studies, and testing, discussion with consultants, patient, and family members, and other required patient management activities. This 90 minutes is in excess of all separately billable procedures. Scribe Attestation The scribe's documentation has been prepared under my direction and personally reviewed by me in its entirety. I confirm that the note above accurately reflects all work, treatment, procedures, and medical decision making performed by me. Departure Information Dispostion Being Evaluated By Hospitalist Referrals No Doctor, Assigned (PCP) Patient Instructions My [facility] Problem Qualifiers Primary Impression: Polysubstance overdose Encounter type: initial encounter Injury intent: undetermined intent Qualified Codes: T50.904A - Poisoning by unspecified drugs, medicaments and biological substances, undetermined, initial encounter
--- NOTE | 2017-06-15 07:06 | DIAGNOSTIC IMAGING REPORT ---
HEAD CT NONCONTRAST CT DOSE: 1074.96 mGy.cm HISTORY: unresponsive TECHNIQUE: Multiaxial CT images of the head were performed without the use of intravenous contrast. Automated exposure control was utilized for this study. A dose lowering technique was utilized adhering to the principles of ALARA. Comparison: Head CT 01/16/2017. Findings: The paranasal sinuses and mastoid air cells are clear. The calvarium and skull base are intact. The ventricles and sulci are within normal limits. There is no mass, hematoma, midline shift, or acute infarct. Partially visualized screw at the odontoid consistent with postsurgical change. Impression: No acute intracranial abnormality. Electronically signed by: Phillip Padilla M.D. 06/15/2017 7:05 AM Dictated Date/Time: 06/15/2017 7:03 AM
--- NOTE | 2017-06-15 07:14 | HISTORY & PHYSICAL EXAMINATION ---
DATE OF ADMISSION: 06/15/2017 PRIMARY CARE DOCTOR: Kieran Hemphill MD. CHIEF COMPLAINT: Overdose as per records. HISTORY OF PRESENT ILLNESS: History obtained from records, ER provider. Unable to obtain history secondary to obtunded state. Medical history significant for fibromyalgia, mood disorder as per records, ongoing tobacco abuse. Recent confinement last October 2016 for syncope. As per records, the patient brought by ex- to the ED for an apparent overdose, missing methylphenidate, Ritalin tablets. Suicidal intent as per ex- account. No response to Narcan given at the ER. MEDICAL HISTORY: As above. SURGERIES: Cholecystectomy, back surgery, tonsillectomy, neck surgery. HOME MEDICATIONS: Include amitriptyline, EpiPen, Lexapro, gabapentin, methylphenidate, Ritalin, Protonix, Effexor. ALLERGIES: ADHESIVE, BEE STING, AMOXICILLIN, HYDROMORPHONE, PROPRANOLOL, DICLOFENAC AND TRAMADOL. FAMILY HISTORY: Could not be obtained. PERSONAL AND SOCIAL HISTORY: Tobacco abuse as per records. 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 REVIEW OF SYSTEMS: Could not be obtained. PHYSICAL EXAMINATION: VITAL SIGNS: Blood pressure was noted to be 138/89, pulse rate of 46, RR 16, temperature 36.5, sats 99 on 3 liters. GENERAL: Noted to be obtunded, no respiratory distress. Obese. SKIN: Normal color. Warm. HEENT: [place] palpebral conjunctivae. No ptosis. Dry mucosa. NECK: Short neck. No tenderness. CHEST: Decreased effort. No tenderness. HEART: Tachycardic. No murmur. ABDOMEN: Soft, nontender. EXTREMITIES: No LE edema, no tenderness. No gross deformities. NEUROLOGIC: Obtunded. Mid dilated pupils. No nuchal rigidity. LABORATORY DATA: Hemoglobin was noted to be 14.1, hematocrit 40.6, white blood cell count 6, platelets 146. Sodium 136, potassium 3.2, chloride 105, CO2 26, BUN 11, creatinine 0.7, glucose 124, AST 52, ALT 27, alkaline phosphatase 136. Alcohol level was less than 3. Urine tox, opiate positive, cocaine positive. CT head, no acute pathology. Chest x-ray as per my interpretation, atelectasis. EKG as per my interpretation: Sinus tachycardia, right axis deviation, QTc 530. ASSESSMENT: 1. Drug overdose likely polysubstance Intentional and with suicidal intent as per ER provider account no response to Narcan. 2. Ongoing tobacco abuse. 3. Mood disorder, unknown status. 4. Hypokalemia PLAN: PCU. Hold home neuropsychotropic meds. Follow Toxicology recommendations May need Psych eval once patient more awake regarding suicidality Replace K Nicotine patch when necessary DVT prophylaxis, Lovenox subQ. Full code. Will attempt to obtain history from the patient once more awake. Attempted to reach patient's listed contact finger assembler from outpatient records (Mr. Ye Malone at [phone]); no answer. MTDD
[2017-06-15] MEDS ORDERED: INFLUENZA VIRUS QUAD VACCINE 0.5 ML SYR IM. ONE (08:30)
[2017-06-15] MEDS ORDERED: INFLUENZA ADMINISTRATION CHARGE ONE (08:30)
[2017-06-15] MEDS: ENOXAPARIN 40 MG/0.4 ML SYR SC SCH (08:34)
[2017-06-15] MEDS: RANITIDINE HCL 150 MG TAB PO SCH ×2 (09:00→21:00)
[2017-06-15] MEDS: PANTOprazole SOD 40 MG TAB PO SCH (09:00)
--- NOTE | 2017-06-15 13:57 | Progress Note ---
Internal Med Progress Note Date of Service: Jun 15, 2017. Provider Documentation: SUBJECTIVE: The patient was seen and examined Remains unresponsive Minimal movement for the extremities with painful stimuli OBJECTIVE: Vital Signs-as noted below Exam: General-Remains unresponsive Eyes-Normal,closed ,Pupils-not constricted ENT-normal Neck-supple Lungs-Clear to auscultate bilaterally Heart-Regular,no murmur Abdomen-Benign,no masses,bowel sound present Extremities-No edema Neuro-remains unresponsive Lab data as noted below. ASSESSMENT & PLAN: Drug overdose Likely polysubstance:Urine Tox screen::Opioid and Cocaine metabolites Intentional and with suicidal intent as per ER provider account No one is available to get the history from Remains Unresponsive but Hemodynamically stable Tachycardia is improving Continue supportive care Psych eval once patient more awake Ongoing tobacco abuse. Nicotine patch Mood disorder, unknown status. DVT prophylaxis, Lovenox subQ. Full code. Vital Signs: Date Time Temp Pulse Resp B/P (MAP) Pulse Ox O2 Delivery O2 Flow Rate FiO2 06/15/17 12:01 36.6 107 17 109/72 (84) 98 Room Air 06/15/17 12:00 107 17 98 06/15/17 12:00 Room Air 06/15/17 11:30 108 17 99 06/15/17 11:01 110 18 107/59 (75) 98 06/15/17 11:00 110 19 98 06/15/17 10:30 114 19 98 06/15/17 10:01 119 18 119/66 (83) 98 Room Air 06/15/17 10:00 117 17 98 06/15/17 09:30 118 16 99 06/15/17 09:01 119 16 109/64 (79) 99 06/15/17 09:00 118 15 99 06/15/17 08:30 109 16 98 06/15/17 08:01 36.5 111 23 98/55 (69) 97 Room Air 06/15/17 08:00 Room Air 06/15/17 08:00 110 14 98 06/15/17 07:30 114 21 98 06/15/17 07:01 121 17 108/66 (80) 98 06/15/17 07:00 121 16 98 06/15/17 06:00 36.7 131 20 132/68 06/15/17 06:00 100 Room Air 06/15/17 05:50 124 15 121/69 98 Room Air 06/15/17 05:20 127 16 120/66 98 Room Air 06/15/17 05:05 132 15 132/78 99 Room Air 06/15/17 04:50 129 16 132/69 100 Room Air 06/15/17 04:35 132 15 127/78 100 Room Air 06/15/17 04:16 139 16 131/78 100 Room Air 06/15/17 03:50 149 24 138/87 100 Nasal Cannula 3.0 06/15/17 03:37 132 20 111/85 100 Nasal Cannula 3.0 06/15/17 03:28 137 18 112/86 100 06/15/17 03:03 36.5 146 16 138/89 99 Room Air 3.0 06/15/17 03:02 152 Lab Results: Results Past 24 Hours Test 06/15/17 03:03 06/15/17 03:04 06/15/17 03:20 Range/Units Bedside Glucose 124 70-90 mg/dl White Blood Count 6.26 4.8-10.8 K/uL Red Blood Count 4.55 4.2-5.4 M/uL Hemoglobin 14.1 12.0-16.0 g/dL Hematocrit 40.9 37-47 % Mean Corpuscular Volume 89.9 80-100 fL Mean Corpuscular Hemoglobin 31.0 25-34 pg Mean Corpuscular Hemoglobin Concent 34.5 32-36 g/dl Platelet Count 146 130-400 K/uL Mean Platelet Volume 11.7 7.4-10.4 fL Neutrophils (%) (Auto) 58.4 % Lymphocytes (%) (Auto) 31.3 % Monocytes (%) (Auto) 7.8 % Eosinophils (%) (Auto) 2.1 % Basophils (%) (Auto) 0.2 % Neutrophils # (Auto) 3.66 1.4-6.5 K/uL Lymphocytes # (Auto) 1.96 1.2-3.4 K/uL Monocytes # (Auto) 0.49 0.11-0.59 K/uL Eosinophils # (Auto) 0.13 0-0.5 K/uL Basophils # (Auto) 0.01 0-0.2 K/uL RDW Standard Deviation 42.8 36.4-46.3 fL RDW Coefficient of Variation 13.1 11.5-14.5 % Immature Granulocyte % (Auto) 0.2 % Immature Granulocyte # (Auto) 0.01 0.00-0.02 K/uL Prothrombin Time 9.9 9.0-12.0 SECONDS Prothromb Time International Ratio 0.9 0.9-1.1 Activated Partial Thromboplast Time 19.7 21.0-31.0 SECONDS Partial Thromboplastin Ratio 0.8 Sodium Level 138 136-145 mmol/L Potassium Level 3.2 3.5-5.1 mmol/L Chloride Level 105 98-107 mmol/L Carbon Dioxide Level 26 21-32 mmol/L Anion Gap 7.0 3-11 mmol/L Blood Urea Nitrogen 11 7-18 mg/dl Creatinine 0.79 0.60-1.20 mg/dl Est Creatinine Clear Calc Drug Dose 109.1 ml/min Estimated GFR () 116.4 Estimated GFR (Non- 100.5 BUN/Creatinine Ratio 13.8 10-20 Random Glucose 124 70-99 mg/dl Calcium Level 8.8 8.5-10.1 mg/dl Magnesium Level 2.1 1.8-2.4 mg/dl Total Bilirubin 0.3 0.2-1 mg/dl Direct Bilirubin 0.1 0-0.2 mg/dl Aspartate Amino Transf (AST/SGOT) 52 15-37 U/L Alanine Aminotransferase (ALT/SGPT) 327 12-78 U/L Alkaline Phosphatase 136 45-117 U/L Total Creatine Kinase 59 26-192 U/L Troponin I < 0.015 0-0.045 ng/ml Total Protein 7.5 6.4-8.2 gm/dl Albumin 3.8 3.4-5.0 gm/dl Thyroid Stimulating Hormone (TSH) 0.883 0.300-4.500 uIu/ml Salicylates Level 4.1 2.8-20 mg/dl Acetaminophen Level < 2 10-30 ug/ml Ethyl Alcohol mg/dL < 3.0 0-3 mg/dl Urine Color DK YELLOW Urine Appearance CLEAR CLEAR Urine pH 5.0 4.5-7.5 Urine Specific [place] 1.027 1.000-1.030 Urine Protein TRACE NEG Urine Glucose (UA) NEG NEG Urine Ketones TRACE NEG Urine Occult Blood 1+ NEG Urine Nitrite NEG NEG Urine Bilirubin NEG NEG Urine Urobilinogen NEG NEG Urine Leukocyte Esterase TRACE NEG Urine WBC (Auto) 1-5 0-5 /hpf Urine RBC (Auto) 0-4 0-4 /hpf Urine Hyaline Casts (Auto) 0-5 /lpf Urine Epithelial Cells (Auto) >30 0-5 /lpf Urine Bacteria (Auto) NEG NEG Urine Renal Epithelial Cells 0-5 /lpf Urine Crystals CALCIUM OXALATE NONE PRSENT Urine Pathogenic Casts 0 /lpf Urine Mucus PRESENT NONE PRSENT Urine Test NEG NEG Urine Opiates Screen POS NEG Urine Methadone, Qualitative NEG NEG Urine Barbiturates NEG NEG Urine Phencyclidine (PCP) Level NEG NEG Ur Amphetamine/Methamphetamine NEG NEG MDMA (Ecstasy) Screen NEG NEG Urine Benzodiazepines Screen NEG NEG Urine Cocaine Metabolite POS NEG Urine Marijuana (THC) NEG NEG Microbiology Results 06/15/17 MRSA DNA Surveillance Screen, Received Pending 06/15/17 Urine Culture, Received Pending
[2017-06-15 14:47] LABS: ALBUMIN 2.9 gm/dl (3.4-5.0); CALCIUM 8.6 mg/dl (8.5-10.1); CREATININE 0.61 mg/dl (0.60-1.20); PHOSPHORUS 2.5 mg/dl (2.5-4.9); TOTAL PROTEIN 6.2 gm/dl (6.4-8.2)
--- NOTE | 2017-06-15 17:12 | Critical Care Consultation ---
Critical Care Consultation Date of Consultation: Jun 15, 2017. Attending Physician: Violet Pedroza M.D. Reason for Consultation: Overdose History of Present Illness History obtained from the chart Patient brought to ED by ex- for suspected overdose, she apparently took Ritalin, Elavil, hydromorphone. No response to Narcan Over the course of today she remained poorly responsive Past Medical/Surgical History Mood disorder Fibromyalgia Smoker Back and neck surgery h/o cholecystectomy Family History Diabetes mellitus GRANDMOTHER FH: cancer MOTHER (lung, uterus) AUNT (stomach CA) FH: gallbladder disease FH: heart disease GRANDMOTHER FH: lung disease Hypertension GRANDFATHER GRANDMOTHER Kidney disease Kidney stones Seizures Stroke Thyroid disorder MOTHER Social History Smoking Status: Current Every Day Smoker Marital Status: in relationship Housing Status: lives alone Occupation Status: employed Allergies Coded Allergies: Amoxicillin (Verified Allergy, Severe, HIVES AND SOB, 06/15/17) BEE STING (Verified Allergy, Severe, SWELLING, 06/15/17) Hydromorphone (Verified Allergy, Intermediate, ABD PAIN, 06/15/17) Tramadol (Verified Allergy, Intermediate, seizures, 06/15/17) Adhesives (Verified Allergy, Mild, contact dermatitis, 06/15/17) Propranolol (Verified Allergy, Mild, MOUTH SORE, RASH, 06/15/17) Diclofenac (Verified Allergy, Unknown, HIVES/SOB, 06/15/17) Morphine (Verified Adverse Reaction, Intermediate, pt reports moderate to severe stomach discomfort, 06/15/17) pt states she requires a "GI cocktail" to alleviate the stomach discomfort that occurs after receiving Morphine or dilaudid Home Medications Scheduled Amitriptyline Hcl (Amitriptyline Hcl), 75-100 MG PO HS Escitalopram Oxalate (Lexapro), 5 MG PO QAM Gabapentin (Gabapentin), 900 MG PO TID Methylphenidate (Ritalin), 20 MG PO DAILY AT NOON Methylphenidate (Ritalin), 10 MG PO DAILY AT NOON Methylphenidate (Ritalin), 30 MG PO DAILY AT QAM & NOON Methylphenidate HCl (Methylphenidate HCl ER), 36 MG PO QAM Pantoprazole Sodium (Protonix), 40 MG PO DAILY Ranitidine HCl (Ranitidine HCl), 150 MG PO BID Venlafaxine Hcl (Effexor), 75 MG PO QAM Scheduled PRN Epinephrine (Epipen), 0.3 MG IM UD PRN for ALLERGIC REACTION Current Inpatient Medications Current Inpatient Medications Medications (Trade) Dose Ordered Sig/Saundra Route Start Time Stop Time Status Last Admin Dose Admin Enoxaparin Sodium (Lovenox Inj) 40 mg Q24H SC 06/15/17 09:00 07/15/17 08:59 06/15/17 08:34 40 MG Potassium Chloride/Sodium Chloride 1,000 ml @ 100 mls/hr Q10H ONCE IV 06/15/17 07:00 06/15/17 16:59 06/15/17 08:36 100 MLS/HR Acetaminophen (Tylenol Tab) 650 mg Q4H PRN PO 06/15/17 05:30 07/15/17 05:29 Pantoprazole Sodium (Protonix Tab) 40 mg DAILY PO 06/15/17 09:00 07/15/17 08:59 Ranitidine HCl (zANTac TAB) 150 mg BID PO 06/15/17 09:00 07/15/17 08:59 Review of Systems Unable to obtain secondary to poor mental status Physical Exam Date Time Temp Pulse Resp B/P (MAP) Pulse Ox O2 Delivery O2 Flow Rate FiO2 06/15/17 15:30 36.5 103 18 117/76 (90) 98 Room Air 06/15/17 15:30 Room Air 06/15/17 12:01 36.6 107 17 109/72 (84) 98 Room Air 06/15/17 12:00 107 17 98 06/15/17 12:00 Room Air 06/15/17 11:30 108 17 99 06/15/17 11:01 110 18 107/59 (75) 98 06/15/17 11:00 110 19 98 06/15/17 10:30 114 19 98 06/15/17 10:01 119 18 119/66 (83) 98 Room Air 06/15/17 10:00 117 17 98 06/15/17 09:30 118 16 99 06/15/17 09:01 119 16 109/64 (79) 99 06/15/17 09:00 118 15 99 06/15/17 08:30 109 16 98 06/15/17 08:01 36.5 111 23 98/55 (69) 97 Room Air 06/15/17 08:00 Room Air 06/15/17 08:00 110 14 98 06/15/17 07:30 114 21 98 06/15/17 07:01 121 17 108/66 (80) 98 06/15/17 07:00 121 16 98 06/15/17 06:00 36.7 131 20 132/68 06/15/17 06:00 100 Room Air 06/15/17 05:50 124 15 121/69 98 Room Air 06/15/17 05:20 127 16 120/66 98 Room Air 06/15/17 05:05 132 15 132/78 99 Room Air 06/15/17 04:50 129 16 132/69 100 Room Air 06/15/17 04:35 132 15 127/78 100 Room Air 06/15/17 04:16 139 16 131/78 100 Room Air 06/15/17 03:50 149 24 138/87 100 Nasal Cannula 3.0 06/15/17 03:37 132 20 111/85 100 Nasal Cannula 3.0 06/15/17 03:28 137 18 112/86 100 06/15/17 03:03 36.5 146 16 138/89 99 Room Air 3.0 06/15/17 03:02 152 General Appearance: well-appearing, WD/WN, no apparent distress Eyes: PERRLA Neck: trachea midline Respiratory: breath sounds normal, clear to auscultation, no respiratory distress Cardiovasular: regular rate/rhythm, normal S1S2 Abdomen: non tender, no rebound, no guarding Upper Extremities: no edema Lower Extremities: no edema Neuro: lethargic, other (No nuchal rigidity) Laboratory Results Last 24 Hours Test 06/15/17 03:03 06/15/17 03:04 06/15/17 03:20 06/15/17 14:00 Bedside Glucose 124 mg/dl White Blood Count 6.26 K/uL Red Blood Count 4.55 M/uL Hemoglobin 14.1 g/dL Hematocrit 40.9 % Mean Corpuscular Volume 89.9 fL Mean Corpuscular Hemoglobin 31.0 pg Mean Corpuscular Hemoglobin Concent 34.5 g/dl Platelet Count 146 K/uL Mean Platelet Volume 11.7 fL Neutrophils (%) (Auto) 58.4 % Lymphocytes (%) (Auto) 31.3 % Monocytes (%) (Auto) 7.8 % Eosinophils (%) (Auto) 2.1 % Basophils (%) (Auto) 0.2 % Neutrophils # (Auto) 3.66 K/uL Lymphocytes # (Auto) 1.96 K/uL Monocytes # (Auto) 0.49 K/uL Eosinophils # (Auto) 0.13 K/uL Basophils # (Auto) 0.01 K/uL RDW Standard Deviation 42.8 fL RDW Coefficient of Variation 13.1 % Immature Granulocyte % (Auto) 0.2 % Immature Granulocyte # (Auto) 0.01 K/uL Prothrombin Time 9.9 SECONDS Prothromb Time International Ratio 0.9 Activated Partial Thromboplast Time 19.7 SECONDS Partial Thromboplastin Ratio 0.8 Sodium Level 138 mmol/L 141 mmol/L Potassium Level 3.2 mmol/L 4.0 mmol/L Chloride Level 105 mmol/L 112 mmol/L Carbon Dioxide Level 26 mmol/L 24 mmol/L Anion Gap 7.0 mmol/L 5.0 mmol/L Blood Urea Nitrogen 11 mg/dl 6 mg/dl Creatinine 0.79 mg/dl 0.61 mg/dl Est Creatinine Clear Calc Drug Dose 109.1 ml/min 136.3 ml/min Estimated GFR () 116.4 141.0 Estimated GFR (Non- 100.5 121.7 BUN/Creatinine Ratio 13.8 9.4 Random Glucose 124 mg/dl 94 mg/dl Calcium Level 8.8 mg/dl 8.6 mg/dl Magnesium Level 2.1 mg/dl 2.1 mg/dl Total Bilirubin 0.3 mg/dl 0.3 mg/dl Direct Bilirubin 0.1 mg/dl 0.1 mg/dl Aspartate Amino Transf (AST/SGOT) 52 U/L 31 U/L Alanine Aminotransferase (ALT/SGPT) 327 U/L 230 U/L Alkaline Phosphatase 136 U/L 100 U/L Total Creatine Kinase 59 U/L Troponin I < 0.015 ng/ml Total Protein 7.5 gm/dl 6.2 gm/dl Albumin 3.8 gm/dl 2.9 gm/dl Thyroid Stimulating Hormone (TSH) 0.883 uIu/ml Salicylates Level 4.1 mg/dl Acetaminophen Level < 2 ug/ml Ethyl Alcohol mg/dL < 3.0 mg/dl Urine Color DK YELLOW Urine Appearance CLEAR Urine pH 5.0 Urine Specific [place] 1.027 Urine Protein TRACE Urine Glucose (UA) NEG Urine Ketones TRACE Urine Occult Blood 1+ Urine Nitrite NEG Urine Bilirubin NEG Urine Urobilinogen NEG Urine Leukocyte Esterase TRACE Urine WBC (Auto) 1-5 /hpf Urine RBC (Auto) 0-4 /hpf Urine Hyaline Casts (Auto) /lpf Urine Epithelial Cells (Auto) >30 /lpf Urine Bacteria (Auto) NEG Urine Renal Epithelial Cells /lpf Urine Crystals CALCIUM OXALATE Urine Pathogenic Casts /lpf Urine Mucus PRESENT Urine Test NEG Urine Opiates Screen POS Urine Methadone, Qualitative NEG Urine Barbiturates NEG Urine Phencyclidine (PCP) Level NEG Ur Amphetamine/Methamphetamine NEG MDMA (Ecstasy) Screen NEG Urine Benzodiazepines Screen NEG Urine Cocaine Metabolite POS Urine Marijuana (THC) NEG Phosphorus Level 2.5 mg/dl Diagnostic Results CT brain: No acute intracranial abnormality. Assessment & Plan Polysubstance overdose Encephalopathy Plan: POLYMER SPECIALIST: Monitor mental status Avoid sedative agents Utox positive for opiates and cocaine CVS: Repeat EKG STAT. If QTc still elevated, start on bicarb drip Pulmonary: She is maintaining her airway well Renal: Continue IV fluids GI: NPO for now. LFTs improving DVT prophylaxis: Lovenox Critical care time spent with patient, discussing with consultants, reviewing chart and documenting greater than 30 minutes
[2017-06-15] MEDS: NSS + 20MEQ KCL 1000ML 1,000 ML IV SCH (21:45)
[2017-06-16] VITALS (27 sets, daily range): BP systolic 97–136; BP diastolic 57–105; PULSE 105–120; TEMP 36.6–37.1; O2SAT 92–98
[2017-06-16 05:44] LABS: BASO % 0.2 %; BASO ABS # 0.02 K/uL (0-0.2); EOS % 0.3 %; EOS ABS # 0.04 K/uL (0-0.5); HEMATOCRIT 37.1 % (37-47); HEMOGLOBIN 12.8 g/dL (12.0-16.0); IG# 0.02 K/uL (0.00-0.02); LYMPH % 16.3 %; LYMPH ABS # 1.91 K/uL (1.2-3.4); MEAN CELL VOLUME 90.7 fL (80-100); MEAN CORPUSCULAR HEMOGLOBIN 31.3 pg (25-34); MEAN CORPUSCULAR HGB CONC 34.5 g/dl (32-36); MEAN PLATELET VOLUME 11.2 fL (7.4-10.4); MONO ABS # 0.94 K/uL (0.11-0.59); NEUT ABS # 8.76 K/uL (1.4-6.5); PLATELET COUNT 162 K/uL (130-400); RED CELL DISTRIBUTION WIDTH CV 13.2 % (11.5-14.5); RED CELL DISTRIBUTION WIDTH SD 43.7 fL (36.4-46.3); WHITE BLOOD COUNT 11.69 K/uL (4.8-10.8)
[2017-06-16 06:14] LABS: ALBUMIN 3.3 gm/dl (3.4-5.0); CALCIUM 8.6 mg/dl (8.5-10.1); CREATININE 0.63 mg/dl (0.60-1.20); POTASSIUM 3.7 mmol/L (3.5-5.1)
[2017-06-16] MEDS: PANTOprazole SOD 40 MG TAB PO SCH (08:19)
[2017-06-16] MEDS: RANITIDINE HCL 150 MG TAB PO SCH ×2 (08:20→21:00)
[2017-06-16] MEDS: ENOXAPARIN 40 MG/0.4 ML SYR SC SCH (08:21)
[2017-06-16] MEDS: NSS + 20MEQ KCL 1000ML 1,000 ML IV SCH ×2 (08:22→17:23)
--- NOTE | 2017-06-16 12:48 | Progress Note ---
Internal Med Progress Note Date of Service: Jun 16, 2017. Provider Documentation: SUBJECTIVE: The patient was seen and examined Remains semiresponsive Nonpurposeful movement Garbled speech OBJECTIVE Vital Signs-as noted below Exam: General-Remains semiresponsive Eyes-Normal,,Pupils-minimally dilated ENT-normal Neck-supple Lungs-Clear to auscultate bilaterally Heart-Regular,no murmur Abdomen-Benign,no masses,bowel sound present Extremities-No edema Neuro-remains semiresponsive Moving all the limbs -nonpurposeful Garbled speech Lab data as noted below. ASSESSMENT & PLAN: Drug overdose Metabolic Encephalopathy Likely polysubstance:Urine Tox screen::Opioid and Cocaine metabolites Intentional and with suicidal intent as per ER provider account No one is available to get the history from Remains semiresponsive but Hemodynamically stable Tachycardia is improving ,labs and imaging studies unremarkable so far Continue supportive care for now May need Neurology evaluation Psych evaluation once patient more awake Elevated LFTs ALT >AST Improving-will get Hepatitis panel Ongoing tobacco abuse. Nicotine patch Mood disorder, unknown status. DVT prophylaxis, Lovenox subQ. Full code. No family members available to speak with Vital Signs: Date Time Temp Pulse Resp B/P (MAP) Pulse Ox O2 Delivery O2 Flow Rate FiO2 06/16/17 11:30 36.6 117 20 123/63 (83) 95 Room Air 06/16/17 11:30 Room Air 06/16/17 09:25 37.1 114 20 129/85 (100) 95 Room Air 06/16/17 07:30 Room Air 3.0 06/16/17 07:30 37.1 113 20 134/71 (92) 95 Room Air 3.0 06/16/17 05:01 109 20 117/69 (85) 95 06/16/17 04:01 37.1 120 24 136/105 (115) 95 06/16/17 04:00 98 Room Air 06/16/17 03:01 110 21 121/98 (106) 96 06/16/17 02:01 112 17 122/74 (90) 96 06/16/17 00:01 36.7 117 20 99/74 (82) 96 Room Air 06/15/17 23:59 98 Room Air 06/15/17 22:01 105 17 114/65 (81) 99 06/15/17 20:01 36.9 110 16 109/63 (78) 98 Room Air 06/15/17 20:00 98 Room Air 06/15/17 18:13 36.5 103 18 116/77 (90) 98 Room Air 06/15/17 15:30 36.5 103 18 117/76 (90) 98 Room Air 06/15/17 15:30 Room Air Lab Results: Results Past 24 Hours Test 06/15/17 14:00 06/15/17 17:57 06/15/17 18:20 06/15/17 23:49 Range/Units Sodium Level 141 136-145 mmol/L Potassium Level 4.0 3.5-5.1 mmol/L Chloride Level 112 98-107 mmol/L Carbon Dioxide Level 24 21-32 mmol/L Anion Gap 5.0 3-11 mmol/L Blood Urea Nitrogen 6 7-18 mg/dl Creatinine 0.61 0.60-1.20 mg/dl Est Creatinine Clear Calc Drug Dose 136.3 ml/min Estimated GFR () 141.0 Estimated GFR (Non- 121.7 BUN/Creatinine Ratio 9.4 10-20 Random Glucose 94 70-99 mg/dl Calcium Level 8.6 8.5-10.1 mg/dl Phosphorus Level 2.5 2.5-4.9 mg/dl Magnesium Level 2.1 1.8-2.4 mg/dl Total Bilirubin 0.3 0.2-1 mg/dl Direct Bilirubin 0.1 0-0.2 mg/dl Aspartate Amino Transf (AST/SGOT) 31 15-37 U/L Alanine Aminotransferase (ALT/SGPT) 230 12-78 U/L Alkaline Phosphatase 100 45-117 U/L Total Protein 6.2 6.4-8.2 gm/dl Albumin 2.9 3.4-5.0 gm/dl Bedside Glucose 100 95 70-90 mg/dl Test 06/16/17 05:14 06/16/17 10:55 Range/Units White Blood Count 11.69 4.8-10.8 K/uL Red Blood Count 4.09 4.2-5.4 M/uL Hemoglobin 12.8 12.0-16.0 g/dL Hematocrit 37.1 37-47 % Mean Corpuscular Volume 90.7 80-100 fL Mean Corpuscular Hemoglobin 31.3 25-34 pg Mean Corpuscular Hemoglobin Concent 34.5 32-36 g/dl Platelet Count 162 130-400 K/uL Mean Platelet Volume 11.2 7.4-10.4 fL Neutrophils (%) (Auto) 75.0 % Lymphocytes (%) (Auto) 16.3 % Monocytes (%) (Auto) 8.0 % Eosinophils (%) (Auto) 0.3 % Basophils (%) (Auto) 0.2 % Neutrophils # (Auto) 8.76 1.4-6.5 K/uL Lymphocytes # (Auto) 1.91 1.2-3.4 K/uL Monocytes # (Auto) 0.94 0.11-0.59 K/uL Eosinophils # (Auto) 0.04 0-0.5 K/uL Basophils # (Auto) 0.02 0-0.2 K/uL RDW Standard Deviation 43.7 36.4-46.3 fL RDW Coefficient of Variation 13.2 11.5-14.5 % Immature Granulocyte % (Auto) 0.2 % Immature Granulocyte # (Auto) 0.02 0.00-0.02 K/uL Sodium Level 140 136-145 mmol/L Potassium Level 3.7 3.5-5.1 mmol/L Chloride Level 107 98-107 mmol/L Carbon Dioxide Level 25 21-32 mmol/L Anion Gap 8.0 3-11 mmol/L Blood Urea Nitrogen 3 7-18 mg/dl Creatinine 0.63 0.60-1.20 mg/dl Est Creatinine Clear Calc Drug Dose 131.7 ml/min Estimated GFR () 139.5 Estimated GFR (Non- 120.4 BUN/Creatinine Ratio 5.0 10-20 Random Glucose 81 70-99 mg/dl Calcium Level 8.6 8.5-10.1 mg/dl Total Bilirubin 0.6 0.2-1 mg/dl Direct Bilirubin 0.1 0-0.2 mg/dl Aspartate Amino Transf (AST/SGOT) 26 15-37 U/L Alanine Aminotransferase (ALT/SGPT) 203 12-78 U/L Alkaline Phosphatase 109 45-117 U/L Total Protein 7.0 6.4-8.2 gm/dl Albumin 3.3 3.4-5.0 gm/dl Bedside Glucose 87 70-90 mg/dl
--- NOTE | 2017-06-16 15:54 | Critical Care Progress Note ---
Critical Care Progress Note Date of Service Jun 16, 2017. Attending Dr. Brink Subjective More awake today, becoming aggressive at times, alternating with periods of lethargy Objective General: NAD Heent: NC/AT, PERRL Lungs: CTA b/l CVS: S1S2 regular Abd: soft, no guarding Ext: no edema ARMHOLE PRESSER: occasionally she wakes up, swats away, moves both sides well Assessment & Plan Polysubstance overdose Encephalopathy Plan: ARMHOLE PRESSER: Monitor mental status, slowly improving Avoid sedative agents Utox positive for opiates and cocaine 1:1 observation at this point CVS: Qtc improved last night. repeat today Pulmonary: She is maintaining her airway well Renal: Continue IV fluids GI: NPO for now. LFTs improving DVT prophylaxis: Lovenox Critical care time spent with patient, reviewing the chart, greater than 25 minutes Data Medications: Current Inpatient Medications Medications (Trade) Dose Ordered Sig/Saundra Route Start Time Stop Time Status Last Admin Dose Admin Enoxaparin Sodium (Lovenox Inj) 40 mg Q24H SC 06/15/17 09:00 07/15/17 08:59 06/16/17 08:21 40 MG Acetaminophen (Tylenol Tab) 650 mg Q4H PRN PO 06/15/17 05:30 07/15/17 05:29 Pantoprazole Sodium (Protonix Tab) 40 mg DAILY PO 06/15/17 09:00 07/15/17 08:59 Ranitidine HCl (zANTac TAB) 150 mg BID PO 06/15/17 09:00 07/15/17 08:59 Potassium Chloride/Sodium Chloride 1,000 ml @ 100 mls/hr Q10H IV 06/15/17 21:30 07/15/17 21:29 06/16/17 08:22 100 MLS/HR I & O: 24-Hour Column 06/17/17 07:59 Intake Total 774 ml Output Total 825 ml Balance -51 ml Vital Signs: Date Time Temp Pulse Resp B/P (MAP) Pulse Ox O2 Delivery O2 Flow Rate FiO2 06/16/17 13:15 36.6 106 20 122/61 (81) 93 Room Air 06/16/17 13:00 107 22 122/61 (81) 92 06/16/17 12:00 108 22 111/57 (75) 93 06/16/17 11:30 36.6 117 20 123/63 (83) 95 Room Air 06/16/17 11:30 Room Air 06/16/17 11:00 109 22 116/60 (78) 92 06/16/17 10:00 111 21 123/63 (83) 95 06/16/17 09:25 37.1 114 20 129/85 (100) 95 Room Air 06/16/17 09:13 109 25 129/85 (100) 96 06/16/17 09:01 111 23 129/85 (100) 94 06/16/17 09:00 110 22 94 06/16/17 08:01 115 22 106/69 (81) 94 06/16/17 08:00 Room Air 06/16/17 08:00 115 23 94 06/16/17 07:30 Room Air 3.0 06/16/17 07:30 37.1 113 20 134/71 (92) 95 Room Air 3.0 06/16/17 07:01 111 22 134/71 (92) 94 06/16/17 07:00 107 26 94 06/16/17 05:01 109 20 117/69 (85) 95 06/16/17 04:01 37.1 120 24 136/105 (115) 95 06/16/17 04:00 98 Room Air 06/16/17 03:01 110 21 121/98 (106) 96 06/16/17 02:01 112 17 122/74 (90) 96 06/16/17 00:01 36.7 117 20 99/74 (82) 96 Room Air 06/15/17 23:59 98 Room Air 06/15/17 22:01 105 17 114/65 (81) 99 06/15/17 20:01 36.9 110 16 109/63 (78) 98 Room Air 06/15/17 20:00 98 Room Air 06/15/17 18:13 36.5 103 18 116/77 (90) 98 Room Air Laboratory Results: Last 24 Hours Test 06/15/17 17:57 06/15/17 18:20 06/15/17 23:49 06/16/17 05:14 Bedside Glucose 100 mg/dl 95 mg/dl White Blood Count 11.69 K/uL Red Blood Count 4.09 M/uL Hemoglobin 12.8 g/dL Hematocrit 37.1 % Mean Corpuscular Volume 90.7 fL Mean Corpuscular Hemoglobin 31.3 pg Mean Corpuscular Hemoglobin Concent 34.5 g/dl Platelet Count 162 K/uL Mean Platelet Volume 11.2 fL Neutrophils (%) (Auto) 75.0 % Lymphocytes (%) (Auto) 16.3 % Monocytes (%) (Auto) 8.0 % Eosinophils (%) (Auto) 0.3 % Basophils (%) (Auto) 0.2 % Neutrophils # (Auto) 8.76 K/uL Lymphocytes # (Auto) 1.91 K/uL Monocytes # (Auto) 0.94 K/uL Eosinophils # (Auto) 0.04 K/uL Basophils # (Auto) 0.02 K/uL RDW Standard Deviation 43.7 fL RDW Coefficient of Variation 13.2 % Immature Granulocyte % (Auto) 0.2 % Immature Granulocyte # (Auto) 0.02 K/uL Sodium Level 140 mmol/L Potassium Level 3.7 mmol/L Chloride Level 107 mmol/L Carbon Dioxide Level 25 mmol/L Anion Gap 8.0 mmol/L Blood Urea Nitrogen 3 mg/dl Creatinine 0.63 mg/dl Est Creatinine Clear Calc Drug Dose 131.7 ml/min Estimated GFR () 139.5 Estimated GFR (Non- 120.4 BUN/Creatinine Ratio 5.0 Random Glucose 81 mg/dl Calcium Level 8.6 mg/dl Total Bilirubin 0.6 mg/dl Direct Bilirubin 0.1 mg/dl Aspartate Amino Transf (AST/SGOT) 26 U/L Alanine Aminotransferase (ALT/SGPT) 203 U/L Alkaline Phosphatase 109 U/L Total Protein 7.0 gm/dl Albumin 3.3 gm/dl Test 06/16/17 10:55 Bedside Glucose 87 mg/dl
[2017-06-17] VITALS (11 sets, daily range): BP systolic 108–126; BP diastolic 66–83; PULSE 102–120; TEMP 36.4–37.1; O2SAT 93–98
[2017-06-17] MEDS: NSS + 20MEQ KCL 1000ML 1,000 ML IV SCH ×3 (03:24→23:25)
[2017-06-17 05:56] LABS: BASO % 0.3 %; BASO ABS # 0.02 K/uL (0-0.2); EOS % 1.4 %; HEMATOCRIT 37.8 % (37-47); HEMOGLOBIN 12.7 g/dL (12.0-16.0); IG# 0.01 K/uL (0.00-0.02); LYMPH % 29.1 %; LYMPH ABS # 2.15 K/uL (1.2-3.4); MEAN CELL VOLUME 89.8 fL (80-100); MEAN CORPUSCULAR HEMOGLOBIN 30.2 pg (25-34); MEAN CORPUSCULAR HGB CONC 33.6 g/dl (32-36); MEAN PLATELET VOLUME 11.8 fL (7.4-10.4); MONO % 7.9 %; MONO ABS # 0.58 K/uL (0.11-0.59); NEUT % 61.2 %; NEUT ABS # 4.52 K/uL (1.4-6.5); PLATELET COUNT 161 K/uL (130-400); RED CELL DISTRIBUTION WIDTH CV 12.9 % (11.5-14.5); RED CELL DISTRIBUTION WIDTH SD 42.5 fL (36.4-46.3); WHITE BLOOD COUNT 7.38 K/uL (4.8-10.8)
[2017-06-17 06:33] LABS: ALBUMIN 3.1 gm/dl (3.4-5.0); CALCIUM 8.7 mg/dl (8.5-10.1); CREATININE 0.65 mg/dl (0.60-1.20); POTASSIUM 3.7 mmol/L (3.5-5.1)
[2017-06-17 08:43] LABS: HEP C IGG 13 YRS+OLDER_RFLX NEG (NEG)
[2017-06-17] MEDS: RANITIDINE HCL 150 MG TAB PO SCH ×2 (09:00→21:00)
[2017-06-17] MEDS: PANTOprazole SOD 40 MG TAB PO SCH (09:00)
[2017-06-17] MEDS: ENOXAPARIN 40 MG/0.4 ML SYR SC SCH (09:00)
--- NOTE | 2017-06-17 13:03 | Progress Note ---
Internal Med Progress Note Date of Service: Jun 17, 2017. Provider Documentation: SUBJECTIVE: The patient was seen and examined Much better Trying to communicate Confused OBJECTIVE Vital Signs-as noted below Exam: General-No meaningful conversation Eyes-Normal,,Pupils-minimally dilated ENT-normal Neck-supple Lungs-Clear to auscultate bilaterally Heart-Regular,no murmur Abdomen-Benign,no masses,bowel sound present Extremities-No edema Neuro-as above Moving all the limbs -nonpurposeful Garbled speech Lab data as noted below. ASSESSMENT & PLAN: Drug overdose Metabolic Encephalopathy Likely polysubstance:Urine Tox screen::Opioid and Cocaine metabolites Intentional and with suicidal intent as per ER provider account No one is available to get the history from Remains semiresponsive but Hemodynamically stable Tachycardia is improving ,labs and imaging studies unremarkable so far Continue supportive care for now May need Neurology evaluation Psych evaluation once patient more awake Much improved -pleasantly confused EKG-normalized Psychiatry consulted Elevated LFTs ALT >AST Improving-will get Hepatitis panel-negative so far Hepatitis panel -negative Ongoing tobacco abuse. Nicotine patch Mood disorder, unknown status. DVT prophylaxis, Lovenox subQ. Full code. No family members available to speak with Vital Signs: Date Time Temp Pulse Resp B/P (MAP) Pulse Ox O2 Delivery O2 Flow Rate FiO2 06/17/17 11:45 Room Air 06/17/17 11:30 36.6 112 19 109/69 (82) 98 Room Air 06/17/17 09:30 36.8 120 19 115/66 (82) 93 Room Air 06/17/17 08:00 Room Air 06/17/17 07:30 Room Air 06/17/17 07:30 37.1 120 19 116/83 (94) 95 Room Air 06/17/17 05:45 117 19 06/17/17 04:00 103 28 108/67 (81) 06/17/17 04:00 98 Room Air 06/17/17 02:00 102 22 118/71 (87) 96 Room Air 06/17/17 00:00 36.9 108 21 118/72 (87) 96 06/16/17 23:59 98 Room Air 06/16/17 23:00 110 18 124/75 (91) 96 06/16/17 22:00 109 22 97/70 (79) 96 06/16/17 20:00 36.8 105 22 126/71 (89) 95 Room Air 06/16/17 20:00 98 Room Air 06/16/17 18:00 106 20 124/63 (83) 98 Room Air 06/16/17 16:00 97 Room Air 06/16/17 16:00 37.0 115 18 118/59 (78) 97 Room Air 06/16/17 13:15 36.6 106 20 122/61 (81) 93 Room Air 06/16/17 13:00 107 22 122/61 (81) 92 Lab Results: Results Past 24 Hours Test 06/16/17 18:08 06/17/17 05:25 Range/Units Bedside Glucose 80 70-90 mg/dl White Blood Count 7.38 4.8-10.8 K/uL Red Blood Count 4.21 4.2-5.4 M/uL Hemoglobin 12.7 12.0-16.0 g/dL Hematocrit 37.8 37-47 % Mean Corpuscular Volume 89.8 80-100 fL Mean Corpuscular Hemoglobin 30.2 25-34 pg Mean Corpuscular Hemoglobin Concent 33.6 32-36 g/dl Platelet Count 161 130-400 K/uL Mean Platelet Volume 11.8 7.4-10.4 fL Neutrophils (%) (Auto) 61.2 % Lymphocytes (%) (Auto) 29.1 % Monocytes (%) (Auto) 7.9 % Eosinophils (%) (Auto) 1.4 % Basophils (%) (Auto) 0.3 % Neutrophils # (Auto) 4.52 1.4-6.5 K/uL Lymphocytes # (Auto) 2.15 1.2-3.4 K/uL Monocytes # (Auto) 0.58 0.11-0.59 K/uL Eosinophils # (Auto) 0.10 0-0.5 K/uL Basophils # (Auto) 0.02 0-0.2 K/uL RDW Standard Deviation 42.5 36.4-46.3 fL RDW Coefficient of Variation 12.9 11.5-14.5 % Immature Granulocyte % (Auto) 0.1 % Immature Granulocyte # (Auto) 0.01 0.00-0.02 K/uL Sodium Level 135 136-145 mmol/L Potassium Level 3.7 3.5-5.1 mmol/L Chloride Level 104 98-107 mmol/L Carbon Dioxide Level 25 21-32 mmol/L Anion Gap 6.0 3-11 mmol/L Blood Urea Nitrogen 7 7-18 mg/dl Creatinine 0.65 0.60-1.20 mg/dl Est Creatinine Clear Calc Drug Dose 127.3 ml/min Estimated GFR () 138.1 Estimated GFR (Non- 119.1 BUN/Creatinine Ratio 11.0 10-20 Random Glucose 65 70-99 mg/dl Calcium Level 8.7 8.5-10.1 mg/dl Total Bilirubin 0.7 0.2-1 mg/dl Aspartate Amino Transf (AST/SGOT) 24 15-37 U/L Alanine Aminotransferase (ALT/SGPT) 147 12-78 U/L Alkaline Phosphatase 97 45-117 U/L Total Protein 7.0 6.4-8.2 gm/dl Albumin 3.1 3.4-5.0 gm/dl Globulin 3.9 2.5-4.0 gm/dl Albumin/Globulin Ratio 0.8 0.9-2 Hepatitis B Surface Antigen NEG NEG Hepatitis C Antibody NEG NEG
--- NOTE | 2017-06-17 13:07 | Psychiatric Consultation ---
Psychiatric Consultation Date of Service: Jun 17, 2017. 31-year-old woman brought to the emergency department on June 15 by a friend, possibly her ex-. She was obtunded secondary likely overdose. Per records, she had called her ex- wanted him to come over. At some point she made statements that she was going to take all of her medicines in an overdose attempt. There is a petition her statement on the chart from Diane barrios. No supplemental has been able to be obtained to date. At the time I see the patient she is sedentary but does awaken to verbal and tactile. She is extremely irritable, not wanting to participate in discussion. She does not think she needs to be here, denies that she overdosed, but cannot reasonably explain her condition upon arrival to the ED. She is tearful , threatening to pull off her telemetry leads and leave. She denies that she abuses drugs despite some information in the ED notes that indicates she may have taken all of her Ritalin and may have said that she would go to rehabilitation. All in all, the picture is still quite unclear. As she is waking up now 2 days after admission, she is irritable. There is a petition her statement for a 302 on the chart but no warrants. If she actively begins to attempt to leave we may need to call [employer] to have an issue warrant in order to prevent her from leaving. I have asked the liaison nurse to attempt to get supplemental from anybody she can, family, friends or the person referred to as her ex-. The patient should not be allowed to leave the hospital and should be held with security until a 302 warrant can be issued. Diagnostic impression: Status post overdose of unknown medications, possibly in a suicide attempt. Plan: - The patient should not be allowed to leave and should be held by security until a warrant was issued by [employer] - Will attempt to interview the patient again tomorrow as she becomes less obtunded. - Will attempt to get supplemental from anybody that we can.
[2017-06-17] MEDS ORDERED: GABAPENTIN 600 MG TAB PO SCH (20:45)
[2017-06-17] MEDS ORDERED: GABAPENTIN 1200MG LOADING DOSE PO SCH (22:00)
[2017-06-18 04:29] VITALS: BP 103/66; PULSE 82; TEMP 36.7; O2SAT 93
[2017-06-18] MEDS: GABAPENTIN 600MG Q6H DOSE PO SCH ×2 (06:23→12:29)
[2017-06-18 07:20] VITALS: BP 126/72; PULSE 92; TEMP 36.4; O2SAT 97
[2017-06-18] MEDS: RANITIDINE HCL 150 MG TAB PO SCH ×2 (07:42→19:51)
[2017-06-18] MEDS: ENOXAPARIN 40 MG/0.4 ML SYR SC SCH (07:43)
[2017-06-18] MEDS: NSS + 20MEQ KCL 1000ML 1,000 ML IV SCH ×2 (09:41→19:51)
[2017-06-18] MEDS: PANTOprazole SOD 40 MG TAB PO SCH (09:41)
[2017-06-18 11:08] VITALS: BP 111/76; PULSE 101; TEMP 36.7; O2SAT 97
--- NOTE | 2017-06-18 13:10 | Psychiatric Consultation ---
Psychiatric Consultation Date of Service: Jun 18, 2017. Consult requested to evaluate patient with possible overdose Patient is more cooperative today, but remains angry. Today admits that she has a lot of stress in her life and on the day of admission made a suicide attempt by ingesting an entire bottle of elavil. she has 3 children who are in the custody of her mother who has [place], and has a poor relationship with mother. Her [place] of friends are angry with her for dating someone named Kahlil, but doesn't really explan why they are mad. She admits that she relapsed onto cocaine and meth in a desperate attempt to make herself feel better. She is tearful, irritable and disrespectful, but when firm boundaries are set she is able to gain some behavioral control. She was in [place] for rehab in 2008 and claims she was sober until recent relapse (timing uncertain). 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 Most of our time is spent with the patient angrily begging to go home despite being told multiple times that I am recommending inpatient mental health treatment. She wants a cigarette and I suspect that she is craving drugs as well. She attempts to rip off her gown and monitor leads in a demonstration of her desire to go home, but I inform her that she will be held in the hospital, and security will be called if necessary. EKG reveals resolving QT prolongation, most recent 487 msec down from 564 on admission. She is more alert, able to take po, PT/OT pending. DIAGNOSES: PER PATIENT 1. Depression 2. Anxiety 3. ADHD Plan: 1. the patient requires inpatient mental health treatment. At this point she is refusing voluntary admission and should be 302'd using the petitioner's statement on the chart. She is desperate for a cigarette and could be offered the opportunity to explore [facility] as they smoke there, but otherwise will place is any available facility when medically cleared. 2. I have asked our liaison nurse to enact the warrant with [employer] in view of the fact that she repeatedly threatens to leave. 3. The patient has asked a friend to bring in her phone, and would high high suspicion about contraband, and suggest that all belongs be searched. I have informed her nurse Kenya Palma has personally been involved in reviewing the above case and in development of recommendations.
[2017-06-18 14:09] LABS: HEPATITIS A IGM TC 51813E NON-REACTIVE (NON-REACTIVE); HEPATITIS B CORE IGM TC51854R NON-REACTIVE (NON-REACTIVE)
[2017-06-18 15:15] VITALS: BP 97/63; PULSE 102; TEMP 36.8; O2SAT 98
--- NOTE | 2017-06-18 17:01 | Progress Note ---
Internal Med Progress Note Date of Service: Jun 18, 2017. Provider Documentation: SUBJECTIVE: The patient was seen and examined Much better Communicating reasonably Admitted to taking whole bottle of Elavil as attempted suicide OBJECTIVE Vital Signs-as noted below Exam: General-Communicating reasonably well Wants to leave and very angry Eyes-Normal,,Pupils-minimally dilated ENT-normal Neck-supple Lungs-Clear to auscultate bilaterally Heart-Regular,no murmur Abdomen-Benign,no masses,bowel sound present Extremities-No edema Neuro-as above Moving all the limbs -nonpurposeful Garbled speech Lab data as noted below. ASSESSMENT & PLAN: Suicidal OD of Elavil Metabolic Encephalopathy Urine Tox screen::Opioid and Cocaine metabolites Intentional and with suicidal intent as per ER provider account No one is available to get the history from Remains semiresponsive but Hemodynamically stable Tachycardia is improving ,labs and imaging studies unremarkable so far Much improved -pleasantly confused EKG-normalized Psychiatry consulted-appreciate input Will need inpatient psychiatry care Withdrawal Symptoms On Gabapentin protocol No issue Elevated LFTs ALT >AST Improving-will get Hepatitis panel-negative so far Hepatitis panel -negative LFTs are much better Ongoing tobacco abuse. Nicotine patch Mood disorder, unknown status. ADHD Appreciate Psychiatry input DVT prophylaxis, Lovenox subQ. Full code. No family members available to speak with PT/OT D/C Carranza Likely to go to inpatient psychiatry tomorrow Vital Signs: Date Time Temp Pulse Resp B/P (MAP) Pulse Ox O2 Delivery O2 Flow Rate FiO2 06/18/17 16:00 Room Air 06/18/17 15:15 36.8 102 18 97/63 (74) 98 Room Air 06/18/17 12:00 Room Air 06/18/17 11:08 36.7 101 18 111/76 (88) 97 Room Air 06/18/17 08:00 Room Air 06/18/17 07:20 36.4 92 18 126/72 (90) 97 06/18/17 04:29 36.7 82 19 103/66 (78) 93 Room Air 06/18/17 04:00 Room Air 06/18/17 00:01 Room Air 06/17/17 22:49 36.4 106 22 122/78 (93) 97 Room Air 06/17/17 20:00 Room Air 06/17/17 18:52 36.5 102 16 126/82 (97) 97 Room Air
[2017-06-18 19:34] VITALS: BP 130/85; PULSE 93; TEMP 36.9; O2SAT 97
[2017-06-18] MEDS: GABAPENTIN 600MG Q8H DOSE PO SCH (21:35)
[2017-06-18 23:21] VITALS: BP 106/68; PULSE 95; TEMP 36.6; O2SAT 99
[2017-06-19 03:13] VITALS: BP 95/59; PULSE 91; TEMP 36.9; O2SAT 95
[2017-06-19] MEDS: GABAPENTIN 600MG Q8H DOSE PO SCH ×2 (05:38→14:01)
[2017-06-19] MEDS: NSS + 20MEQ KCL 1000ML 1,000 ML IV SCH (05:38)
[2017-06-19 07:06] LABS: BASO % 0.2 %; BASO ABS # 0.01 K/uL (0-0.2); EOS % 3.5 %; EOS ABS # 0.21 K/uL (0-0.5); HEMATOCRIT 36.5 % (37-47); HEMOGLOBIN 12.1 g/dL (12.0-16.0); IG# 0.01 K/uL (0.00-0.02); LYMPH % 35.6 %; LYMPH ABS # 2.12 K/uL (1.2-3.4); MEAN CELL VOLUME 90.1 fL (80-100); MEAN CORPUSCULAR HEMOGLOBIN 29.9 pg (25-34); MEAN CORPUSCULAR HGB CONC 33.2 g/dl (32-36); MEAN PLATELET VOLUME 11.4 fL (7.4-10.4); MONO % 7.9 %; MONO ABS # 0.47 K/uL (0.11-0.59); NEUT % 52.6 %; NEUT ABS # 3.14 K/uL (1.4-6.5); PLATELET COUNT 190 K/uL (130-400); RED CELL DISTRIBUTION WIDTH CV 12.7 % (11.5-14.5); RED CELL DISTRIBUTION WIDTH SD 41.8 fL (36.4-46.3); WHITE BLOOD COUNT 5.96 K/uL (4.8-10.8)
[2017-06-19 07:11] VITALS: BP 102/65; PULSE 83; TEMP 36.8; O2SAT 95
[2017-06-19 07:30] LABS: CALCIUM 8.6 mg/dl (8.5-10.1); CREATININE 0.7 mg/dl (0.60-1.20)
[2017-06-19] MEDS: PANTOprazole SOD 40 MG TAB PO SCH (10:00)
[2017-06-19] MEDS: ENOXAPARIN 40 MG/0.4 ML SYR SC SCH (10:00)
[2017-06-19] MEDS: RANITIDINE HCL 150 MG TAB PO SCH (10:00)
--- NOTE | 2017-06-19 10:09 | Psychiatric Progress Notes ---
Psychiatric Progress Note Date of Service Jun 19, 2017. Notes met with patient this am as medical clearance is imminent and patient's MSE reportedly improved in past 24 hours. Still irritable, swearing at times but accepting more responsibility and clearly stating that she wants inpatient mental health treatment. She understands that she cannot smoke on hospital grounds and was tearful about her obstinate behavior, somewhat embarrassed that she "just wanted a cigarette". She voiced feeling that others misunderstand her and expressed a preference for the [facility] as it is a smoking facility. She is also agreeable to inpatient here and we reviewed rights under 201 vs 302 commitment and the difference between a warrant and a completed 302. At this time there does not appear to be any evidence of psychosis and her previous resistance to inpatient care was part of resolving MSE changes following OD. Updated liaison that I do feel patient would now be appropriate for a voluntary admission.
--- NOTE | 2017-06-19 11:32 | Progress Note ---
Internal Med Progress Note Date of Service: Jun 19, 2017. Provider Documentation: SUBJECTIVE: The patient was seen and examined Much better Communicating reasonably Admitted to taking whole bottle of Elavil as attempted suicide Denies any symptoms today and willing to go to Inpatient psychiatry care OBJECTIVE Vital Signs-as noted below Exam: General-Communicating well Willing to go to inpatient psychiatry care Eyes-Normal,,Pupils-minimally dilated ENT-normal Neck-supple Lungs-Clear to auscultate bilaterally Heart-Regular,no murmur Abdomen-Benign,no masses,bowel sound present Extremities-No edema Neuro-as above Moving all the limbs -nonpurposeful Garbled speech Lab data as noted below. ASSESSMENT & PLAN: Suicidal OD of Elavil Metabolic Encephalopathy Urine Tox screen::Opioid and Cocaine metabolites Intentional and with suicidal intent as per ER provider account No one is available to get the history from Remains semiresponsive but Hemodynamically stable Tachycardia is improving ,labs and imaging studies unremarkable so far Much improved -pleasantly confused EKG-normalized Psychiatry consulted-appreciate input Will need inpatient psychiatry care and she is willing Denies any symptoms today and the labs are good Withdrawal Symptoms On Gabapentin protocol No issue Elevated LFTs ALT >AST Improving-will get Hepatitis panel-negative so far Hepatitis panel -negative LFTs are much better Ongoing tobacco abuse. Nicotine patch Mood disorder, unknown status. ADHD Appreciate Psychiatry input DVT prophylaxis, Lovenox subQ. Full code. No family members available to speak with PT/OT D/C Carranza Likely to go to inpatient psychiatry tomorrow Medically stable to be discharged. Vital Signs: Date Time Temp Pulse Resp B/P (MAP) Pulse Ox O2 Delivery O2 Flow Rate FiO2 06/19/17 08:00 Room Air 06/19/17 07:11 36.8 83 19 102/65 (77) 95 Room Air 06/19/17 03:15 Room Air 06/19/17 03:13 36.9 91 22 95/59 (71) 95 Room Air 06/19/17 00:15 Room Air 06/18/17 23:21 36.6 95 20 106/68 (81) 99 Room Air 06/18/17 19:51 Room Air 06/18/17 19:34 36.9 93 16 130/85 (100) 97 Room Air 06/18/17 16:00 Room Air 06/18/17 15:15 36.8 102 18 97/63 (74) 98 Room Air 06/18/17 12:00 Room Air Lab Results: Results Past 24 Hours Test 06/19/17 06:13 Range/Units White Blood Count 5.96 4.8-10.8 K/uL Red Blood Count 4.05 4.2-5.4 M/uL Hemoglobin 12.1 12.0-16.0 g/dL Hematocrit 36.5 37-47 % Mean Corpuscular Volume 90.1 80-100 fL Mean Corpuscular Hemoglobin 29.9 25-34 pg Mean Corpuscular Hemoglobin Concent 33.2 32-36 g/dl Platelet Count 190 130-400 K/uL Mean Platelet Volume 11.4 7.4-10.4 fL Neutrophils (%) (Auto) 52.6 % Lymphocytes (%) (Auto) 35.6 % Monocytes (%) (Auto) 7.9 % Eosinophils (%) (Auto) 3.5 % Basophils (%) (Auto) 0.2 % Neutrophils # (Auto) 3.14 1.4-6.5 K/uL Lymphocytes # (Auto) 2.12 1.2-3.4 K/uL Monocytes # (Auto) 0.47 0.11-0.59 K/uL Eosinophils # (Auto) 0.21 0-0.5 K/uL Basophils # (Auto) 0.01 0-0.2 K/uL RDW Standard Deviation 41.8 36.4-46.3 fL RDW Coefficient of Variation 12.7 11.5-14.5 % Immature Granulocyte % (Auto) 0.2 % Immature Granulocyte # (Auto) 0.01 0.00-0.02 K/uL Sodium Level 138 136-145 mmol/L Potassium Level 4.0 3.5-5.1 mmol/L Chloride Level 108 98-107 mmol/L Carbon Dioxide Level 25 21-32 mmol/L Anion Gap 5.0 3-11 mmol/L Blood Urea Nitrogen 13 7-18 mg/dl Creatinine 0.70 0.60-1.20 mg/dl Est Creatinine Clear Calc Drug Dose 118.9 ml/min Estimated GFR () 134.8 Estimated GFR (Non- 116.3 BUN/Creatinine Ratio 18.0 10-20 Random Glucose 94 70-99 mg/dl Calcium Level 8.6 8.5-10.1 mg/dl Phosphorus Level 4.0 2.5-4.9 mg/dl Magnesium Level 2.0 1.8-2.4 mg/dl
[2017-06-19 11:36] VITALS: BP 109/73; PULSE 101; TEMP 37; O2SAT 97
[2017-06-19] MEDS ORDERED: NRN600 PO (14:36)
--- NOTE | 2017-06-19 14:41 | Discharge Instructions ---
Discharge Instructions Date of Service Jun 19, 2017. Admission Reason for Admission: Drug Overdose, Intentional Discharge Discharge Diagnosis / Problem: Suicidal Overdose of Elavil Discharge Goals Goal(s): Prevent Disease Progression Activity Recommendations Activity Level: Up Ad Theresa . Additional Information Patient informed of condition: Yes Advance Directives: No DNR: No Level of Care: Other (Psychiatry facility) Communicable Disease: No Prognosis: Improving Carranza Catheter: No Instructions / Follow-Up Instructions / Follow-Up Pleas make an appointment with your PCP within 1 week of discharge Current Hospital Diet Patient's current hospital diet: Regular Diet Discharge Diet Recommended Diet: Regular Diet Pending Studies Studies pending at discharge: no Medical Emergencies . Who to Call and When: Medical Emergencies: If at any time you feel your situation is an emergency, please call 911 immediately. . Non-Emergent Contact Non-Emergency issues call your: Primary Care Provider . Past History Medical & Surgical History: (1) Drug overdose, intentional (2) Depression (3) Fibromyalgia (4) Polycystic ovaries (5) S/P cholecystectomy (6) S/P tonsillectomy (7) H/O neck surgery (8) H/O colonoscopy (9) S/p lumbar decompression/fusion . "Provider Documentation" section prepared by Violet Pedroza. . Core Measure Problem Core Measures: None
[2017-06-20] MEDS ORDERED: GABAPENTIN 600MG Q12H DOSE PO SCH
--- NOTE | 2017-06-20 08:08 | Discharge Summary ---
Discharge Summary Date of Service Jun 20, 2017. Discharge Summary Admission Date: Jun 15, 2017 at 05:27 Discharge Date: Jun 19, 2017 Discharge Disposition: Acute care mental health Principal Diagnosis: Suicidal Overdose of Elavil Secondary Diagnoses/Problems: Please see H&P and Hospital progress note Consultations: Uptwister Tender and Psychiatry Medication Reconciliation New Medications: Gabapentin (Gabapentin) 600 Mg Tab 600 MG PO UD, #2 TAB 1 dose this evening and then 1 dose in AM of 06/20/17 Continued Medications: Epinephrine (Epipen) 0.3 Mg/0.3 Ml Inj 0.3 MG IM UD PRN for ALLERGIC REACTION, BOX 2 INJECTS IN BAG. Pantoprazole Sodium (Protonix) 40 Mg Tab 40 MG PO DAILY, #30 TAB FILLED 08/27/16- 10 LEFT OUT OF 30 TABS. Discontinued Medications: Amitriptyline Hcl (Amitriptyline Hcl) 50 Mg Tab 75-100 MG PO HS, TAB FILLED 05/01/17- 0 LEFT OUT OF 60 TABS. Escitalopram Oxalate (Lexapro) 5 Mg Tab 5 MG PO QAM, TAB FILLED 05/01/17- 28 LEFT OUT OF 30 TABS. Gabapentin (Gabapentin) 600 Mg Tab 900 MG PO TID FILLED 05/01/17- 105 1/2 LEFT OUT OF 135 TABS. Methylphenidate (Ritalin) 20 Mg Tab 20 MG PO DAILY AT NOON, TAB FILLED 05/01/17- 0 LEFT OUT OF 30 TABS. Methylphenidate HCl (Methylphenidate HCl ER) 36 Mg Tab 36 MG PO QAM FILLED 06/11/17- 1 LEFT OUT OF 30 TABS. Methylphenidate (Ritalin) 10 Mg Tab 10 MG PO DAILY AT NOON, TAB FILLED 06/11/17- 0 LEFT OUT OF 30 TABS. Methylphenidate (Ritalin) 20 Mg Tab 30 MG PO DAILY AT QAM & NOON FILLED 05/09/17- 0 LEFT OUT OF 90 TABS. Ranitidine HCl (Ranitidine HCl) 150 Mg Tab 150 MG PO BID FILLED 05/01/17- 59 LEFT OUT OF 60 TABS. Venlafaxine Hcl (Effexor) 75 Mg Tab 75 MG PO QAM, TAB FILLED 05/01/17- 30 LEFT OUT OF 30 TABS. Admission Information HPI (per Admitting provider): DATE OF ADMISSION: 06/15/2017 PRIMARY CARE DOCTOR: Kieran Hemphill MD. CHIEF COMPLAINT: Overdose as per records. HISTORY OF PRESENT ILLNESS: History obtained from records, ER provider. Unable to obtain history secondary to obtunded state. Medical history significant for fibromyalgia, mood disorder as per records, ongoing tobacco abuse. Recent confinement last October 2016 for syncope. As per records, the patient brought by ex- to the ED for an apparent overdose, missing methylphenidate, Ritalin tablets. Suicidal intent as per ex- account. No response to Narcan given at the ER. MEDICAL HISTORY: As above. SURGERIES: Cholecystectomy, back surgery, tonsillectomy, neck surgery. HOME MEDICATIONS: Include amitriptyline, EpiPen, Lexapro, gabapentin, methylphenidate, Ritalin, Protonix, Effexor. ALLERGIES: ADHESIVE, BEE STING, AMOXICILLIN, HYDROMORPHONE, PROPRANOLOL, DICLOFENAC AND TRAMADOL. FAMILY HISTORY: Could not be obtained. PERSONAL AND SOCIAL HISTORY: Tobacco abuse as per records. 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 REVIEW OF SYSTEMS: Could not be obtained. PHYSICAL EXAMINATION: VITAL SIGNS: Blood pressure was noted to be 138/89, pulse rate of 46, RR 16, temperature 36.5, sats 99 on 3 liters. GENERAL: Noted to be obtunded, no respiratory distress. Obese. SKIN: Normal color. Warm. HEENT: [place] palpebral conjunctivae. No ptosis. Dry mucosa. NECK: Short neck. No tenderness. CHEST: Decreased effort. No tenderness. HEART: Tachycardic. No murmur. ABDOMEN: Soft, nontender. EXTREMITIES: No LE edema, no tenderness. No gross deformities. NEUROLOGIC: Obtunded. Mid dilated pupils. No nuchal rigidity. LABORATORY DATA: Hemoglobin was noted to be 14.1, hematocrit 40.6, white blood cell count 6, platelets 146. Sodium 136, potassium 3.2, chloride 105, CO2 26, BUN 11, creatinine 0.7, glucose 124, AST 52, ALT 27, alkaline phosphatase 136. Alcohol level was less than 3. Urine tox, opiate positive, cocaine positive. CT head, no acute pathology. Chest x-ray as per my interpretation, atelectasis. EKG as per my interpretation: Sinus tachycardia, right axis deviation, QTc 530. ASSESSMENT: 1. Drug overdose likely polysubstance Intentional and with suicidal intent as per ER provider account no response to Narcan. 2. Ongoing tobacco abuse. 3. Mood disorder, unknown status. 4. Hypokalemia PLAN: PCU. Hold home neuropsychotropic meds. Follow Toxicology recommendations May need Psych eval once patient more awake regarding suicidality Replace K Nicotine patch when necessary DVT prophylaxis, Lovenox subQ. Full code. Will attempt to obtain history from the patient once more awake. Attempted to reach patient's listed parts sales counterperson from outpatient records (Mr. Ye Malone at [phone]); no answer. Hospital Course Suicidal OD of Elavil Metabolic Encephalopathy Urine Tox screen::Opioid and Cocaine metabolites Intentional and with suicidal intent as per ER provider account No one is available to get the history from Remains semiresponsive but Hemodynamically stable Tachycardia is improving ,labs and imaging studies unremarkable so far Much improved -pleasantly confused EKG-normalized Psychiatry consulted-appreciate input Will need inpatient psychiatry care and she is willing Denies any symptoms today and the labs are good Withdrawal Symptoms On Gabapentin protocol No issue Elevated LFTs ALT >AST Improving-will get Hepatitis panel-negative so far Hepatitis panel -negative LFTs are much better Ongoing tobacco abuse. Nicotine patch Mood disorder, unknown status. ADHD Appreciate Psychiatry input DVT prophylaxis, Lovenox subQ. Full code. No family members available to speak with PT/OT D/C Carranza Likely to go to inpatient psychiatry tomorrow Medically stable to be discharged. Total time spent on discharge = 35 minutes This includes examination of the patient, discharge planning, medication reconciliation, and communication with other providers. Discharge Instructions Date of Service Jun 19, 2017. Admission Reason for Admission: Drug Overdose, Intentional Discharge Discharge Diagnosis / Problem: Suicidal Overdose of Elavil Discharge Goals Goal(s): Prevent Disease Progression Activity Recommendations Activity Level: Up Ad Hteresa . Additional Information Patient informed of condition: Yes Advance Directives: No DNR: No Level of Care: Other (Psychiatry facility) Communicable Disease: No Prognosis: Improving Carranza Catheter: No Instructions / Follow-Up Instructions / Follow-Up Pleas make an appointment with your PCP within 1 week of discharge Current Hospital Diet Patient's current hospital diet: Regular Diet Discharge Diet Recommended Diet: Regular Diet Pending Studies Studies pending at discharge: no Medical Emergencies . Who to Call and When: Medical Emergencies: If at any time you feel your situation is an emergency, please call 911 immediately. . Non-Emergent Contact Non-Emergency issues call your: Primary Care Provider . Past History Medical & Surgical History: (1) Drug overdose, intentional (2) Depression (3) Fibromyalgia (4) Polycystic ovaries (5) S/P cholecystectomy (6) S/P tonsillectomy (7) H/O neck surgery (8) H/O colonoscopy (9) S/p lumbar decompression/fusion . "Provider Documentation" section prepared by Violet Pedroza. . Core Measure Problem Core Measures: None <Electronically signed by Violet Pedroza M.D.>
[2017-06-20] MEDS ORDERED: TOPI200T6 PO (13:52)
[2017-06-20] MEDS ORDERED: IMT100 PO (13:52)
[2017-06-20] MEDS ORDERED: MONT1TAB3 PO (13:52)
[2017-06-21] MEDS ORDERED: GABAPENTIN 600MG X1 DOSE PO SCH (12:00)
== END 2017-06-19 15:00 | DRG 917 ==
LOC: C.EDB 02:59 → EEVIPCON 05:27 → UNDOADMIN 05:27 → C.MSICU 05:27 → ENRESERV 05:42 → C.2T 06-17 13:22
PROVIDERS: ADMIT Internal Medicine; ATTEND Internal Medicine
DX: T43.012A Poisoning by tricyclic antidepressants, intentional self-harm, initial encounter (principal); G92 Toxic encephalopathy; F14.90 Cocaine use, unspecified, uncomplicated; F11.90 Opioid use, unspecified, uncomplicated; F17.210 Nicotine dependence, cigarettes, uncomplicated; F32.9 Major depressive disorder, single episode, unspecified; F41.9 Anxiety disorder, unspecified; F90.9 Attention-deficit hyperactivity disorder, unspecified type; E87.6 Hypokalemia; M79.7 Fibromyalgia; Z79.899 Other long term (current) drug therapy

== ENCOUNTER 2017-06-19 15:00 | Inpatient (IN) | payer OTHER ==
[~2017-06-19] VITALS: Ht 157.5 cm; Wt 82.1 kg
[~2017-06-19 15:00] MED LIST changes: -ACET500T58 PO; +AMIT50TA3 PO; -CETI10TA84 PO; -CLON0.5T3 PO; -DIPH1TAB87 PO; -ESCI1TAB10 PO; +ESCI5TAB PO; -LACT10SO17 PO; -LRS10 PO; +METH-645 PO; +METH10TA4 PO; -OMEP20CA9 PO; -ONDA8TAB6 PO; +PANT40TA PO; -PROM25TA9 PO; -TOPI200T20 PO
[2017-06-19] MEDS ORDERED: hydrOXYzine HCL 25 MG TAB PO PRN (15:15)
[2017-06-19] MEDS ORDERED: ACETAMINOPHEN 325 MG TAB PO PRN (15:15)
[2017-06-19] MEDS ORDERED: MAGNESIUM HYDROXIDE SUSP 30 ML UDC PO PRN (15:15)
[2017-06-19] MEDS ORDERED: SODIUM CHLORIDE 0.65% NA SOLN 45 ML (OCEAN) PRN (15:15)
[2017-06-19] MEDS ORDERED: NURSING VERBAL MED ORDER ONE (15:15)
[2017-06-19] MEDS ORDERED: BISMUTH SUBSALICYLATE PER ML OMNICELL CHARGE PO PRN (15:45)
[2017-06-19 16:12] VITALS: BP 120/81; PULSE 101; TEMP 36.9; Ht 157.5 cm; Wt 82.1 kg
[2017-06-19] MEDS: GABAPENTIN 600 MG TAB PO SCH (22:30)
[2017-06-19] MEDS: hydrOXYzine HCL 25 MG TAB PO PRN (23:49)
[2017-06-20] MEDS: hydrOXYzine HCL 25 MG TAB PO PRN (00:37)
[2017-06-20 06:54] VITALS: BP_SYST 122; BP_SYST 124; BP_DIAS 75; BP_DIAS 80; PULSE 108; PULSE 90; TEMP 36.4
[2017-06-20] MEDS: GABAPENTIN 600 MG TAB PO SCH (08:03)
[2017-06-20] MEDS ORDERED: SUMATRIPTAN SUCCINATE 6 MG/0.5 ML VIAL SQ PRN (11:30)
[2017-06-20] MEDS ORDERED: ESCITALOPRAM OXALATE 10 MG TAB PO ONE (11:30)
[2017-06-20] MEDS ORDERED: TOPIRAMATE 100 MG TAB PO ONE (11:30)
[2017-06-20] MEDS ORDERED: EPINEPHRINE ADULT AUTO-INJECT 0.3 MG SYR IM PRN (11:30)
[2017-06-20] MEDS ORDERED: NURSING VERBAL MED ORDER ONE (13:00)
[2017-06-20] MEDS ORDERED: IMT100 PO (13:52)
[2017-06-20] MEDS ORDERED: TOPI200T6 PO (13:52)
[2017-06-20] MEDS ORDERED: MONT1TAB3 PO (13:52)
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
[2017-06-20] MEDS: CALCIUM CARBONATE 500 MG CHEWABLE PO PRN ×2 (15:50→17:18)
[2017-06-20] MEDS: GABAPENTIN 300 MG CAP PO SCH (17:18)
[2017-06-20] MEDS: NICOTINE POLACRILEX 2 MG GUM MT PRN (18:09)
[2017-06-20] MEDS ORDERED: MONTELUKAST SOD 10 MG TAB PO SCH (22:00)
[2017-06-20] MEDS ORDERED: GABAPENTIN 600 MG TAB PO SCH (22:00)
[2017-06-20] MEDS: TOPIRAMATE 100 MG TAB PO SCH (22:21)
[2017-06-20] MEDS: RANITIDINE HCL 150 MG TAB PO SCH (22:22)
[2017-06-21 06:52] VITALS: BP_SYST 110; BP_SYST 122; BP_DIAS 72; BP_DIAS 75; PULSE 108; PULSE 92; TEMP 37
[2017-06-21] MEDS: GABAPENTIN 300 MG CAP PO SCH (08:24)
[2017-06-21] MEDS: RANITIDINE HCL 150 MG TAB PO SCH (08:25)
[2017-06-21] MEDS: TOPIRAMATE 100 MG TAB PO SCH (08:25)
[2017-06-21] MEDS: NICOTINE POLACRILEX 2 MG GUM MT PRN (08:27)
[2017-06-21] MEDS ORDERED: ESCITALOPRAM OXALATE 10 MG TAB PO SCH ×2 (09:00)
[2017-06-21 10:30] VITALS: BP 119/80; PULSE 106; TEMP 36.9
--- NOTE | 2017-06-21 13:58 | Psychiatric Progress Notes ---
Progress Note Date of Service Jun 21, 2017. Interval History 31 yo female with a history of mood disorder and PTSD diagnoses as well as history of polysubstance abuse. She was held on floor following multi-drug OD as a suicide attempt but ultimately improved to point appropriate for voluntary admission. She does remain irritable, no evidence of earl, she is guarded and won't discuss past traumas. Outpatient plan was to cross taper Effexor XR to Lexapro. Stimulant medications held and TCA will not be restarted. Chief Complaint "I don't like these medicines, can I just be off them?". Subjective Patient was seen & assessed interval progress reviewed with Treatment Team. The patient says that she feels jittery and dizzy on meds and wants to stop taking both neurontin and topamax. She claims that she hasn't taken them regularly in years, that the only med she takes regularly is Ritalin "which makes me feel normal". She also says that's why she does cocaine, because it makes her feel normal. She has submitted her 72 hr notice to withdraw from treatment, and wants to know when she can leave. I ask what risk factors have been mitigated and she says that she plans not to have any connection to her mother, who she describes as "toxic". Her mother currently has custody of her children, and when asked what this will mean to her relationship with her children, she then backs off and says that she will deal with her mother related only to her kids. When asked how she plans to maintain sobriety, her answer is just "I will.", but has no plans in place to avoid abusing stimulants. She denies any further SI, and says that her attempt was "stupid", "I don't even know why I did that", and can make no connections to her desperate act, and her life circumstances. She is irritable throughout the interview, barely able to reign in her temper. She swears prolifickly. She is not willing to revoke her notice and stay the recommended time because she has concert tickets for a show on Wednesday. Review of Systems Constitutional: No fever, No chills, No sweats, No weight loss, No weakness, No fatigue, No problem reported ENT: No hearing loss, No unusual epistaxis, No nasal symptoms, No sore throat, No tinnitus, No dental problems, No trouble swallowing, No problem reported Cardiovascular: No chest pain, No orthopnea, No PND, No edema, No claudication , No palpitations, No problem reported Abdomen: No pain, No nausea, No vomiting, No diarrhea, No constipation, No GI bleeding, No problem reported Musculoskeletal: No joint pain, No muscle pain, No swelling, No calf pain, No problem reported Psychiatric: + anxiety, + problem reported (irritability) Integumentary: No rash, No itch, No new/changing skin lesions, No color change , No bleeding, No problem reported Sleep Information Total Hours of Sleep: 7.50 Meal Information Percent of Breakfast Consumed: 100 Percent of Lunch Consumed: 70 Percent of Dinner Consumed: 100 Mental Status Exam During interview pt is: alert and oriented, guarded Appearance: disheveled Eye contact is: poor Motor behavior is: no abnormal motor movements Speech: normal in rate, rhythm & volume Affect: depressed, irritable Mood is: anxious Thought process: circumstantial Thought content: reality based without delusions Suicidal thought are: denied Homicidal thoughts are: denied Hallucinations: denies auditory, denies visual Cognition: language grossly intact, other (attention decreased) Intelligence estimated to be: consistent with level of education Insight: poor Judgement: poor Impression She is very limited in how she will engage in treatment, and simply says that because she has decided not to be suicidal or use drugs, then it will be so. She resists engaging in safety planing. I have asked her to put together a written safety plan, and explore a meeting here with her roommate Mai, to which she throws up many barriers. Although she seems to be providing conflictual informations, I will DC neurontin as she says that she hasn't taken it in a long while. I will maintain Topamax for migraine prophylaxis. she said she takes it prn for migraines, so I educated her about prophylaxis. It is unclear to me whether her prescriber at [facility] is aware of her drug history and recent relapses onto cocaine and meth, so will be sure to call her prior to patient's discharge. Plan (1) Depressive disorder, atypical 06/20/17--The patient is admitted to [facility] ([facility] mental health unit ) on q 15 min checks (behavioral with suicide precautions) for safety. The patient will participate in group, recreational and milieu therapies and will be offered additional individual and family sessions as clinically appropriate. Will not restart Effexor, no active discontinuation syndrome. Will restart Lexapro 5 mg today with plan for 10 mg tomorrow am. Monitor for activation. Prior dx of bipolar but not discharged on mood stabilizer other than neurontin and obviously some personality do traits. 06/21 - DC Neurontin as patient's doesn't like the way she feels on it. (2) PTSD (post-traumatic stress disorder) need to further explore symptoms, recommend therapy after discharge, Lexapro appropriate agent (3) Drug overdose, intentional reviewed with patient the risks of TCA and why it will not be restarted also reviewed that we routinely hold all controlled substances after OD and that her outpatient prescribers will be notified of our safety concerns, did sign ROIs for liaison (4) Fibromyalgia patient was back/forth on benefit of Neurontin and wanted to know other options. Reviewed that rx of lyrica is outside of the scope of my practice and that I recommend that we retain her neurontin at the lower dose and shift dosing toward bedtime until she is seen by her outpatient provider (300/300/600) . (5) Migraine will not resume TCA via safety risk ordered imitrex that uses prn at home, patient aware of risks of serotonin syndrome in combination with other meds will order topamax as she states is prescribed, reviewed that she has a history of kidney stone listed on chart and can be complication of topamax she should f/u with Dr. Sanders. 06/21 - continue topamax for prophylaxis, but patient already complaining about it and wanting it to be discharged. (6) Nicotine dependence The patient is a current heavy smoker but does not want to quit and declines brief intervention for tobacco cessation. Accepted nicotine gum as relates sensitivity to path on skin. (7) ADHD cannot comment on appropriateness of diagnosis in this context and reviewed that will not rx controlled substances here. Strattera is non-formulary. suspect misuse, need to further explore substance use Discharge / Aftercare Planning Psychiatrist: Name: SUZI Dominguez Date of Appointment: Jul 01, 2017 Time of Appointment: 11 a.m. Appointment Notes: [address] [place] [id number] Therapist: Name: SUZI Date of Appointment: Jul 05, 2017 Time of Appointment: 9 a.m. Appointment Notes: Therapist appt with Joanne Helton Visit Code E&M Code: 52617 Inventory Assets Strengths: employed, ultimately expressed willingness for treatment Needs: limits on controlled substances, outpatient therapy Risk Factors Assessment : Yes /single/: Yes Health problems: No Mental Health Diagnoses: Yes Substance use disorders: Yes Previous psychiatric stay: Yes Smoker: Yes Protective Factors Assessment Mandaen beliefs: No : No Responsible for young children: Yes Employed: Yes Supportive family: No Data Vital Signs Last 24 Hrs: Date Time Temp Pulse Resp B/P (MAP) Pulse Ox O2 Delivery O2 Flow Rate FiO2 06/21/17 10:30 36.9 106 14 119/80 06/21/17 06:52 37.0 92 18 110/72 108 122/75 Meds Administered Last 24 Hrs: Meds Administered (Past 24Hrs) Medications (Trade) Dose Ordered Sig/Saundra Route Start Time Stop Time Status Last Admin Dose Admin Hydroxyzine HCl (Vistaril Tab) 50 mg HSZ PRN PO 06/19/17 15:15 07/19/17 15:15 06/20/17 00:37 50 MG Gabapentin (Neurontin Tab) 600 mg BID PO 06/19/17 22:00 06/20/17 11:25 DC 06/20/17 08:03 600 MG Nicotine Polacrilex (Nicorette 2MG Gum) Chew and "park" in cheek ... Q2H PRN MT 06/19/17 15:30 07/19/17 15:29 06/21/17 08:27 1 PIECE Gabapentin (Neurontin Cap) 300 mg BID17 PO 06/20/17 17:00 06/21/17 13:55 DC 06/21/17 08:24 300 MG Gabapentin (Neurontin Tab) 600 mg HS PO 06/20/17 22:00 06/21/17 13:55 DC 06/20/17 22:26 600 MG Ranitidine HCl (zANTac TAB) 150 mg BID PO 06/20/17 22:00 07/20/17 21:59 06/21/17 08:25 150 MG Montelukast Sodium (Singulair Tab) 10 mg HS PO 06/20/17 22:00 07/20/17 21:59 06/20/17 22:21 10 MG Topiramate (Topamax Tab) 200 mg BID PO 06/20/17 22:00 07/20/17 21:59 06/21/17 08:25 200 MG Topiramate (Topamax Tab) 100 mg QAM ONCE PO 06/20/17 11:30 06/20/17 11:32 DC 06/20/17 12:32 100 MG Sumatriptan Succinate (Imitrex Sq Inj) 6 mg ONE PRN SQ 06/20/17 11:30 07/20/17 11:29 06/21/17 00:32 6 MG Escitalopram Oxalate (Lexapro Tab) 5 mg ONE ONCE PO 06/20/17 11:30 06/20/17 11:32 DC 06/20/17 12:32 5 MG Escitalopram Oxalate (Lexapro Tab) 10 mg QAM PO 06/21/17 09:00 07/21/17 08:59 06/21/17 08:24 10 MG Calcium Carbonate (Tums Chew Tab) 500 mg Q1H PRN PO 06/20/17 13:30 07/20/17 13:29 06/20/17 17:18 500 MG
[2017-06-21] MEDS ORDERED: NURSING VERBAL MED ORDER ONE (18:00)
[2017-06-21] MEDS: CALCIUM CARBONATE 500 MG CHEWABLE PO PRN (22:09)
[2017-06-21] MEDS: ALUMINUM/MAGNESIUM SUSP 30 ML UDC PO PRN (22:31)
[2017-06-22 06:55] VITALS: BP_SYST 114; BP_SYST 132; BP_DIAS 72; BP_DIAS 77; PULSE 111; PULSE 97; TEMP 36.9
[2017-06-22] MEDS: CALCIUM CARBONATE 500 MG CHEWABLE PO PRN ×2 (07:46→23:24)
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
[2017-06-22] MEDS: NICOTINE POLACRILEX 2 MG GUM MT PRN (14:07)
[2017-06-23] MEDS: ALUMINUM/MAGNESIUM SUSP 30 ML UDC PO PRN (00:44)
[2017-06-23] MEDS: CALCIUM CARBONATE 500 MG CHEWABLE PO PRN (03:33)
[2017-06-23 06:46] VITALS: BP_SYST 102; BP_SYST 114; BP_DIAS 68; BP_DIAS 76; PULSE 108; PULSE 98; TEMP 37.1
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
[2017-06-23] MEDS ORDERED: PRENTAB65 PO (10:48)
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
[2017-06-23] MEDS ORDERED: DESTROY THIS MEDICATION ONE ×2 (11:30→11:45)
== END 2017-06-23 11:24 | disposition left against medical advice (07) | DRG 781 ==
LOC: C.MHU 15:00
PROVIDERS: ADMIT Psychiatry & Neurology Child & Adolescent Psychiatry; ATTEND Psychiatry & Neurology Child & Adolescent Psychiatry
DX: O99.340 Other mental disorders complicating pregnancy, unspecified trimester (principal); R45.851 Suicidal ideations; F32.89 Other specified depressive episodes; F43.10 Post-traumatic stress disorder, unspecified; O99.320 Drug use complicating pregnancy, unspecified trimester; F15.10 Other stimulant abuse, uncomplicated; F14.10 Cocaine abuse, uncomplicated; F11.10 Opioid abuse, uncomplicated; O26.899 Other specified pregnancy related conditions, unspecified trimester; M79.7 Fibromyalgia; G40.909 Epilepsy, unspecified, not intractable, without status epilepticus; G43.909 Migraine, unspecified, not intractable, without status migrainosus; O99.330 Smoking (tobacco) complicating pregnancy, unspecified trimester; F17.210 Nicotine dependence, cigarettes, uncomplicated; F90.9 Attention-deficit hyperactivity disorder, unspecified type; Z79.899 Other long term (current) drug therapy; Z83.3 Family history of diabetes mellitus; Z80.0 Family history of malignant neoplasm of digestive organs; Z80.1 Family history of malignant neoplasm of trachea, bronchus and lung; Z82.49 Family history of ischemic heart disease and other diseases of the circulatory system; Z82.3 Family history of stroke; Z84.1 Family history of disorders of kidney and ureter; Z84.89 Family history of other specified conditions; Z81.8 Family history of other mental and behavioral disorders; Z83.49 Family history of other endocrine, nutritional and metabolic diseases; Z80.49 Family history of malignant neoplasm of other genital organs; Z3A.00 Weeks of gestation of pregnancy not specified

== ENCOUNTER 2017-06-26 15:06 | Emergency (ER) | payer OTHER ==
[~2017-06-26] VITALS: Ht 158.8 cm; Wt 85.7 kg
[~2017-06-26 15:06] MED LIST changes: -AMIT50TA3 PO; -EPP3/2 IM; -ESCI5TAB PO; -METH-645 PO; -METH10TA4 PO; -NRN600 PO; -PANT40TA PO; +PRENTAB65 PO; -RANI150T2 PO; -RTL20 PO; -VENL75TA4 PO
[2017-06-26 15:10] VITALS: TEMP 36.5; Ht 158.8 cm; Wt 85.7 kg
--- NOTE | 2017-06-26 15:42 | EMERGENCY ROOM VISIT NOTE ---
History Report prepared by Matthieuibdesire: Erin Sibley Under the Supervision of: Dr. Zeus Zhao M.D. First contact with patient: 15:14 Chief Complaint: PELVIC PAIN Stated Complaint: NOT SURE HOW FAR/ STOMACH HURTS History of Present Illness The patient is a 31 year old female who presents to the Emergency Room with complaints of persistent pelvic pain since last night. She rates her discomfort as an 8/10 in severity and describes the pain as feeling "cramping" in nature. She did experience minor vaginal spotting this morning. She states she recently found out she is , and her LMP was "sometime in May" and heavier than normal. The patient also complains of a headache, nausea and vomiting. She states she normally uses Imitrex injections for her headaches, but cannot use them due to . This is her 5th , and she has 3 children at home and has experienced 1 miscarriage. She denies any recent gross hematuria or dysuria. Source of History: patient Onset: last night Position: abdomen Symptom Intensity: 8/10 Quality: cramping Timing: other (persistent) Associated Symptoms: + headache, + nausea, + vomiting, No urinary symptoms Review of Systems See HPI for pertinent positives & negatives. A total of 10 systems reviewed and were otherwise negative. Past Medical & Surgical Medical Problems: (1) ADHD (2) Anxiety (3) Bronchitis (4) DDD (degenerative disc disease) (5) Depression (6) Depressive disorder, atypical (7) Drug overdose, intentional (8) Drug overdose, intentional (9) Fibromyalgia (10) Gall bladder disease (11) Gestational diabetes (12) H/o C2 vertebral fracture (13) History of - miscarriage (14) Kidney stone (15) Migraine (16) Nicotine dependence (17) PNA (pneumonia) (18) Polycystic ovaries (19) Polysubstance abuse (20) Post-operative infection (21) (22) PTSD (post-traumatic stress disorder) (23) Seizure disorder (24) Seroma (25) Spinal headache (26) Syncope (27) Vaginal delivery Surgical Problems: (1) H/O colonoscopy (2) H/O neck surgery (3) S/P cholecystectomy (4) S/p lumbar decompression/fusion (5) S/P tonsillectomy Old medical records were reviewed. Nurse's notes were reviewed and I agree with. Family History Diabetes mellitus GRANDMOTHER FH: cancer MOTHER (lung, uterus) AUNT (stomach CA) FH: gallbladder disease FH: heart disease GRANDMOTHER FH: lung disease Hypertension GRANDFATHER GRANDMOTHER Kidney disease Kidney stones Seizures Stroke Thyroid disorder MOTHER Social History Smoking Status: Current Every Day Smoker Alcohol Use: none Drug Use: cocaine, other Marital Status: in relationship Housing Status: lives alone Occupation Status: employed Current/Historical Medications Scheduled Multivit-Min W/Fe-Fa (), 1 TAB PO DAILY Allergies Coded Allergies: Amoxicillin (Verified Allergy, Severe, HIVES AND SOB, 06/15/17) BEE STING (Verified Allergy, Severe, SWELLING, 06/15/17) Hydromorphone (Verified Allergy, Intermediate, ABD PAIN, 06/15/17) Tramadol (Verified Allergy, Intermediate, seizures, 06/15/17) Adhesives (Verified Allergy, Mild, contact dermatitis, 06/15/17) Propranolol (Verified Allergy, Mild, MOUTH SORE, RASH, 06/15/17) Diclofenac (Verified Allergy, Unknown, HIVES/SOB, 06/15/17) Morphine (Verified Adverse Reaction, Intermediate, pt reports moderate to severe stomach discomfort, 06/15/17) pt states she requires a "GI cocktail" to alleviate the stomach discomfort that occurs after receiving Morphine or dilaudid Physical Exam Vital Signs Date Time Temp Pulse Resp B/P (MAP) Pulse Ox O2 Delivery O2 Flow Rate FiO2 06/26/17 17:53 65 16 108/66 98 06/26/17 17:19 90 18 111/61 100 Room Air 06/26/17 15:10 36.5 109 20 145/80 99 Room Air Physical Exam General: Well developed well nourished, non-ill appearing young female, in no acute distress, breathing comfortably on room air. Normal speech HEENT: Normal cephalic atraumatic. Pupils are equal round and reactive to light. Extraocular movements are intact. Oropharynx is pink with moist mucous membranes. No swelling of the mouth lips or tongue. Neck: Supple with a midline trachea. No meningeal signs or stiffness, no JVD or bruits. No Stridor. Chest: Clear to auscultation bilaterally. No wheezes or rhonchi. No increased work of breathing. Heart: regular rate and rhythm. Abdomen: Soft, minimally diffusely tender, nondistended without rebound guarding or rigidity. Extremities: No cyanosis clubbing or edema. No calf tenderness or assymetry Spine/Back. Non tender to palpation. No CVA tenderness Skin: Good turgor without rashes. Neurologic exam: Cranial nerves two through 12 are intact. Motor and sensation are intact and symmetrical throughout. Medical Decision & Procedures ER Provider Diagnostic Interpretation: Radiology results as stated below per my review and radiologist interpretation: ULTRASOUND OF THE PELVIS CLINICAL HISTORY: . Pelvic pain. COMPARISON STUDY: Pelvic ultrasound dated 05/21/2017. TECHNIQUE: Real-time, grayscale, and color flow sonography of the pelvis is performed both transabdominally and endovaginally. Images are reviewed in the transverse and longitudinal planes. FINDINGS: Uterus: The uterus is normal in size and echotexture, measuring 10.5 x 5.5 x 7.5 cm. Endometrium: The endometrium is mildly thickened measuring up to 1.7 cm. There is a 7 mm cystic focus in the fundal region. Ovaries: The ovaries are normal in size and morphology. The right ovary measures 4.1 x 2.1 x 2.9 cm and the left ovary measures 4.5 x 2.0 x 2.6 cm. Small follicles are seen bilaterally. Normal Doppler waveforms are shown within both ovaries. Pelvis: There is no free fluid in the cul-de-sac. No concerning adnexal lesion is seen. IMPRESSION: 1. There is a 7 mm cystic focus in the fundal region. Although this may represent a tiny gestational sac this is too small for estimated of dates and no parts are identified. Intrauterine gestation is not confirmed. Although there is no concerning adnexal lesion identified, in the setting of a positive test without a confirmed intrauterine gestation ectopic would be impossible to exclude. Close clinical, laboratory, and sonographic follow-up is recommended. 2. No adnexal or malalignment is identified. Electronically signed by: Moi George M.D. 06/26/2017 5:18 PM Laboratory Results 06/26/17 16:00 Red Blood Count 4.09, Mean Corpuscular Volume 89.5, Mean Corpuscular Hemoglobin 31.1, Mean Corpuscular Hemoglobin Concent 34.7, Mean Platelet Volume 10.7, Neutrophils (%) (Auto) 64.8, Lymphocytes (%) (Auto) 28.5, Monocytes (%) (Auto) 5.4, Eosinophils (%) (Auto) 1.1, Basophils (%) (Auto) 0.1, Neutrophils # (Auto) 4.92, Lymphocytes # (Auto) 2.16, Monocytes # (Auto) 0.41, Eosinophils # (Auto) 0.08, Basophils # (Auto) 0.01 06/26/17 16:00 Test 06/26/17 13:55 06/26/17 16:00 Urine Color DK YELLOW Urine Appearance CLEAR (CLEAR) Urine pH 6.5 (4.5-7.5) Urine Specific [place] 1.024 (1.000-1.030) Urine Protein NEG (NEG) Urine Glucose (UA) NEG (NEG) Urine Ketones NEG (NEG) Urine Occult Blood NEG (NEG) Urine Nitrite NEG (NEG) Urine Bilirubin NEG (NEG) Urine Urobilinogen NEG (NEG) Urine Leukocyte Esterase TRACE (NEG) Urine WBC (Auto) 1-5 /hpf (0-5) Urine RBC (Auto) 0-4 /hpf (0-4) Urine Hyaline Casts (Auto) 1-5 /lpf (0-5) Urine Epithelial Cells (Auto) >30 /lpf (0-5) Urine Bacteria (Auto) 1+ (NEG) Urine Mucus PRESENT (NONE PRSENT) White Blood Count 7.59 K/uL (4.8-10.8) Red Blood Count 4.09 M/uL (4.2-5.4) Hemoglobin 12.7 g/dL (12.0-16.0) Hematocrit 36.6 % (37-47) Mean Corpuscular Volume 89.5 fL (80-100) Mean Corpuscular Hemoglobin 31.1 pg (25-34) Mean Corpuscular Hemoglobin Concent 34.7 g/dl (32-36) Platelet Count 221 K/uL (130-400) Mean Platelet Volume 10.7 fL (7.4-10.4) Neutrophils (%) (Auto) 64.8 % Lymphocytes (%) (Auto) 28.5 % Monocytes (%) (Auto) 5.4 % Eosinophils (%) (Auto) 1.1 % Basophils (%) (Auto) 0.1 % Neutrophils # (Auto) 4.92 K/uL (1.4-6.5) Lymphocytes # (Auto) 2.16 K/uL (1.2-3.4) Monocytes # (Auto) 0.41 K/uL (0.11-0.59) Eosinophils # (Auto) 0.08 K/uL (0-0.5) Basophils # (Auto) 0.01 K/uL (0-0.2) RDW Standard Deviation 41.9 fL (36.4-46.3) RDW Coefficient of Variation 12.9 % (11.5-14.5) Immature Granulocyte % (Auto) 0.1 % Immature Granulocyte # (Auto) 0.01 K/uL (0.00-0.02) Anion Gap 4.0 mmol/L (3-11) Est Creatinine Clear Calc Drug Dose 124.2 ml/min Estimated GFR () 136.0 Estimated GFR (Non- 117.4 BUN/Creatinine Ratio 15.9 (10-20) Calcium Level 8.7 mg/dl (8.5-10.1) Total Bilirubin 0.3 mg/dl (0.2-1) Direct Bilirubin 0.1 mg/dl (0-0.2) Aspartate Amino Transf (AST/SGOT) 11 U/L (15-37) Alanine Aminotransferase (ALT/SGPT) 30 U/L (12-78) Alkaline Phosphatase 74 U/L (45-117) Total Protein 7.1 gm/dl (6.4-8.2) Albumin 3.3 gm/dl (3.4-5.0) Lipase 246 U/L (73-393) Human Chorionic Gonadotropin, Quant 2967 mIU/mL Laboratory studies as stated above per my review. Medications Administered Medications (Trade) Dose Ordered Sig/Saundra Route Start Time Stop Time Status Last Admin Dose Admin Ondansetron HCl (Zofran Inj) 4 mg NOW STAT IV 06/26/17 15:54 06/26/17 15:56 DC 06/26/17 16:06 4 MG Sodium Chloride 1,000 ml @ 999 mls/hr Q1H1M STAT IV 06/26/17 15:54 06/26/17 16:54 DC 06/26/17 16:06 999 MLS/HR ED Course 1543: Past medical records reviewed. The patient was evaluated in room A11B, and a complete history and physical examination were performed. 1554: NSS 1000 ml @ 999 mls/hr IV, Zofran 4 mg IV. 1735: I reevaluated the patient. She is resting comfortably. 1738: I discussed the patients case with Evans Blunt LAW REPORTER. He recommends she follow up in the office on Wednesday. 1744: I reevaluated the patient. She is feeling well and is ready to go home. I discussed her results and discharge instructions and she verbalized complete understanding and agreement. Medical Decision The differential diagnoses considered include ectopic , , UTI , colitis, electrolyte or metabolic abnormality. This patient comes in as described above. She was placed in room A 11. She has been having some lower abdominal cramping at times she has a recent positive test. No bleeding. She appears well on exam is no significant tenderness. IV access was established and blood work was obtained. I have reviewed her old records her blood type is A+ and therefore she would not need RhoGAM if she were to be bleeding. Her quantitative hCG was 2900 range. Ultrasound shows a possible IUP however is too early to say. I did discuss case with Dr. Clement who recommends following up with her on Wednesday and they will see her in the office and repeat her blood work and ultrasound. She appears well. I talked to her at length about this. At this point I do not find any evidence of ectopic however it's hard to 100% rule this out as what she needs close follow-up. I also gave her precautions to return she has increasing pain, vaginal bleeding, worsening of symptoms, any new problems or concerns. She is happy with the plan and discharged to home. Medication Reconcilliation Current Medication List: was personally reviewed by me Blood Pressure Screening Patient's blood pressure: Normal blood pressure Blood pressure disposition: Did not require urgent referral Consults Time Called: 1736 Consulting Physician: Evans Blunt LAW REPORTER Returned Call: [phone] I discussed the patients case with Evans Blunt LAW REPORTER. He recommends she follow up in the office on Wednesday. Impression Primary Impression: Abdominal pain Additional Impression: Scribe Attestation The scribe's documentation has been prepared under my direction and personally reviewed by me in its entirety. I confirm that the note above accurately reflects all work, treatment, procedures, and medical decision making performed by me. Departure Information Dispostion Home / Self-Care Referrals No Doctor, Assigned (PCP) Patient Instructions My [facility] Additional Instructions Rest REturn if: Increasing pain, vaginal bleeding, worsening of symptoms, any new problems or concerns You need to follow-up with Evans LAW REPORTER on Wednesday and have your blood work recheck and likely ultrasound to ensure that this is not a out of place. Return to ER over the weekend if symptoms worsen in anyway Problem Qualifiers
[2017-06-26] MEDS ORDERED: SODIUM CHLORIDE 0.9% 1000ML 1,000 ML IV STA (15:54)
[2017-06-26] MEDS ORDERED: ONDANSETRON INJ 2 MG/ML 2 ML VIAL IV STA (15:54)
[2017-06-26 16:14] LABS: BASO % 0.1 %; BASO ABS # 0.01 K/uL (0-0.2); EOS % 1.1 %; EOS ABS # 0.08 K/uL (0-0.5); HEMATOCRIT 36.6 % (37-47); HEMOGLOBIN 12.7 g/dL (12.0-16.0); IG# 0.01 K/uL (0.00-0.02); LYMPH % 28.5 %; LYMPH ABS # 2.16 K/uL (1.2-3.4); MEAN CELL VOLUME 89.5 fL (80-100); MEAN CORPUSCULAR HEMOGLOBIN 31.1 pg (25-34); MEAN CORPUSCULAR HGB CONC 34.7 g/dl (32-36); MEAN PLATELET VOLUME 10.7 fL (7.4-10.4); MONO % 5.4 %; MONO ABS # 0.41 K/uL (0.11-0.59); NEUT % 64.8 %; NEUT ABS # 4.92 K/uL (1.4-6.5); PLATELET COUNT 221 K/uL (130-400); RED CELL DISTRIBUTION WIDTH CV 12.9 % (11.5-14.5); RED CELL DISTRIBUTION WIDTH SD 41.9 fL (36.4-46.3); WHITE BLOOD COUNT 7.59 K/uL (4.8-10.8)
[2017-06-26 16:33] LABS: ALBUMIN 3.3 gm/dl (3.4-5.0); CALCIUM 8.7 mg/dl (8.5-10.1); CREATININE 0.68 mg/dl (0.60-1.20); POTASSIUM 3.5 mmol/L (3.5-5.1)
[2017-06-26 16:36] LABS: TOTAL PROTEIN 7.1 gm/dl (6.4-8.2)
--- NOTE | 2017-06-26 17:19 | DIAGNOSTIC IMAGING REPORT ---
ULTRASOUND OF THE PELVIS CLINICAL HISTORY: . Pelvic pain. COMPARISON STUDY: Pelvic ultrasound dated 05/21/2017. TECHNIQUE: Real-time, grayscale, and color flow sonography of the pelvis is performed both transabdominally and endovaginally. Images are reviewed in the transverse and longitudinal planes. FINDINGS: Uterus: The uterus is normal in size and echotexture, measuring 10.5 x 5.5 x 7.5 cm. Endometrium: The endometrium is mildly thickened measuring up to 1.7 cm. There is a 7 mm cystic focus in the fundal region. Ovaries: The ovaries are normal in size and morphology. The right ovary measures 4.1 x 2.1 x 2.9 cm and the left ovary measures 4.5 x 2.0 x 2.6 cm. Small follicles are seen bilaterally. Normal Doppler waveforms are shown within both ovaries. Pelvis: There is no free fluid in the cul-de-sac. No concerning adnexal lesion is seen. IMPRESSION: 1. There is a 7 mm cystic focus in the fundal region. Although this may represent a tiny gestational sac this is too small for estimated of dates and no parts are identified. Intrauterine gestation is not confirmed. Although there is no concerning adnexal lesion identified, in the setting of a positive test without a confirmed intrauterine gestation ectopic would be impossible to exclude. Close clinical, laboratory, and sonographic follow-up is recommended. 2. No adnexal or malalignment is identified. Electronically signed by: Moi George M.D. 06/26/2017 5:18 PM Dictated Date/Time: 06/26/2017 5:15 PM
[2017-06-26 17:53] VITALS: BP 108/66; PULSE 65; O2SAT 98
== END 2017-06-26 17:55 | disposition home or self-care (01) ==
LOC: C.EDB 15:08 → C.EDA 17:55
DX: R10.2 Pelvic and perineal pain (principal); Z33.1 Pregnant state, incidental; F90.9 Attention-deficit hyperactivity disorder, unspecified type; F41.9 Anxiety disorder, unspecified; F32.9 Major depressive disorder, single episode, unspecified; M79.7 Fibromyalgia; F17.200 Nicotine dependence, unspecified, uncomplicated; F19.10 Other psychoactive substance abuse, uncomplicated; E28.2 Polycystic ovarian syndrome; F43.10 Post-traumatic stress disorder, unspecified; Z87.442 Personal history of urinary calculi; Z83.3 Family history of diabetes mellitus; Z80.1 Family history of malignant neoplasm of trachea, bronchus and lung; Z80.49 Family history of malignant neoplasm of other genital organs; Z80.0 Family history of malignant neoplasm of digestive organs; Z82.49 Family history of ischemic heart disease and other diseases of the circulatory system; Z82.0 Family history of epilepsy and other diseases of the nervous system; Z82.3 Family history of stroke; Z84.1 Family history of disorders of kidney and ureter

== ENCOUNTER 2017-06-29 19:37 | Emergency (ER) | payer OTHER ==
[~2017-06-29] VITALS: Ht 157.5 cm; Wt 85.8 kg
[2017-06-29 19:43] VITALS: Ht 157.5 cm; Wt 85.8 kg
[2017-06-29] MEDS ORDERED: ONDANSETRON INJ 2 MG/ML 2 ML VIAL IV STA (19:59)
[2017-06-29] MEDS ORDERED: SODIUM CHLORIDE 0.9% 1000ML 500 ML IV STA (19:59)
--- NOTE | 2017-06-29 20:20 | EMERGENCY ROOM VISIT NOTE ---
History Report prepared by Vaughn: Thao Garcia Under the Supervision of: Dr. Moi Arreola M.D. First contact with patient: 19:57 Chief Complaint: PELVIC PAIN Stated Complaint: STOMACH PAINS/PRESSURE WITH SOME SPOTTING History of Present Illness The patient is a 31 year old female who presents to the Emergency Room with complaints of worsening abdominal cramping and pelvic pressure. The patient is 5 weeks . The patient was seen in the ED for pelvic pain and pressure. During her last ED visit, it could not be determined if she was having a miscarriage because her was so early on. She was told to follow up with OBGYN but was unable to get an appointment till , two days from now. The patient's symptoms have become so severe today and she has had some spotting so she decided to come back to the ED and not wait till . The patient knew she was before her last ED visit. She notes vomiting and white vaginal discharge. She has taken Zofran with no relief. The patient states her pain feels like she is "going into labor". The patient has has seven pregnancies (including this one), three children, and three previous miscarriages. Source of History: patient Position: abdomen Symptom Intensity: severe Quality: cramping Timing: worsening Associated Symptoms: + vomiting, + abdominal pain Review of Systems See HPI for pertinent positives & negatives. A total of 10 systems reviewed and were otherwise negative. Past Medical & Surgical Medical Problems: (1) ADHD (2) Anxiety (3) Bronchitis (4) DDD (degenerative disc disease) (5) Depression (6) Depressive disorder, atypical (7) Drug overdose, intentional (8) Drug overdose, intentional (9) Fibromyalgia (10) Gall bladder disease (11) Gestational diabetes (12) H/o C2 vertebral fracture (13) History of - miscarriage (14) Kidney stone (15) Migraine (16) Nicotine dependence (17) PNA (pneumonia) (18) Polycystic ovaries (19) Polysubstance abuse (20) Post-operative infection (21) (22) PTSD (post-traumatic stress disorder) (23) Seizure disorder (24) Seroma (25) Spinal headache (26) Syncope (27) Vaginal delivery Surgical Problems: (1) H/O colonoscopy (2) H/O neck surgery (3) S/P cholecystectomy (4) S/p lumbar decompression/fusion (5) S/P tonsillectomy Family History Diabetes mellitus GRANDMOTHER FH: cancer MOTHER (lung, uterus) AUNT (stomach CA) FH: gallbladder disease FH: heart disease GRANDMOTHER FH: lung disease Hypertension GRANDFATHER GRANDMOTHER Kidney disease Kidney stones Seizures Stroke Thyroid disorder MOTHER Social History Smoking Status: Current Every Day Smoker Alcohol Use: none Drug Use: cocaine, other Marital Status: in relationship Housing Status: lives alone Occupation Status: employed Current/Historical Medications Scheduled Vit W/ Ferrous Fumara (Pnv Plus Multivi), 1 TAB PO DAILY Ranitidine HCl (Ranitidine HCl), 150 MG PO BID Scheduled PRN Ondansetron Hcl (Zofran), 8 MG PO UD PRN for Nausea Allergies Coded Allergies: Amoxicillin (Verified Allergy, Severe, HIVES AND SOB, 06/15/17) BEE STING (Verified Allergy, Severe, SWELLING, 06/15/17) Hydromorphone (Verified Allergy, Intermediate, ABD PAIN, 06/15/17) Tramadol (Verified Allergy, Intermediate, seizures, 06/15/17) Adhesives (Verified Allergy, Mild, contact dermatitis, 06/15/17) Propranolol (Verified Allergy, Mild, MOUTH SORE, RASH, 06/15/17) Diclofenac (Verified Allergy, Unknown, HIVES/SOB, 06/15/17) Morphine (Verified Adverse Reaction, Intermediate, pt reports moderate to severe stomach discomfort, 06/15/17) pt states she requires a "GI cocktail" to alleviate the stomach discomfort that occurs after receiving Morphine or dilaudid Physical Exam Vital Signs Date Time Temp Pulse Resp B/P (MAP) Pulse Ox O2 Delivery O2 Flow Rate FiO2 06/29/17 22:32 36.8 84 18 97/54 98 06/29/17 22:08 84 18 97/54 98 Room Air 06/29/17 19:43 36.8 95 18 116/78 100 Room Air Physical Exam GENERAL: Patient is in no acute distress. HEENT: No acute trauma, normocephalic atraumatic, mucous membranes moist, no nasal congestion, no scleral icterus. NECK: No stridor, no adenopathy, no meningismus, trachea is midline. LUNGS: Clear to auscultation bilaterally, no wheeze, no rhonchi, breath sounds equal. HEART: Without murmurs gallops or rubs, regular rate and rhythm. ABDOMEN: Tender in lower abdomen/pelvis bilaterally. Soft, bowel sounds positive , no hernias, no peritonitis. EXTREMITIES: No cyanosis or edema, full range of motion of all the joints without pain or difficulty, no signs for acute trauma. NEUROLOGIC: Oriented x 3, no acute motor or sensory deficits, no focal weakness. SKIN: No rash, no jaundice, no diaphoresis. VAGINAL: Normal appearing cervix, white yeast like discharges seen, GC and chlamydia swab taken. Medical Decision & Procedures ER Provider Diagnostic Interpretation: Radiology results as stated below per my review and radiologist interpretation: LIMITED (US) FINDINGS: Note is made of increase in size of a cystic focus within the endometrium since exam of June 26, 2017. This contains a yolk sac which measures 2 mm in size. This represents an intrauterine gestational sac with a mean diameter of 1.06 cm which corresponds to an estimated gestational age of 5 weeks and 1 day. No pole is identified. Note is made of a 1.9 cm corpus luteal cyst within the left ovary. The right ovary measures 3.7 x 2.1 x 2.5 cm and the left measures 2.8 x 2.7 x 2.3 cm. There is no free fluid. IMPRESSION: 1. Increase in size of an intrauterine gestational sac which contains a yolk sac. Slight irregular configuration of the gestational sac, a nonspecific finding. No pole identified. The findings may represent a normal early intrauterine . Clinical follow-up, including serial beta hCG levels and ultrasound is recommended. 2. 1.9 cm left ovarian corpus luteal cyst. Electronically signed by: Edmar Landa M.D. Laboratory Results 06/29/17 20:25 06/29/17 20:25 Test 06/29/17 20:25 06/29/17 22:00 06/29/17 22:15 Red Blood Count 4.22 M/uL (4.2-5.4) Mean Corpuscular Volume 89.1 fL (80-100) Mean Corpuscular Hemoglobin 31.0 pg (25-34) Mean Corpuscular Hemoglobin Concent 34.8 g/dl (32-36) RDW Standard Deviation 41.2 fL (36.4-46.3) RDW Coefficient of Variation 12.9 % (11.5-14.5) Mean Platelet Volume 10.6 fL (7.4-10.4) Anion Gap 7.0 mmol/L (3-11) Est Creatinine Clear Calc Drug Dose 124.8 ml/min Estimated GFR () 136.7 Estimated GFR (Non- 118.0 BUN/Creatinine Ratio 22.3 (10-20) Calcium Level 8.9 mg/dl (8.5-10.1) Human Chorionic Gonadotropin, Quant 9064 mIU/mL Urine Color YELLOW Urine Appearance CLEAR (CLEAR) Urine pH 5.0 (4.5-7.5) Urine Specific [place] 1.024 (1.000-1.030) Urine Protein NEG (NEG) Urine Glucose (UA) NEG (NEG) Urine Ketones 1+ (NEG) Urine Occult Blood NEG (NEG) Urine Nitrite NEG (NEG) Urine Bilirubin NEG (NEG) Urine Urobilinogen NEG (NEG) Urine Leukocyte Esterase NEG (NEG) Laboratory results reviewed by me. Medications Administered Medications (Trade) Dose Ordered Sig/Saundra Route Start Time Stop Time Status Last Admin Dose Admin Sodium Chloride 500 ml @ 999 mls/hr Q31M STAT IV 06/29/17 19:59 06/29/17 20:29 DC 06/29/17 20:29 999 MLS/HR Ondansetron HCl (Zofran Inj) 4 mg NOW STAT IV 06/29/17 19:59 06/29/17 20:04 DC 06/29/17 20:29 4 MG ED Course 1957: The patient was evaluated in room B6. A complete history and physical exam was performed. 1958: Ordered Zofran Inj 4 mg IV, Sodium Chloride 500 ml @ 999 mls/hr IV. 2200: Bedside pelvic exam. See physical exam for findings. 2218: house calls nurse practitioner pharmacist states the best treatment during for a vaginal yeast infection is Monistat over the counter. 223: Reevaluated the patient. Discussed results and discharge instructions: She verbalized understanding and agreement. The patient is ready for discharge. Medical Decision Differential diagnoses: spontaneous , early , uterine spasm, UTI, musculoskeletal pain, hernia, ectopic , STD. There is no leukocytosis or concerning anemia. No significant electrolyte abnormality or kidney failure. Beta quantitative value has more than doubled compared to the value with her last visit. Blood type was A+, RhoGAM is not required. Pelvic ultrasound shows enlargement of the presumed gestational sac when compared to the previous ultrasound. A heart beat could not be seen. The patient received IV Zofran for nausea, she received IV saline. She did not require anything for pain. I did perform a pelvic exam, she appears to have a vaginal yeast infection. A GC and chlamydia swab was sent. I did speak with pharmacy, they recommended [id number] 7 day nightly Monistat for the presumed vaginal yeast infection. The patient should practice pelvic rest, no lifting. She will see [employer] in 2 days as scheduled. She can use Tylenol for pain, heat to the pelvis may be helpful. If she is worsening, if she is having heavier bleeding, she can return for reassessment. Whether this will remain viable is in question. Medication Reconcilliation Current Medication List: was personally reviewed by me Blood Pressure Screening Patient's blood pressure: Low blood pressure Impression Primary Impression: Vaginal bleeding Additional Impressions: Pelvic pain Scribe Attestation The scribe's documentation has been prepared under my direction and personally reviewed by me in its entirety. I confirm that the note above accurately reflects all work, treatment, procedures, and medical decision making performed by me. Departure Information Dispostion Home / Self-Care Referrals Kieran Hemphill M.D. (PCP) Forms HOME CARE DOCUMENTATION FORM, IMPORTANT VISIT INFORMATION, WORK / SCHOOL INSTRUCTIONS Patient Instructions My [facility] [employer] Additional Instructions heat to the sore abdomen may help the cramping tylenol for pain use otc monostat--use the 7 day course every night as directed for the yeast infection return if worsening see ob as scheduled no sex, heavy lifting or straining Problem Qualifiers
[2017-06-29] MEDS ORDERED: RANI150T2 PO (20:34)
[2017-06-29] MEDS ORDERED: PREN1TAB51 PO (20:34)
[2017-06-29] MEDS ORDERED: ONDA8TAB6 PO (20:34)
[2017-06-29 20:36] LABS: HEMATOCRIT 37.6 % (37-47); HEMOGLOBIN 13.1 g/dL (12.0-16.0); MEAN CELL VOLUME 89.1 fL (80-100); MEAN CORPUSCULAR HGB CONC 34.8 g/dl (32-36); MEAN PLATELET VOLUME 10.6 fL (7.4-10.4); PLATELET COUNT 230 K/uL (130-400); RED CELL DISTRIBUTION WIDTH CV 12.9 % (11.5-14.5); RED CELL DISTRIBUTION WIDTH SD 41.2 fL (36.4-46.3); WHITE BLOOD COUNT 9.87 K/uL (4.8-10.8)
[2017-06-29 21:02] LABS: CALCIUM 8.9 mg/dl (8.5-10.1); CREATININE 0.67 mg/dl (0.60-1.20); POTASSIUM 3.5 mmol/L (3.5-5.1)
--- NOTE | 2017-06-29 22:04 | DIAGNOSTIC IMAGING REPORT ---
LIMITED (US) CLINICAL HISTORY: with pelvic pain and vaginal bleeding. COMPARISON STUDY: ultrasound June 26, 2017. TECHNIQUE: Transabdominal and transvaginal sonography of the pelvis was performed. FINDINGS: Note is made of increase in size of a cystic focus within the endometrium since exam of June 26, 2017. This contains a yolk sac which measures 2 mm in size. This represents an intrauterine gestational sac with a mean diameter of 1.06 cm which corresponds to an estimated gestational age of 5 weeks and 1 day. No pole is identified. Note is made of a 1.9 cm corpus luteal cyst within the left ovary. The right ovary measures 3.7 x 2.1 x 2.5 cm and the left measures 2.8 x 2.7 x 2.3 cm. There is no free fluid. IMPRESSION: 1. Increase in size of an intrauterine gestational sac which contains a yolk sac. Slight irregular configuration of the gestational sac, a nonspecific finding. No pole identified. The findings may represent a normal early intrauterine . Clinical follow-up, including serial beta hCG levels and ultrasound is recommended. 2. 1.9 cm left ovarian corpus luteal cyst. Electronically signed by: Edmar Landa M.D. 06/29/2017 10:03 PM Dictated Date/Time: 06/29/2017 9:55 PM
[2017-06-29 22:32] VITALS: BP 97/54; PULSE 84; TEMP 36.8; O2SAT 98
== END 2017-06-29 22:33 | disposition home or self-care (01) ==
LOC: C.EDB 19:39
DX: R10.2 Pelvic and perineal pain (principal); O20.9 Hemorrhage in early pregnancy, unspecified; Z3A.01 Less than 8 weeks gestation of pregnancy; F90.9 Attention-deficit hyperactivity disorder, unspecified type; O99.341 Other mental disorders complicating pregnancy, first trimester; F41.9 Anxiety disorder, unspecified; F32.9 Major depressive disorder, single episode, unspecified; O99.351 Diseases of the nervous system complicating pregnancy, first trimester; M79.7 Fibromyalgia; O26.891 Other specified pregnancy related conditions, first trimester; Z87.442 Personal history of urinary calculi; G43.909 Migraine, unspecified, not intractable, without status migrainosus; Z87.01 Personal history of pneumonia (recurrent); F43.10 Post-traumatic stress disorder, unspecified; O99.331 Smoking (tobacco) complicating pregnancy, first trimester; F17.210 Nicotine dependence, cigarettes, uncomplicated; Z83.3 Family history of diabetes mellitus; Z80.9 Family history of malignant neoplasm, unspecified; Z83.79 Family history of other diseases of the digestive system; Z82.49 Family history of ischemic heart disease and other diseases of the circulatory system; Z84.1 Family history of disorders of kidney and ureter

== ENCOUNTER 2017-07-01 13:32 | Emergency (ER) | payer OTHER ==
[~2017-07-01] VITALS: Ht 157.5 cm; Wt 86.8 kg
[~2017-07-01 13:32] MED LIST changes: +ONDA8TAB6 PO; +PREN1TAB51 PO; -PRENTAB65 PO; +RANI150T2 PO
[2017-07-01 13:36] VITALS: TEMP 36.5; Ht 157.5 cm; Wt 86.8 kg
--- NOTE | 2017-07-01 14:03 | EMERGENCY ROOM VISIT NOTE ---
History Report prepared by Vaughn: Thao Garcia Under the Supervision of: Dr. Alfredo Can D.O. First contact with patient: 13:50 Chief Complaint: MENTAL HEALTH EVALUATION Stated Complaint: WANTS REFERRAL FOR THE [facility] History of Present Illness The patient is a 31 year old female who presents to the Emergency Room for a mental health evaluation. The patient was recently admitted at [address] [place] [address] for an overdose. She states she signed out AMA. The patient states "I feel like I want to ". Per mother, the patient has been "in and out" of the [facility] since she was the 13 years old. The patient is 5 weeks . The patient reports she was using cocaine and meth prior to her her last admission to [address] [place] [address]. She denies any alcohol use. The patient's mother called the [facility] to be see if they would accept the patient and they told her to come to the ED to get medically cleared. The patient stopped taking her Klonopin Topamax, gabapentin, Zofran, Zantac, and Ritalin since she found out she was . Source of History: patient Position: other (generalized) Quality: other (mental health evaluation) Modifying Factors (Worsening): other (none) Modifying Factors (Relieving): other (none) Review of Systems See HPI for pertinent positives & negatives. A total of 10 systems reviewed and were otherwise negative. Past Medical & Surgical Medical Problems: (1) ADHD (2) Anxiety (3) Bronchitis (4) DDD (degenerative disc disease) (5) Depression (6) Depressive disorder, atypical (7) Drug overdose, intentional (8) Drug overdose, intentional (9) Fibromyalgia (10) Gall bladder disease (11) Gestational diabetes (12) H/o C2 vertebral fracture (13) History of - miscarriage (14) Kidney stone (15) Migraine (16) Nicotine dependence (17) PNA (pneumonia) (18) Polycystic ovaries (19) Polysubstance abuse (20) Post-operative infection (21) (22) PTSD (post-traumatic stress disorder) (23) Seizure disorder (24) Seroma (25) Spinal headache (26) Syncope (27) Vaginal delivery Surgical Problems: (1) H/O colonoscopy (2) H/O neck surgery (3) S/P cholecystectomy (4) S/p lumbar decompression/fusion (5) S/P tonsillectomy Family History Diabetes mellitus GRANDMOTHER FH: cancer MOTHER (lung, uterus) AUNT (stomach CA) FH: gallbladder disease FH: heart disease GRANDMOTHER FH: lung disease Hypertension GRANDFATHER GRANDMOTHER Kidney disease Kidney stones Seizures Stroke Thyroid disorder MOTHER Social History Smoking Status: Current Every Day Smoker Alcohol Use: none Drug Use: cocaine, other Marital Status: in relationship Housing Status: lives alone Occupation Status: employed Current/Historical Medications Scheduled Vit W/ Ferrous Fumara (Pnv Plus Multivi), 1 TAB PO DAILY Ranitidine HCl (Ranitidine HCl), 150 MG PO BID Scheduled PRN Ondansetron Hcl (Zofran), 8 MG PO UD PRN for Nausea Allergies Coded Allergies: Amoxicillin (Verified Allergy, Severe, HIVES AND SOB, 07/01/17) BEE STING (Verified Allergy, Severe, SWELLING, 07/01/17) Hydromorphone (Verified Allergy, Intermediate, ABD PAIN, 06/15/17) Tramadol (Verified Allergy, Intermediate, seizures, 07/01/17) Adhesives (Verified Allergy, Mild, contact dermatitis, 07/01/17) Propranolol (Verified Allergy, Mild, MOUTH SORE, RASH, 07/01/17) Diclofenac (Verified Allergy, Unknown, HIVES/SOB, 07/01/17) Morphine (Verified Adverse Reaction, Intermediate, pt reports moderate to severe stomach discomfort, 07/01/17) pt states she requires a "GI cocktail" to alleviate the stomach discomfort that occurs after receiving Morphine or dilaudid Physical Exam Vital Signs Date Time Temp Pulse Resp B/P (MAP) Pulse Ox O2 Delivery O2 Flow Rate FiO2 07/01/17 18:18 78 20 105/70 98 Room Air 07/01/17 15:43 77 18 101/61 98 Room Air 07/01/17 13:36 36.5 95 16 124/84 100 Room Air Physical Exam GENERAL: Patient is awake, alert, and in no acute distress. Patient is uncomfortably appearing and showing no signs of anxiety EYES: The conjunctivae are clear. The pupils are round and reactive. EARS, NOSE, MOUTH AND THROAT: The nose is without any evidence of any deformity. Mucous membranes are moist tongue is midline NECK: The neck is nontender and supple. RESPIRATORY: Normal respiratory effort is noted there is no evidence of wheezing rhonchi or rales CARDIOVASCULAR: Regular rate and rhythm noted there no murmurs rubs or gallops normal S1 normal S2 GASTROINTESTINAL: The abdomen is soft. Bowel sounds are present in all quadrants. Abdomen is nontender MUSCULOSKELETAL/EXTREMITIES: There is no evidence of gross deformity full range of motion is noted in the hips and shoulders SKIN: There is no obvious evidence of any rash. There are no petechiae, pallor or cyanosis noted. NEUROLOGIC: Patient is awake alert and oriented x3 strength is symmetric patellar reflexes are 2+ bilaterally PSYCH: Currently admitting to suicidal ideation without a plan, flat affect. Medical Decision & Procedures Laboratory Results 07/01/17 14:09 Red Blood Count 4.13, Mean Corpuscular Volume 88.6, Mean Corpuscular Hemoglobin 31.0, Mean Corpuscular Hemoglobin Concent 35.0, Mean Platelet Volume 11.1, Neutrophils (%) (Auto) 66.4, Lymphocytes (%) (Auto) 25.4, Monocytes (%) (Auto) 6.7, Eosinophils (%) (Auto) 1.3, Basophils (%) (Auto) 0.1, Neutrophils # (Auto) 4.58, Lymphocytes # (Auto) 1.75, Monocytes # (Auto) 0.46, Eosinophils # (Auto) 0.09, Basophils # (Auto) 0.01 07/01/17 14:09 Test 07/01/17 14:09 07/01/17 15:23 White Blood Count 6.90 K/uL (4.8-10.8) Red Blood Count 4.13 M/uL (4.2-5.4) Hemoglobin 12.8 g/dL (12.0-16.0) Hematocrit 36.6 % (37-47) Mean Corpuscular Volume 88.6 fL (80-100) Mean Corpuscular Hemoglobin 31.0 pg (25-34) Mean Corpuscular Hemoglobin Concent 35.0 g/dl (32-36) Platelet Count 216 K/uL (130-400) Mean Platelet Volume 11.1 fL (7.4-10.4) Neutrophils (%) (Auto) 66.4 % Lymphocytes (%) (Auto) 25.4 % Monocytes (%) (Auto) 6.7 % Eosinophils (%) (Auto) 1.3 % Basophils (%) (Auto) 0.1 % Neutrophils # (Auto) 4.58 K/uL (1.4-6.5) Lymphocytes # (Auto) 1.75 K/uL (1.2-3.4) Monocytes # (Auto) 0.46 K/uL (0.11-0.59) Eosinophils # (Auto) 0.09 K/uL (0-0.5) Basophils # (Auto) 0.01 K/uL (0-0.2) RDW Standard Deviation 41.0 fL (36.4-46.3) RDW Coefficient of Variation 12.8 % (11.5-14.5) Immature Granulocyte % (Auto) 0.1 % Immature Granulocyte # (Auto) 0.01 K/uL (0.00-0.02) Anion Gap 6.0 mmol/L (3-11) Est Creatinine Clear Calc Drug Dose 125.6 ml/min Estimated GFR () 136.7 Estimated GFR (Non- 118.0 BUN/Creatinine Ratio 16.2 (10-20) Calcium Level 9.0 mg/dl (8.5-10.1) Total Bilirubin 0.3 mg/dl (0.2-1) Direct Bilirubin < 0.1 mg/dl (0-0.2) Aspartate Amino Transf (AST/SGOT) 12 U/L (15-37) Alanine Aminotransferase (ALT/SGPT) 22 U/L (12-78) Alkaline Phosphatase 60 U/L (45-117) Total Protein 6.9 gm/dl (6.4-8.2) Albumin 3.4 gm/dl (3.4-5.0) Thyroid Stimulating Hormone (TSH) 1.070 uIu/ml (0.300-4.500) Human Chorionic Gonadotropin, Quant 45378 mIU/mL Salicylates Level 1.8 mg/dl (2.8-20) Acetaminophen Level < 2 ug/ml (10-30) Ethyl Alcohol mg/dL < 3.0 mg/dl (0-3) Urine Color YELLOW Urine Appearance CLOUDY (CLEAR) Urine pH 7.0 (4.5-7.5) Urine Specific Tea 1.027 (1.000-1.030) Urine Protein NEG (NEG) Urine Glucose (UA) NEG (NEG) Urine Ketones TRACE (NEG) Urine Occult Blood NEG (NEG) Urine Nitrite NEG (NEG) Urine Bilirubin NEG (NEG) Urine Urobilinogen NEG (NEG) Urine Leukocyte Esterase SMALL (NEG) Urine WBC (Auto) 1-5 /hpf (0-5) Urine RBC (Auto) 5-10 /hpf (0-4) Urine Hyaline Casts (Auto) 1-5 /lpf (0-5) Urine Epithelial Cells (Auto) >30 /lpf (0-5) Urine Bacteria (Auto) NEG (NEG) Urine Pathogenic Casts 1-5 GRANULAR CASTS /lpf (0) Urine Opiates Screen NEG (NEG) Urine Methadone, Qualitative NEG (NEG) Urine Barbiturates NEG (NEG) Urine Phencyclidine (PCP) Level NEG (NEG) Ur Amphetamine/Methamphetamine NEG (NEG) MDMA (Ecstasy) Screen NEG (NEG) Urine Benzodiazepines Screen NEG (NEG) Urine Cocaine Metabolite NEG (NEG) Urine Marijuana (THC) NEG (NEG) Laboratory results per my review. ED Course 1358: The patient was evaluated in room C3. A complete history and physical examination were performed. 153: I updated the patient on her test results. She is resting comfortably. 1817: Referral to the [facility] in process. 1829: Ordered Nicotine Polacrilex 1 piece MT. 1833: The patient was discharged to Dr. Long at the change of shifts. Medical Decision Differential diagnosis: Etiologies such as mood disorder, infection, hypoglycemia, electrolyte abnormalities, cardiac sources, intracerebral event, toxicologic, neurologic, as well as others were entertained. Nursing notes reviewed. Additional history was obtained from the patient's mother. The patient's previous electronic medical records reviewed. Patient is a 31-year-old female who presented to the emergency department for an evaluation mental health problems. The patient was recently admitted to a medical facility but was recently discharged. She's been having significant problems because she is unable to take any of her mental health medications because she is currently 5 weeks . The patient's been having problems with depression as well as suicidal ideation. She states that she does not have a specific plan at this time but is requesting inpatient treatment. I discussed the patient's laboratory results with her. She is medically cleared in the emergency department. She was evaluated by the mental health delegate. At this time bed search is underway. Medication Reconcilliation Current Medication List: was personally reviewed by me Blood Pressure Screening Patient's blood pressure: Normal blood pressure Impression Primary Impression: Depression Additional Impression: Suicidal ideation Scribe Attestation The scribe's documentation has been prepared under my direction and personally reviewed by me in its entirety. I confirm that the note above accurately reflects all work, treatment, procedures, and medical decision making performed by me. Departure Information Referrals Kieran Hemphill M.D. (PCP) Patient Instructions My [facility] Problem Qualifiers
[2017-07-01 14:31] LABS: BASO % 0.1 %; BASO ABS # 0.01 K/uL (0-0.2); EOS % 1.3 %; EOS ABS # 0.09 K/uL (0-0.5); HEMATOCRIT 36.6 % (37-47); HEMOGLOBIN 12.8 g/dL (12.0-16.0); IG# 0.01 K/uL (0.00-0.02); LYMPH % 25.4 %; LYMPH ABS # 1.75 K/uL (1.2-3.4); MEAN CELL VOLUME 88.6 fL (80-100); MEAN PLATELET VOLUME 11.1 fL (7.4-10.4); MONO % 6.7 %; MONO ABS # 0.46 K/uL (0.11-0.59); NEUT % 66.4 %; NEUT ABS # 4.58 K/uL (1.4-6.5); PLATELET COUNT 216 K/uL (130-400); RED CELL DISTRIBUTION WIDTH CV 12.8 % (11.5-14.5)
[2017-07-01 14:48] LABS: ALBUMIN 3.4 gm/dl (3.4-5.0); ALT/SGPT 22 U/L (12-78); BLOOD UREA NITROGEN 11 mg/dl (7-18); CARBON DIOXIDE 26 mmol/L (21-32); CREATININE 0.67 mg/dl (0.60-1.20); GLUCOSE 103 mg/dl (70-99); POTASSIUM 3.3 mmol/L (3.5-5.1); SODIUM 138 mmol/L (136-145)
[2017-07-01 14:59] LABS: ALKALINE PHOSPHATASE 60 U/L (45-117); AST/SGOT 12 U/L (15-37); TOTAL PROTEIN 6.9 gm/dl (6.4-8.2)
[2017-07-01] MEDS ORDERED: NICOTINE POLACRILEX 2 MG GUM MT PRN (18:30)
[2017-07-01 22:35] VITALS: BP 121/69; PULSE 73; O2SAT 99
== END 2017-07-01 22:36 ==
LOC: C.EDB 13:34 → C.EDC 22:36
DX: F32.9 Major depressive disorder, single episode, unspecified (principal); R45.851 Suicidal ideations; Z33.1 Pregnant state, incidental; F90.9 Attention-deficit hyperactivity disorder, unspecified type; F41.9 Anxiety disorder, unspecified; M79.7 Fibromyalgia; F17.200 Nicotine dependence, unspecified, uncomplicated; G43.909 Migraine, unspecified, not intractable, without status migrainosus; E28.2 Polycystic ovarian syndrome; F43.10 Post-traumatic stress disorder, unspecified; G40.909 Epilepsy, unspecified, not intractable, without status epilepticus; F14.10 Cocaine abuse, uncomplicated; F15.10 Other stimulant abuse, uncomplicated; Z83.3 Family history of diabetes mellitus; Z80.1 Family history of malignant neoplasm of trachea, bronchus and lung; Z80.49 Family history of malignant neoplasm of other genital organs; Z80.0 Family history of malignant neoplasm of digestive organs; Z82.49 Family history of ischemic heart disease and other diseases of the circulatory system; Z82.0 Family history of epilepsy and other diseases of the nervous system; Z84.1 Family history of disorders of kidney and ureter; Z82.3 Family history of stroke

== ENCOUNTER 2017-08-21 21:49 | Emergency (ER) | payer OTHER ==
[~2017-08-21] VITALS: Ht 158.8 cm; Wt 91.2 kg
[~2017-08-21 21:49] MED LIST changes: +ONDA-170 PO; -ONDA8TAB6 PO
[2017-08-21 21:55] VITALS: TEMP 36.7; Ht 158.8 cm; Wt 91.2 kg
[2017-08-21] MEDS ORDERED: SODIUM CHLORIDE 0.9% 1000ML 1,000 ML IV ONE (22:11)
[2017-08-21] MEDS ORDERED: SODIUM CHLORIDE 0.9% 1000ML 1,000 ML IV STA (22:11)
--- NOTE | 2017-08-21 22:26 | EMERGENCY ROOM VISIT NOTE ---
History Report prepared by Vaughn: Juventino Calixto Under the Supervision of: Dr. Zeus Zhao M.D. First contact with patient: 21:58 Chief Complaint: ABDOMINAL PAIN Stated Complaint: 14 WEEKS PREG A LOT OF PAIN AND PRESSURE History of Present Illness The patient is a 31 year old female who presents to the Emergency Room with complaints of sharp, intermittent pain radiating throughout her abdomen beginning earlier today. The patient notes that her pain was initially isolated to the left side of her abdomen, but now radiates throughout her entire abdomen. She reports developing intermittent pressure in her vagina which makes her feel as if she needs to produce a bowel movement. The patient also notes a history of kidney stones, a history of depression, a history of cholecystectomy , and left sided lower back pain. She denies any recent trauma/injury, or any burning sensation upon urinating. The patient states that she is 14 months . She notes that she has been 7 times (including this ), has given to 3 healthy children, and had had 3 miscarriages. The patient states that she experienced some vaginal spotting earlier today, but reports that she is no longer actively bleeding. The patient notes that she vomited several days ago when she was sick. Source of History: patient Onset: Earlier today Position: abdomen (Began in LLQ, now radiating throughout abdomen. ) Quality: sharp Timing: intermittent Associated Symptoms: + vomiting (Resolved ), + back pain (Left sided lower back), + urinary symptoms (Spotting ) Note: Denies: Recent trauma/injury or any burning sensation with urination Associated Symptoms: Vaginal pressure Review of Systems See HPI for pertinent positives & negatives. A total of 10 systems reviewed and were otherwise negative. Past Medical & Surgical Medical Problems: (1) ADHD (2) Anxiety (3) Bronchitis (4) DDD (degenerative disc disease) (5) Depression (6) Depressive disorder, atypical (7) Drug overdose, intentional (8) Drug overdose, intentional (9) Fibromyalgia (10) Gall bladder disease (11) Gestational diabetes (12) H/o C2 vertebral fracture (13) History of - miscarriage (14) Kidney stone (15) Migraine (16) Nicotine dependence (17) PNA (pneumonia) (18) Polycystic ovaries (19) Polysubstance abuse (20) Post-operative infection (21) (22) PTSD (post-traumatic stress disorder) (23) Seizure disorder (24) Seroma (25) Spinal headache (26) Syncope (27) Vaginal delivery Surgical Problems: (1) H/O colonoscopy (2) H/O neck surgery (3) S/P cholecystectomy (4) S/p lumbar decompression/fusion (5) S/P tonsillectomy Old medical records were reviewed. Nurse's notes were reviewed and I agree with. Family History Diabetes mellitus GRANDMOTHER FH: cancer MOTHER (lung, uterus) AUNT (stomach CA) FH: gallbladder disease FH: heart disease GRANDMOTHER FH: lung disease Hypertension GRANDFATHER GRANDMOTHER Kidney disease Kidney stones Seizures Stroke Thyroid disorder MOTHER Social History Smoking Status: Current Every Day Smoker Alcohol Use: none Drug Use: cocaine, other Marital Status: in relationship Housing Status: lives alone Occupation Status: employed Current/Historical Medications Scheduled Vit W/ Ferrous Fumara (Pnv Plus Multivi), 1 TAB PO DAILY Ranitidine HCl (Ranitidine HCl), 150 MG PO BID Scheduled PRN Ondansetron Hcl (Zofran), 8 MG PO UD PRN for Nausea Allergies Coded Allergies: Amoxicillin (Verified Allergy, Severe, HIVES AND SOB, 08/21/17) BEE STING (Verified Allergy, Severe, SWELLING, 08/21/17) Diclofenac (Verified Allergy, Severe, HIVES/SOB, 08/21/17) Tramadol (Verified Allergy, Severe, seizures, 08/21/17) Adhesives (Verified Allergy, Mild, contact dermatitis, 08/21/17) Propranolol (Verified Allergy, Mild, MOUTH SORE, RASH, 08/21/17) Morphine (Verified Adverse Reaction, Intermediate, pt reports moderate to severe stomach discomfort, 07/01/17) pt states she requires a "GI cocktail" to alleviate the stomach discomfort that occurs after receiving Morphine or dilaudid Physical Exam Vital Signs Date Time Temp Pulse Resp B/P (MAP) Pulse Ox O2 Delivery O2 Flow Rate FiO2 08/21/17 23:38 68 18 106/55 99 08/21/17 21:55 36.7 108 20 130/66 96 Room Air Physical Exam General: Non-ill appearing young female in no acute distress. HEENT: Normal cephalic atraumatic. Pupils are equal round and reactive to light. Extraocular movements are intact. Oropharynx is pink with moist mucous membranes. No swelling of the mouth lips or tongue. Neck: Supple with a midline trachea. No meningeal signs or stiffness, no JVD or bruits. No Stridor. Chest: Clear to auscultation bilaterally. No wheezes or rhonchi. No increased work of breathing. Heart: regular rate and rhythm. Abdomen: Mildly tender in lower abdomen bilaterally, more so on left. Nondistended without rebound guarding or rigidity. Extremities: No cyanosis clubbing or edema. No calf tenderness or assymetry Spine/Back. Non tender to palpation. No CVA tenderness Skin: Good turgor without rashes. Neurologic exam: Cranial nerves two through 12 are intact. Motor and sensation are intact and symmetrical throughout. Medical Decision & Procedures ER Provider Diagnostic Interpretation: Radiology results as stated below per my review and radiologist interpretation: US OB 1st TRIMESTER Single gestational sac within the endometrial cavity containing a single fetus with crown-rump length of 7.4 cm with biometric measurements corresponding to 13 weeks 6 days. heart rate is 148 bpm. Estimated date of delivery 02/20/18. Cervix is closed. Cervix was not measured by the job order clerk. Right ovary is normal in size with normal flow. Left ovary is normal in size with normal flow. Radiologist: Fela Rao MD US RENAL: No hydronephrosis or nephrolithiasis or renal masses. Bladder is normal 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 No free fluid. Radiologist: Fela Rao MD Laboratory Results 08/21/17 22:20 Red Blood Count 4.17, Mean Corpuscular Volume 87.5, Mean Corpuscular Hemoglobin 30.2, Mean Corpuscular Hemoglobin Concent 34.5, Mean Platelet Volume 11.0, Neutrophils (%) (Auto) 65.5, Lymphocytes (%) (Auto) 26.7, Monocytes (%) (Auto) 5.8, Eosinophils (%) (Auto) 1.7, Basophils (%) (Auto) 0.1, Neutrophils # (Auto) 5.62, Lymphocytes # (Auto) 2.29, Monocytes # (Auto) 0.50, Eosinophils # (Auto) 0.15, Basophils # (Auto) 0.01 08/21/17 22:20 Test 08/21/17 22:20 White Blood Count 8.59 K/uL (4.8-10.8) Red Blood Count 4.17 M/uL (4.2-5.4) Hemoglobin 12.6 g/dL (12.0-16.0) Hematocrit 36.5 % (37-47) Mean Corpuscular Volume 87.5 fL (80-100) Mean Corpuscular Hemoglobin 30.2 pg (25-34) Mean Corpuscular Hemoglobin Concent 34.5 g/dl (32-36) Platelet Count 188 K/uL (130-400) Mean Platelet Volume 11.0 fL (7.4-10.4) Neutrophils (%) (Auto) 65.5 % Lymphocytes (%) (Auto) 26.7 % Monocytes (%) (Auto) 5.8 % Eosinophils (%) (Auto) 1.7 % Basophils (%) (Auto) 0.1 % Neutrophils # (Auto) 5.62 K/uL (1.4-6.5) Lymphocytes # (Auto) 2.29 K/uL (1.2-3.4) Monocytes # (Auto) 0.50 K/uL (0.11-0.59) Eosinophils # (Auto) 0.15 K/uL (0-0.5) Basophils # (Auto) 0.01 K/uL (0-0.2) RDW Standard Deviation 41.6 fL (36.4-46.3) RDW Coefficient of Variation 12.9 % (11.5-14.5) Immature Granulocyte % (Auto) 0.2 % Immature Granulocyte # (Auto) 0.02 K/uL (0.00-0.02) Urine Color YELLOW Urine Appearance CLEAR (CLEAR) Urine pH 5.5 (4.5-7.5) Urine Specific Sunset 1.016 (1.000-1.030) Urine Protein NEG (NEG) Urine Glucose (UA) NEG (NEG) Urine Ketones NEG (NEG) Urine Occult Blood 1+ (NEG) Urine Nitrite NEG (NEG) Urine Bilirubin NEG (NEG) Urine Urobilinogen NEG (NEG) Urine Leukocyte Esterase TRACE (NEG) Urine WBC (Auto) 1-5 /hpf (0-5) Urine RBC (Auto) 5-10 /hpf (0-4) Urine Hyaline Casts (Auto) 0 /lpf (0-5) Urine Epithelial Cells (Auto) >30 /lpf (0-5) Urine Bacteria (Auto) 2+ (NEG) Urine Mucus PRESENT (NONE PRSENT) Anion Gap 8.0 mmol/L (3-11) Est Creatinine Clear Calc Drug Dose 164.8 ml/min Estimated GFR () 147.7 Estimated GFR (Non- 127.4 BUN/Creatinine Ratio 18.4 (10-20) Calcium Level 8.6 mg/dl (8.5-10.1) Total Bilirubin 0.2 mg/dl (0.2-1) Direct Bilirubin < 0.1 mg/dl (0-0.2) Aspartate Amino Transf (AST/SGOT) 12 U/L (15-37) Alanine Aminotransferase (ALT/SGPT) 17 U/L (12-78) Alkaline Phosphatase 46 U/L (45-117) Total Protein 7.2 gm/dl (6.4-8.2) Albumin 3.3 gm/dl (3.4-5.0) Lipase 175 U/L (73-393) Laboratory studies as stated above per my review. Medications Administered Medications (Trade) Dose Ordered Sig/Saundra Route Start Time Stop Time Status Last Admin Dose Admin Sodium Chloride 1,000 ml @ 999 mls/hr Q1H1M STAT IV 08/21/17 22:11 08/21/17 23:11 DC 08/21/17 22:52 999 MLS/HR Sodium Chloride 1,000 ml @ 150 mls/hr Q6H40M ONCE IV 08/21/17 22:11 08/22/17 01:29 DC 08/21/17 23:03 150 MLS/HR ED Course 2206: Past medical records reviewed. The patient was evaluated in room C11, and a complete history and physical examination were performed. 2211: Ordered Sodium Chloride 1000 ml @ 150 mls/hr IV and Sodium Chloride 1000 ml @ 999 mls/hr IV 2300: Upon reevaluation, the patient is resting comfortably. I discussed the results and treatment plan with her. She verbalized agreement of the treatment plan. The patient was discharged home. Medical Decision Differential Diagnoses Include: complications, UTI, and electrolyte/ metabolic abnormality. This patient comes in as described above. She has been having lower abdominal pain more so on the left. She is . She has had no vaginal bleeding or discharge. IV access established and she was hydrated with IV normal saline. Multiple blood testing was obtained. She has no white count or fever to suggest infection. No acute electrolyte or metabolic ab normality. She i has nothing to suggest UTI. Ultrasounds were obtained of the pelvis and kidneys. Ultrasounds were unremarkable. There is an intrauterine without any abnormality seen. There is no evidence of obstructive uropathy or kidney problem. she has no white count or fever to suggest infection. Her urinalysis is contaminated but does not suggest a UTI and she has no urinary symptoms. She has no acute electrolyte or metabolic abnormality. she is feeling better would like to go home. I think this is reasonable . I will have her rest and drink plenty of fluids and follow-up with her doctor or marketing technology specialist on Wednesday for recheck. She happy to plan and discharged to home. Medication Reconcilliation Current Medication List: was personally reviewed by me Blood Pressure Screening Patient's blood pressure: Normal blood pressure Impression Primary Impression: Right lower quadrant abdominal pain Additional Impression: Scribe Attestation The scribe's documentation has been prepared under my direction and personally reviewed by me in its entirety. I confirm that the note above accurately reflects all work, treatment, procedures, and medical decision making performed by me. Departure Information Dispostion Home / Self-Care Referrals Kieran Hemphill M.D. (PCP) Forms HOME CARE DOCUMENTATION FORM, IMPORTANT VISIT INFORMATION Patient Instructions My [facility] [employer] Additional Instructions Rest. Drink plenty of fluids. May use [id number] acetaminophen(Tylenol) a maximum of 2 regular strength pills every 6 hours. Do not take with any other medications that contain acetaminophen/Tylenol. Do not exceed this dosing regimen. Return if: increasing pain, fever or chills, vaginal bleeding, worsening of symptoms, any new problems or concerns. Follow-up with your doctor for recheck on Wednesday or return to the ER over the weekend if symptoms worsen Problem Qualifiers
[2017-08-21 22:35] LABS: BASO % 0.1 %; BASO ABS # 0.01 K/uL (0-0.2); EOS % 1.7 %; EOS ABS # 0.15 K/uL (0-0.5); HEMATOCRIT 36.5 % (37-47); HEMOGLOBIN 12.6 g/dL (12.0-16.0); IG# 0.02 K/uL (0.00-0.02); LYMPH % 26.7 %; LYMPH ABS # 2.29 K/uL (1.2-3.4); MEAN CELL VOLUME 87.5 fL (80-100); MEAN CORPUSCULAR HEMOGLOBIN 30.2 pg (25-34); MEAN CORPUSCULAR HGB CONC 34.5 g/dl (32-36); MONO % 5.8 %; NEUT % 65.5 %; NEUT ABS # 5.62 K/uL (1.4-6.5); PLATELET COUNT 188 K/uL (130-400); RED CELL DISTRIBUTION WIDTH CV 12.9 % (11.5-14.5); RED CELL DISTRIBUTION WIDTH SD 41.6 fL (36.4-46.3); WHITE BLOOD COUNT 8.59 K/uL (4.8-10.8)
[2017-08-21 22:58] LABS: BLOOD UREA NITROGEN 10 mg/dl (7-18); CREATININE 0.53 mg/dl (0.60-1.20); GLUCOSE 77 mg/dl (70-99)
[2017-08-21 22:59] LABS: ALBUMIN 3.3 gm/dl (3.4-5.0); ALT/SGPT 17 U/L (12-78); CALCIUM 8.6 mg/dl (8.5-10.1); CARBON DIOXIDE 24 mmol/L (21-32); LIPASE 175 U/L (73-393); POTASSIUM 3.5 mmol/L (3.5-5.1); SODIUM 137 mmol/L (136-145)
[2017-08-21 23:01] LABS: ALKALINE PHOSPHATASE 46 U/L (45-117); AST/SGOT 12 U/L (15-37); TOTAL PROTEIN 7.2 gm/dl (6.4-8.2)
[2017-08-21 23:38] VITALS: BP 106/55; PULSE 68; O2SAT 99
--- NOTE | 2017-08-22 06:19 | DIAGNOSTIC IMAGING REPORT ---
(RENAL)RETROPERITON COMP HISTORY: 31 years-old Female eval for stone acute left-sided flank pain with COMPARISON: Pelvic ultrasound of same day TECHNIQUE: Multiple real-time sonographic images of the kidneys and urinary bladder were obtained assessing grayscale appearance and color flow FINDINGS: The right kidney measures 11.8 x 6.1 x 6.1 cm and is unremarkable without renal calculi, hydronephrosis or focal mass lesion. The left kidney is also within normal limits, 11.5 x 6.2 x 6.5 cm without renal calculi or hydronephrosis. Urinary bladder is partially decompressed with ureteral jets not identified. IMPRESSION: Unremarkable sonographic appearance of the kidneys and urinary bladder without renal calculi or hydronephrosis. The above report was generated using voice recognition software. It may contain grammatical, syntax or spelling errors. Electronically signed by: Alvarado Anthony M.D. 08/22/2017 6:18 AM Dictated Date/Time: 08/22/2017 6:16 AM
--- NOTE | 2017-08-22 06:28 | DIAGNOSTIC IMAGING REPORT ---
<14 WKS SINGLE HISTORY: 31 years-old Female eval for compl acute pelvic pain and pressure with COMPARISON: Pelvic ultrasound 06/29/2017 TECHNIQUE: Multiple real-time sonographic images of the deep structures were obtained transabdominally assessing grayscale appearance, color and spectral flow with M-mode analysis FINDINGS: The cervix appears closed. Mild prominence of the left uterus reported by carder blankets which was reportedly transient may reflect a mild uterine contraction. Centimeters appears unremarkable within an anterior location. Single living intrauterine gestation is noted, crown-rump length of 7.4 cm correlating with estimated gestational age of 13 weeks 4 days. BPD measures 2.3 cm, 13 weeks 5 days. HC measures 9.0 cm, 14 weeks 0 days. AC measures 7.7 cm, 14 weeks 1 day. FL measures 1.2 cm, 13 weeks 4 days. Estimated weight is 84.5 g +/- 12.7 g. heart rate measured at 148 bpm. Overall age is estimated at 13 weeks 6 days with estimated date of delivery of 02/20/2018. Bilateral ovaries measure within normal limits and are unremarkable with arterial inflow. No adnexal mass lesions. No significant free pelvic fluid. IMPRESSION: 1. Single living intrauterine gestation with estimated gestational age of 13 weeks 6 days, estimated date of delivery calculated at 02/20/2018. 2. Closed cervix. 3. Unremarkable sonographic appearance of the ovaries. The above report was generated using voice recognition software. It may contain grammatical, syntax or spelling errors. Electronically signed by: Alvarado Anthony M.D. 08/22/2017 6:27 AM Dictated Date/Time: 08/22/2017 6:21 AM
== END 2017-08-22 00:23 | disposition home or self-care (01) ==
LOC: C.EDB 21:50 → C.EDC 08-22 00:23
DX: R10.31 Right lower quadrant pain (principal); O26.892 Other specified pregnancy related conditions, second trimester; Z3A.13 13 weeks gestation of pregnancy; F90.9 Attention-deficit hyperactivity disorder, unspecified type; O99.342 Other mental disorders complicating pregnancy, second trimester; F41.9 Anxiety disorder, unspecified; F32.9 Major depressive disorder, single episode, unspecified; O99.352 Diseases of the nervous system complicating pregnancy, second trimester; M79.7 Fibromyalgia; K82.9 Disease of gallbladder, unspecified; O99.282 Endocrine, nutritional and metabolic diseases complicating pregnancy, second trimester; Z87.442 Personal history of urinary calculi; G43.909 Migraine, unspecified, not intractable, without status migrainosus; Z87.01 Personal history of pneumonia (recurrent); E28.2 Polycystic ovarian syndrome; F43.10 Post-traumatic stress disorder, unspecified; G40.909 Epilepsy, unspecified, not intractable, without status epilepticus; Z83.3 Family history of diabetes mellitus; Z80.9 Family history of malignant neoplasm, unspecified; Z83.79 Family history of other diseases of the digestive system; Z82.49 Family history of ischemic heart disease and other diseases of the circulatory system; Z83.6 Family history of other diseases of the respiratory system; Z84.1 Family history of disorders of kidney and ureter; F17.210 Nicotine dependence, cigarettes, uncomplicated; O99.332 Smoking (tobacco) complicating pregnancy, second trimester; Z88.1 Allergy status to other antibiotic agents; Z91.030 Bee allergy status; Z88.5 Allergy status to narcotic agent; Z88.8 Allergy status to other drugs, medicaments and biological substances

== ENCOUNTER 2017-09-11 20:53 | Emergency (ER) | payer OTHER ==
[~2017-09-11] VITALS: Ht 157.5 cm; Wt 90.6 kg
[2017-09-11 20:55] VITALS: TEMP 36.5; Ht 157.5 cm; Wt 90.6 kg
[2017-09-11] MEDS ORDERED: ONDANSETRON INJ 2 MG/ML 2 ML VIAL IV STA (21:40)
[2017-09-11] MEDS ORDERED: SODIUM CHLORIDE 0.9% 1000ML 1,000 ML IV STA (21:40)
[2017-09-11 22:06] LABS: BASO % 0.2 %; BASO ABS # 0.02 K/uL (0-0.2); EOS % 2.4 %; EOS ABS # 0.21 K/uL (0-0.5); HEMATOCRIT 33.7 % (37-47); HEMOGLOBIN 11.9 g/dL (12.0-16.0); IG# 0.02 K/uL (0.00-0.02); LYMPH % 30.6 %; LYMPH ABS # 2.64 K/uL (1.2-3.4); MEAN CELL VOLUME 87.3 fL (80-100); MEAN CORPUSCULAR HEMOGLOBIN 30.8 pg (25-34); MEAN CORPUSCULAR HGB CONC 35.3 g/dl (32-36); MEAN PLATELET VOLUME 10.8 fL (7.4-10.4); MONO % 6.7 %; MONO ABS # 0.58 K/uL (0.11-0.59); NEUT % 59.9 %; NEUT ABS # 5.16 K/uL (1.4-6.5); PLATELET COUNT 191 K/uL (130-400); RED CELL DISTRIBUTION WIDTH CV 13.1 % (11.5-14.5); RED CELL DISTRIBUTION WIDTH SD 41.5 fL (36.4-46.3); WHITE BLOOD COUNT 8.63 K/uL (4.8-10.8)
[2017-09-11 22:25] LABS: ALBUMIN 3.3 gm/dl (3.4-5.0); CREATININE 0.67 mg/dl (0.60-1.20); POTASSIUM 3.7 mmol/L (3.5-5.1)
[2017-09-12] MEDS ORDERED: PROMETHAZINE HCL INJ 12.5 MG in SODIUM CHLORIDE 0.9% 50ML 50 ML IV STA (00:25)
[2017-09-12 01:27] VITALS: BP 107/74; PULSE 84; O2SAT 99
--- NOTE | 2017-09-12 01:27 | EMERGENCY ROOM VISIT NOTE ---
History First contact with patient: 21:25 Chief Complaint: VAGINAL BLEEDING Stated Complaint: 16WKS ,SPOTTING REAL BAD,STOMACH PAIN History of Present Illness The patient is a 32 year old female who presents to the Emergency Room with complaints of abdominal discomfort and spotting. The patient states that she has had abdominal discomfort for the past 1 day. She states that the pain feels similar to [place] Concepcion contractions, but slightly worse. She has tried Tylenol, water and laying on her side without improvement. She noticed a small amount of spotting when she was wiping after using the restroom today. She has been nauseous and took Zofran without improvement of her symptoms. She denies diarrhea. She does know she has had some burning with urination. The patient is currently 16-17 weeks . She reports 6 prior pregnancies, 3 of which ended in miscarriages. Review of Systems A complete 10 point review of systems was reviewed with the patient with pertinent positives and negatives as per history of present illness. All else were negative. Past Medical/Surgical History Medical Problems: (1) ADHD (2) Anxiety (3) Bronchitis (4) DDD (degenerative disc disease) (5) Depression (6) Depressive disorder, atypical (7) Drug overdose, intentional (8) Drug overdose, intentional (9) Fibromyalgia (10) Gall bladder disease (11) Gestational diabetes (12) H/o C2 vertebral fracture (13) History of - miscarriage (14) Kidney stone (15) Migraine (16) Nicotine dependence (17) PNA (pneumonia) (18) Polycystic ovaries (19) Polysubstance abuse (20) Post-operative infection (21) (22) PTSD (post-traumatic stress disorder) (23) Seizure disorder (24) Seroma (25) Spinal headache (26) Syncope (27) Vaginal delivery Surgical Problems: (1) H/O colonoscopy (2) H/O neck surgery (3) S/P cholecystectomy (4) S/p lumbar decompression/fusion (5) S/P tonsillectomy Family History Diabetes mellitus GRANDMOTHER FH: cancer MOTHER (lung, uterus) AUNT (stomach CA) FH: gallbladder disease FH: heart disease GRANDMOTHER FH: lung disease Hypertension GRANDFATHER GRANDMOTHER Kidney disease Kidney stones Seizures Stroke Thyroid disorder MOTHER Social History Smoking Status: Current Every Day Smoker Alcohol Use: none Drug Use: cocaine, other Marital Status: in relationship Housing Status: lives alone Occupation Status: employed Current/Historical Medications Scheduled Vit W/ Ferrous Fumara (Pnv Plus Multivi), 1 TAB PO DAILY Scheduled PRN Ondansetron Hcl (Zofran), 8 MG PO UD PRN for Nausea Ranitidine HCl (Ranitidine HCl), 150 MG PO BID PRN for GI Upset Physical Exam Vital Signs Date Time Temp Pulse Resp B/P (MAP) Pulse Ox O2 Delivery O2 Flow Rate FiO2 09/12/17 01:27 84 18 107/74 99 Room Air 09/11/17 23:24 85 18 110/74 99 Room Air 09/11/17 20:55 36.5 105 18 109/65 99 Room Air Physical Exam VITALS: Vitals are noted on the nurse's note and reviewed by myself. Vital signs stable. GENERAL: This is a 32-year-old female, in no acute distress, nondiaphoretic, well-developed well-nourished. SKIN: The skin was without rashes. EARS: External auditory canals clear, tympanic membranes pearly joiner without erythema or effusion bilaterally. EYES: Pupils equal round and reactive to light and accommodation. MOUTH: Mucous membranes moist. Tonsils are not enlarged. Pharynx without erythema or exudate. NECK: Supple without nuchal rigidity. No lymphadenopathy. HEART: Regular rate and rhythm without murmurs gallops or rubs. LUNGS: Clear to auscultation bilaterally without wheezes, rales or rhonchi. ABDOMEN: Positive bowel sounds x 4. Soft, mild tenderness to palpation across the lower abdomen. No guarding or rebound tenderness. NEURO: Patient was alert and oriented to person place and time. Medical Decision & Procedures ER Provider Diagnostic Interpretation: US OB LIMITED: Compared to 06/29/17. Single live intrauterine measuring 148 bpm. Anterior placenta. Cervical length 4.3 cm. There is linear hypoechogenicity in the central cervix. If there is concern, repeat study may be considered. Unremarkable left ovary. Right ovary not visualized. Radiologist: Lovely Khan M.D. Laboratory Results 09/11/17 21:55 Red Blood Count 3.86, Mean Corpuscular Volume 87.3, Mean Corpuscular Hemoglobin 30.8, Mean Corpuscular Hemoglobin Concent 35.3, Mean Platelet Volume 10.8, Neutrophils (%) (Auto) 59.9, Lymphocytes (%) (Auto) 30.6, Monocytes (%) (Auto) 6.7, Eosinophils (%) (Auto) 2.4, Basophils (%) (Auto) 0.2, Neutrophils # (Auto) 5.16, Lymphocytes # (Auto) 2.64, Monocytes # (Auto) 0.58, Eosinophils # (Auto) 0.21, Basophils # (Auto) 0.02 09/11/17 21:55 Test 09/11/17 21:55 White Blood Count 8.63 K/uL (4.8-10.8) Red Blood Count 3.86 M/uL (4.2-5.4) Hemoglobin 11.9 g/dL (12.0-16.0) Hematocrit 33.7 % (37-47) Mean Corpuscular Volume 87.3 fL (80-100) Mean Corpuscular Hemoglobin 30.8 pg (25-34) Mean Corpuscular Hemoglobin Concent 35.3 g/dl (32-36) Platelet Count 191 K/uL (130-400) Mean Platelet Volume 10.8 fL (7.4-10.4) Neutrophils (%) (Auto) 59.9 % Lymphocytes (%) (Auto) 30.6 % Monocytes (%) (Auto) 6.7 % Eosinophils (%) (Auto) 2.4 % Basophils (%) (Auto) 0.2 % Neutrophils # (Auto) 5.16 K/uL (1.4-6.5) Lymphocytes # (Auto) 2.64 K/uL (1.2-3.4) Monocytes # (Auto) 0.58 K/uL (0.11-0.59) Eosinophils # (Auto) 0.21 K/uL (0-0.5) Basophils # (Auto) 0.02 K/uL (0-0.2) RDW Standard Deviation 41.5 fL (36.4-46.3) RDW Coefficient of Variation 13.1 % (11.5-14.5) Immature Granulocyte % (Auto) 0.2 % Immature Granulocyte # (Auto) 0.02 K/uL (0.00-0.02) Urine Color YELLOW Urine Appearance CLEAR (CLEAR) Urine pH 7.0 (4.5-7.5) Urine Specific [place] 1.021 (1.000-1.030) Urine Protein NEG (NEG) Urine Glucose (UA) NEG (NEG) Urine Ketones NEG (NEG) Urine Occult Blood NEG (NEG) Urine Nitrite NEG (NEG) Urine Bilirubin NEG (NEG) Urine Urobilinogen NEG (NEG) Urine Leukocyte Esterase NEG (NEG) Anion Gap 7.0 mmol/L (3-11) Est Creatinine Clear Calc Drug Dose 127.4 ml/min Estimated GFR () 135.8 Estimated GFR (Non- 117.1 BUN/Creatinine Ratio 14.5 (10-20) Calcium Level 9.0 mg/dl (8.5-10.1) Total Bilirubin 0.2 mg/dl (0.2-1) Aspartate Amino Transf (AST/SGOT) 13 U/L (15-37) Alanine Aminotransferase (ALT/SGPT) 17 U/L (12-78) Alkaline Phosphatase 44 U/L (45-117) Total Protein 7.0 gm/dl (6.4-8.2) Albumin 3.3 gm/dl (3.4-5.0) Globulin 3.7 gm/dl (2.5-4.0) Albumin/Globulin Ratio 0.9 (0.9-2) Medications Administered Medications (Trade) Dose Ordered Sig/Saundra Route Start Time Stop Time Status Last Admin Dose Admin Ondansetron HCl (Zofran Inj) 4 mg NOW STAT IV 09/11/17 21:40 09/11/17 21:42 DC 09/11/17 22:18 4 MG Sodium Chloride 1,000 ml @ 999 mls/hr Q1H1M STAT IV 09/11/17 21:40 09/11/17 22:40 DC 09/11/17 22:18 999 MLS/HR Promethazine HCl 12.5 mg/Sodium Chloride 50.5 ml @ 204 mls/hr NOW STAT IV 09/12/17 00:25 09/12/17 00:39 DC 09/12/17 00:42 204 MLS/HR Medical Decision Differential diagnosis includes miscarriage, Yomi-Concepcion contractions, UTI, gastroenteritis, among others. The patient is a 32-year-old female who presents today complaining of abdominal discomfort and spotting. The patient is currently 17 weeks . Labs revealed no leukocytosis. She is mildly anemic. Urinalysis was not suggestive of infection. ultrasound shows an intrauterine with heart tones. Blood type was reviewed from previous visit; patient is blood type B+ and will not require RhoGam. Case was discussed with Dr. Clement of [facility] AUTOMOTIVE GLASS TECHNICIAN, who feels the patient is fine for discharge and can follow-up in the office. She was treated with Zofran and Phenergan for her vomiting. She was advised to return for worsening symptoms. Based on the patient's presentation and work up, I feel the patient is stable for outpatient treatment. The patient was educated to return to the emergency department for any worsening of their current condition or new/concerning symptoms. She will follow up with AUTOMOTIVE GLASS TECHNICIAN. Medication Reconcilliation Current Medication List: was personally reviewed by me Blood Pressure Screening Patient's blood pressure: Normal blood pressure Impression Primary Impression: Vaginal bleeding during Departure Information Dispostion Home / Self-Care Condition GOOD Referrals Kieran Hemphill M.D. (PCP) Chidi Clement MD Patient Instructions My [facility] Additional Instructions Contact AUTOMOTIVE GLASS TECHNICIAN on Wednesday to schedule a follow-up appointment this week for recheck. For pain control, you can use the following [id number] medicines (if >12 yo): - Regular strength (325mg/tab) Tylenol (acetaminophen) 2 tabs every 4-6 hours as needed. Do not exceed 12 tablets in a 24 hour period. Avoid taking more than 4 grams (4000 mg) of Tylenol per day. This includes any other sources of acetaminophen you may take on a regular basis. Rest and drink plenty of fluids. Return to the emergency department with worsening pain, bleeding, or any other new/concerning symptoms.
--- NOTE | 2017-09-12 06:32 | DIAGNOSTIC IMAGING REPORT ---
LIMITED (US) CLINICAL HISTORY: . Vaginal bleeding. COMPARISON STUDY: 06/29/2017 FINDINGS: A limited ultrasound was performed. The cervix appears closed. Cervical length measures 43 mm. The placenta is anterior. A single alive intrauterine gestation is visualized. The heart rate was 148. The BPD measured 38 mm corresponding to an estimated postmenstrual age of 17 weeks and 5 days. The femur measured 23 mm corresponding to an estimated postmenstrual age of 17 weeks and 0 days. The maternal right ovary was nonvisualized. The maternal left ovary measured 37 x 21 x 33 mm. IMPRESSION: Single live intrauterine gestation. The estimated postmenstrual age is 17 weeks and 2 days. Electronically signed by: Ganesh Obando M.D. 09/12/2017 6:30 AM Dictated Date/Time: 09/12/2017 6:28 AM
== END 2017-09-12 01:32 | disposition home or self-care (01) ==
LOC: C.EDB 20:55 → C.EDC 09-12 01:32
DX: O26.852 Spotting complicating pregnancy, second trimester (principal); Z3A.17 17 weeks gestation of pregnancy; O99.282 Endocrine, nutritional and metabolic diseases complicating pregnancy, second trimester; E28.2 Polycystic ovarian syndrome; O99.352 Diseases of the nervous system complicating pregnancy, second trimester; G40.909 Epilepsy, unspecified, not intractable, without status epilepticus; O99.332 Smoking (tobacco) complicating pregnancy, second trimester; F17.200 Nicotine dependence, unspecified, uncomplicated; Z87.59 Personal history of other complications of pregnancy, childbirth and the puerperium; Z86.32 Personal history of gestational diabetes; Z87.442 Personal history of urinary calculi; Z87.01 Personal history of pneumonia (recurrent); Z90.49 Acquired absence of other specified parts of digestive tract; Z98.1 Arthrodesis status; Z90.89 Acquired absence of other organs; Z98.890 Other specified postprocedural states; Z83.3 Family history of diabetes mellitus; Z80.1 Family history of malignant neoplasm of trachea, bronchus and lung; Z80.49 Family history of malignant neoplasm of other genital organs; Z80.0 Family history of malignant neoplasm of digestive organs; Z82.49 Family history of ischemic heart disease and other diseases of the circulatory system; Z84.1 Family history of disorders of kidney and ureter; Z82.3 Family history of stroke; Z82.0 Family history of epilepsy and other diseases of the nervous system

== ENCOUNTER 2017-10-07 21:27 | Emergency (ER) | payer OTHER ==
[~2017-10-07] VITALS: Ht 158.8 cm; Wt 94.0 kg
[2017-10-07 21:38] VITALS: TEMP 36.7; Ht 158.8 cm; Wt 94.0 kg
[2017-10-07] MEDS ORDERED: DOCU-94 PO (22:14)
[2017-10-07] MEDS ORDERED: POLY335019 PO (22:14)
[2017-10-07] MEDS ORDERED: MOML PO (22:14)
[2017-10-07 22:56] VITALS: BP 120/60; PULSE 80; O2SAT 95
--- NOTE | 2017-10-07 22:59 | EMERGENCY ROOM VISIT NOTE ---
History First contact with patient: 21:54 Chief Complaint: BURN (MINOR) Stated Complaint: BURN ON ABDOMEN, 20 WKS History of Present Illness The patient is a 32 year old female who presents to the Emergency Room with complaints of a burn on her lower abdomen. The patient is currently 20 weeks . She states that she was draining a bowl of hot noodles when a child ran into her, and some of the water spilled onto her lower abdomen. She sustained a small burn to the abdomen. She rates the discomfort as 7/10 and states the pain is a burning sensation. She put a burn cream on it immediately. She has no significant concerns, but states that [facility] made her come in. She denies any abdominal pain or vaginal bleeding. She states that she has had normal movement. She does note she has been seeing a high reach operator/GYN due to placenta previa. Her tetanus is up-to-date. Review of Systems A complete 10 point review of systems was reviewed with the patient with pertinent positives and negatives as per history of present illness. All else were negative. Past Medical/Surgical History Medical Problems: (1) ADHD (2) Anxiety (3) Bronchitis (4) DDD (degenerative disc disease) (5) Depression (6) Depressive disorder, atypical (7) Drug overdose, intentional (8) Drug overdose, intentional (9) Fibromyalgia (10) Gall bladder disease (11) Gestational diabetes (12) H/o C2 vertebral fracture (13) History of - miscarriage (14) Kidney stone (15) Migraine (16) Nicotine dependence (17) PNA (pneumonia) (18) Polycystic ovaries (19) Polysubstance abuse (20) Post-operative infection (21) (22) PTSD (post-traumatic stress disorder) (23) Seizure disorder (24) Seroma (25) Spinal headache (26) Syncope (27) Vaginal delivery Surgical Problems: (1) H/O colonoscopy (2) H/O neck surgery (3) S/P cholecystectomy (4) S/p lumbar decompression/fusion (5) S/P tonsillectomy Family History Diabetes mellitus GRANDMOTHER FH: cancer MOTHER (lung, uterus) AUNT (stomach CA) FH: gallbladder disease FH: heart disease GRANDMOTHER FH: lung disease Hypertension GRANDFATHER GRANDMOTHER Kidney disease Kidney stones Seizures Stroke Thyroid disorder MOTHER Social History Smoking Status: Former Smoker Alcohol Use: none Drug Use: cocaine, other Marital Status: in relationship Housing Status: lives alone Occupation Status: employed Current/Historical Medications Scheduled Docusate Sodium (Colace), 100 MG PO BID Magnesium Hydroxide (Milk Of Magnesia), 30 ML PO TID Polyethylene Glycol 3350 (Miralax), 17 GM PO TID Vit W/ Ferrous Fumara (Pnv Plus Multivi), 1 TAB PO DAILY Scheduled PRN Ondansetron Hcl (Zofran), 8 MG PO UD PRN for Nausea Ranitidine HCl (Ranitidine HCl), 150 MG PO BID PRN for GI Upset Physical Exam Vital Signs Date Time Temp Pulse Resp B/P (MAP) Pulse Ox O2 Delivery O2 Flow Rate FiO2 10/07/17 22:56 80 16 120/60 95 Room Air 10/07/17 21:50 Room Air 10/07/17 21:38 36.7 60 18 120/64 96 Room Air Physical Exam VITALS: Vitals are noted on the nurse's note and reviewed by myself. Vital signs stable. GENERAL: This is a 32-year-old female, in no acute distress, nondiaphoretic, well-developed well-nourished. SKIN: There is an 8 cm x 2 cm erythematous and superficial burn to the lower abdomen. There is no skin sloughing or blistering. Total body surface area is less than 1%. ABDOMEN: Gravid appearing uterus. No tenderness to palpation. NEURO: Patient was alert and oriented to person place and time. Medical Decision & Procedures Medical Decision The patient was evaluated as above. She did sustain a small burn to the lower abdomen. Antibiotic ointment and nonstick dressing were applied to the burn and the patient was given materials for dressing changes. She was advised to follow-up with her PCP for a recheck or return here for any signs of infection or other new/concerning symptoms. She verbalized understanding of my assessment and treatment plan and was discharged home in good condition. Medication Reconcilliation Current Medication List: was personally reviewed by me Blood Pressure Screening Patient's blood pressure: Normal blood pressure Impression Primary Impression: Burn injury Departure Information Dispostion Home / Self-Care Condition GOOD Referrals Kieran Hemphill M.D. (PCP) Patient Instructions My [facility] Additional Instructions You have been treated in the Emergency Department today for a burn on your abdomen. Apply antibiotic ointment and a dressing to your wound daily. Look for signs of infection of the wound including: increased pain, swelling, foul discharge, streaking, or increased temperature. If any of these are noticed you should return to the Emergency Department for further assessment and treatment. For pain control, you can use the following [id number] medicines (if >12 yo): - Regular strength (325mg/tab) Tylenol (acetaminophen) 2 tabs every 4-6 hours as needed. Do not exceed 12 tablets in a 24 hour period. Avoid taking more than 4 grams (4000 mg) of Tylenol per day. This includes any other sources of acetaminophen you may take on a regular basis. Follow-up with your primary care provider for a recheck of your wound. Return to the emergency department if your symptoms worsen despite treatment course outlined above.
== END 2017-10-07 23:04 | disposition home or self-care (01) ==
LOC: C.EDB 21:28 → C.EDC 23:04
DX: T30.0 Burn of unspecified body region, unspecified degree (principal); X12.XXXA Contact with other hot fluids, initial encounter; F90.9 Attention-deficit hyperactivity disorder, unspecified type; F41.9 Anxiety disorder, unspecified; F43.10 Post-traumatic stress disorder, unspecified; Z87.891 Personal history of nicotine dependence; F11.20 Opioid dependence, uncomplicated

== ENCOUNTER 2018-01-04 19:45 | Outpatient (CLI) | payer OTHER ==
[~2018-01-04] VITALS: Ht 158.8 cm; Wt 95.9 kg
[~2018-01-04 19:45] MED LIST changes: +NIFE10CA20 PO; -ONDA-170 PO
[2018-01-04] MEDS ORDERED: NURSING VERBAL MED ORDER ONE (20:30)
[2018-01-04 20:37] VITALS: Ht 158.8 cm; Wt 95.9 kg
[2018-01-04] MEDS ORDERED: NIFEdipine 10 MG CAP PO ONE (20:45)
--- NOTE | 2018-01-04 22:00 | HISTORY & PHYSICAL EXAMINATION ---
DATE OF ADMISSION: 01/04/2018 CHIEF COMPLAINT: Intrauterine , 33 weeks 5 days, questionable leakage of fluid. HISTORY OF PRESENT ILLNESS: The patient is a 32-year-old 7, para 3. She has had 3 spontaneous ABs. Her general health is complicated by back surgery which she had in 2015, fusion of several discs, and she also had neck surgery in 2002. She has been admitted several times for questionable premature labor. She is presently on Procardia 10 mg every 4-6 hours. She states that she had some leakage of fluid at about 5:30 p.m. and it was questionable whether it was just urine or amniotic fluid. She came to maternity. They did an AmniSure, it was negative. They did a pelvic exam, showed that the presenting part was floating. The cervix was 1 cm dilated. PAST MEDICAL HISTORY: She has 3 children in good health. ALLERGIES: SHE IS ALLERGIC TO AMOXICILLIN, PROPRANOLOL, TRAMADOL, MORPHINE, AND MUSCLE RELAXANTS. PAST SURGICAL HISTORY: She had a back surgery in 2015, neck surgery in 2002, gallbladder and tonsils removed. SOCIAL HISTORY: She has cut down her smoking to about 2 cigarettes a day, smoked for at least 15 years. No history of alcohol intake. She is a [id number] mom. FAMILY HISTORY: Mom is 47. She has suspected Lynette's chorea. Her father's health is unknown. She has no full brothers or sisters. REVIEW OF SYSTEMS: She does have a history of migraine headaches and in the past time she has been on Imitrex, Topamax. No history of frequent or severe bladder infections. PHYSICAL EXAMINATION: GENERAL: Well-developed, well-nourished, 32-year-old white female, alert, oriented x3 and cooperative, in no acute distress, appeared her stated age. EYES: Conjunctivae are pink. Sclerae white, no evidence of jaundice. EARS: Had normal light reflex bilaterally. HEART: Had regular rhythm. S1 and S2 are normal. BREASTS: Normal. ABDOMEN: Soft and nontender. There is no CVA tenderness. MUSCULOSKELETAL: No calf tenderness. PELVIC: Revealed the cervix to be 1 cm, presenting part floating, posterior about 30% effaced. IMPRESSIONS OF THIS CASE: Status post back surgery, status post neck surgery, status post gallbladder surgery, status post T and A, and suspected rupture of membranes.
== END 2018-01-04 21:45 | disposition home or self-care (01) ==
LOC: C.OPB 19:45 → C.LD 19:45 → C.OPB 21:45
PROVIDERS: ATTEND Obstetrics & Gynecology
DX: Z34.83 Encounter for supervision of other normal pregnancy, third trimester (principal); Z3A.33 33 weeks gestation of pregnancy; F17.210 Nicotine dependence, cigarettes, uncomplicated; Z88.0 Allergy status to penicillin; Z88.5 Allergy status to narcotic agent

== ENCOUNTER → 2018-01-27 | Outpatient (CLI) | payer OTHER | END | disposition home or self-care (01) | LOC: C.LABSPEC 14:21 | PROVIDERS: ATTEND Obstetrics & Gynecology | DX: Z34.83 Encounter for supervision of other normal pregnancy, third trimester (principal) ==

== ENCOUNTER 2018-01-28 20:46 | Outpatient (CLI) | payer OTHER ==
[~2018-01-28] VITALS: Ht 158.8 cm; Wt 97.7 kg
[2018-01-28 21:54] VITALS: Ht 158.8 cm; Wt 97.7 kg
[2018-01-28] MEDS ORDERED: NURSING VERBAL MED ORDER ONE (23:00)
[2018-01-28] MEDS ORDERED: CEPHALEXIN 500MG HOME PACK 1 EA BTL PO ONE (23:15)
[2018-01-28] MEDS ORDERED: CEPHALEXIN MONOHYDRATE 500 MG CAP PO ONE (23:15)
== END 2018-01-29 00:17 | disposition home or self-care (01) ==
LOC: C.LD 20:46 → C.OPB 20:46
PROVIDERS: ATTEND Obstetrics & Gynecology
DX: O36.8190 Decreased fetal movements, unspecified trimester, not applicable or unspecified (principal); Z3A.00 Weeks of gestation of pregnancy not specified